=== PATIENT | female | born 1935 | race Caucasian/White ===

== ENCOUNTER → 2016-07-08 | Outpatient (CLI) | payer MEDICARE ==
--- NOTE | 2016-07-08 13:10 | US ---
EXAMINATION TYPE: US thyroid st tissue head/neck DATE OF EXAM: 07/08/2016 12:01 PM COMPARISON: NONE CLINICAL HISTORY: dysphagia, fatigue, hair loss GLAND SIZE: Right Lobe: 4.6 x 2.0 x 1.7 cm Overall Parenchyma: homogenous Left Lobe: 3.9 x 1.4 x 1.2 cm Overall Parenchyma: homogeneous Isthmus Thickness: 0.6 cm NODULES RIGHT: # of nodules measured on right: 1 1. 0.3 X 0.3 x 0.3 cm mixed nodule at the mid pole with well-defined margins; . This nodule is wid er than tall and shows no intranodular vascularity. Prior size: no prior LEFT: # of nodules measured on left: 0 ISTHMUS: # of nodules measured in the isthmus: 0 IMPRESSION: Small subcentimeter thyroid nodule right lobe of the gland
== END | disposition home or self-care (01) ==
LOC: RADUSWWP 11:30
PROVIDERS: ATTEND Family Medicine
DX: E04.1 Nontoxic single thyroid nodule (principal)
CPT/HCPCS: 76536

== ENCOUNTER → 2016-07-08 | Outpatient (CLI) | payer MEDICARE ==
[2016-07-08 11:51] LABS: Blood Urea Nitrogen 21 mg/dL (7-17); Non-African American GFR(MDRD) >60 (>60 ml/min/1.73 sqM)
--- NOTE | 2016-07-08 13:44 | CT ---
EXAMINATION TYPE: CT abdomen pelvis w con DATE OF EXAM: 07/08/2016 1:06 PM COMPARISON: NONE INDICATION: dysphagia, pain DLP: 565.8 mGycm, Automated exposure control for dose reduction was used. CONTRAST: 100 mL of Omnipaque 300. Study performed with Oral Contrast TECHNIQUE: Axial images were obtained from above the diaphragm to the pubic rami in the axial plane a t 5 mm thick sections. Reconstructed images are reviewed on the computer in the coronal plane. FINDINGS: Limited CT sections are obtained the lung bases. The lung bases are clear. Large hernia is present . 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 Coronary artery calcifications present. CT ABDOMEN: Liver: Normal Spleen: Normal Pancreas: Normal Adrenal glands: The adrenal glands are normal. Gallbladder: Surgically absent Kidneys: No masses are evident. No hydronephrosis is present. No cysts are present. Delayed images were obtained through the kidneys, which remain unremarkable. Aorta: Vascular calcification is within the aorta. Inferior vena cava: Normal. CT PELVIS: Loops of bowel within the abdomen and pelvis are normal. There are loops of bowel which are incom pletely distended or lack oral contrast limiting their evaluation. Appendix: Not identified Urinary bladder: Normal. Genitourinary structures: Uterus and ovaries are not identified. Osseous structures: No suspicious lytic or sclerotic lesions. IMPRESSIONS: 1. Herniation of stomach into the thorax. This large herniation may have the gastroesophageal juncti on near its normal location suggesting paraesophageal hernia within the differential.
== END | disposition home or self-care (01) ==
LOC: RADCTMAIN 10:58
PROVIDERS: ATTEND Surgery Plastic and Reconstructive Surgery
DX: K43.9 Ventral hernia without obstruction or gangrene (principal)
CPT/HCPCS: 82565; 84520; 74177; 36415; Q9967; 76536

== ENCOUNTER 2016-07-22 23:28 | Emergency (ER) | payer MEDICARE ==
[2016-07-23] MEDS ORDERED: SODIUM CHLORIDE 0.9% 1,000 ML IV STA (00:23)
[2016-07-23] MEDS ORDERED: hydrALAZINE HCL 20 MG/ML 1 ML VIAL IVP STA (00:24)
[2016-07-23] MEDS ORDERED: LORazepam 2 MG/ML SYRINGE IV STA (00:24)
--- NOTE | 2016-07-23 00:26 | ED ---
General Adult HPI - General Chief complaint: Recheck/Abnormal Lab/Rx Stated complaint: blood pressure Time Seen by Provider: 07/22/16 23:50 Source: patient, RN notes reviewed, old records reviewed Mode of arrival: wheelchair Limitations: no limitations - History of Present Illness Initial comments: This is a 80-year-old female here for evaluation. This patient comes in for evaluation of uncontrolled blood pressure. Patient denies any symptoms, does have history of heart disease with stent and history of high blood pressure, patient's been taking blood pressure medication as prescribed. Patient going to severe stress in her life right now, of her brother and her sons going to some heart issues himself. Patient denies chest pressure as of breath, no neck pain no headache no abdominal pain. She sutures blood pressure just running high at night when she checks it and continues to go up. Patient states her highest blood pressure today was systolic 220/120 diastolic. - Related Data Home Medications Medication Instructions Recorded Confirmed Aspirin EC [Ecotrin Low Dose] 81 mg PO DAILY 07/22/16 07/22/16 Atorvastatin [Lipitor] 20 mg PO SUMOWEFR 07/22/16 07/22/16 Cholecalciferol [Vitamin D3] 400 unit PO DAILY@1200 07/22/16 07/22/16 Clopidogrel [Plavix] 75 mg PO DAILY 07/22/16 07/22/16 Cyanocobalamin [Vitamin B-12] 500 mcg PO DAILY 07/22/16 07/22/16 Lisinopril [Zestril] 20 mg PO DAILY 07/22/16 07/22/16 Magnesium Gluconate [Magonate] 500 mg PO DAILY 07/22/16 07/22/16 Metoprolol Tartrate 25 mg PO BID 07/22/16 07/22/16 amLODIPine [Norvasc] 5 mg PO HS 07/22/16 07/22/16 Allergies Allergy/AdvReac Type Severity Reaction Status Date / Time hydromorphone [From Dilaudid] Allergy Altered Verified 07/22/16 23:44 Mental Status Penicillins Allergy Swelling Verified 07/22/16 23:44 acetaminophen [From [place]] AdvReac Nausea & Verified 07/22/16 23:44 Vomiting hydrocodone [From [place]] AdvReac Nausea & Verified 07/22/16 23:44 Vomiting Review of Systems ROS Statement: Those systems with pertinent positive or pertinent negative responses have been documented in the HPI. ROS Other: All systems not noted in ROS Statement are negative. Past Medical History Past Medical History: Coronary Artery Disease (CAD), Chest Pain / Angina, Hypertension, Myocardial Infarction ([place]) Additional Past Medical History / Comment(s): Bowel/bladder fistula; Bowel obstruction (due to adhesions); frequent urinary tract infection; Lichen sclerosis History of Any Multi-Drug Resistant Organisms: None Reported Past Surgical History: Bladder Surgery, Bowel Resection, Cholecystectomy, Heart Catheterization With Stent, Hernia Repair Additional Past Surgical History / Comment(s): Cataract surgery bilateral Past Psychological History: No Psychological Hx Reported Smoking Status: Never smoker Past Alcohol Use History: None Reported Past Drug Use History: None Reported General Exam Limitations: no limitations General appearance: anxious Head exam: Present: atraumatic, normocephalic, normal inspection Eye exam: Present: normal appearance, PERRL, EOMI. Absent: scleral icterus, conjunctival injection, periorbital swelling ENT exam: Present: normal exam, mucous membranes moist Neck exam: Present: normal inspection. Absent: tenderness, meningismus, lymphadenopathy Respiratory exam: Present: normal lung sounds bilaterally. Absent: respiratory distress, wheezes, rales, rhonchi, stridor Cardiovascular Exam: Present: regular rate, normal rhythm, normal heart sounds. Absent: systolic murmur, diastolic murmur, rubs, gallop, clicks GI/Abdominal exam: Present: soft, normal bowel sounds. Absent: distended, tenderness, guarding, rebound, rigid Extremities exam: Present: normal inspection, full ROM, normal capillary refill. Absent: tenderness, pedal edema, joint swelling, calf tenderness Back exam: Present: normal inspection Neurological exam: Present: alert, oriented X3, CN II-XII intact Psychiatric exam: Present: normal affect, normal mood Skin exam: Present: warm, dry, intact, normal color. Absent: rash Course Vital Signs 07/22/16 23:37 Temperature 98.3 F Pulse Rate 72 Respiratory 18 Rate Blood Pressure 179/88 O2 Sat by Pulse 98 Oximetry - Reevaluation(s) Reevaluation #1: 07/23/16 00:25 Blood pressure is improved with medication and anxiolysis EKG Findings - EKG Comments: EKG Findings:: EKG shows sinus rhythm rate of 65, pO2 10, QRS 78, QTC 457 Medical Decision Making - Medical Decision Making 80 female year with increased stress and grief reaction, increased blood pressure, patient will be given anxiolysis for home, to follow-up with Dr. Long for further evaluation of blood pressure Disposition Clinical Impression: Anxiety, Grief reaction, Hypertension, uncontrolled Disposition: HOME SELF-CARE Condition: Good Instructions: Hypertension (ED), Grief and Loss (ED) Referrals: Leonardo Rodrigez Jr, DO [Primary Care Provider] - 1-2 days
[2016-07-23 00:45] VITALS: RESP 16
[2016-07-23 00:54] LABS: Basophils # (A) 0.1 k/uL (0-0.2); Basophils % (A) 2 %; CH 31.2; CHCM 35.1; Eosinophils # (A) 0.2 k/uL (0-0.7); Eosinophils % (A) 2 %; HCT 43.9 % (34.0-46.0); HDW 2.98; HGB 14.8 gm/dL (11.4-16.0); Luc # (Auto) 0.11; Luc % (Auto) 1; Lymphocytes # (A) 1.6 k/uL (1.0-4.8); Lymphocytes % (A) 19 %; MCH 30.1 pg (25.0-35.0); MCHC 33.7 g/dL (31.0-37.0); MCV 89.2 fL (80.0-100.0); Mean Platelet Volume 7.6; Monocytes # (A) 0.6 k/uL (0-1.0); Monocytes % (A) 7 %; Neutrophils # (A) 5.5 k/uL (1.3-7.7); Neutrophils % (A) 68 %; RBC 4.92 m/uL (3.80-5.40); RDW 13.7 % (11.5-15.5); WBC (Perox) 8.02
[2016-07-23 01:04] LABS: ALT 31 U/L (9-52); AST 29 U/L (14-36); Alkaline Phosphatase 106 U/L (38-126); Anion Gap 14 mmol/L; Blood Urea Nitrogen 15 mg/dL (7-17); Calcium 9.8 mg/dL (8.4-10.2); Carbon Dioxide 24 mmol/L (22-30); Chloride 106 mmol/L (98-107); Glucose 118 mg/dL (74-99); Magnesium 1.7 mg/dL (1.6-2.3); Non-African American GFR(MDRD) >60 (>60 ml/min/1.73 sqM); Phosphorous 3.8 mg/dL (2.5-4.5); Potassium 4.1 mmol/L (3.5-5.1); Sodium 144 mmol/L (137-145); Total Protein 7.1 g/dL (6.3-8.2)
[2016-07-23 03:57] VITALS: BP 104/55; PULSE 66; TEMP 97.2
== END 2016-07-23 04:09 | disposition home or self-care (01) ==
LOC: EC 23:28
DX: F43.22 Adjustment disorder with anxiety (principal); I10 Essential (primary) hypertension; I25.10 Atherosclerotic heart disease of native coronary artery without angina pectoris; I25.2 Old myocardial infarction; Z79.82 Long term (current) use of aspirin; Z79.899 Other long term (current) drug therapy; Z79.02 Long term (current) use of antithrombotics/antiplatelets; Z88.0 Allergy status to penicillin; Z88.5 Allergy status to narcotic agent; Z88.6 Allergy status to analgesic agent; Z95.5 Presence of coronary angioplasty implant and graft
CPT/HCPCS: 36415; 93005; 80053; 83735; 84100; 84484; 85025; 99284; 96361 ×2; 96375; 96374; J2060; J0360

== ENCOUNTER 2019-06-13 22:26 | Observation (INO) | payer MEDICARE ==
[2019-06-13] MEDS ORDERED: LABETALOL 5 MG/ML VIAL MDV IVP STA (23:05)
[2019-06-13] MEDS ORDERED: SODIUM CHLORIDE 0.9% 1,000 ML IV STA (23:06)
[2019-06-13 23:26] LABS: Basophils # (A) 0.1 k/uL (0-0.2); Basophils % (A) 1 %; Eosinophils # (A) 0.2 k/uL (0-0.7); Eosinophils % (A) 3 %; HCT 43.1 % (34.0-46.0); HGB 14.2 gm/dL (11.4-16.0); Lymphocytes # (A) 1.4 k/uL (1.0-4.8); Lymphocytes % (A) 21 %; MCH 30.3 pg (25.0-35.0); MCHC 33.1 g/dL (31.0-37.0); MCV 91.6 fL (80.0-100.0); Mean Platelet Volume 7.9; Monocytes # (A) 0.4 k/uL (0-1.0); Monocytes % (A) 6 %; Neutrophils # (A) 4.6 k/uL (1.3-7.7); Neutrophils % (A) 68 %; Platelet Count 302 k/uL (150-450); RBC 4.71 m/uL (3.80-5.40); RDW 13.8 % (11.5-15.5); WBC 6.8 k/uL (3.8-10.6)
--- NOTE | 2019-06-13 23:27 | ED ---
General Adult HPI - General Chief complaint: Recheck/Abnormal Lab/Rx Stated complaint: High Blood Pressure Time Seen by Provider: 06/13/19 22:34 Source: patient, EMS Mode of arrival: EMS - History of Present Illness Initial comments: Dictation was produced using [employer] dictation software. please excuse any grammatical, word or spelling errors. Chief Complaint: 83-year-old female with past medical history of hypertension, coronary artery disease presents today with elevated blood pressure. History of Present Illness: 83-year-old female she states she's been having several days of elevated blood pressure. Patient continued to the emergency department because she does not know what else to do. She does have a history of hypertension. Patient is currently prescribed lisinopril and amlodipine. She states she does not have anyone in particular that spent managing her blood pressure. She tried calling optical manufacturing technician who instructed her to take a little extra of her blood pressure meds. She states that it helped temporarily however increased again. He does not have any follow-up appointments because she is not able to make these limits given transportation and financial issues. Patient denies any headache. Denies any strokelike symptoms. No chest pain or shortness of breath. The ROS documented in this emergency department record has been reviewed and confirmed by me. Those systems with pertinent positive or negative responses have been documented in the HPI. All other systems are other negative and/or noncontributory. PHYSICAL EXAM: General Impression: Alert and oriented x3, not in acute distress HEENT: Normocephalic atraumatic, extra-ocular movements intact, pupils equal and reactive to light bilaterally, mucous membranes moist. Cardiovascular: Heart regular rate and rhythm, S1&S2 audible, no murmurs, rubs or gallops Chest: Lungs clear to auscultation bilaterally, no rhonchi, no wheeze, no rales Abdomen: Bowel sounds present, abdomen soft, non-tender, non-distended, no organomegaly Musculoskeletal: Pulses present and equal in all extremities, no peripheral edema Motor: no focal deficits noted Neurological: CN II-XII grossly intact, no focal motor or sensory deficits noted Skin: Intact with no visualized rashes Psych: Normal affect and mood ED course: 83-year-old female presents chief complaint of hypertension. All signs upon arrival shows blood pressure 207/119. Patient does not know when she last had a normal blood pressure. Physical examination is benign. Laboratory evaluation obtained. CBC, coag panel, metabolic panel is unremarkable. Magnesium level hours 1.5. Patient given. Internal magnesium. Repeat blood pressures were obtained after labetalol and magnesium administration with improvement to 176/92. Given patient's poor social situation I believe she would benefit from observation admission for adjusting of blood pressure meds and outpatient plan. woolen mill utility worker also consulted. Discussed patient case with Dr. Pagan who is willing to accept patients care. EKG interpretation: Ventricular rate 76, sinus rhythm,. Interval to 24, Q 76, QTC 486. No CO prolongation, no QTC prolongation, no ST or T-wave changes noted. EKG compared to 07/22/2016 showing no changes. Overall, this EKG is unremarkable - Related Data Home Medications Medication Instructions Recorded Confirmed Aspirin EC [Ecotrin Low Dose] 81 mg PO DAILY 07/22/16 06/13/19 Lisinopril [Zestril] 20 mg PO DAILY 07/22/16 06/13/19 Cholecalciferol (Vitamin D3) 2,000 unit PO DAILY 06/13/19 06/13/19 [Vitamin D3] Cyanocobalamin (Vitamin B-12) 1,000 mcg PO DAILY 06/13/19 06/13/19 [Vitamin B-12] Ergocalciferol [Vitamin D2 50,000 unit PO TH 06/13/19 06/13/19 (DRISDOL)] Furosemide [Lasix] 40 mg PO DAILY PRN 06/13/19 06/13/19 Metoprolol Tartrate [Lopressor] 50 mg PO BID 06/13/19 06/13/19 Allergies Allergy/AdvReac Type Severity Reaction Status Date / Time Penicillins Allergy Swelling Verified 06/13/19 23:14 acetaminophen [From [place]] AdvReac Nausea & Verified 06/13/19 23:14 Vomiting hydrocodone [From [place]] AdvReac Nausea & Verified 06/13/19 23:14 Vomiting hydromorphone [From Dilaud[place]] AdvReac Altered Verified 06/13/19 23:14 Mental Status lorazepam [From [place]] AdvReac Confusion Verified 06/13/19 23:14 Review of Systems ROS Statement: Those systems with pertinent positive or pertinent negative responses have been documented in the HPI. ROS Other: All systems not noted in ROS Statement are negative. Past Medical History Past Medical History: Coronary Artery Disease (CAD), Chest Pain / Angina, Hypertension, Myocardial Infarction ([place]) Additional Past Medical History / Comment(s): Bowel/bladder fistula; Bowel obstruction (due to adhesions); frequent urinary tract infection; Lichen sclerosis History of Any Multi-Drug Resistant Organisms: None Reported Past Surgical History: Bladder Surgery, Bowel Resection, Cholecystectomy, Heart Catheterization With Stent, Hernia Repair Additional Past Surgical History / Comment(s): Cataract surgery bilateral Past Psychological History: No Psychological Hx Reported Smoking Status: Never smoker Past Alcohol Use History: None Reported Past Drug Use History: None Reported Course Vital Signs 06/13/19 06/13/19 06/13/19 22:29 23:30 23:50 Temperature 97.0 F L Pulse Rate 67 66 56 L Respiratory 18 19 18 Rate Blood Pressure 207/119 202/88 176/92 O2 Sat by Pulse 98 99 98 Oximetry Medical Decision Making - Lab Data Result diagrams: 06/13/19 23:15 06/13/19 23:15 Lab Results 06/13/19 06/13/19 06/13/19 Range/Units 23:15 23:15 23:15 WBC 6.8 (3.8-10.6) k/uL RBC 4.71 (3.80-5.40) m/uL Hgb 14.2 (11.4-16.0) gm/dL Hct 43.1 (34.0-46.0) % MCV 91.6 (80.0-100.0) fL MCH 30.3 (25.0-35.0) pg MCHC 33.1 (31.0-37.0) g/dL RDW 13.8 (11.5-15.5) % Plt Count 302 (150-450) k/uL Neutrophils % 68 % Lymphocytes % 21 % Monocytes % 6 % Eosinophils % 3 % Basophils % 1 % Neutrophils # 4.6 (1.3-7.7) k/uL Lymphocytes # 1.4 (1.0-4.8) k/uL Monocytes # 0.4 (0-1.0) k/uL Eosinophils # 0.2 (0-0.7) k/uL Basophils # 0.1 (0-0.2) k/uL PT 10.3 (9.0-12.0) sec INR 1.0 (<1.2) APTT 24.9 (22.0-30.0) sec Sodium 142 (137-145) mmol/L Potassium 4.0 (3.5-5.1) mmol/L Chloride 110 H (98-107) mmol/L Carbon Dioxide 24 (22-30) mmol/L Anion Gap 8 mmol/L BUN 13 (7-17) mg/dL Creatinine 0.70 (0.52-1.04) mg/dL Est GFR (CKD-EPI)AfAm >90 (>60 ml/min/1.73 sqM) Est GFR (CKD-EPI)NonAf 80 (>60 ml/min/1.73 sqM) Glucose 112 H (74-99) mg/dL Calcium 9.3 (8.4-10.2) mg/dL Magnesium 1.5 L (1.6-2.3) mg/dL Disposition Clinical Impression: Hypertension Disposition: ADMITTED IP TO THIS HOSP Condition: Fair Referrals: Leonardo Rodrigez Jr, [Primary Care Provider] - 1-2 days Decision Time: 00:04
[2019-06-13 23:34] LABS: Partial Thromboplastin Time 24.9 sec (22.0-30.0); Prothrombin Time 10.3 sec (9.0-12.0)
[2019-06-13 23:35] LABS: African American GFR (CKD) >90 (>60 ml/min/1.73 sqM); Anion Gap 8 mmol/L; Blood Urea Nitrogen 13 mg/dL (7-17); Calcium 9.3 mg/dL (8.4-10.2); Carbon Dioxide 24 mmol/L (22-30); Chloride 110 mmol/L (98-107); Glucose 112 mg/dL (74-99); Magnesium 1.5 mg/dL (1.6-2.3); Non-African American GFR(CKD) 80 (>60 ml/min/1.73 sqM); Sodium 142 mmol/L (137-145)
[2019-06-13] MEDS: MAGNESIUM SULFATE-D5W PMX 1 GM in DEXTROSE/WATER 1 100ML.BAG IVPB SCH (23:49)
[2019-06-14] MEDS ORDERED: NALOXONE 0.4 MG/ML 1 ML VIAL IV PRN
--- NOTE | 2019-06-14 00:08 | XR ---
EXAMINATION TYPE: XR chest 2V DATE OF EXAM: 06/13/2019 COMPARISON: NONE HISTORY: Hypertension TECHNIQUE: 2 views FINDINGS: There is no heart failure nor confluent pneumonic infiltrate. There is hiatal hernia. Heart size is normal. Costophrenic angles are clear. Thoracic aorta is atheromatous. IMPRESSION: No active cardiopulmonary disease. Hiatal hernia.
[2019-06-14] MEDS: SODIUM CHLORIDE 0.9% 1,000 ML IV SCH ×2 (01:01→23:25)
[2019-06-14] MEDS: MAGNESIUM SULFATE-D5W PMX 1 GM in DEXTROSE/WATER 1 100ML.BAG IVPB SCH (01:01)
[2019-06-14] MEDS ORDERED: hydrALAZINE HCL 25 MG TAB PO STA (05:46)
[2019-06-14] MEDS: ASPIRIN 81 MG PO SCH (07:56)
[2019-06-14] MEDS: METOPROLOL TARTRATE 50 MG TAB PO SCH ×3 (07:56→20:02)
[2019-06-14] MEDS: LISINOPRIL 10 MG TAB PO SCH (07:56)
--- NOTE | 2019-06-14 08:20 | P.CRDCN ---
History of Present Illness Consult date: 06/14/19 Chief complaint: Elevated blood pressure/dizziness History of present illness: This is a very pleasant 83-year-old female patient who sees Dr. De Santiago in the office on regular basis with a past medical history significant for coronary artery disease and multiple coronary stenting in the past, hypertension, dyslipidemia, and the placenta diagnosed as of GI bleeding, was brought to the hospital by her son because she has not been feeding well. For the last 2 weeks, she has noticed increasing in her blood pressure. [place] a [place] hospital [place] with elevated blood pressure and at that point her medications were adjusted and she was discharged from the ER same day. Her pressure came down only for one day then started increasing again. Currently she is on lisinopril 20 mg by mouth daily and also she is on metoprolol 50 mg by mouth twice a day. She states that she has been very compliant with her medications and take them every day regularly. In terms of diet consult, she stated that she was not very compliant. Lately she has been consuming came to [employer]. When the patient presented to the emergency room her systolic blood pressure was 180 mmHg. The blood pressure continues to be elevated throughout her hospital stay. Clinically she denies any symptoms of chest pain or chest discomfort but she has been noticing increasing in the dizziness and lightheadedness without any syncope. No shortness of breath. No feeling of heart racing or fluttering. The EKG showed sinus rhythm without any significant ST or T-wave abnormalities. The cardiac enzymes were checked and came in to be unremarkable. The chest x-ray did not show any acute abnormalities. Past Medical History Past Medical History: Coronary Artery Disease (CAD), Chest Pain / Angina, Hypertension, Myocardial Infarction ([place]) Additional Past Medical History / Comment(s): Bowel/bladder fistula; Bowel obstruction (due to adhesions); frequent urinary tract infection; Lichen sclerosis Last Myocardial Infarction Date:: 2011 History of Any Multi-Drug Resistant Organisms: None Reported Past Surgical History: Bladder Surgery, Bowel Resection, Cholecystectomy, Heart Catheterization With Stent, Hernia Repair Additional Past Surgical History / Comment(s): Cataract surgery bilateral Past Anesthesia/Blood Transfusion Reactions: No Reported Reaction Date of Last Stent Placement:: 2011 Past Psychological History: No Psychological Hx Reported Smoking Status: Never smoker Past Alcohol Use History: None Reported Past Drug Use History: None Reported - Past Family History Mother Family Medical History: CVA/TIA Father Family Medical History: Congestive Heart Failure (CHF) Medications and Allergies Home Medications Medication Instructions Recorded Confirmed Type Aspirin EC [Ecotrin Low Dose] 81 mg PO DAILY 07/22/16 06/13/19 History Lisinopril [Zestril] 20 mg PO DAILY 07/22/16 06/13/19 History Cholecalciferol (Vitamin D3) 2,000 unit PO DAILY 06/13/19 06/13/19 History [Vitamin D3] Cyanocobalamin (Vitamin B-12) 1,000 mcg PO DAILY 06/13/19 06/13/19 History [Vitamin B-12] Ergocalciferol [Vitamin D2 50,000 unit PO TH 06/13/19 06/13/19 History (DRISDOL)] Furosemide [Lasix] 40 mg PO DAILY PRN 06/13/19 06/13/19 History Metoprolol Tartrate [Lopressor] 50 mg PO BID 06/13/19 06/13/19 History Allergies Allergy/AdvReac Type Severity Reaction Status Date / Time Penicillins Allergy Swelling Verified 06/13/19 23:14 acetaminophen [From [place]] AdvReac Nausea & Verified 06/13/19 23:14 Vomiting hydrocodone [From [place]] AdvReac Nausea & Verified 06/13/19 23:14 Vomiting hydromorphone [From Dilaudid] AdvReac Altered Verified 06/13/19 23:14 Mental Status lorazepam [From At[place]] AdvReac Confusion Verified 06/13/19 23:14 Physical Exam Vitals: Vital Signs Temp Pulse Pulse Resp BP BP Pulse Ox 06/14/19 08:03 97.6 F 64 18 194/95 99 06/14/19 07:32 97.6 F 66 18 193/98 99 06/14/19 05:58 186/92 06/14/19 05:08 98.2 F 65 18 180/92 99 06/14/19 03:37 68 18 196/87 100 06/14/19 00:41 60 18 177/88 98 06/13/19 23:50 56 L 18 176/92 98 06/13/19 23:30 66 19 202/88 99 06/13/19 22:29 97.0 F L 67 18 207/119 98 Intake and Output 06/13/19 06/14/19 06/14/19 22:59 06:59 14:59 Other: Weight 61.689 kg 61.689 kg - Constitutional General appearance: no acute distress - Respiratory Respiratory: bilateral: CTA - Cardiovascular Rhythm: regular Heart sounds: normal: S1, S2 Abnormal Heart Sounds: systolic murmur Results 06/13/19 23:15 06/13/19 23:15 Coagulation 06/13/19 Range/Units 23:15 PT 10.3 (9.0-12.0) sec APTT 24.9 (22.0-30.0) sec CBC 06/13/19 Range/Units 23:15 WBC 6.8 (3.8-10.6) k/uL RBC 4.71 (3.80-5.40) m/uL Hgb 14.2 (11.4-16.0) gm/dL Hct 43.1 (34.0-46.0) % Plt Count 302 (150-450) k/uL Comprehensive Metabolic Panel 06/13/19 Range/Units 23:15 Sodium 142 (137-145) mmol/L Potassium 4.0 (3.5-5.1) mmol/L Chloride 110 H (98-107) mmol/L Carbon Dioxide 24 (22-30) mmol/L BUN 13 (7-17) mg/dL Creatinine 0.70 (0.52-1.04) mg/dL Glucose 112 H (74-99) mg/dL Calcium 9.3 (8.4-10.2) mg/dL Current Medications Generic Name Dose Route Start Last Admin Trade Name Freq PRN Reason Stop Dose Admin Aspirin 81 mg 06/14/19 09:00 06/14/19 07:56 Aspirin PO 81 mg DAILY JOSE ENRIQUE Administration Hydrochlorothiazide 25 mg 06/14/19 09:00 Hydrodiuril PO DAILY JOSE ENRIQUE Sodium Chloride 1,000 mls @ 20 mls/hr 06/14/19 00:00 06/14/19 01:01 Saline 0.9% IV 20 mls/hr .Q24H JOSE ENRIQUE Administration Lisinopril 30 mg 06/14/19 09:00 06/14/19 07:56 Zestril PO 30 mg DAILY JOSE ENRIQUE Administration Metoprolol Tartrate 50 mg 06/14/19 07:00 06/14/19 08:11 Lopressor PO Not Given BID JOSE ENRIQUE Naloxone HCl 0.2 mg 06/14/19 00:00 Narcan IV Q2M PRN Opioid Reversal Intake and Output 06/13/19 06/14/19 06/14/19 22:59 06:59 14:59 Other: Weight 61.689 kg 61.689 kg Patient Weight 06/15/19 06:59 Weight 61.689 kg 06/13/19 23:15 06/13/19 23:15 Assessment and Plan Assessment: Assessment #1 hypertension emergency #2 coronary artery disease seems to be stable #3 dyslipidemia #4 history of GI bleeding Plan #1 increase the dose of lisinopril to 30 mg by mouth daily #2 add hydrochlorothiazide to the current medical regimen #4 continue the current dose of metoprolol at 50 mg twice a day. We'll, increase the dose because she is bradycardic #5 obtain an echocardiogram was Doppler #6 monitor the patient for next 24 hours at the observational unit. Thank you for allowing us participate in her care
[2019-06-14] MEDS: HYDROCHLOROTHIAZIDE 25 MG TAB PO SCH (08:55)
[2019-06-14] MEDS ORDERED: LISINOPRIL 20 MG TAB PO SCH (09:00)
[2019-06-14] MEDS ORDERED: METOPROLOL TARTRATE 50 MG TAB PO SCH (09:00)
--- NOTE | 2019-06-14 12:00 | ECHOF ---
Referral Reason:HTN MEASUREMENTS -------- HEIGHT: 170.2 cm WEIGHT: 61.7 kg BP: 194/95 RVIDd: 2.9 cm (< 3.3) IVSd: 1.6 cm (0.6 - 1.1) LVIDd: 2.8 cm (3.9 - 5.3) LVPWd: 1.3 cm (0.6 - 1.1) IVSs: 2.1 cm LVIDs: 1.6 cm LVPWs: 1.9 cm LAESV Index (A-L): 34.46 ml/m Ao Diam: 3.1 cm (2.0 - 3.7) AV Cusp: 1.3 cm (1.5 - 2.6) MV E Joel: 0.64 m/s MV DecT: 363 ms MV A Joel: 0.72 m/s MV E/A Ratio: 0.89 AV maxP.01 mmHg AV meanP.65 mmHg RAP: 5.00 mmHg RVSP: 39.63 mmHg FINDINGS -------- Sinus rhythm. This was a technically adequate study. The left ventricular size is normal. There is moderate concentric left ventricular hypertrophy. O verall left ventricular systolic function is normal with, an EF between 60 - 65 %. Both the mean at rial pressure as well as the LV end diastolic pressure is elevated {E/E'}. The right ventricle is normal in size. LA is moderately dilated 34-39 ml/m2 The right atrial size is normal. Interatrial and interventricular septum intact. There is no evidence of aortic regurgitation. There is mild aortic stenosis present. Peak/mean gr adient across the Aortic Valve is 23.01mmHg / 11.65mmHg. Mild mitral annular calcification present. Moderate mitral regurgitation is present. [id number] tricuspid regurgitation present. There is mild pulmonary hypertension. The right ventricular systolic pressure, as measured by Doppler, is 39.63mmHg. There is no pulmonic regurgitation present. The aortic root size is normal. IVC Not well visulized. There is no pericardial effusion. CONCLUSIONS -------- 1. Sinus rhythm. 2. This was a technically adequate study. 3. The left ventricular size is normal. 4. There is moderate concentric left ventricular hypertrophy. 5. Overall left ventricular systolic function is normal with, an EF between 60 - 65 %. 6. Both the mean atrial pressure as well as the LV end diastolic pressure is elevated {E/E'}. 7. The right ventricle is normal in size. 8. LA is moderately dilated 34-39 ml/m2 9. The right atrial size is normal. 10. Interatrial and interventricular septum intact. 11. There is no evidence of aortic regurgitation. 12. There is mild aortic stenosis present. 13. Peak/mean gradient across the Aortic Valve is 23.01mmHg / 11.65mmHg. 14. Mild mitral annular calcification present. 15. Moderate mitral regurgitation is present. 16. [id number] tricuspid regurgitation present. 17. There is mild pulmonary hypertension. 18. The right ventricular systolic pressure, as measured by Doppler, is 39.63mmHg. 19. There is no pulmonic regurgitation present. 20. The aortic root size is normal. 21. IVC Not well visulized. 22. There is no pericardial effusion. RECOVERY OPERATOR: Alicia Peterson RDCS
[2019-06-14] MEDS: amLODIPine 5 MG TAB PO SCH (13:51)
[2019-06-14] MEDS ORDERED: Magnesium Replacement Protocol 1 EACH MISC MISCELLANE PRN (14:58)
--- NOTE | 2019-06-14 15:16 | P.HPIM ---
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 systolic blood pressure on admission 207/119, heart rate 67.. Afebrile. EKG reporting sinus rhythm with first-degree AV block with PACs. potassium 4, magnesium 1.5. troponins pending.Chest x-ray reported as nonacute,hiatal hernia, thoracic aorta atheromatous. Evaluated by cardiology with medications adjusted. Echo reporting normal LV function, EF 60-65%,moderately dilated LA, moderate mitral regurgitation, [id number] tricuspid regurgitation, pulmonary hypertension. Review of Systems ROS Statement: Those systems with pertinent positive or pertinent negative responses have been documented in the HPI. ROS Other: All systems not noted in ROS Statement are negative. Past Medical History Past Medical History: Coronary Artery Disease (CAD), Chest Pain / Angina, Hypertension, Myocardial Infarction (IA) Additional Past Medical History / Comment(s): Bowel/bladder fistula; Bowel obstruction (due to adhesions); frequent urinary tract infection; Lichen scl erosis Last Myocardial Infarction Date:: 2011 History of Any Multi-Drug Resistant Organisms: None Reported Past Surgical History: Bladder Surgery, Bowel Resection, Cholecystectomy, Heart Catheterization With Stent, Hernia Repair Additional Past Surgical History / Comment(s): Cataract surgery bilateral Past Anesthesia/Blood Transfusion Reactions: No Reported Reaction Date of Last Stent Placement:: 2011 Past Psychological History: No Psychological Hx Reported Smoking Status: Never smoker Past Alcohol Use History: None Reported Past Drug Use History: None Reported - Past Family History Mother Family Medical History: CVA/TIA Father Family Medical History: Congestive Heart Failure (CHF) Medications and Allergies Home Medications Medication Instructions Recorded Confirmed Type Aspirin EC [Ecotrin Low Dose] 81 mg PO DAILY 07/22/16 06/13/19 History Lisinopril [Zestril] 20 mg PO DAILY 07/22/16 06/13/19 History Cholecalciferol (Vitamin D3) 2,000 unit PO DAILY 06/13/19 06/13/19 History [Vitamin D3] Cyanocobalamin (Vitamin B-12) 1,000 mcg PO DAILY 06/13/19 06/13/19 History [Vitamin B-12] Ergocalciferol [Vitamin D2 50,000 unit PO TH 06/13/19 06/13/19 History (DRISDOL)] Furosemide [Lasix] 40 mg PO DAILY PRN 06/13/19 06/13/19 History Metoprolol Tartrate [Lopressor] 50 mg PO BID 06/13/19 06/13/19 History Allergies Allergy/AdvReac Type Severity Reaction Status Date / Time Penicillins Allergy Swelling Verified 06/13/19 23:14 acetaminophen [From [place]] AdvReac Nausea & Verified 06/13/19 23:14 Vomiting hydrocodone [From [place]] AdvReac Nausea & Verified 06/13/19 23:14 Vomiting hydromorphone [From Dilaudid] AdvReac Altered Verified 06/13/19 23:14 Mental Status lorazepam [From Ativan] AdvReac Confusion Verified 06/13/19 23:14 Physical Exam Vitals: Vital Signs Temp Pulse Pulse Resp BP BP BP 06/14/19 12:18 97.8 F 60 18 192/83 06/14/19 11:49 97.6 F 56 L 18 167/88 06/14/19 11:21 56 L 18 167/88 06/14/19 08:03 97.6 F 64 18 194/95 06/14/19 07:32 97.6 F 66 18 193/98 06/14/19 05:58 186/92 06/14/19 05:08 98.2 F 65 18 180/92 06/14/19 03:37 68 18 196/87 06/14/19 00:41 60 18 177/88 06/13/19 23:50 56 L 18 176/92 06/13/19 23:30 66 19 202/88 06/13/19 22:29 97.0 F L 67 18 207/119 Pulse Ox 06/14/19 12:18 99 06/14/19 11:49 98 06/14/19 11:21 98 06/14/19 08:03 99 06/14/19 07:32 99 06/14/19 05:58 06/14/19 05:08 99 06/14/19 03:37 100 06/14/19 00:41 98 06/13/19 23:50 98 06/13/19 23:30 99 06/13/19 22:29 98 Intake and Output 06/13/19 06/14/19 06/14/19 22:59 06:59 14:59 Other: Voiding Method Toilet Bedside Commode Weight 61.689 kg 61.689 kg PHYSICAL EXAM: VITAL SIGNS: [as above] GENERAL: sitting up in chair, in no acute distress, teary-eyed HEENT: Conjunctivae normal. eyes normal. NECK: No JVD. No thyroid enlargement. No LNs CARDIOVASCULAR: S1, S2 regular.systolic murmur RESPIRATION: Breath sounds diminished in the bases. No rhonchi or crackles. No bronchial breathing. ABDOMEN: Soft, nontender . No guarding. no masses palpable. No ascites, No hepatosplenomegaly.Bowel sounds heard. LEGS: No edema. no swelling PSYCHIATRY: Alert and oriented X3, mood and affect normal. NERVOUS SYSTEM: Cranial N 2-12 grossly normal. Moves all 4 limbs. Diffuse weakness No focal deficits. Strength and sensation grossly intact.. Skin: no rash Lymphatic system. No LN neck axilla. Results CBC & Chem 7: 06/13/19 23:15 06/13/19 23:15 Labs: Abnormal Lab Results - Last 24 Hours (Table) 06/13/19 Range/Units 23:15 Chloride 110 H (98-107) mmol/L Glucose 112 H (74-99) mg/dL Magnesium 1.5 L (1.6-2.3) mg/dL Thrombosis Risk Factor Assmnt - Choose All That Apply Each Risk Factor Represents 3 Points: Age 75 years or older Thrombosis Risk Factor Assessment Total Risk Factor Score: 3 Thrombosis Risk Factor Assessment Level: Moderate Risk Assessment and Plan Assessment: Hypertensive Urgency in a patient with history of hypertension. EF 60-65%, Moderately dilated LA Moderate mitral regurgitation Mild to moderate tricuspid regurgitation Mild pulmonary hypertension mild aortic stenosis plan: Continue on current medication regime ,monitoring and symptomatic treatment. Continue antihypertensives as adjusted per cardiology.close monitoring of electrolytes, renal function with repeat labs ordered for a.m.case management/social work consulted regarding social issues-patient reports difficulty with transportation as well as financial regarding physcian visits. The impression and plan of care has been dictated as directed. : I performed a history and examination of this patient, discussed the same with the dictator. I agree with the dictator's note ,documented as a scribe. Any additional findings or plans will be noted.
[2019-06-14] MEDS ORDERED: amLODIPine 5 MG TAB PO STA (19:05)
[2019-06-14] MEDS: cloNIDine HCL 0.2 MG TAB PO SCH ×2 (20:02→23:24)
--- NOTE | 2019-06-15 07:19 | P.PN ---
Subjective Progress Note Date: 06/15/19 Principal diagnosis: hypertension emergency this is a very pleasant 83-year-old female patient with coronary artery disease as well as hypertension and dyslipidemia who was admitted to the hospital yesterday with hypertension emergency. At that point we did increase the dose of lisinopril to 30 mg by mouth daily as well as we added hydrochlorothiazide to her medical regimen. An echocardiogram was performed and revealed normal LV function with mild aortic stenosis and qvpy-nm-hqenocyn mitral regurgitation. She was seen this morning. She is asymptomatic from a cardiovascular standpoint of view. Overall she's feeling better clinically and the dizziness which was associated with elevated blood pressure has resolved. The blood pressure is better controlled on the current medical regimen. I did advise the patient to be compliant with her medications as well as her diet and she is going to be discharged home later on today and follow-up with Dr. De Santiago in the office as an outpatient Objective - Vital Signs Vital signs: Vital Signs Temp 97.7 F 06/15/19 04:00 Pulse 54 L 06/15/19 04:00 Resp 18 06/15/19 04:00 BP 107/64 06/15/19 04:00 Pulse Ox 97 06/15/19 04:00 Intake & Output 06/14/19 06/15/19 06/15/19 18:59 06:59 18:59 Weight 61.689 kg Other: Voiding Method Toilet Toilet Bedside Commode Bedside Commode # Voids 2 1 - Constitutional General appearance: Present: no acute distress - Respiratory Respiratory: bilateral: CTA - Cardiovascular Rhythm: regular Heart sounds: normal: S1, S2 Abnormal Heart Sounds: Present: systolic murmur - Labs CBC & Chem 7: 06/13/19 23:15 06/13/19 23:15 Assessment and Plan Assessment: Assessment #1 hypertension emergency #2 coronary artery disease seems to be stable #3 dyslipidemia #4 history of GI bleeding Plan #1 continue the current medical regimen #2 the patient can be discharged home
[2019-06-15] MEDS: cloNIDine HCL 0.2 MG TAB PO SCH (08:05)
[2019-06-15] MEDS: LISINOPRIL 10 MG TAB PO SCH (08:05)
[2019-06-15] MEDS: HYDROCHLOROTHIAZIDE 25 MG TAB PO SCH (08:05)
[2019-06-15] MEDS: amLODIPine 5 MG TAB PO SCH (08:06)
[2019-06-15] MEDS: METOPROLOL TARTRATE 50 MG TAB PO SCH ×2 (08:06→20:05)
[2019-06-15] MEDS: ASPIRIN 81 MG PO SCH (08:06)
[2019-06-15] MEDS ORDERED: SODIUM CHLORIDE 0.9% 1,000 ML IV SCH (11:15)
[2019-06-15] MEDS ORDERED: IBUPROFEN 600 MG TAB PO PRN (13:09)
--- NOTE | 2019-06-15 17:23 | P.PN ---
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 systolic blood pressure on admission 207/119, heart rate 67.. Afebrile. EKG reporting sinus rhythm with first-degree AV block with PACs. potassium 4, magn esium 1.5. troponins pending.Chest x-ray reported as nonacute,hiatal hernia, thoracic aorta atheromatous. Evaluated by cardiology with medications adjusted. Echo reporting normal LV function, EF 60-65%,moderately dilated LA, moderate mitral regurgitation, [id number]-vk-[id number] tricuspid regurgitation, pulmonary hypertension. 06/15/2019 hypotensive this morning, antihypertensives adjusted. Objective - Vital Signs Vital signs: Vital Signs Temp 97.5 F L 06/15/19 15:42 Pulse 55 L 06/15/19 16:00 Resp 18 06/15/19 16:00 BP 97/62 06/15/19 15:42 Pulse Ox 100 06/15/19 15:42 Intake & Output 06/14/19 06/15/19 06/15/19 18:59 06:59 18:59 Intake Total 476 Balance 476 Weight 61.689 kg Intake: Oral 476 Other: Voiding Method Toilet Toilet Toilet Bedside Commode Bedside Commode Bedside Commode Diaper # Voids 2 1 2 # Bowel Movements 1 - Exam VITAL SIGNS: [as above] GENERAL: sitting up in chair, in no acute distress HEENT: Conjunctivae normal. eyes normal. NECK: No JVD. No thyroid enlargement. No LNs CARDIOVASCULAR: S1, S2 regular.systolic murmur RESPIRATION: Breath sounds diminished in the bases. No rhonchi or crackles. No bronchial breathing. ABDOMEN: Soft, nontender . No guarding. no masses palpable. No ascites, No hepatosplenomegaly.Bowel sounds heard. LEGS: No edema. no swelling PSYCHIATRY: Alert and oriented X3, mood and affect normal. NERVOUS SYSTEM: Cranial N 2-12 grossly normal. Moves all 4 limbs. Diffuse weakness No focal deficits. Strength and sensation grossly intact.. Skin: no rash - Labs CBC & Chem 7: 06/13/19 23:15 06/13/19 23:15 Assessment and Plan Assessment: Hypertensive Urgency in a patient with history of hypertension. EF 60-65%, Moderately dilated LA Moderate mitral regurgitation Mild to moderate tricuspid regurgitation Mild pulmonary hypertension mild aortic stenosis plan: Continue on current medication regime ,monitoring and symptomatic treatment. Antihypertensives adjusted per cardiology.close monitoring overnight. Discharge planning in progress for a.m. The impression and plan of care has been dictated as directed. : I performed a history and examination of this patient, discussed the same with the dictator. I agree with the dictator's note ,documented as a scribe. Any additional findings or plans will be noted.
[2019-06-15] MEDS: SODIUM CHLORIDE 0.9% 1,000 ML IV SCH (23:14)
--- NOTE | 2019-06-16 07:20 | P.PN ---
Subjective Progress Note Date: 06/16/19 Principal diagnosis: hypertension emergency this is a very pleasant 83-year-old female patient with coronary artery disease as well as hypertension and dyslipidemia who was admitted to the hospital yesterday with hypertension emergency. At that point we did increase the dose of lisinopril to 30 mg by mouth daily as well as we added hydrochlorothiazide to her medical regimen. An echocardiogram was performed and revealed normal LV function with mild aortic stenosis and jhgn-qk-vkovvoqq mitral regurgitation. She was seen this morning. she is feeling better from the cardiovascular standpoint overview. Yesterday the blood pressure was down and she was symptomatic and because of that we kept her one more day. Today her blood pressure is within normal limits. She denies any chest pain or chest discomfort, shortness of breath, or any more episodes of dizziness and lig htheadedness or headache. From the cardiovascular standpoint of view, the patient can be discharged home. Objective - Vital Signs Vital signs: Vital Signs Temp 97.9 F 06/16/19 04:07 Pulse 53 L 06/16/19 04:07 Resp 17 06/16/19 04:07 BP 141/66 06/16/19 04:07 Pulse Ox 95 06/16/19 04:07 Intake & Output 06/15/19 06/16/19 06/16/19 18:59 06:59 18:59 Intake Total 476 Balance 476 Intake: Oral 476 Other: Voiding Method Toilet Toilet Bedside Commode Bedside Commode Diaper Diaper # Voids 2 1 # Bowel Movements 1 - Constitutional General appearance: Present: no acute distress - Respiratory Respiratory: bilateral: CTA - Cardiovascular Rhythm: regular Heart sounds: normal: S1, S2 Abnormal Heart Sounds: Present: systolic murmur - Labs CBC & Chem 7: 06/13/19 23:15 06/13/19 23:15 Assessment and Plan Assessment: Assessment #1 hypertension emergency #2 coronary artery disease seems to be stable #3 dyslipidemia #4 history of GI bleeding Plan #1 continue the current medical regimen #2 the patient can be discharged home
[2019-06-16 07:37] VITALS: RESP 18
[2019-06-16] MEDS: METOPROLOL TARTRATE 50 MG TAB PO SCH (09:07)
[2019-06-16] MEDS: ASPIRIN 81 MG PO SCH (09:07)
[2019-06-16] MEDS: HYDROCHLOROTHIAZIDE 25 MG TAB PO SCH (09:07)
[2019-06-16] MEDS: amLODIPine 5 MG TAB PO SCH (09:07)
[2019-06-16] MEDS: LISINOPRIL 10 MG TAB PO SCH (09:07)
--- NOTE | 2019-06-16 10:38 | XR ---
EXAMINATION TYPE: XR shoulder complete RT DATE OF EXAM: 06/16/2019 COMPARISON: NONE HISTORY: Pain TECHNIQUE: Shoulder examined in 3 views FINDINGS: There may be some mild elevation of the humeral head in relation to the glenoid. Acromioclavicular ju nction is normal. No acute fractures or dislocations are evident. A follow up study can be performed 7-10 days from acute trauma for continued pain. IMPRESSION: 1. No acute osseous abnormality three-view right shoulder
[2019-06-16 11:58] VITALS: BP 152/84; PULSE 50; TEMP 97.7
--- NOTE | 2019-06-16 13:11 | P.DS ---
Providers Date of admission: 06/14/19 00:02 Expected date of discharge: 06/16/19 Attending physician: Serafin Pagan Consults: 06/14/19 00:01 Consult Physician Routine Consulting Provider: Joselyn De Santiago Consult Reason/Comments: hypertension management Do you want consulting provider notified?: Yes Primary care physician: Greenwood [facility] Hospital Course: final diagnoses: Hypertensive Urgency in a patient with history of hypertension EF 60-65%, Moderately dilated LA Moderate mitral regurgitation Mild to moderate tricuspid regurgitation Mild pulmonary hypertension mild aortic stenosis Hospital courseThis is an 83-year-old female with history of CAD, chest pain/angina, hypertension, [place], bowel/bladder fistula other medical issues presented to the ER with complaints of uncontrolled hypertension over the last couple of weeksaccompanied by lightheadedness without syncope.Reports she has been unable to make appointments with PCP/sleep medicine physician secondary to transportation and financial issues.denies any chest pain,palpitations or shortness of breath. systolic blood pressure on admission 207/119, heart rate 67.. Afebrile. EKG reporting sinus rhythm with first-degree AV block with PACs. potassium 4, magnesium 1.5. troponins pending.Chest x-ray reported as nonacute,hiatal hernia, thoracic aorta atheromatous. Evaluated by cardiology with medications adjusted. Echo reporting normal LV function, EF 60- 65%,moderately dilated LA, moderate mitral regurgitation, qplb-[id number] tricuspid regurgitation, pulmonary hypertension. 06/15/2019 hypotensive this morning, antihypertensives adjusted. Significant clinical improvement. Denies lightheadedness dizziness or focal deficits. Denies chest pain, palpitations or shortness of breath. Cleared by cardiology for discharge. Patient is being discharged home in a stable condition with guarded prognosis. - Exam GENERAL: Alert and oriented 3, no acute distress CARDIOVASCULAR: S1, S2 regular.systolic murmur RESPIRATION: Breath sounds diminished in the bases. No rhonchi crackles or wheezing. ABDOMEN: Soft, nontender . No guarding. no masses palpable. Bowel sounds heard. NERVOUS SYSTEM: No focal deficits. The impression and plan of care has been dictated as directed. : I performed a history and examination of this patient, discussed the same with the dictator. I agree with the dictator's note ,documented as a scribe. Any additional findings or plans will be noted. Patient Condition at Discharge: Stable Plan - Discharge Summary Discharge Rx Participant: No New Discharge Prescriptions: New Hydrochlorothiazide [Hydrodiuril] 25 mg PO DAILY #30 tab amLODIPine [Norvasc] 5 mg PO DAILY #30 tab Lisinopril [Zestril] 30 mg PO DAILY #90 tab Continue Aspirin EC [Ecotrin Low Dose] 81 mg PO DAILY Metoprolol Tartrate [Lopressor] 50 mg PO BID Cyanocobalamin (Vitamin B-12) [Vitamin B-12] 1,000 mcg PO DAILY Cholecalciferol (Vitamin D3) [Vitamin D3] 2,000 unit PO DAILY Ergocalciferol [Vitamin D2 (DRISDOL)] 50,000 unit PO TH Discontinued Lisinopril [Zestril] 20 mg PO DAILY Furosemide [Lasix] 40 mg PO DAILY PRN PRN Reason: Edema Discharge Medication List Aspirin EC [Ecotrin Low Dose] 81 mg PO DAILY 07/22/16 [History] Cholecalciferol (Vitamin D3) [Vitamin D3] 2,000 unit PO DAILY 06/13/19 [History] Cyanocobalamin (Vitamin B-12) [Vitamin B-12] 1,000 mcg PO DAILY 06/13/19 [History] Ergocalciferol [Vitamin D2 (DRISDOL)] 50,000 unit PO TH 06/13/19 [History] Metoprolol Tartrate [Lopressor] 50 mg PO BID 06/13/19 [History] Hydrochlorothiazide [Hydrodiuril] 25 mg PO DAILY #30 tab 06/16/19 [Rx] Lisinopril [Zestril] 30 mg PO DAILY #90 tab 06/16/19 [Rx] amLODIPine [Norvasc] 5 mg PO DAILY #30 tab 06/16/19 [Rx] Follow up Appointment(s)/Referral(s): Joselyn De Santiago MD [STAFF PHYSICIAN] - 2 Weeks (office will call patient at home with an appointment.) Leonardo Rodrigez Jr, DO [Primary Care Provider] - 3 Days Ambulatory/Diagnostic Orders: Complete Blood Count w/diff [LAB.AMB] Time Frame: 3 Days, Location: None Selected Patient Instructions/Handouts: Hypertensive Crisis (DC) Activity/Diet/Wound Care/Special Instructions: pending right shoulder x-ray.spreadout administration of antihypertensive;take Norvasc at noon.
== END 2019-06-16 13:40 | disposition home or self-care (01) ==
LOC: EC 22:26 → 1SOBS 06-14 00:02
PROVIDERS: ADMIT Family Medicine; ATTEND Family Medicine
DX: I16.0 Hypertensive urgency (principal); E78.5 Hyperlipidemia, unspecified; I25.10 Atherosclerotic heart disease of native coronary artery without angina pectoris; I27.20 Pulmonary hypertension, unspecified; I44.0 Atrioventricular block, first degree; I25.2 Old myocardial infarction; K44.9 Diaphragmatic hernia without obstruction or gangrene; Z59.9 Problem related to housing and economic circumstances, unspecified; Z79.82 Long term (current) use of aspirin; Z79.899 Other long term (current) drug therapy; Z82.49 Family history of ischemic heart disease and other diseases of the circulatory system; Z95.5 Presence of coronary angioplasty implant and graft; Z88.5 Allergy status to narcotic agent; Z88.0 Allergy status to penicillin; Z88.8 Allergy status to other drugs, medicaments and biological substances; Z90.49 Acquired absence of other specified parts of digestive tract; Z98.42 Cataract extraction status, left eye; Z98.41 Cataract extraction status, right eye; I95.9 Hypotension, unspecified; I08.3 Combined rheumatic disorders of mitral, aortic and tricuspid valves; Z91.11 Patient's noncompliance with dietary regimen
CPT/HCPCS: 96365; 96366; 96375; 99285; 36415; 93005; 93306; 80048; 83735 ×2; 84484; 85025; 85610; 85730; 73030; 71046; G0378 ×3; J3475 ×2

== ENCOUNTER 2021-08-24 07:52 | Emergency (ER) | payer MEDICARE ==
[2021-08-24] MEDS ORDERED: ONDANSETRON 4 MG/2 ML VIAL IVP STA (08:17)
[2021-08-24] MEDS ORDERED: MORPHINE SULFATE 2 MG/ML SYRINGE IVP STA (08:17)
--- NOTE | 2021-08-24 08:25 | ED ---
Female Urogenital HPI - General Chief complaint: Urogenital Stated complaint: UTI Time Seen by Provider: 08/24/21 08:05 Source: patient, RN notes reviewed Mode of arrival: ambulatory Limitations: no limitations - History of Present Illness Initial comments: This is a pleasant 85-year-old female who presents to emergency Department in acute distress. Patient has a history of coronary artery disease, hypertension, and previous myocardial infarction. Patient complaining of vaginal burning which she states has been present for some 30 years but is getting worse. Patient states that she has swelling and inflammation to the area. Patient s arun she saw a health and wellness coordinator in [facility] who told her it was "lichen sclerosus." Patient states that she has been treated for urinary tract infections several times starting last April. She states the burning and irritation to the vaginal area is now unbearable. Saw her primary care jacobo mendez and was given creams. However, she states that a pelvic examination was not done. Patient has a referral to a specialist in [place] coming up. No headache, no fever or chills, no changes in vision or hearing, no sore throat or difficulty with speech, no neck pain, no chest pain or shortness of breath, no abdominal pain, no nausea or vomiting, complains of burning urination, no change in bowel movements, no numbness or tingling, no extremity pain, no skin rashes or lesions. - Related Data Home Medications Medication Instructions Recorded Confirmed Aspirin EC [Ecotrin Low Dose] 81 mg PO DAILY 07/22/16 06/13/19 Cholecalciferol (Vitamin D3) 2,000 unit PO DAILY 06/13/19 06/13/19 [Vitamin D3] Cyanocobalamin (Vitamin B-12) 1,000 mcg PO DAILY 06/13/19 06/13/19 [Vitamin B-12] Ergocalciferol [Vitamin D2 50,000 unit PO TH 06/13/19 06/13/19 (DRISDOL)] Metoprolol Tartrate [Lopressor] 50 mg PO BID 06/13/19 06/13/19 Previous Rx's Medication Instructions Recorded amLODIPine [Norvasc] 5 mg PO DAILY #30 tab 06/16/19 hydroCHLOROthiazide [Hydrodiuril] 25 mg PO DAILY #30 tab 06/16/19 lisinopriL [Zestril] 30 mg PO DAILY #90 tab 06/16/19 Allergies Allergy/AdvReac Type Severity Reaction Status Date / Time levofloxacin [From Levaquin] Allergy Unknown Verified 08/24/21 08:02 Penicillins Allergy Swelling Verified 08/24/21 08:02 acetaminophen [From Preston] AdvReac Nausea & Verified 08/24/21 08:02 Vomiting hydrocodone [From [place]] AdvReac Nausea & Verified 08/24/21 08:02 Vomiting hydromorphone [From Dilaudid] AdvReac Altered Verified 08/24/21 08:02 Mental Status lorazepam [From Ativan] AdvReac Confusion Verified 08/24/21 08:02 Review of Systems ROS Statement: Those systems with pertinent positive or pertinent negative responses have been documented in the HPI. ROS Other: All systems not noted in ROS Statement are negative. Past Medical History Past Medical History: Coronary Artery Disease (CAD), Chest Pain / Angina, Hypertension, Myocardial Infarction ([place]) Additional Past Medical History / Comment(s): Bowel/bladder fistula; Bowel obstruction (due to adhesions); frequent urinary tract infection; Lichen sclerosis Last Myocardial Infarction Date:: 2011 History of Any Multi-Drug Resistant Organisms: None Reported Past Surgical History: Bladder Surgery, Bowel Resection, Cholecystectomy, Heart Catheterization With Stent, Hernia Repair Additional Past Surgical History / Comment(s): Cataract surgery bilateral Past Anesthesia/Blood Transfusion Reactions: No Reported Reaction Date of Last Stent Placement:: 2011 Past Psychological History: No Psychological Hx Reported Smoking Status: Never smoker Past Alcohol Use History: None Reported Past Drug Use History: None Reported - Past Family History Mother Family Medical History: CVA/TIA Father Family Medical History: Congestive Heart Failure (CHF) General Exam - General Exam Comments Initial Comments: Patient in distress secondary to vaginal discomfort Limitations: no limitations General appearance: alert, in distress Head exam: Present: atraumatic, normocephalic, normal inspection Eye exam: Present: normal appearance, PERRL, EOMI. Absent: scleral icterus, conjunctival injection, periorbital swelling ENT exam: Present: normal exam, mucous membranes moist Neck exam: Present: normal inspection. Absent: tenderness, meningismus, lymphadenopathy Respiratory exam: Present: normal lung sounds bilaterally. Absent: respiratory distress, wheezes, rales, rhonchi, stridor Cardiovascular Exam: Present: regular rate, normal rhythm, normal heart sounds. Absent: systolic murmur, diastolic murmur, rubs, gallop, clicks GI/Abdominal exam: Present: soft, normal bowel sounds. Absent: distended, tenderness, guarding, rebound, rigid External exam: Present: erythema, other (Chaperoned pelvic examination reveals erythematous irritation to the vaginal area extending down to the anus area. No evidence of cellulitis. No evidence of abscess.). Absent: lacerations, ecchymosis Speculum exam: Present: erythema. Absent: vaginal discharge By manual exam: Present: other (Patient has a large, 3.5 cm diameter by 4 cm diameter mass to the left labia involving the labia minora. Cauliflower type appearance. Tender.) Extremities exam: Present: normal inspection, full ROM, normal capillary refill. Absent: tenderness, pedal edema, joint swelling, calf tenderness Back exam: Present: normal inspection Neurological exam: Present: alert, oriented X3, CN II-XII intact Psychiatric exam: Present: normal affect, normal mood Skin exam: Present: warm, dry, intact, normal color. Absent: rash Course Vital Signs 08/24/21 07:59 Temperature 97.5 F L Pulse Rate 65 Respiratory 16 Rate Blood Pressure 118/84 O2 Sat by Pulse 96 Oximetry - Reevaluation(s) Reevaluation #1: 08/24/21 11:48 Medical record is reviewed Symptoms are improved here in the emergency department Patient is informed of results and questions answered Patient in no distress 08/24/21 11:48 Patient's workup appears essentially negative. Mild increased renal function tests. Discussed with the patient. Discussed the case with the patient's on- call primary physician. Medical Decision Making - Medical Decision Making Patient now adding that she was treated for urinary tract infection by primary care physician but the trimethoprim/sulfamethoxazole was stopped after 2 days when she was called by the physician's office. Urinalysis was not sent here. Unable to obtain the urine culture at this point. I did discuss the case with the patient's on-call primary care physician, Dr. Pagan who is on-call for Dr. Rodrigez. He suggested calamine/zinc topically and follow up with Dr. Rodrigez in the office tomorrow. Patient was very frustrated. Patient to follow-up with Dr. Rodrigez in the morning. Patient was told to return to the ER for any signs or symptoms worsen. Told to return immediately if any other problems arise. All questions answered. Treatment plan discussed. Patient in agreement Every effort has been made to ensure accuracy of this dictation. However, due to the limitations of electronic medical records and dictation devices, errors in charting still occur. - Lab Data Result diagrams: 08/24/21 08:33 08/24/21 09:35 Lab Results 08/24/21 08/24/21 08/24/21 Range/Units 08:33 09:35 09:45 WBC 7.3 (3.8-10.6) k/uL RBC 4.71 (3.80-5.40) m/uL Hgb 14.9 (11.4-16.0) gm/dL Hct 44.7 (34.0-46.0) % MCV 94.9 (80.0-100.0) fL MCH 31.5 (25.0-35.0) pg MCHC 33.2 (31.0-37.0) g/dL RDW 13.3 (11.5-15.5) % Plt Count 338 (150-450) k/uL MPV 8.2 Neutrophils % 67 % Lymphocytes % 23 % Monocytes % 6 % Eosinophils % 2 % Basophils % 1 % Neutrophils # 4.9 (1.3-7.7) k/uL Lymphocytes # 1.7 (1.0-4.8) k/uL Monocytes # 0.4 (0-1.0) k/uL Eosinophils # 0.1 (0-0.7) k/uL Basophils # 0.1 (0-0.2) k/uL Sodium 135 L (137-145) mmol/L Potassium 4.3 (3.5-5.1) mmol/L Chloride 105 (98-107) mmol/L Carbon Dioxide 26 (22-30) mmol/L Anion Gap 4 mmol/L BUN 25 H (7-17) mg/dL Creatinine 1.22 H (0.52-1.04) mg/dL Est GFR (CKD-EPI)AfAm 47 (>60 ml/min/1.73 sqM) Est GFR (CKD-EPI)NonAf 41 (>60 ml/min/1.73 sqM) Glucose 115 H (74-99) mg/dL Calcium 9.0 (8.4-10.2) mg/dL Total Bilirubin 1.0 (0.2-1.3) mg/dL AST 28 (14-36) U/L ALT 16 (4-34) U/L Alkaline Phosphatase 90 (38-126) U/L Total Protein 6.7 (6.3-8.2) g/dL Albumin 3.8 (3.5-5.0) g/dL Urine Color Light Yellow Urine Appearance Clear (Clear) Urine pH 6.5 (5.0-8.0) Ur Specific Campus 1.006 (1.001-1.035) Urine Protein Negative (Negative) Urine Glucose (UA) Negative (Negative) Urine Ketones Negative (Negative) Urine Blood Negative (Negative) Urine Nitrite Negative (Negative) Urine Bilirubin Negative (Negative) Urine Urobilinogen <2.0 (<2.0) mg/dL Ur Leukocyte Esterase Negative (Negative) Disposition Clinical Impression: Vaginal irritation, Vaginal mass Disposition: HOME SELF-CARE Condition: Stable Instructions (If sedation given, give patient instructions): Dermatitis (ED) Additional Instructions: Follow-up with your regular physician as directed. Return to the ER immediately if any symptoms worsen, new symptoms arise, or any other problems develop. Follow-up with Dr. Rodrigez in the morning without fail use the cream as directed every 6 hours. Is patient prescribed a controlled substance at d/c from ED?: No Referrals: Leonardo Rodrigez Jr, DO [Primary Care Provider] - 08/25/21 8:00 am Time of Disposition: 11:51
[2021-08-24 08:40] LABS: Basophils # (A) 0.1 k/uL (0-0.2); Basophils % (A) 1 %; Eosinophils # (A) 0.1 k/uL (0-0.7); Eosinophils % (A) 2 %; HCT 44.7 % (34.0-46.0); HGB 14.9 gm/dL (11.4-16.0); Lymphocytes # (A) 1.7 k/uL (1.0-4.8); Lymphocytes % (A) 23 %; MCH 31.5 pg (25.0-35.0); MCHC 33.2 g/dL (31.0-37.0); MCV 94.9 fL (80.0-100.0); Mean Platelet Volume 8.2; Monocytes # (A) 0.4 k/uL (0-1.0); Monocytes % (A) 6 %; Neutrophils # (A) 4.9 k/uL (1.3-7.7); Neutrophils % (A) 67 %; Platelet Count 338 k/uL (150-450); RBC 4.71 m/uL (3.80-5.40); RDW 13.3 % (11.5-15.5); WBC 7.3 k/uL (3.8-10.6)
[2021-08-24 09:55] LABS: Albumin 3.8 g/dL (3.5-5.0); Potassium 4.3 mmol/L (3.5-5.1); Total Protein 6.7 g/dL (6.3-8.2)
[2021-08-24 09:57] LABS: Appearance,Urine Clear (Clear); Bilirubin,Urine Negative (Negative); Blood,Urine Negative (Negative); Color,Urine Light Yellow; Glucose,Urine (UA) Negative (Negative); Ketones,Urine Negative (Negative); Leukocyte Esterase,Urine Negative (Negative); Nitrite,Urine Negative (Negative); PH, Urine 6.5 (5.0-8.0); Protein,Urine Negative (Negative); Specific Gravity,Urine 1.006 (1.001-1.035); Urobilinogen,Urine <2.0 mg/dL (<2.0)
[2021-08-24] MEDS ORDERED: MENTHOL-ZINC OXIDE OINT 113 GM TUBE TOPICAL STA (11:07)
[2021-08-24 12:38] VITALS: BP 120/82; PULSE 66; RESP 18; TEMP 98
== END 2021-08-24 12:26 | disposition home or self-care (01) ==
LOC: EC 07:52
DX: N89.8 Other specified noninflammatory disorders of vagina (principal); I10 Essential (primary) hypertension; I25.2 Old myocardial infarction; I25.10 Atherosclerotic heart disease of native coronary artery without angina pectoris; Z79.82 Long term (current) use of aspirin; Z79.899 Other long term (current) drug therapy
CPT/HCPCS: 36415; 80053; 85025; 81003; 96374; 96375; 99284; J2405; J2270

== ENCOUNTER → 2022-04-03 | Outpatient (CLI) | payer MEDICARE ==
[2022-04-03 22:42] LABS: HCT 41.4 % (37.2-46.3); HGB 14.1 g/dL (12.0-15.0); MCH 30.9 pg (27.0-32.0); MCHC 34.1 g/dL (32.0-37.0); MCV 90.6 fL (80.0-97.0); Mean Platelet Volume 10.6 fL (9.5-12.2); NRBC Per 100 WBC 0 /100 WBCS (0.0-0.0); Platelet Count 353 X 10*3/uL (140-440); RBC 4.57 X 10*6/uL (4.10-5.20); RDW 14.1 % (11.5-14.5); WBC 7.84 X 10*3/uL (4.50-10.00)
[2022-04-03 23:24] LABS: African American GFR (CKD) 59.1 (60.0-200.0); Anion Gap 13.2 mmol/L (10.00-18.00); BUN/Creat Ratio 19.1 Ratio (12.00-20.00); Blood Urea Nitrogen 19.1 mg/dL (9.0-27.0); Calcium 9.2 mg/dL (8.7-10.3); Carbon Dioxide 23.8 mmol/L (20.0-27.5); Potassium 4.4 mmol/L (3.5-5.5)
== END | disposition home or self-care (01) ==
LOC: LABWHC1 14:01
PROVIDERS: ATTEND Anesthesiology
DX: Z01.812 Encounter for preprocedural laboratory examination (principal)
CPT/HCPCS: 36415; 80048; 85027

== ENCOUNTER 2022-11-11 15:58 | Inpatient (IN) | payer MEDICARE ==
--- NOTE | 2022-11-11 16:50 | ED ---
General Adult HPI - General Source: patient Mode of arrival: wheelchair <Betty Meyer - Last Filed: 11/11/22 16:49> <Aaron Weinstein - Last Filed: 11/12/22 04:02> - General Stated complaint: High blood pressure Time Seen by Provider: 11/11/22 16:49 - History of Present Illness Initial comments: Patient is an 87-year-old female presenting with concerns for high blood pressure. Patient is also concerned that she may have a UTI. (Betty Meyer) This is an 87-year-old female with a past medical history including hypertension, congestive heart failure and previous history of "irregular heart rate" presents emergency department for elevated blood pressure and swelling in her lower extremities. The patient stated that the swelling in her lower extremities were worsened today and her blood pressure was elevated today so she came to the emergency department for evaluation. The patient attempted to see her animal shelter manager but he were to dizzy so she came to the emergency department for further evaluation. The patient denied any lightheadedness or dizziness and denied any acute chest pain. Resting in bed comfortably without any nausea, vomiting, fevers and chills. (Aaron Weinstein) - Related Data Home Medications Medication Instructions Recorded Confirmed Aspirin EC [Ecotrin Low Dose] 81 mg PO DAILY 07/22/16 11/11/22 Cyanocobalamin (Vitamin B-12) 1,000 mcg PO DAILY 06/13/19 11/11/22 [Vitamin B-12] Cholecalciferol [Vitamin D3 (25 25 mcg PO DAILY 11/11/22 11/11/22 Mcg = 1000 Iu)] HYDROcodone/APAP 5-325MG [Jachin 1 tab PO DAILY PRN 11/11/22 11/11/22 5-325] Isosorbide Mononitrate ER [Imdur] 60 mg PO DAILY 11/11/22 11/11/22 Metoprolol Tartrate [Lopressor] 12.5 mg PO DAILY 11/11/22 11/11/22 Multivit-Min/Iron/Folic/Lutein 1 tab PO DAILY 11/11/22 11/11/22 [Centrum Silver Women Tablet] Nitroglycerin Sl Tabs [Nitrostat] 0.4 mg SUBLINGUAL Q5M PRN 11/11/22 11/11/22 Pravastatin Sodium [Pravachol] 10 mg PO DAILY 11/11/22 11/11/22 lisinopriL [Zestril] 5 mg PO DAILY 11/11/22 11/11/22 lisinopriL [Zestril] 15 mg PO HS 11/11/22 11/11/22 Previous Rx's Medication Instructions Recorded hydroCHLOROthiazide [Hydrodiuril] 25 mg PO DAILY #30 tab 06/16/19 Allergies Allergy/AdvReac Type Severity Reaction Status Date / Time levofloxacin [From Levaquin] Allergy Unknown Verified 11/11/22 22:17 Penicillins Allergy Swelling Verified 11/11/22 22:17 of neck hydromorphone [From Dilaudid] AdvReac Altered Verified 11/11/22 22:17 Mental Status lorazepam [From Ativan] AdvReac Confusion Verified 11/11/22 22:17 Review of Systems ROS Other: All systems not noted in ROS Statement are negative. <Betty Meyer - Last Filed: 11/11/22 16:49> ROS Other: All systems not noted in ROS Statement are negative. <Aaron Weinstein - Last Filed: 11/12/22 04:02> ROS Statement: Those systems with pertinent positive or pertinent negative responses have been documented in the HPI. Past Medical History Past Medical History: Coronary Artery Disease (CAD), Chest Pain / Angina, Hypertension, Myocardial Infarction (DE) Additional Past Medical History / Comment(s): Bowel/bladder fistula; Bowel obstruction (due to adhesions); frequent urinary tract infection; Lichen sclerosis Last Myocardial Infarction Date:: 2011 History of Any Multi-Drug Resistant Organisms: None Reported Past Surgical History: Bladder Surgery, Bowel Resection, Cholecystectomy, Heart Catheterization With Stent, Hernia Repair Additional Past Surgical History / Comment(s): Cataract surgery bilateral Past Anesthesia/Blood Transfusion Reactions: No Reported Reaction Date of Last Stent Placement:: 2011 Past Psychological History: No Psychological Hx Reported Smoking Status: Never smoker Past Alcohol Use History: None Reported Past Drug Use History: None Reported - Past Family History Mother Family Medical History: CVA/TIA Father Family Medical History: Congestive Heart Failure (CHF) <Betty Meyer - Last Filed: 11/11/22 16:49> General Exam <Betty Meyer - Last Filed: 11/11/22 16:49> Limitations: no limitations General appearance: alert, in no apparent distress Head exam: Present: atraumatic, normocephalic, normal inspection Eye exam: Present: normal appearance, PERRL Pupils: Present: normal accommodation ENT exam: Present: normal exam, normal oropharynx, mucous membranes moist Neck exam: Present: normal inspection, full ROM Respiratory exam: Present: normal lung sounds bilaterally Cardiovascular Exam: Present: regular rate, normal rhythm, normal heart sounds GI/Abdominal exam: Present: soft, normal bowel sounds Extremities exam: Present: normal inspection, full ROM, pedal edema Back exam: Present: normal inspection, full ROM Neurological exam: Present: alert, oriented X3, CN II-XII intact Psychiatric exam: Present: normal affect, normal mood Skin exam: Present: warm, dry <Aaron Weinstein - Earl Filed: 11/12/22 04:02> - General Exam Comments Initial Comments: Visual Physical Exam Vital signs reviewed General: Well-appearing, nontoxic, no acute distress. Head: Normocephalic, atraumatic Eyes: PERRLA, EOMI ENT: Airway patent Chest: Nonlabored breathing Skin: No visual rash, normal skin tone Neuro: Alert and oriented 3 Musculoskeletal: No gross abnormalities (MeyerBetty) Course Vital Signs 11/11/22 11/11/22 11/11/22 19:04 22:46 23:00 Temperature 97.5 F L Pulse Rate 62 86 80 Respiratory 20 18 16 Rate Blood Pressure 207/114 221/131 O2 Sat by Pulse 99 97 97 Oximetry 11/12/22 11/12/22 00:33 02:00 Temperature Pulse Rate 74 135 H Respiratory 16 20 Rate Blood Pressure 205/120 118/101 O2 Sat by Pulse 96 96 Oximetry EKG Findings - EKG Comments: EKG Findings:: An EKG was initially obtained and was interpreted by myself show ing a rate of 75, QRS duration of 78, QTC of 421. This EKG showed an atrial fibrillation without any ST segment elevation or depression noted. There was no confirmed history of atrial fibrillation prior. After the patient had received a dose of hydralazine, the patient did go into a significant delay different rhythm. A second EKG was obtained and was interpreted by myself showing a rate of 167, QRS duration of 208 and QTC of 355. This EKG showed an atrial fibrillation with RVR. <Aaron Weinstein Filed: 11/12/22 04:02> Medical Decision Making - Lab Data Result diagrams: 11/11/22 19:14 11/11/22 19:14 <Aaron Weinstein - Last Filed: 11/12/22 04:02> - Medical Decision Making Was pt. sent in by a medical professional or institution (, SAMANTHA, REFINERY OPERATOR COKING, urgent care, hospital, or longterm...) When possible be specific @ -No Did you speak to anyone other than the patient for history (EMS, parent, family, police, friend...)? What history was obtained from this source @ -Yes, patient's son who was at the bedside and confirmed the patient having increasing swelling in the lower extremities as well as high blood pressure. Did you review nursing and triage notes (agree or disagree)? Why? @ -I reviewed and agree with nursing and triage notes Were old charts reviewed (outside hosp., previous admission, EMS record, old EKG, old radiological studies, urgent care reports/EKG's, longterm records)? Report findings @ -No old charts were reviewed Differential Diagnosis (chest pain, altered mental status, abdominal pain women, abdominal pain men, vaginal bleeding, weakness, fever, dyspnea, syncope, headache, dizziness, GI bleed, back pain, seizure, CVA, palpatations, mental health)? @ -Congestive heart failure exacerbation, hypertensive urgency, ACS EKG interpreted by me (3pts min.). @ -As above X-rays interpreted by me (1pt min.). @ -Chest x-ray was obtained and was interpreted by myself showing CT interpreted by me (1pt min.). @ -None done U/S interpreted by me (1pt. min.). @ -None done What testing was considered but not performed or refused? (CT, X-rays, U/S, labs)? Why? @ -None What meds were considered but not given or refused? Why? @ -None Did you discuss the management of the patient with other professionals (professionals i.e. , SAMANTHA, REFINERY OPERATOR COKING, lab, RT, psych nurse, hospice social worker, house admin, te acher, driver license reviewing officer, manager case)? Give summary @ -Yes, admitting physician was contacted regarding patient admission. Was smoking cessation discussed for >3mins.? @ -No Was critical care preformed (if so, how long)? @ -Yes, see above Were there social determinants of health that impacted care today? How? (Homelessness, low income, unemployed, alcoholism, drug addiction, transport ation, low edu. Level, literacy, decrease access to med. care, fdc, rehab)? @ -No Was there de-escalation of care discussed even if they declined (Discuss DNR or withdrawal of care, Hospice)? DNR status @ -No What co-morbidities impacted this encounter? (DM, HTN, Smoking, COPD, CAD, Cancer, CVA, ARF, Chemo, Hep., AIDS, mental health diagnosis, sleep apnea, morbid obesity)? @ -Hypertension, congestive heart failure Was patient admitted / discharged? Hospital course, mention meds given and route, prescriptions, significant lab abnormalities, going to OR and other pertinent info. @ -The patient was seen and evaluated emergency department. On physical exam, the patient was resting in bed without any acute distress. Vital signs admission were initially stable with elevated blood pressure. Laboratory workup was obtained and showed a slightly elevated proBNP consistent with a mild CHF exacerbation. Due to this in the setting of high blood pressure, the patient did receive Lasix as well as a singular dose of hydralazine as the patient's heart rate remained around 60 bpm. Approximately 10 minutes after hydralazine was given, the patient was noted to have a significantly elevated heart rate and repeat EKG showed an atrial fibrillation with RVR. The patient was initially given 10 mg of Cardizem after this rhythm was noted. The patient's heart rate did slowly decrease and her blood pressure also decreased. The patient did require IV heparin as she had a "irregular heartbeat" but has never been diagnosed and likely had paroxysmal atrial fibrill ation. The patient also was started on IV Cardizem to control her heart rate. The patient continued to remain stable. Due to the patient's atrial fibrillation with RVR on Cardizem and heparin, the patient will be admitted for further workup and evaluation. Both the patient and her son were agreeable to this and the patient was admitted in stable condition. Undiagnosed new problem with uncertain prognosis? @ -No Drug Therapy requiring intensive monitoring for toxicity (Heparin, Nitro, Insulin, Cardizem)? @ -Heparin, Cardizem Were any procedures done? @ -No Diagnosis/symptom? @ -Atrial fibrillation with RVR, congestive heart failure exacerbation Acute, or Chronic, or Acute on Chronic? @ -Acute on chronic Uncomplicated (without systemic symptoms) or Complicated (systemic symptoms)? @ -Complicated Side effects of treatment? @ -No Exacerbation, Progression, or Severe Exacerbation? @ -No Poses a threat to life or bodily function? How? (Chest pain, [place], [place], pneumonia, PE, COPD, DKA, ARF, appy, cholecystitis, CVA, Diverticulitis, Homicidal, Suicidal, threat to staff... and all critical care pts) @ -Yes, worsening arrhythmia can lead to permanent damage and possible . (Aaron Weinstein) - Lab Data Lab Results 11/11/22 11/11/22 11/11/22 Range/Units 18:16 18:16 18:16 WBC Not Reportable RBC REFIN[employer] OPERATOR [employer]KING Hgb REFINERY OPERATOR COKING Hct REFINERY OPERATOR COKING MCV REFINERY OPERATOR COKING MCH REFINERY OPERATOR COKING MCHC REFINERY OPERATOR COKING RDW REFINERY OPERATOR COKING Plt Count REFINERY OPERATOR COKING MPV REFINERY OPERATOR COKING Neutrophils % REFINERY OPERATOR COKING Lymphocytes % REFINERY OPERATOR COKING Monocytes % REFINERY OPERATOR COKING Eosinophils % REFINERY OPERATOR COKING Basophils % REFINERY OPERATOR COKING Neutrophils # REFINERY OPERATOR COKING Lymphocytes # REFINERY OPERATOR COKING Monocytes # REFINERY OPERATOR COKING Eosinophils # REFINERY OPERATOR COKING Basophils # REFINERY OPERATOR COKING Hypochromasia REFINERY OPERATOR COKING Macrocytosis REFINERY OPERATOR COKING PT REFINERY OPERATOR COKING INR REFINERY OPERATOR COKING APTT REFINERY OPERATOR COKING Sodium REFINERY OPERATOR COKING Potassium REFINERY OPERATOR COKING Chloride REFINERY OPERATOR COKING Carbon Dioxide REFINERY OPERATOR COKING Anion Gap REFINERY OPERATOR COKING BUN REFINERY OPERATOR COKING Creatinine REFINERY OPERATOR COKING Est GFR (CKD-EPI)AfAm REFINERY OPERATOR COKING Est GFR (CKD-EPI)NonAf REFINERY OPERATOR COKING Glucose REFINERY OPERATOR COKING Calcium REFINERY OPERATOR COKING Magnesium REFINERY OPERATOR COKING Total Bilirubin REFINERY OPERATOR COKING AST REFINERY OPERATOR COKING ALT REFINERY OPERATOR COKING Alkaline Phosphatase REFINERY OPERATOR COKING Troponin I NT-Pro-B Natriuret Pep pg/mL Total Protein REFINERY OPERATOR COKING Albumin REFINERY OPERATOR COKING Urine Color Urine Appearance (Clear) Urine pH (5.0-8.0) Ur Specific [place] (1.001-1.035) Urine Protein (Negative) Urine Glucose (UA) (Negative) Urine Ketones (Negative) Urine Blood (Negative) Urine Nitrite (Negative) Urine Bilirubin (Negative) Urine Urobilinogen (<2.0) mg/dL Ur Leukocyte Esterase (Negative) Urine RBC (0-5) /hpf Urine WBC (0-5) /hpf Ur Squamous Epith Cells (0-4) /hpf 11/11/22 11/11/22 11/11/22 Range/Units 18:16 19:14 19:14 WBC 6.6 RBC 4.80 Hgb 14.9 Hct 43.2 MCV 90.0 MCH 31.1 MCHC 34.5 RDW 13.7 Plt Count 296 MPV 8.3 Neutrophils % 64 Lymphocytes % 27 Monocytes % 5 Eosinophils % 2 Basophils % 0 Neutrophils # 4.2 Lymphocytes # 1.8 Monocytes # 0.4 Eosinophils # 0.1 Basophils # 0.0 Hypochromasia Macrocytosis PT 10.3 INR 1.0 APTT 25.1 Sodium Potassium Chloride Carbon Dioxide Anion Gap BUN Creatinine Est GFR (CKD-EPI)AfAm Est GFR (CKD-EPI)NonAf Glucose Calcium Magnesium Total Bilirubin AST ALT Alkaline Phosphatase Troponin I REFINERY OPERATOR COKING NT-Pro-B Natriuret Pep pg/mL Total Protein Albumin Urine Color Urine Appearance (Clear) Urine pH (5.0-8.0) Ur Specific [place] (1.001-1.035) Urine Protein (Negative) Urine Glucose (UA) (Negative) Urine Ketones (Negative) Urine Blood (Negative) Urine Nitrite (Negative) Urine Bilirubin (Negative) Urine Urobilinogen (<2.0) mg/dL Ur Leukocyte Esterase (Negative) Urine RBC (0-5) /hpf Urine WBC (0-5) /hpf Ur Squamous Epith Cells (0-4) /hpf 11/11/22 11/11/22 11/11/22 Range/Units 19:14 19:14 23:22 WBC RBC Hgb Hct MCV MCH MCHC RDW Plt Count MPV Neutrophils % Lymphocytes % Monocytes % Eosinophils % Basophils % Neutrophils # Lymphocytes # Monocytes # Eosinophils # Basophils # Hypochromasia Macrocytosis PT INR APTT Sodium 141 Potassium 4.7 Chloride 103 Carbon Dioxide 25 Anion Gap 13 BUN 17 Creatinine 0.88 Est GFR (CKD-EPI)AfAm 69 Est GFR (CKD-EPI)NonAf 60 Glucose 108 H Calcium 9.9 Magnesium 1.7 Total Bilirubin 0.8 AST 40 H ALT 23 Alkaline Phosphatase 152 H Troponin I <0.012 NT-Pro-B Natriuret Pep 1420 pg/mL Total Protein 8.1 Albumin 4.6 Urine Color Urine Appearance (Clear) Urine pH (5.0-8.0) Ur Specific [place] (1.001-1.035) Urine Protein (Negative) Urine Glucose (UA) (Negative) Urine Ketones (Negative) Urine Blood (Negative) Urine Nitrite (Negative) Urine Bilirubin (Negative) Urine Urobilinogen (<2.0) mg/dL Ur Leukocyte Esterase (Negative) Urine RBC (0-5) /hpf Urine WBC (0-5) /hpf Ur Squamous Epith Cells (0-4) /hpf 11/12/22 Range/Units 01:50 WBC RBC Hgb Hct MCV MCH MCHC RDW Plt Count MPV Neutrophils % Lymphocytes % Monocytes % Eosinophils % Basophils % Neutrophils # Lymphocytes # Monocytes # Eosinophils # Basophils # Hypochromasia Macrocytosis PT INR APTT Sodium Potassium Chloride Carbon Dioxide Anion Gap BUN Creatinine Est GFR (CKD-EPI)AfAm Est GFR (CKD-EPI)NonAf Glucose Calcium Magnesium Total Bilirubin AST ALT Alkaline Phosphatase Troponin I NT-Pro-B Natriuret Pep pg/mL Total Protein Albumin Urine Color Light Yellow Urine Appearance Clear (Clear) Urine pH 7.0 (5.0-8.0) Ur Specific [place] 1.007 (1.001-1.035) Urine Protein Negative (Negative) Urine Glucose (UA) Negative (Negative) Urine Ketones Negative (Negative) Urine Blood Negative (Negative) Urine Nitrite Positive H (Negative) Urine Bilirubin Negative (Negative) Urine Urobilinogen <2.0 (<2.0) mg/dL Ur Leukocyte Esterase Negative (Negative) Urine RBC <1 (0-5) /hpf Urine WBC <1 (0-5) /hpf Ur Squamous Epith Cells <1 (0-4) /hpf Critical Care Time Critical Care Time: Yes Total Critical Care Time: 42 <Aaron Weinstein - Last Filed: 11/12/22 04:02> Disposition <Betty Meyer - Last Filed: 11/11/22 16:49> Is patient prescribed a controlled substance at d/c from ED?: No Time of Disposition: 02:00 Decision to Admit Reason: Admit from EC Decision Date: 11/12/22 Decision Time: 02:00 <Aaron Weinstein - Last Filed: 11/12/22 04:02> Clinical Impression: Atrial fibrillation with RVR, CHF (congestive heart failure) Disposition: ADMITTED IP TO THIS [facility] Condition: Stable Referrals: Leonardo Rodrigez Jr, [Primary Care Provider] - 1-2 days
--- NOTE | 2022-11-11 19:05 | XR ---
EXAMINATION TYPE: XR chest 2V DATE OF EXAM: 11/11/2022 COMPARISON: Chest x-ray June 13, 2019 HISTORY: Shortness of breath TECHNIQUE: Frontal and lateral views of the chest are obtained. FINDINGS: There is chronic parenchymal change without suspicious focal air space opacity, pleural ef fusion, or pneumothorax seen. The cardiac silhouette size is stable and within normal limits with at herosclerotic thoracic aorta redemonstrated. Retrocardiac opacity consistent with large sized hiata l hernia The osseous structures are demineralized. IMPRESSION: Chronic changes without acute pulmonary process.
[2022-11-11 20:27] LABS: Albumin 4.6 g/dL (3.5-5.0); Calcium 9.9 mg/dL (8.4-10.2); Magnesium 1.7 mg/dL (1.6-2.3); Potassium 4.7 mmol/L (3.5-5.1); Total Bilirubin 0.8 mg/dL (0.2-1.3); Total Protein 8.1 g/dL (6.3-8.2)
[2022-11-11 21:08] LABS: Partial Thromboplastin Time 25.1 sec (22.0-30.0); Prothrombin Time 10.3 sec (9.0-12.0)
[2022-11-11 21:11] LABS: Basophils % (A) 0 %; Eosinophils # (A) 0.1 k/uL (0-0.7); Eosinophils % (A) 2 %; HCT 43.2 % (34.0-46.0); Lymphocytes # (A) 1.8 k/uL (1.0-4.8); Lymphocytes % (A) 27 %; MCH 31.1 pg (25.0-35.0); MCHC 34.5 g/dL (31.0-37.0); Mean Platelet Volume 8.3; Monocytes # (A) 0.4 k/uL (0-1.0); Monocytes % (A) 5 %; Neutrophils # (A) 4.2 k/uL (1.3-7.7); Neutrophils % (A) 64 %; Platelet Count 296 k/uL (150-450); RDW 13.7 % (11.5-15.5); WBC 6.6 k/uL (3.8-10.6)
[2022-11-11 21:13] LABS: HGB 14.9 gm/dL (11.4-16.0)
[2022-11-11] MEDS ORDERED: FUROSEMIDE 10 MG/ML 4 ML VIAL IV STA (23:13)
[2022-11-12] MEDS ORDERED: hydrALAZINE HCL 20 MG/ML 1 ML VIAL IVP STA (01:08)
[2022-11-12 02:02] LABS: Appearance,Urine Clear (Clear); Bilirubin,Urine Negative (Negative); Blood,Urine Negative (Negative); Color,Urine Light Yellow; Glucose,Urine (UA) Negative (Negative); Ketones,Urine Negative (Negative); Leukocyte Esterase,Urine Negative (Negative); Nitrite,Urine Positive (Negative); Protein,Urine Negative (Negative); RBC,Urine <1 /hpf (0-5); Specific Gravity,Urine 1.007 (1.001-1.035); Squamous Epithelial Cell,Urine <1 /hpf (0-4); Urobilinogen,Urine <2.0 mg/dL (<2.0); WBC,Urine <1 /hpf (0-5)
[2022-11-12] MEDS ORDERED: HEPARIN SODIUM 1,000 UN/ML (10ML VL) IV PRN (02:12)
[2022-11-12] MEDS ORDERED: HEPARIN SODIUM 1,000 UN/ML (10ML VL) IV ONE (02:12)
[2022-11-12] MEDS ORDERED: HEPARIN SOD,PORK IN 0.45% NACL 25,000 UNIT in 0.45% NACL 1 250ML.BAG IV SCH (02:15)
[2022-11-12] MEDS ORDERED: DILTIAZEM 125 MG in SODIUM CHLORIDE 0.9% 100 ML IV SCH (02:15)
[2022-11-12] MEDS ORDERED: KETOROLAC 15 MG/ML 1 ML VIAL IVP STA (02:54)
[2022-11-12 04:20] LABS: INR 1.1 (<1.2); Prothrombin Time 11.7 sec (9.0-12.0)
[2022-11-12 04:40] LABS: Partial Thromboplastin Time 165.2 sec (22.0-30.0)
[2022-11-12] MEDS ORDERED: ACETAMINOPHEN TAB 325 MG TAB PO STA (04:50)
[2022-11-12] MEDS ORDERED: NALOXONE 0.4 MG/ML 1 ML VIAL IV PRN (06:14)
[2022-11-12] MEDS: ISOSORBIDE MONONITRATE ER 60 MG TAB.ER.24H PO SCH (09:06)
[2022-11-12] MEDS: METOPROLOL TARTRATE 25 MG TAB PO SCH ×2 (09:06→22:18)
[2022-11-12] MEDS: AMIODARONE 200 MG TAB PO SCH ×2 (10:22→22:18)
[2022-11-12] MEDS: APIXABAN 2.5 MG TABLET PO SCH ×2 (13:21→22:18)
--- NOTE | 2022-11-12 14:14 | CONS ---
CONSULTATION CHIEF COMPLAINT: Atrial fibrillation with rapid ventricular rate. HISTORY OF PRESENT ILLNESS: Marsha is an 87-year-old lady with history of coronary artery disease status post angioplasty x2, hypertension, dyslipidemia, prior history of GI bleed, who presented to hospital primarily because her blood pressures were severely elevated at home. When she first arrived in the ER, her blood pressure was 205/120, but all the subsequent blood pressures have been normal. The EKG on her showed atrial fibrillation with rapid ventricular rate. On the initial EKG she was actually in sinus rhythm. At the time of my evaluation, she is in AFib with controlled ventricular rate. She denies any chest pain or difficulty in breathing. There is no history of leg edema, PND, or orthopnea. She had 1 set of troponin that is unremarkable. BNP is elevated at 1420 of unclear clinical significance. Potassium is 4.7, creatinine is 0.8, hemoglobin is 14.9, and platelet count is 296. The patient has new-onset atrial fibrillation, currently on IV heparin. I will switch her to Eliquis 2.5 b.i.d. if her insurance covers it. Resume the Lopressor that she was on and stop the Cardizem once the heart rate is well controlled. PAST MEDICAL HISTORY: Significant for coronary artery disease status post angioplasty, hypertension, dyslipidemia. MEDICATIONS AT HOME: 1. Lopressor 12.5 mg daily. 2. HydroDIURIL. 3. Zestril 5 mg daily. 4. [place]. 5. Pravastatin. 6. Lisinopril 15 mg daily. ALLERGIES: The patient is allergic to Levaquin, penicillin, Dilaudid, and Ativan. FAMILY HISTORY: Negative for premature coronary artery disease. SOCIAL HISTORY: Negative for smoking, EtOH abuse, or drug abuse. REVIEW OF SYSTEMS: HEENT: Unremarkable. CARDIAC: As described above. RESPIRATORY: As described above. GI: Negative. GENITOURINARY: Negative. ALLERGY/IMMUNOLOGY: Negative. SKIN: Negative. MUSCULOSKELETAL: Significant for arthritis. PSYCHOSOCIAL: Negative. DERM: Negative. CONSTITUTIONAL: Negative. ONCOLOGICAL: Negative. SHOPPER: Negative. Rest of the system review is not relevant. PHYSICAL EXAMINATION: GENERAL: Comfortable at rest. VITAL SIGNS: Stable. NECK: There is no jugular venous distention. Carotid upstroke is normal. There is no bruit. CHEST: Reveals good air entry bilaterally. HEART: Reveals first and second heart sounds. No gallop, no murmur, no rub. ABDOMEN: Soft, nontender. EXTREMITIES: Did not reveal any edema. Peripheral pulses are felt. LABORATORY DATA: Labs show the troponin is negative. Hemoglobin is normal. Renal functions are normal. ASSESSMENT: 1. Persistent atrial fibrillation with rapid ventricular rate, new onset. 2. Elevated BNP of unclear clinical significance, patient is not in heart failure. 3. History of CAD, status post prior angioplasty. 4. Elevated blood pressure, probably related to the atrial fibrillation with RVR. PLAN: I will taper and stop the Cardizem, treat her with Toprol, add amiodarone for rhythm suppression. Obtain a 2D echo. MMODL / IJN: [id number] /
--- NOTE | 2022-11-12 17:17 | P.HPIM ---
Review of Systems ROS Statement: Those systems with pertinent positive or pertinent negative responses have been documented in the HPI. ROS Other: All systems not noted in ROS Statement are negative. Past Medical History Past Medical History: Coronary Artery Disease (CAD), Chest Pain / Angina, Hypertension, Myocardial Infarction ([place]), Pneumonia Additional Past Medical History / Comment(s): Bowel/bladder fistula; Bowel obstruction (due to adhesions); frequent urinary tract infection; Lichen sclerosis Last Myocardial Infarction Date:: 2011 History of Any Multi-Drug Resistant Organisms: None Reported Past Surgical History: Bladder Surgery, Bowel Resection, Cholecystectomy, Heart Catheterization With Stent, Hernia Repair Additional Past Surgical History / Comment(s): Cataract surgery bilateral Past Anesthesia/Blood Transfusion Reactions: No Reported Reaction Date of Last Stent Placement:: 2011 Past Psychological History: No Psychological Hx Reported Smoking Status: Never smoker Past Alcohol Use History: None Reported Past Drug Use History: None Reported - Past Family History Mother Family Medical History: CVA/TIA Father Family Medical History: Congestive Heart Failure (CHF) Medications and Allergies Home Medications Medication Instructions Recorded Confirmed Type Aspirin EC [Ecotrin Low Dose] 81 mg PO DAILY 07/22/16 11/11/22 History Cyanocobalamin (Vitamin B-12) 1,000 mcg PO DAILY 06/13/19 11/11/22 History [Vitamin B-12] hydroCHLOROthiazide [Hydrodiuril] 25 mg PO DAILY #30 tab 06/16/19 11/11/22 Rx Cholecalciferol [Vitamin D3 (25 25 mcg PO DAILY 11/11/22 11/11/22 History Mcg = 1000 Iu)] HYDROcodone/APAP 5-325MG [[place] 1 tab PO DAILY PRN 11/11/22 11/11/22 History 5-325] Isosorbide Mononitrate ER [Imdur] 60 mg PO DAILY 11/11/22 11/11/22 History Metoprolol Tartrate [Lopressor] 12.5 mg PO DAILY 11/11/22 11/11/22 History Multivit-Min/Iron/Folic/Lutein 1 tab PO DAILY 11/11/22 11/11/22 History [Centrum Silver Women Tablet] Nitroglycerin Sl Tabs [Nitrostat] 0.4 mg SUBLINGUAL Q5M PRN 11/11/22 11/11/22 History Pravastatin Sodium [Pravachol] 10 mg PO DAILY 11/11/22 11/11/22 History lisinopriL [Zestril] 5 mg PO DAILY 11/11/22 11/11/22 History lisinopriL [Zestril] 15 mg PO HS 11/11/22 11/11/22 History Allergies Allergy/AdvReac Type Severity Reaction Status Date / Time levofloxacin [From Levaquin] Allergy Unknown Verified 11/11/22 22:17 Penicillins Allergy Swelling Verified 11/11/22 22:17 of neck hydromorphone [From Dilaudid] AdvReac Altered Verified 11/11/22 22:17 Mental Status lorazepam [From Ativan] AdvReac Confusion Verified 11/11/22 22:17 Physical Exam Vitals: Vital Signs Temp Pulse Resp BP Pulse Ox 11/12/22 14:34 98.1 F 67 16 117/74 98 11/12/22 09:56 97.9 F 93 18 110/74 96 11/12/22 06:00 97.7 F 93 14 106/89 95 11/12/22 05:00 92 16 115/76 95 11/12/22 03:00 93 14 131/83 96 11/12/22 02:00 135 H 20 118/101 96 11/12/22 00:33 74 16 205/120 96 11/11/22 23:00 80 16 221/131 97 11/11/22 22:46 86 18 97 11/11/22 19:04 97.5 F L 62 20 207/114 99 Intake and Output 11/12/22 11/12/22 11/12/22 06:59 14:59 22:59 Intake Total 3.583 50.5 Output Total 950 Balance 3.583 -899.5 Intake: Intake, IV Titration 3.583 50.5 Amount Diltiazem 125 mg In 3.583 50.5 Sodium Chloride 0.9% 100 ml @ 5 MG/HR 5 mls/hr IV .Q24H [facility] Rx#:[id number] Output: Urine 950 PHYSICAL EXAM: VITAL SIGNS: [As above] GENERAL: Sitting up in bed, no acute distress HEENT: Conjunctivae normal. eyes normal. NECK: Supple, No JVD. No thyroid enlargement. No LNs CARDIOVASCULAR: S1, S2 regular.. No murmur RESPIRATION: Breath sounds diminished in the bases. No rhonchi or crackles. No bronchial breathing. ABDOMEN: Soft, nontender . No guarding. no masses palpable. No ascites, No hepatosplenomegaly.Bowel sounds heard. LEGS: Pedal edema, no calf tenderness, positive DP pulses PSYCHIATRY: Alert and oriented X3, mood and affect normal. NERVOUS SYSTEM: Cranial N 2-12 grossly normal. No focal deficits. Strength and sensation grossly intact.. Skin: Warm and dry, no rash Results CBC & Chem 7: 11/11/22 19:14 11/11/22 19:14 Labs: Abnormal Lab Results - Last 24 Hours (Table) 11/11/22 11/12/22 11/12/22 Range/Units 19:14 01:50 03:31 APTT 165.2 H* (22.0-30.0) sec Glucose 108 H (74-99) mg/dL AST 40 H (14-36) U/L Alkaline Phosphatase 152 H (38-126) U/L Troponin I (0.000-0.034) ng/mL Urine Nitrite Positive H (Negative) 11/12/22 11/12/22 Range/Units 07:35 09:14 APTT 74.2 H (22.0-30.0) sec Glucose (74-99) mg/dL AST (14-36) U/L Alkaline Phosphatase (38-126) U/L Troponin I 0.819 H* (0.000-0.034) ng/mL Urine Nitrite (Negative) Assessment and Plan Assessment: Persistent atrial fibrillation with RVR, new onset Hypertension Elevated BNP CAD, history of prior angioplasty Plan: Continue on current medication regime ,monitoring and symptomatic treatment. Echo pending. Anticoagulated on heparin drip. Currently on Cardizem drip-antiarrhythmics as per cardiology. The impression and plan of care has been dictated as directed. Dr.: I performed a history and examination of this patient, discussed the same with the dictator. I agree with the dictator's note ,documented as a scribe. Any additional findings or plans will be noted.
[2022-11-12] MEDS: PANTOPRAZOLE 40 MG/10 ML VIAL IVP SCH (17:45)
--- NOTE | 2022-11-13 09:02 | CA ---
Transthoracic Echo Report Name: Marsha Tabares Age: 87 Gender: F : 1935 Exam Date: 11/12/2022 11:22 Exam Location: [place] [facility] Ht (in): 67 Wt (lb): 125 Ordering Physician: Jitendra Pérez MD ([id number]) Attending/Referring Phys: Elisa SAGE Bankman Alicia Peterson RDCS Procedure CPT: Indications: afib Cardiac Hx: Technical Quality: Fair Contrast 1: Total Dose (mL): Contrast 2: Total Dose (mL): MEASUREMENTS (Male / Female) Normal Values 2D ECHO LV Diastolic Diameter PLAX 2.9 cm 4.2 - 5.9 / 3.9 - 5.3 cm LV Systolic Diameter PLAX 2.0 cm IVS Diastolic Thickness 1.4 cm 0.6 - 1.0 / 0.6 - 0.9 cm LVPW Diastolic Thickness 1.1 cm 0.6 - 1.0 / 0.6 - 0.9 cm LV Relative Wall Thickness 0.9 RV Internal Dim ED PLAX 2.6 cm LA Volume 47.9 cm??? 18 - 58 / 22 - 52 cm??? M-MODE Aortic Root Diameter MM 2.7 cm LA Systolic Diameter MM 3.2 cm LA Ao Ratio MM 1.2 AV Cusp Separation MM 0.8 cm DOPPLER AV Peak Velocity 316.7 cm/s AV Peak Gradient 40.1 mmHg AV Mean Velocity 235.7 cm/s AV Mean Gradient 24.9 mmHg AV Velocity Time Integral 67.6 cm LVOT Peak Velocity 106.6 cm/s LVOT Peak Gradient 4.5 mmHg LVOT Velocity Time Integral 24.8 cm MV Area PHT 3.3 cm??? Mitral E Point Velocity 63.6 cm/s Mitral A Point Velocity 89.1 cm/s Mitral E to A Ratio 0.7 MV Deceleration Time 232.2 ms MV E' Velocity 3.6 cm/s Mitral E to MV E' Ratio 17.5 TR Peak Velocity 206.8 cm/s TR Peak Gradient 17.1 mmHg Right Ventricular Systolic Press 22.1 mmHg FINDINGS Left Ventricle Mildly increased left ventricular wall thickness. Left ventricular cavity size normal. Normal left ventricular systolic function with no obvious regional wall motion abnormalities. Left ventricular ejection fraction is estimated at 55-60 %. Right Ventricle Normal right ventricular size and function. Right ventricular systolic pressure within normal limits. Right Atrium Normal right atrial size. Left Atrium Normal left atrial size. Mitral Valve Structurally normal mitral valve. Mild mitral annular calcification. Mild-to- moderate mitral regurgitation. Aortic Valve Trileaflet aortic valve. Tvjg-[id number] aortic stenosis with a peak gradient of 40 mmHg and a mean gradient of 25 mmHg. No aortic regurgitation. Tricuspid Valve Structurally normal tricuspid valve. Mild tricuspid regurgitation. Pulmonic Valve Trace pulmonic regurgitation. Pericardium No pericardial effusion. Aorta Normal size aortic root and proximal ascending aorta. CONCLUSIONS LV size is normal with mild concentric LVH and normal ejection fraction. There is calcification of mitral annulus with mild to moderate mitral regurgitation. Aortic valve is calcified and restricted stenotic and stenosis is moderate with a mean gradient of 25 mmHg. No aortic regurgitation of significance. No pulmonary hypertension no pericardial effusion Previewed by: Dr. Ottoniel Rowe MD (Electronically Signed) Final Date: 13 Nov 2022 09:01
[2022-11-13] MEDS: APIXABAN 2.5 MG TABLET PO SCH ×2 (09:33→20:26)
[2022-11-13] MEDS: PANTOPRAZOLE 40 MG/10 ML VIAL IVP SCH (09:33)
[2022-11-13] MEDS: ISOSORBIDE MONONITRATE ER 60 MG TAB.ER.24H PO SCH (09:33)
[2022-11-13] MEDS: AMIODARONE 200 MG TAB PO SCH ×2 (09:33→20:26)
[2022-11-13] MEDS: METOPROLOL TARTRATE 25 MG TAB PO SCH ×2 (09:33→20:26)
[2022-11-13 11:49] LABS: Basophils % (A) 0 %; Eosinophils # (A) 0.1 k/uL (0-0.7); Eosinophils % (A) 2 %; HCT 43.4 % (34.0-46.0); HGB 14.8 gm/dL (11.4-16.0); Lymphocytes # (A) 1.8 k/uL (1.0-4.8); Lymphocytes % (A) 24 %; MCH 31.4 pg (25.0-35.0); MCHC 34.1 g/dL (31.0-37.0); Mean Platelet Volume 7.7; Monocytes # (A) 0.4 k/uL (0-1.0); Monocytes % (A) 5 %; Neutrophils % (A) 67 %; Platelet Count 331 k/uL (150-450); RBC 4.72 m/uL (3.80-5.40); RDW 13.5 % (11.5-15.5); WBC 7.5 k/uL (3.8-10.6)
[2022-11-13] MEDS ORDERED: ACETAMINOPHEN TAB 325 MG TAB PO PRN (12:02)
[2022-11-13 12:49] LABS: Partial Thromboplastin Time 26.7 sec (22.0-30.0); Prothrombin Time 10.8 sec (9.0-12.0)
--- NOTE | 2022-11-14 00:09 | PN ---
PROGRESS NOTE SUBJECTIVE: Marsha is an 87-year-old lady with history of CAD status post angioplasty, hypertension, dyslipidemia, prior history of GI bleed, who presented to hospital with atrial fibrillation with rapid ventricular rate currently, and she converted back to sinus rhythm. MEDICATIONS: She is currently on, 1. Amiodarone. 2. Eliquis. 3. Imdur. 4. Metoprolol. This morning she is free of any cardiac symptoms. OBJECTIVE: GENERAL: Comfortable at rest. VITAL SIGNS: Stable. CHEST: Reveals good air entry bilaterally. HEART: Reveals first and second heart sounds. No gallop. ABDOMEN: Soft. EXTREMITIES: Did not reveal any edema. Peripheral pulses are felt. IMAGING: The patient had an echo on this admission that revealed normal LV systolic function, zsnj-xk-[id number] mitral regurgitation and moderate aortic stenosis. ASSESSMENT: 1. Paroxysmal atrial fibrillation. 2. Moderate aortic stenosis. PLAN: The patient will continue current medications. There was mild elevation in troponin, probably secondary to supply demand mismatch related to atrial fibrillation with RVR. Increase her activity. Hopefully home tomorrow. MMODL / IJN: [id number] /
[2022-11-14] MEDS: METOPROLOL TARTRATE 25 MG TAB PO SCH (08:49)
[2022-11-14] MEDS: APIXABAN 2.5 MG TABLET PO SCH (08:49)
[2022-11-14] MEDS: ISOSORBIDE MONONITRATE ER 60 MG TAB.ER.24H PO SCH (08:49)
[2022-11-14] MEDS: PANTOPRAZOLE 40 MG/10 ML VIAL IVP SCH (08:49)
[2022-11-14] MEDS: AMIODARONE 200 MG TAB PO SCH (08:49)
[2022-11-14 09:37] VITALS: RESP 16
--- NOTE | 2022-11-14 12:01 | P.PN ---
Subjective Progress Note Date: 11/13/22 Principal diagnosis: New-onset atrial fibrillation Marsha was awake alert vital signs stable this pt is afebrile, heart rate was well-controlled patient on beta german for rate control, started on zaralto for anticoagulation, rate at the time of evaluation was 86 Objective - Vital Signs Vital signs: Vital Signs Temp 97.7 F 11/14/22 08:25 Pulse 68 11/14/22 08:25 Resp 16 11/14/22 08:25 BP 122/68 11/14/22 08:25 Pulse Ox 95 11/14/22 08:25 FiO2 21 11/13/22 08:31 Intake & Output 11/13/22 11/14/22 11/14/22 18:59 06:59 18:59 Intake Total 358 540 240 Output Total 150 Balance 208 540 240 Intake: Oral 358 540 240 Output: Urine 150 Other: Voiding Method External Catheter External Catheter External Catheter # Voids 1 2 # Bowel Movements 3 - Exam General: [Patient awake, alert and oriented times 3. Patient in no acute distress.] HEENT: [PERRL. EOMI. No pharyngeal erythema or exudate.] Neck: [No adenopathy.] Cardiac: [Heart regular in rate and rhythm. No S3. No S4. No clicks, rubs. No murmur.] Lungs: [Clear to auscultation bilaterally.] Abdomen: [No mass. No organomegaly. Bowel sounds presnt and normoactive in all 4 quadrants.] Extremes: [No edema no cyanosis no claudication normal pulses] : Normal female genitalia Musculoskeletal: [No joint erythema, edema or tenderness.] Skin: [No rash.] Neurologic: [No lateralizing deficits. CN II - XII grossly intact.] Lymphatic: [No adenopathy.] - Labs CBC & Chem 7: 11/13/22 11:32 11/11/22 19:14 Assessment and Plan Time with Patient: Greater than 30
[2022-11-14] MEDS ORDERED: NITROGLYCERIN SL TABS 0.4 MG TAB SUBLINGUAL PRN (12:11)
--- NOTE | 2022-11-14 12:22 | P.DS ---
Providers Date of admission: 11/12/22 06:14 Attending physician: Leonardo Rodrigez Consults: 11/12/22 06:14 Consult Physician Routine Consulting Provider: [facility] Consult Reason/Comments: A fib with RVR Do you want consulting provider notified?: Yes, Notify in am Primary care physician: [facility] Course: General: [Patient awake, alert and oriented times 3. Patient in no acute distress.] HEENT: [PERRL. EOMI. No pharyngeal erythema or exudate.] Neck: [No adenopathy.] Cardiac: [Heart regular in rate and rhythm. No S3. No S4. No clicks, rubs. No murmur.] Lungs: [Clear to auscultation bilaterally.] Abdomen: [No mass. No organomegaly. Bowel sounds presnt and normoactive in all 4 quadrants.] Extremes: [No edema no cyanosis no claudication normal pulses] : Normal female genitalia Musculoskeletal: [No joint erythema, edema or tenderness.] Skin: [No rash.] Neurologic: [No lateralizing deficits. CN II - XII grossly intact.] Lymphatic: [No adenopathy.] Rate is well-controlled around 80 beats a minute Patient is anticoagulated on Xaralto Patient Condition at Discharge: Stable Plan - Discharge Summary Discharge Rx Participant: No New Discharge Prescriptions: New Apixaban [Eliquis] 2.5 mg PO BID 30 Days #60 tab No Action Aspirin EC [Ecotrin Low Dose] 81 mg PO DAILY Cyanocobalamin (Vitamin B-12) [Vitamin B-12] 1,000 mcg PO DAILY hydroCHLOROthiazide [Hydrodiuril] 25 mg PO DAILY #30 tab Pravastatin Sodium [Pravachol] 10 mg PO DAILY Isosorbide Mononitrate ER [Imdur] 60 mg PO DAILY lisinopriL [Zestril] 5 mg PO DAILY lisinopriL [Zestril] 15 mg PO HS Metoprolol Tartrate [Lopressor] 12.5 mg PO DAILY HYDROcodone/APAP 5-325MG [[place] 5-325] 1 tab PO DAILY PRN PRN Reason: Pain Cholecalciferol [Vitamin D3 (25 Mcg = 1000 Iu)] 25 mcg PO DAILY Multivit-Min/Iron/Folic/Lutein [Centrum Silver Women Tablet] 1 tab PO DAILY Nitroglycerin Sl Tabs [Nitrostat] 0.4 mg SUBLINGUAL Q5M PRN PRN Reason: Chest Pain Discharge Medication List Aspirin EC [Ecotrin Low Dose] 81 mg PO DAILY 07/22/16 [History] Cyanocobalamin (Vitamin B-12) [Vitamin B-12] 1,000 mcg PO DAILY 06/13/19 [History] hydroCHLOROthiazide [Hydrodiuril] 25 mg PO DAILY #30 tab 06/16/19 [Rx] Cholecalciferol [Vitamin D3 (25 Mcg = 1000 Iu)] 25 mcg PO DAILY 11/11/22 [History] HYDROcodone/APAP 5-325MG [[place] 5-325] 1 tab PO DAILY PRN 11/11/22 [History] Isosorbide Mononitrate ER [Imdur] 60 mg PO DAILY 11/11/22 [History] Metoprolol Tartrate [Lopressor] 12.5 mg PO DAILY 11/11/22 [History] Multivit-Min/Iron/Folic/Lutein [Centrum Silver Women Tablet] 1 tab PO DAILY 11/11/22 [History] Nitroglycerin Sl Tabs [Nitrostat] 0.4 mg SUBLINGUAL Q5M PRN 11/11/22 [History] Pravastatin Sodium [Pravachol] 10 mg PO DAILY 11/11/22 [History] lisinopriL [Zestril] 5 mg PO DAILY 11/11/22 [History] lisinopriL [Zestril] 15 mg PO HS 11/11/22 [History] Apixaban [Eliquis] 2.5 mg PO BID 30 Days #60 tab 11/14/22 [Rx] Follow up Appointment(s)/Referral(s): Leonardo Rodrigez Jr, DO [Primary Care Provider] - 1-2 days
[2022-11-14 12:29] VITALS: BP 118/68; PULSE 54; TEMP 97.8
--- NOTE | 2022-11-14 14:08 | P.PN ---
Subjective Progress Note Date: 11/14/22 History of present illness: This is an 87-year-old female presented to the hospital with atrial fibrillation with RVR. She has since converted to sinus rhythm. She also has history of coronary artery disease status post angioplasty, hypertension, dyslipidemia, prior history of GI bleed. Patient has been maintained on amiodarone, eliquis and metoprolol. She remains in sinus rhythm this morning. Blood pressure 122/68 and heart rate is in the 60s. She does complain of feeling shaky. Lower extremity edema is improved. Physical examination: Gen: This is an 87-year-old female. She appears to be in no acute distress VS: reviewed HEENT: Head is atraumatic, normocephalic. Pupils equal, round. Sclerae is anicteric. LUNGS: Good air entry bilaterally. No intercostal retractions. HEART: Regular rate and rhythm. No murmur. ABDOMEN: Soft No tenderness. EXTREMITIES: No pedal edema. No calf tenderness. NEUROLOGICAL: Patient is awake, alert and oriented x3. Assessment: Paroxysmal atrial fibrillation Moderate aortic stenosis Plan: Continue patient's current cardiac medications. Patient is cleared for discharge and may follow-up in the office in one to 2 weeks. Nurse practitioner note has been reviewed, I agree with documented findings and plan of care. Patient was seen and examined. Objective - Vital Signs Vital signs: Vital Signs Temp 97.7 F 11/14/22 08:25 Pulse 68 11/14/22 08:25 Resp 16 11/14/22 08:25 BP 122/68 11/14/22 08:25 Pulse Ox 95 11/14/22 08:25 FiO2 21 11/13/22 08:31 Intake & Output 11/13/22 11/14/22 11/14/22 18:59 06:59 18:59 Intake Total 358 540 240 Output Total 150 Balance 208 540 240 Intake: Oral 358 540 240 Output: Urine 150 Other: Voiding Method External Catheter External Catheter External Catheter # Voids 1 2 # Bowel Movements 3 - Labs CBC & Chem 7: 11/13/22 11:32 11/11/22 19:14
[2022-11-14] MEDS ORDERED: lisinopriL 5 MG TAB PO SCH (21:00)
[2022-11-15] MEDS ORDERED: CYANOCOBALAMIN 500 MCG TAB PO SCH (09:00)
[2022-11-15] MEDS ORDERED: PRAVASTATIN SODIUM 20 MG TAB PO SCH (09:00)
[2022-11-15] MEDS ORDERED: ASPIRIN 81 MG PO SCH (09:00)
[2022-11-15] MEDS ORDERED: hydroCHLOROthiazide 25 MG TAB PO SCH (09:00)
[2022-11-15] MEDS ORDERED: CHOLECALCIFEROL 25 MCG (1000 IU) TABLET PO SCH (09:00)
[2022-11-15] MEDS ORDERED: lisinopriL 5 MG TAB PO SCH (09:00)
[2022-11-15] MEDS ORDERED: NON FORMULARY DRUG (Multivit-Min/Iron/Folic/Lutein [Centrum Silver Women Tablet] 1 EACH Ta PO SCH (09:00)
== END 2022-11-14 15:04 | disposition home or self-care (01) | DRG 309 ==
LOC: EC 15:58 → 3SCARD 11-12 06:14
PROVIDERS: ADMIT Family Medicine; ATTEND Family Medicine
DX: I48.19 Other persistent atrial fibrillation (principal); I24.8 Other forms of acute ischemic heart disease; I10 Essential (primary) hypertension; E78.5 Hyperlipidemia, unspecified; L90.0 Lichen sclerosus et atrophicus; I08.1 Rheumatic disorders of both mitral and tricuspid valves; I25.10 Atherosclerotic heart disease of native coronary artery without angina pectoris; I25.2 Old myocardial infarction; Z87.19 Personal history of other diseases of the digestive system; Z87.440 Personal history of urinary (tract) infections; Z88.0 Allergy status to penicillin; Z88.1 Allergy status to other antibiotic agents; Z88.5 Allergy status to narcotic agent; Z87.01 Personal history of pneumonia (recurrent); Z88.8 Allergy status to other drugs, medicaments and biological substances; Z79.82 Long term (current) use of aspirin; Z79.899 Other long term (current) drug therapy; Z98.61 Coronary angioplasty status; Z90.49 Acquired absence of other specified parts of digestive tract; Z98.42 Cataract extraction status, left eye; Z98.41 Cataract extraction status, right eye
CPT/HCPCS: 36415; 71046; 80053; 81001; 83735; 83880; 84484; 85025; 85610; 85730; 93005; 93306; 94760; 96365; 96366; 96368; 96375; 99291

== ENCOUNTER → 2022-12-25 | Outpatient (CLI) | payer MEDICARE ==
--- NOTE | 2022-12-25 16:33 | CT ---
EXAMINATION TYPE: CT chest wo con DATE OF EXAM: 12/25/2022 COMPARISON: None HISTORY: Hx of CA. Pt coughed up a clot of blood today. CT DLP: 313 mGycm, Automated exposure control for dose reduction was used. CONTRAST: None TECHNIQUE: Axial images were obtained at 5 mm thick sections. Reconstructed images are reviewed on [employer] computer in the coronal plane. FINDINGS: Portion of the thyroid visualized is normal. There are scattered punctate densities. Small granuloma may be present. There are couple areas of pne umonitis within the right lung. Tracheobronchial tree as visualized appears normal. There is a large hiatal hernia present with air-fluid levels. No enlarged mediastinal or hilar adenopathy is evident. The ascending aorta diameter at the level o f the main pulmonary artery is 3.5 cm. The main pulmonary artery diameter at the bifurcation is 2.3 cm. Moderate coronary artery calcification is present. Fusiform prominence of the abdominal aorta at the level of the superior mesenteric artery is present with an AP diameter of 3.[address] sections are obtained through the upper abdomen. Abdomen is essentially unremarkable. IMPRESSIONS: 1. Nonspecific punctate lung densities. 2. Large hiatal hernia. 3. Small area of pneumonitis right mid lung. Follow-up CT chest in 6 months is recommended.
== END | disposition home or self-care (01) ==
LOC: RADCTMAIN 15:40
PROVIDERS: ATTEND Family Medicine
DX: K92.0 Hematemesis (principal); J18.9 Pneumonia, unspecified organism; N90.89 Other specified noninflammatory disorders of vulva and perineum; Z85.40 Personal history of malignant neoplasm of unspecified female genital organ; K44.9 Diaphragmatic hernia without obstruction or gangrene
CPT/HCPCS: 71250

== ENCOUNTER 2023-03-07 14:15 | Observation (INO) | payer MEDICARE ==
[2023-03-07] MEDS ORDERED: ONDANSETRON 4 MG/2 ML VIAL IVP STA (14:39)
[2023-03-07] MEDS ORDERED: FAMOTIDINE 20 MG/2 ML VIAL IV STA (14:41)
--- NOTE | 2023-03-07 14:52 | ED ---
General Adult HPI - General Chief complaint: Abdominal Pain Stated complaint: Abdominal pain Time Seen by Provider: 03/07/23 14:18 Source: patient, RN notes reviewed Mode of arrival: ambulatory Limitations: no limitations - History of Present Illness Initial comments: Patient is a pleasant 87-year-old female presenting to the emergency department with complaints of abdominal pain. Patient was walking at the time and had significant abdominal pain. A calderon also had some mild chest discomfort. Patient felt sweaty. Patient states symptoms have resolved and she is near symptom-free at this time. Patient is unclear if she has a history of similar s ymptoms previously. - Related Data Home Medications Medication Instructions Recorded Confirmed Aspirin EC [Ecotrin Low Dose] 81 mg PO DAILY 07/22/16 11/11/22 Cyanocobalamin (Vitamin B-12) 1,000 mcg PO DAILY 06/13/19 11/11/22 [Vitamin B-12] Cholecalciferol [Vitamin D3 (25 25 mcg PO DAILY 11/11/22 11/11/22 Mcg = 1000 Iu)] HYDROcodone/APAP 5-325MG [[place] 1 tab PO DAILY PRN 11/11/22 11/11/22 5-325] Isosorbide Mononitrate ER [Imdur] 60 mg PO DAILY 11/11/22 11/11/22 Metoprolol Tartrate [Lopressor] 12.5 mg PO DAILY 11/11/22 11/11/22 Multivit-Min/Iron/Folic/Lutein 1 tab PO DAILY 11/11/22 11/11/22 [Centrum Silver Women Tablet] Nitroglycerin Sl Tabs [Nitrostat] 0.4 mg SUBLINGUAL Q5M PRN 11/11/22 11/11/22 Pravastatin Sodium [Pravachol] 10 mg PO DAILY 11/11/22 11/11/22 lisinopriL [Zestril] 5 mg PO DAILY 11/11/22 11/11/22 lisinopriL [Zestril] 15 mg PO HS 11/11/22 11/11/22 Previous Rx's Medication Instructions Recorded hydroCHLOROthiazide [Hydrodiuril] 25 mg PO DAILY #30 tab 06/16/19 Apixaban [Eliquis] 2.5 mg PO BID 30 Days #60 tab 11/14/22 Allergies Allergy/AdvReac Type Severity Reaction Status Date / Time levofloxacin [From Levaquin] Allergy Unknown Verified 03/07/23 14:28 Penicillins Allergy Swelling Verified 03/07/23 14:28 of neck hydromorphone [From Dilaudid] AdvReac Altered Verified 03/07/23 14:28 Mental Status lorazepam [From Ativan] AdvReac Confusion Verified 03/07/23 14:28 Review of Systems ROS Statement: Those systems with pertinent positive or pertinent negative responses have been documented in the HPI. ROS Other: All systems not noted in ROS Statement are negative. Constitutional: Denies: fever Eyes: Denies: eye pain Respiratory: Denies: cough Cardiovascular: Reports: chest pain Endocrine: Denies: fatigue Gastrointestinal: Reports: abdominal pain, nausea Genitourinary: Denies: dysuria Musculoskeletal: Denies: back pain Past Medical History Past Medical History: Coronary Artery Disease (CAD), Cancer, Chest Pain / Angina, GI Bleed, Hypertension, Myocardial Infarction ([place]), Pneumonia Additional Past Medical History / Comment(s): Bowel/bladder fistula; Bowel obs truction (due to adhesions); frequent urinary tract infection; Lichen sclerosis Last Myocardial Infarction Date:: 2011 History of Any Multi-Drug Resistant Organisms: None Reported Past Surgical History: Bladder Surgery, Bowel Resection, Cholecystectomy, Heart Catheterization With Stent, Hernia Repair Additional Past Surgical History / Comment(s): Cataract surgery bilateral Past Anesthesia/Blood Transfusion Reactions: No Reported Reaction Date of Last Stent Placement:: 2011 Past Psychological History: No Psychological Hx Reported Smoking Status: Never smoker Past Alcohol Use History: None Reported Past Drug Use History: None Reported - Past Family History Mother Family Medical History: CVA/TIA Father Family Medical History: Congestive Heart Failure (CHF) General Exam Limitations: no limitations General appearance: alert, in no apparent distress Head exam: Present: normocephalic Eye exam: Present: normal appearance ENT exam: Present: normal oropharynx Neck exam: Present: normal inspection Respiratory exam: Present: normal lung sounds bilaterally Cardiovascular Exam: Present: regular rate, normal rhythm Expanded Peripheral pulses: 2+: Radial (R), Radial (L), Dorsalis Pedis (R), Dorsalis Pedis (L) GI/Abdominal exam: Present: soft, tenderness (Mild upper abdominal tenderness). Absent: distended, guarding, rebound, rigid Extremities exam: Present: normal inspection. Absent: pedal edema, calf tenderness Neurological exam: Present: alert Psychiatric exam: Present: normal affect, normal mood Skin exam: Present: normal color Course Vital Signs 03/07/23 14:28 Temperature 97.7 F Pulse Rate 62 Respiratory 15 Rate Blood Pressure 149/83 O2 Sat by Pulse 98 Oximetry EKG Findings - EKG Results: EKG: interpreted by ERMD, sinus rhythm, normal axis, normal QRS, normal ST/T Medical Decision Making - Lab Data Result diagrams: 03/07/23 15:08 Lab Results 03/07/23 Range/Units 15:08 Sodium 137 (137-145) mmol/L Potassium 4.4 (3.5-5.1) mmol/L Chloride 105 (98-107) mmol/L Carbon Dioxide 20 L (22-30) mmol/L Anion Gap 12 mmol/L BUN 17 (7-17) mg/dL Creatinine 0.91 (0.52-1.04) mg/dL Est GFR (CKD-EPI)AfAm 66 (>60 ml/min/1.73 sqM) Est GFR (CKD-EPI)NonAf 57 (>60 ml/min/1.73 sqM) Glucose 106 H (74-99) mg/dL Calcium 9.0 (8.4-10.2) mg/dL Total Bilirubin 0.7 (0.2-1.3) mg/dL AST 43 H (14-36) U/L ALT 28 (4-34) U/L Alkaline Phosphatase 133 H (38-126) U/L Total Protein 6.9 (6.3-8.2) g/dL Albumin 3.8 (3.5-5.0) g/dL Amylase 54 (30-110) U/L Lipase 85 (23-300) U/L Disposition Referrals: Leonardo Rodrigez Jr, [Primary Care Provider] - 1-2 days
[2023-03-07 15:33] LABS: ALT 28 U/L (4-34); AST 43 U/L (14-36); African American GFR (CKD) 66 (>60 ml/min/1.73 sqM); Albumin 3.8 g/dL (3.5-5.0); Alkaline Phosphatase 133 U/L (38-126); Amylase 54 U/L (30-110); Anion Gap 12 mmol/L; Blood Urea Nitrogen 17 mg/dL (7-17); Carbon Dioxide 20 mmol/L (22-30); Chloride 105 mmol/L (98-107); Glucose 106 mg/dL (74-99); Lipase 85 U/L (23-300); Non-African American GFR(CKD) 57 (>60 ml/min/1.73 sqM); Potassium 4.4 mmol/L (3.5-5.1); Sodium 137 mmol/L (137-145); Total Bilirubin 0.7 mg/dL (0.2-1.3); Total Protein 6.9 g/dL (6.3-8.2)
[2023-03-07 15:40] LABS: Partial Thromboplastin Time 24.8 sec (22.0-30.0); Prothrombin Time 10.6 sec (9.0-12.0)
[2023-03-07 15:52] LABS: Basophils % (A) 0 %; Eosinophils # (A) 0.1 k/uL (0-0.7); Eosinophils % (A) 1 %; HCT 42.1 % (34.0-46.0); HGB 13.9 gm/dL (11.4-16.0); Lymphocytes # (A) 1.2 k/uL (1.0-4.8); Lymphocytes % (A) 14 %; MCH 30.8 pg (25.0-35.0); MCV 93.3 fL (80.0-100.0); Mean Platelet Volume 8.1; Monocytes # (A) 0.5 k/uL (0-1.0); Monocytes % (A) 5 %; Neutrophils % (A) 78 %; Platelet Count 262 k/uL (150-450); RBC 4.51 m/uL (3.80-5.40); RDW 13.5 % (11.5-15.5)
--- NOTE | 2023-03-07 16:43 | CT ---
EXAMINATION TYPE: CT angio chest DATE OF EXAM: 03/07/2023 4:22 PM COMPARISON: CT chest dated 12/15/2022 HISTORY: chest pain CT DLP: 1078.8 mGycm Automated exposure control for dose reduction was used. CONTRAST: CTA scan of the thorax is performed with IV Contrast, patient injected with 80 mL of Isovue 300, pulm onary embolism protocol. 3-D postprocessing was performed. FINDINGS: Small groundglass density in the right upper lobe laterally is slightly more prominent than the prior study. This is a nonspecific finding could represent an inflammatory or neoplastic process and dejon nued follow-up is recommended. The pulmonary arteries and branches are well opacified and there are no filling defects to suggest pu lmonary embolism. There is a large hiatal hernia with intrathoracic stomach. There is no pleural effusion or pneumothorax. There is no thoracic aortic aneurysm. The osseous structures are grossly intact. IMPRESSION: 1. No evidence of pulmonary embolism. 2. Small right upper lobe groundglass density and continued follow-up is recommended, see above. 3. Large hiatal hernia with intrathoracic stomach.
--- NOTE | 2023-03-07 16:50 | CT ---
EXAMINATION TYPE: CT abdomen pelvis w con DATE OF EXAM: 03/07/2023 COMPARISON: 07/08/2016 HISTORY: epigastric pain, urine incontinace CT DLP: 1078.8 mGycm Automated exposure control for dose reduction was used. TECHNIQUE: Helical acquisition of images was performed from the lung bases through the pelvis. CONTRAST: Performed without Oral Contrast and with IV Contrast, patient injected with 80 mL of Isovue 300. FINDINGS: There is a large hiatal hernia with intrathoracic stomach. There are surgical absence of gallbladder. There is no focal mass or organomegaly involving the liver, pancreas, spleen or adrenal glands. The p ancreas is markedly atrophic with calcification consistent with marked chronic pancreatitis. No adren al masses are seen. There are no solid renal masses or hydronephrosis. 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 There is diffuse air and fluid within the small bowel and moderate air and stool within the colon con sistent with the ileus but no definite chemical obstruction. There is no free intraperitoneal air or fluid. There is no pelvic mass, free fluid or adenopathy. There are surgical absence of uterus. The osseous structures are intact. There is been prior hernia repair with mesh. IMPRESSION: 1. Large hiatal hernia with intrathoracic stomach. 2. Mild small and large bowel ileus without mechanical obstruction. 3. 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 Cholecystectomy. 5. Marked chronic pancreatitis with marked pancreatic atrophy and calcification.
[2023-03-07] MEDS ORDERED: NALOXONE 0.4 MG/ML 1 ML VIAL IV PRN (19:34)
[2023-03-07 20:21] LABS: Amorphous Sediment,Urine Rare /hpf; Appearance,Urine Clear (Clear); Bacteria,Urine Few /hpf; Bilirubin,Urine Negative (Negative); Blood,Urine Negative (Negative); Color,Urine Light Yellow; Glucose,Urine (UA) Negative (Negative); Hyaline Casts,Urine 10 /lpf (0-2); Ketones,Urine Negative (Negative); Leukocyte Esterase,Urine Negative (Negative); Mucus,Urine Rare /hpf; Nitrite,Urine Positive (Negative); Protein,Urine Negative (Negative); RBC,Urine 1 /hpf (0-5); Specific Gravity,Urine 1.039 (1.001-1.035); Squamous Epithelial Cell,Urine 5 /hpf (0-4); WBC,Urine <1 /hpf (0-5)
[2023-03-08] MEDS: lisinopriL 10 MG TAB PO SCH ×3 (03:22→21:13)
[2023-03-08] MEDS: METOPROLOL TARTRATE 12.5 MG TAB PO SCH ×2 (03:22→09:51)
[2023-03-08] MEDS ORDERED: METOPROLOL TARTRATE 25 MG TAB PO SCH (09:00)
[2023-03-08] MEDS ORDERED: NITROGLYCERIN SL TABS 0.4 MG TAB SUBLINGUAL PRN (09:00)
[2023-03-08] MEDS ORDERED: HYDROcodone/APAP 5-325MG 1 EACH TAB PO PRN (09:00)
[2023-03-08] MEDS: hydroCHLOROthiazide 25 MG TAB PO SCH (09:52)
[2023-03-08] MEDS: ASPIRIN 81 MG PO SCH (09:52)
[2023-03-08] MEDS: APIXABAN 2.5 MG TABLET PO SCH ×3 (09:52→21:18)
[2023-03-08] MEDS: PRAVASTATIN SODIUM 20 MG TAB PO SCH (09:53)
--- NOTE | 2023-03-08 10:07 | P.CRDCN ---
History of Present Illness History of present illness: HISTORY OF PRESENT ILLNESS: This is a 87-year-old female with a past medical history significant for hypertension, hyperlipidemia, coronary artery disease with previous stenting, and bowel obstruction with previous bowel resection. Patient follows in the office with Dr. De Santiago. We have been asked to see the patient in consultation for chest pain. Patient examined at the bedside. Patient presented to the hospital with chief complaint of abdominal pain. Patient states the pain is in her upper abdomen. She states that she was sitting outside on her porch when she began to have this pain. She does report feeling short of breath at that time. She states that while she was sitting on her porch everything in her vision field became weight. She states that she has been having this abdominal pain a lot recently. She reports she has been nauseated as well. She denied any vomiting however. She denies any dizziness or lightheadedness. The patient also reports she had some pain in her neck at home and took nitro 3 days and a row with relief of the pain. She denies any chest pain or pressure at the time of examination. * EKG reveals sinus mechanism with no signs of acute ischemia * Chest CTA: Negative for PE. Small right upper lobe groundglass density. Large hiatal hernia with intrathoracic stomach. * Laboratory data: W BC 9.0. Hemoglobin 13.9. Platelet count 262. Sodium 137. Potassium 4.4. BUN 17. Creatinine 0.91. Troponin negative 2. * Current home cardiac medications include Eliquis 2.5mg BID, aspirin 81 mg daily, metoprolol tartrate 12.5 mg daily, pravastatin 10 mg daily, and hydrochlorothiazide 25 mg daily * Most recent echocardiogram obtained in January 2022 revealed normal EF, mild MR, mild TR * Patient underwent Lexiscan stress test in December 2021 which was negative for ischemia * Cardiac catheterization history: July 1996 with stenting of proximal circumflex REVIEW OF SYSTEMS: At the time of my exam: CONSTITUTIONAL: Denies fever or chills. HEENT: Denies blurred vision, vision changes, or eye pain. Denies hemoptysis CARDIOVASCULAR: Denies chest pain. Denies orthopnea. Denies PND. Denies palpitations RESPIRATORY: Denies shortness of breath. GASTROINTESTINAL: Denies abdominal pain. Denies nausea or vomiting. HEMATOLOGIC: Denies bleeding disorders. GENITOURINARY: Denies any blood in urine. SKIN: Denies pruitis. Denies rash. PHYSICAL EXAM: VITAL SIGNS: Reviewed. GENERAL: Well-developed in no acute distress. HEENT: Head is normocephalic. Pupils are equal, round. Sclerae anicteric. Mucous membranes of the mouth are moist. Neck supple. No JVD or thyromegaly LUNGS: Respirations even and unlabored. Lungs essentially clear to auscultation bilaterally. HEART: Regular rate and rhythm. S1 and S2 heard. Systolic murmur noted. ABDOMEN: Soft. Nondistended. Nontender. EXTREMITIES: Normal range of motion. No clubbing or cyanosis. Peripheral pulses intact. No lower extremity edema NEUROLOGIC: Awake and alert. Oriented x 3. ASSESSMENT: Abdominal pain Large hiatal hernia with intrathoracic stomach Chest pain, atypical, troponin negative 2 Coronary artery disease with previous stenting Hypertension Hyperlipidemia History of bowel obstruction with previous bowel resection PLAN: An acute coronary event has been ruled out Patient presented to the ER with abdominal pain rather than chest discomfort. She was found to have large hiatal hernia with intrathoracic stomach on computed tomography scan. Will defer further evaluation to primary medicine regarding this. We will obtain 2-D echo to assess cardiac structure and function Resume home cardiac medications Patient is currently stable from a cardiac perspective Further recommendations pending patient's course Nurse practitioner note has been reviewed by physician. Signing provider agrees with the documented findings, assessment, and plan of care. Past Medical History Past Medical History: Coronary Artery Disease (CAD), Cancer, Chest Pain / Angina, GI Bleed, Hypertension, Myocardial Infarction ([place]), Pneumonia Additional Past Medical History / Comment(s): Bowel/bladder fistula; Bowel obstruction (due to adhesions); frequent urinary tract infection; Lichen sclerosis Last Myocardial Infarction Date:: 2011 History of Any Multi-Drug Resistant Organisms: None Reported Past Surgical History: Bladder Surgery, Bowel Resection, Cholecystectomy, Heart Catheterization With Stent, Hernia Repair Additional Past Surgical History / Comment(s): Cataract surgery bilateral Past Anesthesia/Blood Transfusion Reactions: No Reported Reaction Date of Last Stent Placement:: 2011 Past Psychological History: No Psychological Hx Reported Smoking Status: Never smoker Past Alcohol Use History: None Reported Past Drug Use History: None Reported - Past Family History Mother Family Medical History: CVA/TIA Father Family Medical History: Congestive Heart Failure (CHF) Medications and Allergies Home Medications Medication Instructions Recorded Confirmed Type Aspirin EC [Ecotrin Low Dose] 81 mg PO DAILY 07/22/16 03/07/23 History hydroCHLOROthiazide [Hydrodiuril] 25 mg PO DAILY #30 tab 06/16/19 03/07/23 Rx HYDROcodone/APAP 5-325MG [[place] 1 tab PO DAILY PRN 11/11/22 03/07/23 History 5-325] Metoprolol Tartrate [Lopressor] 12.5 mg PO DAILY 11/11/22 03/07/23 History Nitroglycerin Sl Tabs [Nitrostat] 0.4 mg SL Q5M PRN 11/11/22 03/07/23 History Pravastatin Sodium [Pravachol] 10 mg PO DAILY 11/11/22 03/07/23 History Apixaban [Eliquis] 2.5 mg PO DIRECTED 03/07/23 03/07/23 History Allergies Allergy/AdvReac Type Severity Reaction Status Date / Time levofloxacin [From Levaquin] Allergy Unknown Verified 03/07/23 20:12 Penicillins Allergy Swelling Verified 03/07/23 20:12 of neck hydromorphone [From Dilaudid] AdvReac Altered Verified 03/07/23 20:12 Mental Status lorazepam [From Ativan] AdvReac Confusion Verified 03/07/23 20:12 Physical Exam Vitals: Vital Signs Temp Pulse Resp BP Pulse Ox 03/08/23 06:05 76 20 135/82 95 03/08/23 05:06 68 16 142/85 95 03/08/23 03:10 73 20 140/83 98 03/08/23 01:07 60 18 128/71 97 03/07/23 23:40 67 18 152/84 97 03/07/23 21:38 85 20 161/87 98 03/07/23 20:18 84 20 99 03/07/23 14:28 97.7 F 62 15 149/83 98 Results 03/07/23 15:08 03/07/23 15:08 Cardiac Enzymes 03/07/23 03/07/23 03/07/23 Range/Units 15:08 15:08 20:18 AST 43 H (14-36) U/L Troponin I <0.012 <0.012 (0.000-0.034) ng/mL Coagulation 03/07/23 Range/Units 15:08 PT 10.6 (9.0-12.0) sec APTT 24.8 (22.0-30.0) sec CBC 03/07/23 Range/Units 15:08 WBC 9.0 (3.8-10.6) k/uL RBC 4.51 (3.80-5.40) m/uL Hgb 13.9 (11.4-16.0) gm/dL Hct 42.1 (34.0-46.0) % Plt Count 262 (150-450) k/uL Comprehensive Metabolic Panel 03/07/23 Range/Units 15:08 Sodium 137 (137-145) mmol/L Potassium 4.4 (3.5-5.1) mmol/L Chloride 105 (98-107) mmol/L Carbon Dioxide 20 L (22-30) mmol/L BUN 17 (7-17) mg/dL Creatinine 0.91 (0.52-1.04) mg/dL Glucose 106 H (74-99) mg/dL Calcium 9.0 (8.4-10.2) mg/dL AST 43 H (14-36) U/L ALT 28 (4-34) U/L Alkaline Phosphatase 133 H (38-126) U/L Total Protein 6.9 (6.3-8.2) g/dL Albumin 3.8 (3.5-5.0) g/dL Current Medications Generic Name Dose Route Start Last Admin Trade Name Freq PRN Reason Stop Dose Admin Lisinopril 10 mg 03/08/23 00:15 03/08/23 03:22 Lisinopril 10 Mg Tab PO Not Given BID [facility] Metoprolol Tartrate 12.5 mg 03/08/23 00:16 03/08/23 03:22 Metoprolol Tartrate 12.5 Mg Tab PO Not Given DAILY JOSE ENRIQUE Naloxone HCl 0.2 mg 03/07/23 19:34 Naloxone 0.4 Mg/Ml 1 Ml Vial IV Q2M PRN Opioid Reversal 03/07/23 15:08 03/07/23 15:08
--- NOTE | 2023-03-08 16:23 | P.HPIM ---
History of Present Illness H&P Date: 03/08/23 Chief Complaint: chest pain history of A. fib controlled rate currently on apixaban, developed chest pain came to the emergency room troponins negative patient has a large hiatal hernia her advanced age and comorbidities make her very poor candidate for even a laparoscopic Kendall fundoplication. Cardiologic workup for this patient demonstrates noncardiac chest discomfort. Will start omeprazole 20 mg in the morning receiving the morning on an empty stomach 20 mg in the evening will reassess and consider discharging this patient home as chest discomfort is under control with meds Review of Systems Constitutional: Reports as per HPI Ears, nose, mouth and throat: Reports as per HPI Cardiovascular: Reports chest pain, Reports dyspnea on exertion, Reports shortness of breath Respiratory: Reports cough Gastrointestinal: Reports dyspepsia, Reports indigestion (known history of large hiatal hernia) Genitourinary: Reports as per HPI Menstruation: Reports as per HPI Musculoskeletal: Reports as per HPI Integumentary: Reports as per HPI Neurological: Reports as per HPI Psychiatric: Reports anhedonia, Reports anxiety, Reports anxiety attacks Past Medical History Past Medical History: Coronary Artery Disease (CAD), Cancer, Chest Pain / A ngina, GI Bleed, Hypertension, Myocardial Infarction ([place]), Pneumonia Additional Past Medical History / Comment(s): Bowel/bladder fistula; Bowel obstruction (due to adhesions); frequent urinary tract infection; Lichen sclerosis Last Myocardial Infarction Date:: 2011 History of Any Multi-Drug Resistant Organisms: None Reported Past Surgical History: Bladder Surgery, Bowel Resection, Cholecystectomy, Heart Catheterization With Stent, Hernia Repair Additional Past Surgical History / Comment(s): Cataract surgery bilateral Past Anesthesia/Blood Transfusion Reactions: No Reported Reaction Date of Last Stent Placement:: 2011 Past Psychological History: No Psychological Hx Reported Smoking Status: Never smoker Past Alcohol Use History: None Reported Past Drug Use History: None Reported - Past Family History Mother Family Medical History: CVA/TIA Father Family Medical History: Congestive Heart Failure (CHF) Medications and Allergies Home Medications Medication Instructions Recorded Confirmed Type Aspirin EC [Ecotrin Low Dose] 81 mg PO DAILY 07/22/16 03/07/23 History hydroCHLOROthiazide [Hydrodiuril] 25 mg PO DAILY #30 tab 06/16/19 03/07/23 Rx HYDROcodone/APAP 5-325MG [[place] 1 tab PO DAILY PRN 11/11/22 03/07/23 History 5-325] Metoprolol Tartrate [Lopressor] 12.5 mg PO DAILY 11/11/22 03/07/23 History Nitroglycerin Sl Tabs [Nitrostat] 0.4 mg SL Q5M PRN 11/11/22 03/07/23 History Pravastatin Sodium [Pravachol] 10 mg PO DAILY 11/11/22 03/07/23 History Apixaban [Eliquis] 2.5 mg PO DIRECTED 03/07/23 03/07/23 History Allergies Allergy/AdvReac Type Severity Reaction Status Date / Time levofloxacin [From Levaquin] Allergy Unknown Verified 03/07/23 20:12 Penicillins Allergy Swelling Verified 03/07/23 20:12 of neck hydromorphone [From Dilaudid] AdvReac Altered Verified 03/07/23 20:12 Mental Status lorazepam [From Ativan] AdvReac Confusion Verified 03/07/23 20:12 Physical Exam Osteopathic Statement: *. No significant issues noted on an osteopathic stru ctural exam other than those noted in the History and Physical/Consult. Vitals: Vital Signs Temp Pulse Pulse Resp BP BP Pulse Ox 03/08/23 07:41 97.9 F 68 16 146/76 99 03/08/23 06:05 76 20 135/82 95 03/08/23 05:06 68 16 142/85 95 03/08/23 03:10 73 20 140/83 98 03/08/23 01:07 60 18 128/71 97 03/07/23 23:40 67 18 152/84 97 03/07/23 21:38 85 20 161/87 98 03/07/23 20:18 84 20 99 Intake and Output 03/08/23 03/08/23 03/08/23 06:59 14:59 22:59 Other: Voiding Method External Catheter General: [Patient awake, alert and oriented times 3. Patient in no acute distress.] HEENT: [PERRL. EOMI. No pharyngeal erythema or exudate.] Neck: [No adenopathy.] Cardiac: [Heart regular in rate and rhythm. No S3. No S4. No clicks, rubs. No murmur.] Lungs: [Clear to auscultation bilaterally.] Abdomen: [No mass. No organomegaly. Bowel sounds presnt and normoactive in all 4 quadrants. reproducible epigastric tenderness with deep palpation to the epigastrium Extremes: [No edema no cyanosis no claudication normal pulses] : normal female genitalia Musculoskeletal: [No joint erythema, edema or tenderness.] Skin: [No rash.] Neurologic: [No lateralizing deficits. CN II - XII grossly intact.] Lymphatic: [No adenopathy.] Results CBC & Chem 7: 03/07/23 15:08 03/07/23 15:08 Labs: Abnormal Lab Results - Last 24 Hours (Table) 03/07/23 03/07/23 Range/Units 15:08 17:37 D-Dimer 1.39 H (<0.60) mg/L FEU Ur Specific [place] 1.039 H (1.001-1.035) Urine Nitrite Positive H (Negative) Ur Squamous Epith Cells 5 H (0-4) /hpf Amorphous Sediment Rare H (None) /hpf Urine Bacteria Few H (None) /hpf Hyaline Casts 10 H (0-2) /lpf Urine Mucus Rare H (None) /hpf Thrombosis Risk Factor Assmnt - DVT/VTE Prophylaxis DVT/VTE Prophylaxis: Pharmacologic Prophylaxis ordered (already anticoagulated currently taking apixaban) Assessment and Plan (1) Hiatal hernia with GERD Current Visit: Yes Status: Acute Code(s): K44.9 - DIAPHRAGMATIC HERNIA WITHOUT OBSTRUCTION OR GANGRENE; K21.9 - GASTRO-ESOPHAGEAL REFLUX DISEASE WITHOUT ESOPHAGITIS SNOMED Code(s): 148344256 (2) Chest pain Current Visit: Yes Status: Acute Code(s): R07.9 - CHEST PAIN, UNSPECIFIED SNOMED Code(s): 43626034 (3) Atrial fibrillation with RVR Current Visit: No Status: Acute Code(s): I48.91 - UNSPECIFIED ATRIAL FIBRILLATION SNOMED Code(s): 027972000191151 (4) CHF (congestive heart failure) Current Visit: No Status: Acute Code(s): I50.9 - HEART FAILURE, UNSPECIFIED SNOMED Code(s): 98374107 (5) Hypertension Current Visit: No Status: Acute Code(s): I10 - ESSENTIAL (PRIMARY) HYPERTENSION SNOMED Code(s): 86894750 Plan: cardiology evaluation includes troponin levels 3 unremarkable No acute changes on EKG Patient has long standing history of large hiatal hernia, this patient is a poor surgical candidate with comorbidity Will treat noncardiac chest pain with omeprazole 20 mg twice daily We'll reevaluate discomfort tomorrow and consider discharge Time with Patient: Greater than 30
[2023-03-08] MEDS: PANTOPRAZOLE 40 MG TABLET PO SCH (18:03)
[2023-03-09] MEDS: PANTOPRAZOLE 40 MG TABLET PO SCH (06:39)
[2023-03-09 08:26] VITALS: RESP 16
[2023-03-09] MEDS: APIXABAN 2.5 MG TABLET PO SCH (09:00)
[2023-03-09] MEDS: hydroCHLOROthiazide 25 MG TAB PO SCH (09:30)
[2023-03-09] MEDS: METOPROLOL TARTRATE 12.5 MG TAB PO SCH (09:30)
[2023-03-09] MEDS: ASPIRIN 81 MG PO SCH (09:30)
[2023-03-09] MEDS: lisinopriL 10 MG TAB PO SCH (09:30)
[2023-03-09] MEDS: PRAVASTATIN SODIUM 20 MG TAB PO SCH (09:31)
--- NOTE | 2023-03-09 12:09 | P.PN ---
Subjective HISTORY OF PRESENT ILLNESS: This is a 87-year-old female with a past medical history significant for hypertension, hyperlipidemia, coronary artery disease with previous stenting, and bowel obstruction with previous bowel resection. Patient follows in the office with Dr. De Santiago. We have been asked to see the patient in consultation for chest pain. Patient examined at the bedside. Patient presented to the hospital with chief complaint of abdominal pain. Patient states the pain is in her upper abdomen. She states that she was sitting outside on her porch when she began to have this pain. She does report feeling short of breath at that time. She states that while she was sitting on her porch everything in her visi on field became weight. She states that she has been having this abdominal pain a lot recently. She reports she has been nauseated as well. She denied any vomiting however. She denies any dizziness or lightheadedness. The patient also reports she had some pain in her neck at home and took nitro 3 days and a row with relief of the pain. She denies any chest pain or pressure at the time of examination. * EKG reveals sinus mechanism with no signs of acute ischemia * Chest CTA: Negative for PE. Small right upper lobe groundglass density. Large hiatal hernia with intrathoracic stomach. * Laboratory data: W BC 9.0. Hemoglobin 13.9. Platelet count 262. Sodium 137. Potassium 4.4. BUN 17. Creatinine 0.91. Troponin negative 2. * Current home cardiac medications include Eliquis 2.5mg BID, aspirin 81 mg daily, metoprolol tartrate 12.5 mg daily, pravastatin 10 mg daily, and hydrochlorothiazide 25 mg daily * Most recent echocardiogram obtained in January 2022 revealed normal EF, mild MR, mild TR * Patient underwent Lexiscan stress test in December 2021 which was negative for ischemia * Cardiac catheterization history: July 1996 with stenting of proximal circumflex 03/09/2023 Patient examined this morning at the bedside. Patient denies chest pain or pressure. She denies shortness of breath. She continues to report abdominal pain this morning. He also reports feeling constipated. Vital signs are stable. PHYSICAL EXAM: VITAL SIGNS: Reviewed. GENERAL: Well-developed in no acute distress. HEENT: Head is normocephalic. Pupils are equal, round. Sclerae anicteric. Mucous membranes of the mouth are moist. Neck supple. No JVD or thyromegaly LUNGS: Respirations even and unlabored. Lungs essentially clear to auscultation bilaterally. HEART: Regular rate and rhythm. S1 and S2 heard. Systolic murmur noted. ABDOMEN: Soft. Nondistended. Nontender. EXTREMITIES: Normal range of motion. No clubbing or cyanosis. Peripheral pulses intact. No lower extremity edema NEUROLOGIC: Awake and alert. Oriented x 3. ASSESSMENT: Abdominal pain Large hiatal hernia with intrathoracic stomach Chest pain, atypical, troponin negative 2 Coronary artery disease with previous stenting Hypertension Hyperlipidemia History of bowel obstruction with previous bowel resection PLAN: 2-D echo is currently pending Continue current cardiac medications No further inpatient recommendations from a cardiology perspective Patient may be discharged home this afternoon and follow up on an outpatient basis Nurse practitioner note has been reviewed by physician. Signing provider agrees with the documented findings, assessment, and plan of care. Objective - Vital Signs Vital signs: Vital Signs Temp 97.6 F 03/09/23 07:00 Pulse 65 03/09/23 07:00 Resp 16 03/09/23 09:30 BP 132/70 03/09/23 07:00 Pulse Ox 97 03/09/23 07:00 FiO2 Intake & Output 03/08/23 03/09/23 03/09/23 18:59 06:59 18:59 Output Total 200 750 Balance -200 -750 Weight 56.699 kg Output: Urine 200 750 Other: Voiding Method External Catheter External Catheter External Catheter # Voids 1 - Labs CBC & Chem 7: 03/07/23 15:08 03/07/23 15:08
--- NOTE | 2023-03-09 12:09 | CA ---
Transthoracic Echo Report Name: Marsha Ramirez Age: 87 Gender: F : 1935 Exam Date: 03/09/2023 07:49 Exam Location: [place] [facility] Ht (in): 67 Wt (lb): 125 Ordering Physician: Destiny Bullock Attending/Referring Phys: [id number], Kobe [employer] Artist Instructor Alicia Peterson RDCS Procedure CPT: Indications: LV function, CP Cardiac Hx: Technical Quality: Fair Contrast 1: Total Dose (mL): Contrast 2: Total Dose (mL): MEASUREMENTS (Male / Female) Normal Values 2D ECHO LV Diastolic Diameter PLAX 3.3 cm 4.2 - 5.9 / 3.9 - 5.3 cm LV Systolic Diameter PLAX 2.1 cm IVS Diastolic Thickness 1.0 cm 0.6 - 1.0 / 0.6 - 0.9 cm LVPW Diastolic Thickness 1.3 cm 0.6 - 1.0 / 0.6 - 0.9 cm LV Relative Wall Thickness 0.7 RV Internal Dim ED PLAX 3.2 cm LVOT Diameter 1.8 cm LA Volume 80.3 cm??? 18 - 58 / 22 - 52 cm??? M-MODE Aortic Root Diameter MM 2.5 cm LA Systolic Diameter MM 6.3 cm LA Ao Ratio MM 2.6 AV Cusp Separation MM 0.7 cm DOPPLER AV Peak Velocity 366.2 cm/s AV Peak Gradient 53.6 mmHg AV Mean Velocity 262.7 cm/s AV Mean Gradient 32.2 mmHg AV Velocity Time Integral 94.0 cm LVOT Peak Velocity 99.4 cm/s LVOT Peak Gradient 4.0 mmHg LVOT Velocity Time Integral 29.2 cm LVOT Stroke Volume 71.3 cm??? LVOT Stroke Volume Index 43.0 ml/m??? LVOT Cardiac Index 2665.4 cm???/min???m??? AV Area Cont Eq vti 0.8 cm??? AV Area Cont Eq pk 0.7 cm??? MV Area PHT 3.4 cm??? Mitral E Point Velocity 89.1 cm/s Mitral A Point Velocity 80.6 cm/s Mitral E to A Ratio 1.1 MV Deceleration Time 220.8 ms MV E' Velocity 5.1 cm/s Mitral E to MV E' Ratio 17.4 TR Peak Velocity 292.6 cm/s TR Peak Gradient 34.3 mmHg Right Ventricular Systolic Press 39.3 mmHg FINDINGS Left Ventricle Mildly increased left ventricular wall thickness. Left ventricular cavity size normal. Normal left ventricular systolic function with no obvious regional wall motion abnormalities. Left ventricular ejection fraction is estimated at 55- 60%. Right Ventricle Normal right ventricular size and function. Mild pulmonary hypertension. Right Atrium Normal right atrial size. Left Atrium Severely increased left atrial volume. Mildly increased left atrial area. Mitral Valve Structurally normal mitral valve. No mitral stenosis. Moderate mitral regurgitation. Mild mitral annular calcification. Aortic Valve Moderate aortic stenosis with a peak gradient of 54 mmHg and a mean gradient of 32 mmHg. No aortic regurgitation. Tricuspid Valve Structurally normal tricuspid valve. Moderate tricuspid regurgitation. Pulmonic Valve Structurally normal pulmonic valve. Pericardium No pericardial effusion. Aorta Normal size aortic root and proximal ascending aorta. CONCLUSIONS 1. Normal left ventricle size and systolic function 2. Moderate aortic stenosis with mean gradient of 32 mmHg 3. Moderate mitral and tricuspid regurgitation Previewed by: Dr. Joselyn De Santiago MD (Electronically Signed) Final Date: 09 March 2023 12:08
[2023-03-09 14:23] VITALS: BP 106/68; PULSE 63; TEMP 97.8
== END 2023-03-09 15:51 | disposition home or self-care (01) ==
LOC: EC 14:15 → 6NMEDSUR 19:35
PROVIDERS: ADMIT Family Medicine; ATTEND Family Medicine
DX: R10.9 Unspecified abdominal pain (principal); K21.9 Gastro-esophageal reflux disease without esophagitis; K44.9 Diaphragmatic hernia without obstruction or gangrene; R07.89 Other chest pain; I25.10 Atherosclerotic heart disease of native coronary artery without angina pectoris; E78.5 Hyperlipidemia, unspecified; I48.91 Unspecified atrial fibrillation; I11.0 Hypertensive heart disease with heart failure; I50.9 Heart failure, unspecified; I25.2 Old myocardial infarction; Z90.49 Acquired absence of other specified parts of digestive tract; Z95.5 Presence of coronary angioplasty implant and graft; Z79.82 Long term (current) use of aspirin; Z79.899 Other long term (current) drug therapy; Z79.01 Long term (current) use of anticoagulants; Z88.0 Allergy status to penicillin; Z88.1 Allergy status to other antibiotic agents; Z88.5 Allergy status to narcotic agent
CPT/HCPCS: 96374; 96375; 99285; 36415; 93306; 85379; 80053; 82150; 83690; 84484; 85025; 85610; 85730; 81001; 71275; 74177; G0378 ×4; J2405; J3490; Q9967

== ENCOUNTER 2023-03-18 02:21 | Emergency (ER) | payer MEDICARE ==
[2023-03-18] MEDS ORDERED: PANTOPRAZOLE 40 MG/10 ML VIAL IVP STA (03:19)
[2023-03-18] MEDS ORDERED: SODIUM CHLORIDE 0.9% 1,000 ML IV STA (03:19)
--- NOTE | 2023-03-18 03:44 | ED ---
General Adult HPI - General Chief complaint: Weakness Stated complaint: Hypertension, Headache, Possible reaction to meds Time Seen by Provider: 03/18/23 03:17 Source: patient, RN notes reviewed, old records reviewed Mode of arrival: wheelchair Limitations: no limitations - History of Present Illness Initial comments: Patient is an 87-year-old female presents emergency Department complaining of weakness and high blood pressure this evening. States she's been taking bowel prep for colonoscopy. States she has been having multiple episodes of diarrhea and has been taking her proper prep however she did not take her second bottle as she believes it may be causing her to feel weak. Patient is very anxious regarding her blood pressure as well. Apparently was over 200 systolic at home. Currently within acceptable limits. Denies any chest pain or shortness of breath. Endorses chronic abdominal pain that is actually improved from her typical pain. Denies any fevers or chills or cough. Has no urinary complaints other than chronic poorly controlled urination. Denies any constipation. This is nonbloody diarrhea. States stool is light brown. No new bleeding. Does have history of GI bleeds in the past. Has held her blood thinners recently. His no other acute complaints at this time. Presents for further evaluation at this time. Is due for colonoscopy later this morning. - Related Data Home Medications Medication Instructions Recorded Confirmed Aspirin EC [Ecotrin Low Dose] 81 mg PO DAILY 07/22/16 03/16/23 HYDROcodone/APAP 5-325MG [[place] 1 tab PO DAILY PRN 11/11/22 03/16/23 5-325] Metoprolol Tartrate [Lopressor] 12.5 mg PO BID 11/11/22 03/16/23 Nitroglycerin Sl Tabs [Nitrostat] 0.4 mg SL Q5M PRN 11/11/22 03/16/23 Pravastatin Sodium [Pravachol] 10 mg PO DAILY 11/11/22 03/16/23 Apixaban [Eliquis] 2.5 mg PO DIRECTED 03/07/23 03/16/23 Omeprazole 1 capsule PO BID 03/09/23 03/16/23 Previous Rx's Medication Instructions Recorded hydroCHLOROthiazide [Hydrodiuril] 25 mg PO DAILY #30 tab 06/16/19 Allergies Allergy/AdvReac Type Severity Reaction Status Date / Time levofloxacin [From Levaquin] Allergy Unknown Verified 03/18/23 02:43 Penicillins Allergy Swelling Verified 03/18/23 02:43 of neck hydromorphone [From Dilaudid] AdvReac Altered Verified 03/18/23 02:43 Mental Status lorazepam [From Ativan] AdvReac Confusion Verified 03/18/23 02:43 Review of Systems ROS Statement: Those systems with pertinent positive or pertinent negative responses have been documented in the HPI. Review of Systems: CONST: Denies fever EYES: Denies blurry vision ENT: Denies nasal congestion C/V: Denies Chest pain RESP: Denies shortness of breath GI: Denies abdominal pain : Denies dysuria SKIN: Denies rash. MSK: Denies joint pain. NEURO: Endorses weakness ROS Other: All systems not noted in ROS Statement are negative. Past Medical History Past Medical History: Coronary Artery Disease (CAD), Chest Pain / Angina, Hypertension, Myocardial Infarction ([place]), Pneumonia Additional Past Medical History / Comment(s): Bowel/bladder fistula; Bowel obstruction (due to adhesions); frequent urinary tract infection; Lichen sclerosis Last Myocardial Infarction Date:: 2011 History of Any Multi-Drug Resistant Organisms: None Reported Past Surgical History: Bladder Surgery, Bowel Resection, Cholecystectomy, Heart Catheterization With Stent, Hernia Repair Additional Past Surgical History / Comment(s): Cataract surgery bilateral Past Anesthesia/Blood Transfusion Reactions: No Reported Reaction Date of Last Stent Placement:: 2011 Past Psychological History: No Psychological Hx Reported Smoking Status: Never smoker Past Alcohol Use History: None Reported Past Drug Use History: None Reported - Past Family History Mother Family Medical History: CVA/TIA Father Family Medical History: Congestive Heart Failure (CHF) General Exam - General Exam Comments Initial Comments: General: Appears anxious. HEAD: Normal with no signs of head trauma. EYES: PERRLA, EOMI, conjunctiva normal, no discharge. ENT: Hearing grossly intact, normal oropharynx. RESPIRATORY: Clear breath sounds bilaterally. No wheezes, rales, or rhonchi. C/V: Regular rate and rhythm. S1 and S2 auscultated, no edema, peripheral pulses 2+ and intact throughout ABD: Abd is soft, nontender, nondistended EXT: Normal range of motion, no obvious deformity SKIN: No rashes or lesions observed on exposed skin. NEURO: Alert and oriented x 4. Cranial nerves II-XII intact. No focal sensory or strength deficits. Subjective weakness stated. Limitations: no limitations Course Vital Signs 03/18/23 03/18/23 02:44 05:39 Temperature 98.2 F 97.9 F Pulse Rate 84 71 Respiratory 18 19 Rate Blood Pressure 140/83 139/90 O2 Sat by Pulse 98 94 L Oximetry Medical Decision Making - Medical Decision Making Was pt. sent in by a medical professional or institution (, SAMANTHA, TECHNICAL CABLE JOINTER, urgent care, hospital, or fpc...) When possible be specific @ -No Did you speak to anyone other than the patient for history (EMS, parent, family, police, friend...)? What history was obtained from this source @ -No Did you review nursing and triage notes (agree or disagree)? Why? @ -I reviewed and agree with nursing and triage notes Were old charts reviewed (outside hosp., previous admission, EMS record, old EKG, old radiological studies, urgent care reports/EKG's, fpc records)? Report findings @ -Old charts were reviewed Differential Diagnosis (chest pain, altered mental status, abdominal pain women, abdominal pain men, vaginal bleeding, weakness, fever, dyspnea, syncope, headache, dizziness, GI bleed, back pain, seizure, CVA, palpatations, mental health, musculoskeletal)? @ -Dehydration, electrolyte abnormalities, hypertension, UTI. This list is not all inclusive. EKG interpreted by me (3pts min.). @ -As above X-rays interpreted by me (1pt min.). @ -None done CT interpreted by me (1pt min.). @ -None done U/S interpreted by me (1pt. min.). @ -None done What testing was considered but not performed or refused? (CT, X-rays, U/S, labs)? Why? @ -None What meds were considered but not given or refused? Why? @ -None Did you discuss the management of the patient with other professionals (professionals i.e. SAMANTHA Guzmán, TECHNICAL CABLE JOINTER, lab, RT, psych nurse, social sciences lecturer, traveling clerk, teacher, chief safety officer, case management coordinator)? Give summary @ -No Was smoking cessation discussed for >3mins.? @ -No Was critical care preformed (if so, how long)? @ -No Were there social determinants of health that impacted care today? How? (Homelessness, low income, unemployed, alcoholism, drug addiction, transportation, low edu. Level, literacy, decrease access to med. care, usp, re hab)? @ -No Was there de-escalation of care discussed even if they declined (Discuss DNR or withdrawal of care, Hospice)? DNR status @ -No What co-morbidities impacted this encounter? (DM, HTN, Smoking, COPD, CAD, Cancer, CVA, ARF, Chemo, Hep., AIDS, mental health diagnosis, sleep apnea, morbid obesity)? @ -None Was patient admitted / discharged? Hospital course, mention meds given and route, prescriptions, significant lab abnormalities, going to OR and other pertinent info. @ -Based on the patient's presentation and physical exam, I'm concerned for possible dehydration to the patient concerning her generalized weakness. Cannot definitively rule out UTI. We will obtain screening labs as well as urinalysis. She'll be given a 1 L fluid bolus as well as Protonix. Patient does appear anxious as well. Vital signs are within acceptable limits at this time and we will monitor her blood pressure. She was in agreement with this plan. EKG showed no evidence of acute ischemia.Patient's labs returned positive for mild hypomagnesemia for which she was given a magnesium pills. Urine is still pending. EKG unremarkable. I discussed results with the patient. She is extremely anxious and tearful as she is concerned that because she did not finish her GI prep, she cannot give a colonoscopy and she feels she needs a colonoscopy. She is experiencing extreme anxiety regarding this. I did offer anxiety medications which she declines. After a long discussion of 10-15 minutes, patient is calm down and is feeling improved. We both came up with the plan for the patient be discharged home and she will contact her surgeon's office this morning to see if she can still do the colonoscopy. Patient's blood pressure is improved without any intervention. She expressed understanding and was in agreement this plan. She doesn't etiology likely has anxiety and stress regarding this. I instructed the patient to follow up with their PCP in the next 1-3 days. I explained that the patient should return to the emergency department if they experience any worsening symptoms. Strict return precautions were discussed with the patient. The patient expressed understanding of these instructions. I answered all questions that the patient had. The patient was discharged home in good condition with their prescriptions and follow up information. Undiagnosed new problem with uncertain prognosis? @ -No Drug Therapy requiring intensive monitoring for toxicity (Heparin, Nitro, In sulin, Cardizem)? @ -No Were any procedures done? @ -No Diagnosis/symptom? @ -Anxiety, stress, hypomagnesemia Acute, or Chronic, or Acute on Chronic? @ -Acute Uncomplicated (without systemic symptoms) or Complicated (systemic symptoms)? @ -Complicated Side effects of treatment? @ -none Exacerbation, Progression, or Severe Exacerbation] @ -no Poses a threat to life or bodily function? @ -no - Lab Data Result diagrams: 03/18/23 03:26 03/18/23 03:26 Lab Results 03/18/23 03/18/23 03/18/23 Range/Units 03:26 03: 03:26 WBC 6.9 (3.8-10.6) k/uL RBC 4.79 (3.80-5.40) m/uL Hgb 15.0 (11.4-16.0) gm/dL Hct 44.1 (34.0-46.0) % MCV 91.9 (80.0-100.0) fL MCH 31.3 (25.0-35.0) pg MCHC 34.0 (31.0-37.0) g/dL RDW 13.3 (11.5-15.5) % Plt Count 335 (150-450) k/uL MPV 7.8 Neutrophils % 69 % Lymphocytes % 20 % Monocytes % 7 % Eosinophils % 2 % Basophils % 1 % Neutrophils # 4.7 (1.3-7.7) k/uL Lymphocytes # 1.4 (1.0-4.8) k/uL Monocytes # 0.5 (0-1.0) k/uL Eosinophils # 0.1 (0-0.7) k/uL Basophils # 0.0 (0-0.2) k/uL PT 10.7 (9.0-12.0) sec INR 1.0 (<1.2) APTT 25.7 (22.0-30.0) sec Sodium 132 L (137-145) mmol/L Potassium 4.4 (3.5-5.1) mmol/L Chloride 99 (98-107) mmol/L Carbon Dioxide 22 (22-30) mmol/L Anion Gap 11 mmol/L BUN 20 H (7-17) mg/dL Creatinine 0.88 (0.52-1.04) mg/dL Est GFR (CKD-EPI)AfAm 69 (>60 ml/min/1.73 sqM) Est GFR (CKD-EPI)NonAf 60 (>60 ml/min/1.73 sqM) Glucose 108 H (74-99) mg/dL Calcium 9.5 (8.4-10.2) mg/dL Magnesium 1.5 L (1.6-2.3) mg/dL Total Bilirubin 0.9 (0.2-1.3) mg/dL AST 35 (14-36) U/L ALT 22 (4-34) U/L Alkaline Phosphatase 106 (38-126) U/L Total Protein 6.8 (6.3-8.2) g/dL Albumin 4.0 (3.5-5.0) g/dL - EKG Data -: EKG Interpreted by Me EKG Comments: 12-lead Electrocardiogram Interpretation Note EKG was reviewed and interpreted by myself. 12-lead ECG performed at 0301 is interpreted by me as revealing atrial fibrillation rate controlled at a rate of 83 beats per minute. [place] is normal. QRS duration is 82 ms, QTc is 416 ms.. There were no ST or T wave abnormalities to suggest myocardial ischemia or injury. R wave progression across the precordium was satisfactory. By my interpretation this EKG is non-diagnostic for acute ischemia. Disposition Clinical Impression: Anxiety, Hypomagnesemia, Chronic abdominal pain Disposition: HOME SELF-CARE Condition: Good Instructions (If sedation given, give patient instructions): Abdominal Pain (ED), Anxiety (ED) Is patient prescribed a controlled substance at d/c from ED?: No Referrals: Leonardo Rodrigez Jr, [Primary Care Provider] - 1-2 days Time of Disposition: 04:52
[2023-03-18 03:49] LABS: Basophils % (A) 1 %; Eosinophils # (A) 0.1 k/uL (0-0.7); Eosinophils % (A) 2 %; HCT 44.1 % (34.0-46.0); Lymphocytes # (A) 1.4 k/uL (1.0-4.8); Lymphocytes % (A) 20 %; MCH 31.3 pg (25.0-35.0); MCV 91.9 fL (80.0-100.0); Mean Platelet Volume 7.8; Monocytes # (A) 0.5 k/uL (0-1.0); Monocytes % (A) 7 %; Neutrophils # (A) 4.7 k/uL (1.3-7.7); Neutrophils % (A) 69 %; Platelet Count 335 k/uL (150-450); RBC 4.79 m/uL (3.80-5.40); RDW 13.3 % (11.5-15.5); WBC 6.9 k/uL (3.8-10.6)
[2023-03-18 04:01] LABS: Partial Thromboplastin Time 25.7 sec (22.0-30.0); Prothrombin Time 10.7 sec (9.0-12.0)
[2023-03-18 04:23] LABS: ALT 22 U/L (4-34); AST 35 U/L (14-36); African American GFR (CKD) 69 (>60 ml/min/1.73 sqM); Alkaline Phosphatase 106 U/L (38-126); Anion Gap 11 mmol/L; Blood Urea Nitrogen 20 mg/dL (7-17); Calcium 9.5 mg/dL (8.4-10.2); Carbon Dioxide 22 mmol/L (22-30); Chloride 99 mmol/L (98-107); Glucose 108 mg/dL (74-99); Magnesium 1.5 mg/dL (1.6-2.3); Non-African American GFR(CKD) 60 (>60 ml/min/1.73 sqM); Potassium 4.4 mmol/L (3.5-5.1); Sodium 132 mmol/L (137-145); Total Bilirubin 0.9 mg/dL (0.2-1.3); Total Protein 6.8 g/dL (6.3-8.2)
[2023-03-18] MEDS ORDERED: MAGNESIUM OXIDE 400 MG TAB PO STA (04:27)
[2023-03-18 05:43] VITALS: BP 139/90; PULSE 71; RESP 19; TEMP 97.9
== END 2023-03-18 05:45 | disposition home or self-care (01) ==
LOC: EC 02:21
DX: F41.9 Anxiety disorder, unspecified (principal); E83.42 Hypomagnesemia; G89.29 Other chronic pain; R10.9 Unspecified abdominal pain; I25.10 Atherosclerotic heart disease of native coronary artery without angina pectoris; I25.2 Old myocardial infarction; I10 Essential (primary) hypertension; Z79.82 Long term (current) use of aspirin; Z79.899 Other long term (current) drug therapy; Z79.01 Long term (current) use of anticoagulants; Z88.0 Allergy status to penicillin; Z88.1 Allergy status to other antibiotic agents; Z88.5 Allergy status to narcotic agent; Z88.8 Allergy status to other drugs, medicaments and biological substances
CPT/HCPCS: 36415; 93005; 80053; 83735; 85025; 85610; 85730; 99285; 96374; C9113

== ENCOUNTER → 2023-03-31 | Outpatient (CLI) | payer MEDICARE ==
[2023-03-31 16:27] LABS: Basophils # (A) 0.04 X 10*3/uL (0.00-0.10); Basophils % (A) 0.5 %; Eosinophils # (A) 0.09 X 10*3/uL (0.04-0.35); Eosinophils % (A) 1.2 %; HCT 41.5 % (37.2-46.3); HGB 13.7 d/dL (12.0-15.0); Lymphocytes # (A) 1.79 X 10*3/uL (0.90-5.00); MCH 30.4 pg (27.0-32.0); MCV 92.2 FL (80.0-97.0); Mean Platelet Volume 10.7 FL (9.5-12.2); Monocytes # (A) 0.59 X 10*3/uL (0.20-1.00); Monocytes % (A) 7.6 %; NRBC Per 100 WBC 0 X 10*3/uL (0.00-0.01); Neutrophils # (A) 5.26 X 10*3/uL (1.80-7.70); Neutrophils % (A) 67.4 %; Platelet Count 348 X 10*3/uL (140-440); RDW 13.9 % (11.5-14.5); WBC 7.79 X 10*3/uL (4.50-10.00)
== END | disposition home or self-care (01) ==
LOC: LABWHC1 12:44
PROVIDERS: ATTEND Family Medicine
DX: B82.0 Intestinal helminthiasis, unspecified (principal)
CPT/HCPCS: 36415; 85025

== ENCOUNTER 2023-04-27 23:13 | Inpatient (IN) | payer MEDICARE ==
[2023-04-27 23:49] LABS: Basophils % (A) 0 %; Eosinophils # (A) 0.2 k/uL (0-0.7); Eosinophils % (A) 2 %; HCT 41.1 % (34.0-46.0); HGB 14.2 gm/dL (11.4-16.0); Lymphocytes # (A) 1.9 k/uL (1.0-4.8); Lymphocytes % (A) 18 %; MCH 31.6 pg (25.0-35.0); MCHC 34.5 g/dL (31.0-37.0); MCV 91.7 fL (80.0-100.0); Monocytes # (A) 0.6 k/uL (0-1.0); Monocytes % (A) 6 %; Neutrophils # (A) 7.9 k/uL (1.3-7.7); Neutrophils % (A) 74 %; Platelet Count 309 k/uL (150-450); RBC 4.48 m/uL (3.80-5.40); RDW 13.6 % (11.5-15.5); WBC 10.7 k/uL (3.8-10.6)
[2023-04-27 23:59] LABS: ALT 25 U/L (4-34); AST 38 U/L (14-36); African American GFR (CKD) 66 (>60 ml/min/1.73 sqM); Albumin 4.1 g/dL (3.5-5.0); Alkaline Phosphatase 130 U/L (38-126); Anion Gap 13 mmol/L; Blood Urea Nitrogen 28 mg/dL (7-17); Calcium 9.6 mg/dL (8.4-10.2); Carbon Dioxide 21 mmol/L (22-30); Chloride 102 mmol/L (98-107); Glucose 115 mg/dL (74-99); Magnesium 1.5 mg/dL (1.6-2.3); Non-African American GFR(CKD) 57 (>60 ml/min/1.73 sqM); Potassium 4.3 mmol/L (3.5-5.1); Sodium 136 mmol/L (137-145); Total Bilirubin 0.7 mg/dL (0.2-1.3); Total Protein 7.1 g/dL (6.3-8.2)
[2023-04-28 00:18] LABS: Partial Thromboplastin Time 24.3 sec (22.0-30.0); Prothrombin Time 10.7 sec (10.0-12.5)
--- NOTE | 2023-04-28 00:30 | XR ---
EXAM: XR Chest, 2 Views CLINICAL HISTORY: ITS.REASON XR Reason: Chest Pain TECHNIQUE: Frontal and lateral views of the chest. COMPARISON: No relevant prior studies available. FINDINGS: Lungs: Unremarkable. No consolidation. Pleural space: Unremarkable. No pneumothorax. Heart: Unremarkable. No cardiomegaly. Mediastinum: Large hiatal hernia. Bones/joints: Unremarkable. Vasculature: Calcified aorta. IMPRESSION: Large hiatal hernia.
[2023-04-28] MEDS ORDERED: ASPIRIN 325 MG TAB PO STA (02:17)
[2023-04-28] MEDS ORDERED: KETOROLAC 15 MG/ML 1 ML VIAL IVP STA (02:38)
--- NOTE | 2023-04-28 02:41 | ED ---
General Adult HPI - General Source: patient Mode of arrival: wheelchair Limitations: no limitations <Anuradha Mulligan - Last Filed: 04/28/23 04:37> <Javier Lucia - Last Filed: 04/28/23 06:07> - General Chief complaint: Chest Pain Stated complaint: Chest Pains SOB Time Seen by Provider: 04/28/23 02:11 - History of Present Illness Initial comments: Patient is an 87-year-old female who presents to the emergency department for chest pain. Patient has a medical history significant for coronary artery disease with previous stenting, hyperlipidemia, hypertension, atrial fibrillation on eliquis, large hiatal hernia. Patient was at home this evening around 8 PM when she started to experience chest pain. Patient has difficulty describing the chest pain but states she was holding her chest. Pain radiates to her back. She denies any ripping or tearing nature. Patient felt short of breath. She took 2 nitro with some relief. No exacerbating or other modifying factors. No dizziness or lightheadedness. No nausea or vomiting. During evaluation patient continues to have chest pain. States she is no longer short of breath. She denies leg pain and swelling. Denies history of DVT and PE. Patient does take Eliquis but has not taken it for 6 days due to schedule colonoscopy with Dr. Brunson for blood in stool. Patient reports mucous filled stool today with reddish brown streaks. She denies abdominal pain, fever. She does have history of GI bleed in 2019. (Anuradha Mulligan) - Related Data Home Medications Medication Instructions Recorded Confirmed Aspirin EC [Ecotrin Low Dose] 81 mg PO DAILY 07/22/16 03/16/23 HYDROcodone/APAP 5-325MG [[place] 1 tab PO DAILY PRN 11/11/22 03/16/23 5-325] Metoprolol Tartrate [Lopressor] 12.5 mg PO BID 11/11/22 03/16/23 Nitroglycerin Sl Tabs [Nitrostat] 0.4 mg SL Q5M PRN 11/11/22 03/16/23 Pravastatin Sodium [Pravachol] 10 mg PO DAILY 11/11/22 03/16/23 Apixaban [Eliquis] 2.5 mg PO DIRECTED 03/07/23 03/16/23 Omeprazole 1 capsule PO BID 03/09/23 03/16/23 Previous Rx's Medication Instructions Recorded hydroCHLOROthiazide [Hydrodiuril] 25 mg PO DAILY #30 tab 06/16/19 Allergies Allergy/AdvReac Type Severity Reaction Status Date / Time levofloxacin [From Levaquin] Allergy Unknown Verified 03/18/23 02:43 Penicillins Allergy Swelling Verified 03/18/23 02:43 of neck hydromorphone [From Dilaudid] AdvReac Altered Verified 03/18/23 02:43 Mental Status lorazepam [From Ativan] AdvReac Confusion Verified 03/18/23 02:43 Review of Systems ROS Other: All systems not noted in ROS Statement are negative. <Anuradha Mulligan - Last Filed: 04/28/23 04:37> ROS Other: All systems not noted in ROS Statement are negative. <Javier Lucia - Last Filed: 04/28/23 06:07> ROS Statement: Those systems with pertinent positive or pertinent negative responses have been documented in the HPI. Past Medical History Past Medical History: Coronary Artery Disease (CAD), Chest Pain / Angina, Hypertension, Myocardial Infarction (NM), Pneumonia Additional Past Medical History / Comment(s): Bowel/bladder fistula; Bowel obstruction (due to adhesions); frequent urinary tract infection; Lichen sclerosis Last Myocardial Infarction Date:: 2011 History of Any Multi-Drug Resistant Organisms: None Reported Past Surgical History: Bladder Surgery, Bowel Resection, Cholecystectomy, Heart Catheterization With Stent, Hernia Repair Additional Past Surgical History / Comment(s): Cataract surgery bilateral Past Anesthesia/Blood Transfusion Reactions: No Reported Reaction Date of Last Stent Placement:: 2011 Past Psychological History: No Psychological Hx Reported Smoking Status: Never smoker Past Alcohol Use History: None Reported Past Drug Use History: None Reported - Past Family History Mother Family Medical History: CVA/TIA Father Family Medical History: Congestive Heart Failure (CHF) <Anuradha Mulligan - Last Filed: 04/28/23 04:37> General Exam Limitations: no limitations General appearance: alert Head exam: Present: atraumatic, normocephalic, normal inspection Eye exam: Present: normal appearance, PERRL, EOMI. Absent: scleral icterus, conjunctival injection, periorbital swelling Respiratory exam: Present: normal lung sounds bilaterally. Absent: respiratory distress, wheezes, rales, rhonchi, stridor Cardiovascular Exam: Present: regular rate, normal rhythm, normal heart sounds. Absent: systolic murmur, diastolic murmur, rubs, gallop, clicks GI/Abdominal exam: Present: soft, normal bowel sounds. Absent: distended, tenderness, guarding, rebound, rigid Extremities exam: Present: normal inspection, full ROM, normal capillary refill Neurological exam: Present: alert Psychiatric exam: Present: anxious Skin exam: Present: warm, dry, intact, normal color. Absent: rash <Anuradha Mulligan - Last Filed: 04/28/23 04:37> Course <Javier Lucia - Last Filed: 04/28/23 06:07> Vital Signs 04/27/23 04/28/23 04/28/23 23:15 03:07 03:40 Temperature 98.2 F Pulse Rate 70 82 61 Respiratory 16 16 16 Rate Blood Pressure 207/85 116/78 165/84 O2 Sat by Pulse 96 94 L 98 Oximetry - Reevaluation(s) Reevaluation #1: 04/28/23 06:[address] report, discussed case with surgery and there treatment recommendations are incorporated. (Javier Lucia) Medical Decision Making - Lab Data Result diagrams: 04/27/23 23:35 04/27/23 23:35 <Anuradha Mulligan - Last Filed: 04/28/23 04:37> - Lab Data Result diagrams: 04/27/23 23:35 04/27/23 23:35 <Javier Lucia - Last Filed: 04/28/23 06:07> - Medical Decision Making EKG taken at 23:35, to rule out myself Sinus rhythm with first-degree AV block Ventricular rate 65, NM interval 239, QRS duration 88, QTc 412 Was pt. sent in by a medical professional or institution (, PA, INTERNATIONAL TAX MANAGER, urgent care, hospital, or longterm...) When possible be specific @ -No Did you speak to anyone other than the patient for history (EMS, parent, family, police, friend...)? What history was obtained from this source @ -No Did you review nursing and triage notes (agree or disagree)? Why? @ -I reviewed and agree with nursing and triage notes Were old charts reviewed (outside hosp., previous admission, EMS record, old EKG, old radiological studies, urgent care reports/EKG's, longterm records)? Report findings @Reviewed echocardiogram in February and cardiology note Differential Diagnosis (chest pain, altered mental status, abdominal pain women, abdominal pain men, vaginal bleeding, weakness, fever, dyspnea, syncope, headache, dizziness, GI bleed, back pain, seizure, CVA, palpatations, mental health)? @ -[Differential Chest Pain: Stable Angina, Unstable Angina, STEMI, NSTEMI Aortic Dissection, Pneumothorax, Musculoskeletal, Esophageal Spasm GERD, Cholecystitis, Pancreatitis, Zoster, this is not meant to be an all-inclusive list. EKG interpreted by me (3pts min.). @ -As above X-rays interpreted by me (1pt min.). @ -No acute cardiopulmonary process CT interpreted by me (1pt min.). @ -None done U/S interpreted by me (1pt. min.). @ -None done What testing was considered but not performed or refused? (CT, X-rays, U/S, labs)? Why? @ -None What meds were considered but not given or refused? Why? @ -None Did you discuss the management of the patient with other professionals (professionals i.e. , PA, INTERNATIONAL TAX MANAGER, lab, RT, psych nurse, social work coordinator, light coil winder, teacher, security officer, supervisor case loading)? Give summary @ -No Was smoking cessation discussed for >3mins.? @ -No Was critical care preformed (if so, how long)? @ -No Were there social determinants of health that impacted care today? How? (Homelessness, low income, unemployed, alcoholism, drug addiction, transportation, low edu. Level, literacy, decrease access to med. care, nursing home, rehab)? @ -No Was there de-escalation of care discussed even if they declined (Discuss DNR or withdrawal of care, Hospice)? DNR status @ -No What co-morbidities impacted this encounter? (DM, HTN, Smoking, COPD, CAD, Cancer, CVA, ARF, Chemo, Hep., AIDS, mental health diagnosis, sleep apnea, morbid obesity)? @ -[Coronary artery disease, hypertension, hyperlipidemia, AF Was patient admitted / discharged? Hospital course, mention meds given and route, prescriptions, significant lab abnormalities, going to OR and other pertinent info. @ -87-year-old presenting for chest pain. EKG sinus rhythm with first-degree AV block no ST segment elevation. Troponin bumped to 0.018. Patient refused aspirin due to upcoming colonoscopy. Patient is admitted for cardiac rule out Dr. Pagan accepts cardiology and GI consulted Patient has elevated d-dimer at 1.64 CTA obtained patient care given to Dr. Lucia at 4:15 Undiagnosed new problem with uncertain prognosis? @ -No] Drug Therapy requiring intensive monitoring for toxicity (Heparin, Nitro, Insulin, Cardizem)? @ -[No] Were any procedures done? @ -[No] Diagnosis/symptom? @ -chest pain Acute, or Chronic, or Acute on Chronic? @ -acute Uncomplicated (without systemic symptoms) or Complicated (systemic symptoms)? @ -uncomplicated Side effects of treatment? @ -[No] Exacerbation, Progression, or Severe Exacerbation? @ -No Poses a threat to life or bodily function? How? (Chest pain, [place], NM, pneumonia, PE, COPD, DKA, ARF, appy, cholecystitis, CVA, Diverticulitis, Homicidal, Suicidal, threat to staff... and all critical care pts) @ -Yes Dr. Lucia is my attending (Anuradha Mulligan) - Lab Data Lab Results 04/27/23 04/27/23 04/27/23 Range/Units 23:35 23:35 23:35 WBC 10.7 H (3.8-10.6) k/uL RBC 4.48 (3.80-5.40) m/uL Hgb 14.2 (11.4-16.0) gm/dL Hct 41.1 (34.0-46.0) % MCV 91.7 (80.0-100.0) fL MCH 31.6 (25.0-35.0) pg MCHC 34.5 (31.0-37.0) g/dL RDW 13.6 (11.5-15.5) % Plt Count 309 (150-450) k/uL MPV 8.0 Neutrophils % 74 % Lymphocytes % 18 % Monocytes % 6 % Eosinophils % 2 % Basophils % 0 % Neutrophils # 7.9 H (1.3-7.7) k/uL Lymphocytes # 1.9 (1.0-4.8) k/uL Monocytes # 0.6 (0-1.0) k/uL Eosinophils # 0.2 (0-0.7) k/uL Basophils # 0.0 (0-0.2) k/uL PT 10.7 (10.0-12.5) sec INR 1.0 (<1.2) APTT 24.3 (22.0-30.0) sec Sodium 136 L (137-145) mmol/L Potassium 4.3 (3.5-5.1) mmol/L Chloride 102 (98-107) mmol/L Carbon Dioxide 21 L (22-30) mmol/L Anion Gap 13 mmol/L BUN 28 H (7-17) mg/dL Creatinine 0.91 (0.52-1.04) mg/dL Est GFR (CKD-EPI)AfAm 66 (>60 ml/min/1.73 sqM) Est GFR (CKD-EPI)NonAf 57 (>60 ml/min/1.73 sqM) Glucose 115 H (74-99) mg/dL Calcium 9.6 (8.4-10.2) mg/dL Magnesium 1.5 L (1.6-2.3) mg/dL Total Bilirubin 0.7 (0.2-1.3) mg/dL AST 38 H (14-36) U/L ALT 25 (4-34) U/L Alkaline Phosphatase 130 H (38-126) U/L Troponin I (0.000-0.034) ng/mL Total Protein 7.1 (6.3-8.2) g/dL Albumin 4.1 (3.5-5.0) g/dL 04/27/23 Range/Units 23:35 WBC (3.8-10.6) k/uL RBC (3.80-5.40) m/uL Hgb (11.4-16.0) gm/dL Hct (34.0-46.0) % MCV (80.0-100.0) fL MCH (25.0-35.0) pg MCHC (31.0-37.0) g/dL RDW (11.5-15.5) % Plt Count (150-450) k/uL MPV Neutrophils % % Lymphocytes % % Monocytes % % Eosinophils % % Basophils % % Neutrophils # (1.3-7.7) k/uL Lymphocytes # (1.0-4.8) k/uL Monocytes # (0-1.0) k/uL Eosinophils # (0-0.7) k/uL Basophils # (0-0.2) k/uL PT (10.0-12.5) sec INR (<1.2) APTT (22.0-30.0) sec Sodium (137-145) mmol/L Potassium (3.5-5.1) mmol/L Chloride (98-107) mmol/L Carbon Dioxide (22-30) mmol/L Anion Gap mmol/L BUN (7-17) mg/dL Creatinine (0.52-1.04) mg/dL Est GFR (CKD-EPI)AfAm (>60 ml/min/1.73 sqM) Est GFR (CKD-EPI)NonAf (>60 ml/min/1.73 sqM) Glucose (74-99) mg/dL Calcium (8.4-10.2) mg/dL Magnesium (1.6-2.3) mg/dL Total Bilirubin (0.2-1.3) mg/dL AST (14-36) U/L ALT (4-34) U/L Alkaline Phosphatase (38-126) U/L Troponin I 0.018 (0.000-0.034) ng/mL Total Protein (6.3-8.2) g/dL Albumin (3.5-5.0) g/dL Disposition <Anuradha Mulligan - Last Filed: 04/28/23 04:37> <Javier Lucia - Last Filed: 04/28/23 06:07> Clinical Impression: Chest pain Disposition: ADMITTED IP TO THIS [facility] Condition: Fair
[2023-04-28] MEDS ORDERED: NALOXONE 0.4 MG/ML 1 ML VIAL IV PRN (02:56)
[2023-04-28] MEDS ORDERED: SODIUM CHLORIDE 0.9% 500 ML 500 ML IV STA (03:28)
--- NOTE | 2023-04-28 05:42 | CT ---
EXAM: CT Angiography Chest With Intravenous Contrast CLINICAL HISTORY: ITS.REASON CT Reason: SOB elevated dimer TECHNIQUE: Axial computed tomographic angiography images of the chest with intravenous contrast. CTDI is 12.4 mGy and DLP is 296.1 mGy-cm. This CT exam was performed using one or more of the following dose reduction techniques: automated exposure control, adjustment of the mA and/or kV according to patient size, and/or use of iterative reconstruction technique. MIP reconstructed images were created and reviewed. COMPARISON: No relevant prior studies available. FINDINGS: Pulmonary arteries: No filling defects. Aorta: No thoracic aortic aneurysm. Lungs: No mass. No consolidation. Mild pulmonary edema. Small groundglass opacity in the right upper lobe, likely infectious/inflammatory process. Pleural space: No pneumothorax. No effusion. Heart: No cardiomegaly. No pericardial effusion. Bones/joints: No acute fracture or dislocation. Soft tissues: Large lateral hernia. Multiple foci of free air in the upper abdomen Lymph nodes: No enlarged lymph nodes. IMPRESSION: 1. Multiple foci of free air in the upper abdomen. If there is no history of recent surgery recommend CT abdomen and pelvis. 2. No PE. 3. Mild pulmonary edema. 4. Small groundglass opacity in the right upper lobe, likely infectious/inflammatory process. 5. Large hiatal hernia. <MYCVCSECTION> Communications: 04/28/23 05:50 Verify Receipt with Nurse Verified receipt with nurse Dixon on 04/28 05:50 (-04:00)
[2023-04-28] MEDS ORDERED: CEFEPIME 2 GM in SODIUM CHLORIDE 0.9% 100 ML IVPB STA (06:06)
[2023-04-28] MEDS ORDERED: IOPAMIDOL CONTRAST (ORAL USE) VIAL PO PRN (06:06)
[2023-04-28] MEDS ORDERED: SODIUM CHLORIDE 0.9% 1,000 ML IV ONE (06:08)
[2023-04-28] MEDS ORDERED: LORazepam 2 MG/ML INJ IV STA (07:35)
--- NOTE | 2023-04-28 08:33 | CT ---
EXAMINATION TYPE: CT abdomen pelvis wo con CT DLP: 467.8 mGycm, Automated exposure control for dose reduction was used. DATE OF EXAM: 04/28/2023 8:18 AM COMPARISON: CT abdomen pelvis most recent from 03/07/2023 CLINICAL INDICATION:Female, 87 years old with history of evaluate free air; TECHNIQUE: Axial CT of the ;CT abdomen pelvis wo con;Sagittal and coronal reformats were created on a separate workstation. Contrast used: mL of , (none if empty) Oral contrast used: without Oral Contrast (none if empty) FINDINGS: LOWER CHEST: Suture coronary artery atherosclerosis. Mild cardiomegaly. ABDOMEN LIVER: Unremarkable GALLBLADDER AND BILE DUCTS: The gallbladder appears surgically absent. PANCREAS: Unremarkable. SPLEEN: Unremarkable. ADRENAL GLANDS: Unremarkable. KIDNEYS AND URETERS: No evidence of hydronephrosis or renal calculus. The ureters are unremarkable. Excreted IV contrast within the renal collecting system. PELVIS BLADDER: Unremarkable REPRODUCTIVE: Unremarkable. ABDOMEN & PELVIS STOMACH AND BOWEL: There is a large hiatal hernia containing loop of transverse colon. Free air is se en within the hiatal hernia. No evidence of bowel obstruction. Scattered colonic diverticula. Postsur gical changes to the sigmoid colon. PERITONEUM/RETROPERITONEUM: Scattered pneumoperitoneum and upper abdomen. VASCULATURE: Suprarenal abdominal aorta aneurysm measuring similarly at 3.4 x 3.2 cm. MUSCULOSKELETAL: No acute osseous abnormalities LYMPH NODES: No gross evidence for lymphadenopathy. SOFT TISSUE/ABDOMINAL WALL: Indirect right inguinal hernia containing fat. Post surgical changes ante rior abdominal wall IMPRESSION: 1. Scattered pneumoperitoneum in the upper abdomen and within the large hiatal hernia in the thorax. Findings concerning for hollow organ viscus perforation in the absence of recent surgery/interventio n/procedure. Surgical consultation recommended. 2. Large hiatal hernia containing loop of colon in the stomach. 3. 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 Findings communicated to Dr. Serafin Pagan MD on 04/28/2023 8:[address] Brian Baeza.
[2023-04-28 09:17] LABS: Basophils % (A) 0 %; Eosinophils # (A) 0.2 k/uL (0-0.7); Eosinophils % (A) 3 %; HCT 38.1 % (34.0-46.0); HGB 12.6 gm/dL (11.4-16.0); Lymphocytes # (A) 1.7 k/uL (1.0-4.8); Lymphocytes % (A) 22 %; MCH 30.5 pg (25.0-35.0); MCV 92.3 fL (80.0-100.0); Mean Platelet Volume 8.5; Monocytes # (A) 0.5 k/uL (0-1.0); Monocytes % (A) 6 %; Neutrophils # (A) 5.1 k/uL (1.3-7.7); Neutrophils % (A) 67 %; Platelet Count 257 k/uL (150-450); RBC 4.13 m/uL (3.80-5.40); RDW 13.9 % (11.5-15.5); WBC 7.7 k/uL (3.8-10.6)
[2023-04-28] MEDS: NITROGLYCERIN OINT 1 INCH/GM PACKET TOPICAL SCH ×3 (10:11→23:28)
[2023-04-28] MEDS: lisinopriL 10 MG TAB PO SCH ×2 (10:23→20:20)
[2023-04-28] MEDS: hydroCHLOROthiazide 25 MG TAB PO SCH (10:23)
[2023-04-28] MEDS: METOPROLOL TARTRATE 12.5 MG TAB PO SCH ×2 (10:23→20:20)
--- NOTE | 2023-04-28 10:50 | P.HPIM ---
History of Present Illness H&P Date: 04/28/23 Chief Complaint: Midepigastric, chest pain This is a pleasant 87-year-old female with past medical history significant for CAD, prior stenting, paroximal atrial fibrillation, valvular heart disease, hypertension, GI bleed ,large hiatal hernia, prior bowel obstruction and bowel resection and multiple medical issues, presented to the ER with complaints of midsternal chest pain radiating to left chest and into the front of her neck accompanied by shortness of breath, blood in stool. Relief with 3 sublingual nitroglycerin taken at home. Currently complaining of mid epigastric pain. Reports she was initially scheduled for endoscopy studies with Dr. Brunson tomorrow. Afebrile, WBC 10.7 now within normal limits. Hemoglobin 14.2, 12.6, platelets 309, 257, INR 1. D-dimer 1.64. Chest CTA reported multi foci of free air in the upper abdomen, no PE, mild pulmonary edema, small groundglass opacity in the right upper lobe, large hiatal hernia. Chest x-ray reporting large hiatal hernia. Abdomen/pelvis CT reported scattered pneumoperitoneum in the upper abdomen for within the large hiatal hernia in the thorax, concerning for hollow organ viscus perforation. Large hiatal hernia containing a loop of colon in the stomach, suprarenal abdominal aortic aneurysm measuring up to 3.4 cm. EKG reporting sinus with first-degree AV block, troponins 0.018, 0.038, 0.021. Echo of February 2023 reporting normal LV function, EF 55-60%, moderate aortic stenosis, mitral and tricuspid regurgitation, mild pulmonary hypertension Stool for occult blood positive. Sodium 136, potassium 4.3, bicarb 21, BUN 28, creatinine 0.91. Glucose 1:15. Magnesium 1.5, recheck ordered. T bili 0.7, AST 38, ALT 25, alk phos 1:30. ProBNP 1340. Albumin 4.1. Review of Systems ROS Statement: Those systems with pertinent positive or pertinent negative responses have been documented in the HPI. ROS Other: All systems not noted in ROS Statement are negative. Past Medical History Past Medical History: Atrial Fibrillation, Coronary Artery Disease (CAD), Chest Pain / Angina, Hypertension, Myocardial Infarction ([place]), Pneumonia Additional Past Medical History / Comment(s): Bowel/bladder fistula; Bowel obstruction (due to adhesions); frequent urinary tract infection; Lichen sclerosis Last Myocardial Infarction Date:: 2011 History of Any Multi-Drug Resistant Organisms: None Reported Past Surgical History: Bladder Surgery, Bowel Resection, Cholecystectomy, Heart Catheterization With Stent, Hernia Repair Additional Past Surgical History / Comment(s): Cataract surgery bilateral Past Anesthesia/Blood Transfusion Reactions: No Reported Reaction Date of Last Stent Placement:: 2011 Past Psychological History: No Psychological Hx Reported Smoking Status: Never smoker Past Alcohol Use History: None Reported Past Drug Use History: None Reported - Past Family History Mother Family Medical History: CVA/TIA Father Family Medical History: Congestive Heart Failure (CHF) Medications and Allergies Home Medications Medication Instructions Recorded Confirmed Type hydroCHLOROthiazide [Hydrodiuril] 25 mg PO DAILY #30 tab 06/16/19 04/28/23 Rx Metoprolol Tartrate [Lopressor] 12.5 mg PO BID 11/11/22 04/28/23 History Nitroglycerin Sl Tabs [Nitrostat] 0.4 mg SL Q5M PRN 11/11/22 04/28/23 History Pravastatin Sodium [Pravachol] 10 mg PO DAILY 11/11/22 04/28/23 History Apixaban [Eliquis] 2.5 mg PO DIRECTED 03/07/23 04/28/23 History Omeprazole 20 mg PO AC-BRKFST 03/09/23 04/28/23 History lisinopriL [Zestril] 10 mg PO BID 04/28/23 04/28/23 History Allergies Allergy/AdvReac Type Severity Reaction Status Date / Time levofloxacin [From Levaquin] Allergy Unknown Verified 04/28/23 06:30 Penicillins Allergy Swelling Verified 04/28/23 06:30 of neck hydromorphone [From Dilaudid] AdvReac Altered Verified 04/28/23 06:30 Mental Status lorazepam [From Ativan] AdvReac Confusion Verified 04/28/23 06:30 Physical Exam Vitals: Vital Signs Temp Pulse Pulse Resp BP BP Pulse Ox 04/28/23 08:25 16 04/28/23 08:22 96.8 F L 68 18 155/96 97 04/28/23 06:07 79 16 172/108 95 04/28/23 03:40 61 16 165/84 98 04/28/23 03:07 82 16 116/78 94 L 04/27/23 23:15 98.2 F 70 16 207/85 96 Intake and Output 04/27/23 04/28/23 04/28/23 22:59 06:59 14:59 Intake Total 0 Balance 0 Intake: Oral 0 Other: Weight 56.699 kg 56.699 kg PHYSICAL EXAM: VITAL SIGNS: [As above] GENERAL: Alert and oriented 3, elderly female ,sitting up on stretcher, NAD, teary-eyed HEENT: Normocephalic, Conjunctivae normal. eyes normal. Currently not wearing her dentures. No pharyngeal arrhythmia or exudate . NECK: Supple, No JVD. No adenopathy CARDIOVASCULAR: S1, S2 regular. Systolic murmur RESPIRATION: Breath sounds diminished in the bases. No rhonchi or crackles. No bronchial breathing. ABDOMEN: Soft, midepigastric tenderness, No guarding. no masses palpable. +BS LEGS: no edema, no calf tenderness, positive DP pulses NERVOUS SYSTEM: Cranial N 2-12 grossly normal. No focal deficits. Strength and sensation grossly intact. Skin: Warm and dry, no rash Results CBC & Chem 7: 04/28/23 08:34 04/27/23 23:35 Labs: Abnormal Lab Results - Last 24 Hours (Table) 04/27/23 04/27/23 04/28/23 Range/Units 23:35 23:35 03:17 WBC 10.7 H (3.8-10.6) k/uL Neutrophils # 7.9 H (1.3-7.7) k/uL D-Dimer (<0.60) mg/L FEU Sodium 136 L (137-145) mmol/L Carbon Dioxide 21 L (22-30) mmol/L BUN 28 H (7-17) mg/dL Glucose 115 H (74-99) mg/dL Magnesium 1.5 L (1.6-2.3) mg/dL AST 38 H (14-36) U/L Alkaline Phosphatase 130 H (38-126) U/L Troponin I 0.038 H* (0.000-0.034) ng/mL Stool Occult Blood (Negative) 04/28/23 04/28/23 Range/Units 03:17 03:17 WBC (3.8-10.6) k/uL Neutrophils # (1.3-7.7) k/uL D-Dimer 1.64 H (<0.60) mg/L FEU Sodium (137-145) mmol/L Carbon Dioxide (22-30) mmol/L BUN (7-17) mg/dL Glucose (74-99) mg/dL Magnesium (1.6-2.3) mg/dL AST (14-36) U/L Alkaline Phosphatase (38-126) U/L Troponin I (0.000-0.034) ng/mL Stool Occult Blood Positive H (Negative) Thrombosis Risk Factor Assmnt - Choose All That Apply Any of the Below Risk Factors Present?: Yes Each Risk Factor Represents 3 Points: Age 75 years or older Other congenital or acquired thrombophilia - If yes, enter type in comment: No Thrombosis Risk Factor Assessment Total Risk Factor Score: 3 Thrombosis Risk Factor Assessment Level: Moderate Risk Assessment and Plan Assessment: Chest pain, mid epigastric pain and rectal bleeding. Scattered pneumoperitoneum in the upper abdomen for within the large hiatal hernia in the thorax, concerning for hollow organ viscus perforation. Large hiatal hernia containing a loop of colon in the stomach, reported per CT, in a patient with history of bowel obstruction, bowel resection and large hiatal zuly ia. Suprarenal abdominal aortic aneurysm measuring up to 3.[address] Paroxysmal atrial fibrillation Moderate aortic stenosis Mild pulmonary hypertension Hypertension Hyperlipidemia CAD, angioplasty History of GI bleed Plan: Continue on current medication regime ,monitoring and symptomatic treatment.NPO. Hold Eliquis. Magnesium level pending .Cardiology consult in place. Echo pending .General surgery consulted. Prognosis guarded given multiple complex medical issues. The impression and plan of care has been dictated as directed. : I performed a history and examination of this patient, discussed the same with the dictator. I agree with the dictator's note ,documented as a scribe. Any additional findings or plans will be noted.
--- NOTE | 2023-04-28 11:33 | P.CRDCN ---
History of Present Illness History of present illness: HISTORY OF PRESENT ILLNESS: This is a 87-year-old female with a past medical history significant for coronary artery disease with previous stenting, valvular heart disease, hypertension, hyperlipidemia, and peripheral vascular disease. Patient follows in the office with Dr. De Santiago. We have been asked to see the patient in consultation for chest pain. Patient examined at the bedside. Patient presented to the hospital for chief complaint of chest pain. Patient states the pain was in the middle of her chest. She denied any radiation of the pain. She states that she took 3 nitro at home with relief of her chest pain. She also states that she was scheduled for outpatient endoscopy tomorrow with Dr. Brunson * EKG reveals sinus mechanism with no signs of acute ischemia. First-degree AV block. * Chest xray large hiatal hernia * Chest CTA: Negative for pulmonary embolus. Mild pulmonary edema. Large hiatal hernia. Multiple foci of free air in the upper abdomen. * CT abdomen and pelvis: Scattered pneumoperitoneum in the upper abdomen within the large hiatal hernia with thorax. Findings concerning for hollow organ viscus perforation * Laboratory data: * Current home cardiac medications include Eliquis 2.5 mg twice a day, pravastatin 10 mg daily, lisinopril 10 mg twice a day, metoprolol tartrate 12.5 mg twice a day, hydrochlorothiazide 25 mg daily * Most recent echocardiogram obtained in February 2023 revealed ejection fraction 55-60%, mild pulmonary hypertension, moderate aortic stenosis, moderate mitral regurgitation, moderate tricuspid regurgitation * Cardiac catheterization history: 2008 with stenting of the ostial RCA REVIEW OF SYSTEMS: At the time of my exam: CONSTITUTIONAL: Denies fever or chills. HEENT: Denies blurred vision, vision changes, or eye pain. Denies hemoptysis CARDIOVASCULAR: Denies chest pain. Denies orthopnea. Denies PND. Denies palpitations RESPIRATORY: Denies shortness of breath. GASTROINTESTINAL: Denies abdominal pain. Denies nausea or vomiting. HEMATOLOGIC: Denies bleeding disorders. GENITOURINARY: Denies any blood in urine. SKIN: Denies pruitis. Denies rash. PHYSICAL EXAM: VITAL SIGNS: Reviewed. GENERAL: Well-developed in no acute distress. HEENT: Head is normocephalic. Pupils are equal, round. Sclerae anicteric. Mucous membranes of the mouth are moist. Neck supple. No JVD or thyromegaly LUNGS: Respirations even and unlabored. Lungs essentially clear to auscultation bilaterally. HEART: Regular rate and rhythm. S1 and S2 heard. 2/6 ejection systolic murmur at the base and 2/6 pansystolic murmur at the apex ABDOMEN: Soft. Nondistended. Nontender. EXTREMITIES: Normal range of motion. No clubbing or cyanosis. Peripheral pulses intact. No lower extremity edema NEUROLOGIC: Awake and alert. Oriented x 3. ASSESSMENT: Chest pain/unstable angina Scattered pneumoperitoneum Large hiatal hernia Coronary artery disease with previous stenting Paroxysmal atrial fibrillation, currently maintaining sinus mechanism Valvular heart disease including moderate aortic stenosis, moderate mitral regurgitation, moderate tricuspid regurgitation Hypertension Hyperlipidemia Peripheral vascular disease History of bowel obstruction with previous bowel resection PLAN: Obtain 2D echo to assess cardiac structure and function Resume home cardiac medications Add nitro paste Trend troponins Hold Eliquis Await general surgery evaluation Further recommendations pending patient course Nurse practitioner note has been reviewed by physician. Signing provider agrees with the documented findings, assessment, and plan of care. Past Medical History Past Medical History: Atrial Fibrillation, Coronary Artery Disease (CAD), Chest Pain / Angina, Hypertension, Myocardial Infarction ([place]), Pneumonia Additional Past Medical History / Comment(s): Bowel/bladder fistula; Bowel obstruction (due to adhesions); frequent urinary tract infection; Lichen sclerosis Last Myocardial Infarction Date:: 2011 History of Any Multi-Drug Resistant Organisms: None Reported Past Surgical History: Bladder Surgery, Bowel Resection, Cholecystectomy, Heart Catheterization With Stent, Hernia Repair Additional Past Surgical History / Comment(s): Cataract surgery bilateral Past Anesthesia/Blood Transfusion Reactions: No Reported Reaction Date of Last Stent Placement:: 2011 Past Psychological History: No Psychological Hx Reported Smoking Status: Never smoker Past Alcohol Use History: None Reported Past Drug Use History: None Reported - Past Family History Mother Family Medical History: CVA/TIA Father Family Medical History: Congestive Heart Failure (CHF) Medications and Allergies Home Medications Medication Instructions Recorded Confirmed Type hydroCHLOROthiazide [Hydrodiuril] 25 mg PO DAILY #30 tab 06/16/19 04/28/23 Rx Metoprolol Tartrate [Lopressor] 12.5 mg PO BID 11/11/22 04/28/23 History Nitroglycerin Sl Tabs [Nitrostat] 0.4 mg SL Q5M PRN 11/11/22 04/28/23 History Pravastatin Sodium [Pravachol] 10 mg PO DAILY 11/11/22 04/28/23 History Apixaban [Eliquis] 2.5 mg PO DIRECTED 03/07/23 04/28/23 History Omeprazole 20 mg PO AC-BRKFST 03/09/23 04/28/23 History lisinopriL [Zestril] 10 mg PO BID 04/28/23 04/28/23 History Allergies Allergy/AdvReac Type Severity Reaction Status Date / Time levofloxacin [From Levaquin] Allergy Unknown Verified 04/28/23 06:30 Penicillins Allergy Swelling Verified 04/28/23 06:30 of neck hydromorphone [From Dilaudid] AdvReac Altered Verified 04/28/23 06:30 Mental Status lorazepam [From Ativan] AdvReac Confusion Verified 04/28/23 06:30 Physical Exam Vitals: Vital Signs Temp Pulse Pulse Resp BP BP Pulse Ox 04/28/23 08:25 16 04/28/23 08:22 96.8 F L 68 18 155/96 97 04/28/23 06:07 79 16 172/108 95 04/28/23 03:40 61 16 165/84 98 04/28/23 03:07 82 16 116/78 94 L 04/27/23 23:15 98.2 F 70 16 207/85 96 Intake and Output 04/27/23 04/28/23 04/28/23 22:59 06:59 14:59 Intake Total 0 Balance 0 Intake: Oral 0 Other: Weight 56.699 kg 56.699 kg Results 04/28/23 08:34 04/27/23 23:35 Cardiac Enzymes 04/27/23 04/27/23 04/28/23 Range/Units 23:35 23:35 03:17 AST 38 H (14-36) U/L Troponin I 0.018 0.038 H* (0.000-0.034) ng/mL 04/28/23 Range/Units 08:34 AST (14-36) U/L Troponin I 0.021 (0.000-0.034) ng/mL Coagulation 04/27/23 Range/Units 23:35 PT 10.7 (10.0-12.5) sec APTT 24.3 (22.0-30.0) sec CBC 10/31/23 11/01/23 Range/Units 23:35 08:34 WBC 10.7 H 7.7 (3.8-10.6) k/uL RBC 4.48 4.13 (3.80-5.40) m/uL Hgb 14.2 12.6 (11.4-16.0) gm/dL Hct 41.1 38.1 (34.0-46.0) % Plt Count 309 257 (150-450) k/uL Comprehensive Metabolic Panel 04/27/23 Range/Units 23:35 Sodium 136 L (137-145) mmol/L Potassium 4.3 (3.5-5.1) mmol/L Chloride 102 (98-107) mmol/L Carbon Dioxide 21 L (22-30) mmol/L BUN 28 H (7-17) mg/dL Creatinine 0.91 (0.52-1.04) mg/dL Glucose 115 H (74-99) mg/dL Calcium 9.6 (8.4-10.2) mg/dL AST 38 H (14-36) U/L ALT 25 (4-34) U/L Alkaline Phosphatase 130 H (38-126) U/L Total Protein 7.1 (6.3-8.2) g/dL Albumin 4.1 (3.5-5.0) g/dL Current Medications Generic Name Dose Route Start Last Admin Trade Name Freq PRN Reason Stop Dose Admin Acetaminophen 650 mg 04/28/23 03:00 Acetaminophen Tab 325 Mg Tab PO Q4H PRN Pain Hydrochlorothiazide 25 mg 04/28/23 09:00 04/28/23 10:23 Hydrochlorothiazide 25 Mg Tab PO Not Given DAILY [facility] Cefepime HCl 2 gm/ Sodium 100 mls @ 25 mls/hr 04/28/23 18:00 Chloride IVPB Q12H [facility] Protocol Iopamidol 30 ml 04/28/23 06:06 Iopamidol Contrast (Oral Use) Vial PO 04/29/23 06:[address] Scan Lisinopril 10 mg 04/28/23 09:00 04/28/23 10:23 Lisinopril 10 Mg Tab PO Not Given BID [facility] Metoprolol Tartrate 12.5 mg 04/28/23 09:00 04/28/23 10:23 Metoprolol Tartrate 12.5 Mg Tab PO Not Given BID JOSE ENRIQUE Naloxone HCl 0.2 mg 04/28/23 02:56 Naloxone 0.4 Mg/Ml 1 Ml Vial IV Q2M PRN Opioid Reversal Nitroglycerin 0.5 inch 04/28/23 08:30 04/28/23 10:11 Nitroglycerin Oint 1 Inch/Gm Packet TOPICAL 0.5 inch Q8HR JOSE ENRIQUE Administration Pantoprazole Sodium 40 mg 04/28/23 11:00 Pantoprazole 40 Mg/10 Ml Vial IVP DAILY JOSE ENRIQUE Intake and Output 04/27/23 04/28/23 04/28/23 22:59 06:59 14:59 Intake Total 0 Balance 0 Intake: Oral 0 Other: Weight 56.699 kg 56.699 kg Patient Weight 04/29/23 06:59 Weight 56.699 kg 04/28/23 08:34 04/27/23 23:35
[2023-04-28] MEDS: MAGNESIUM SULFATE-D5W PMX 1 GM in DEXTROSE/WATER 1 100ML.BAG IVPB SCH ×2 (12:16→14:58)
[2023-04-28] MEDS: PANTOPRAZOLE 40 MG/10 ML VIAL IVP SCH (12:16)
--- NOTE | 2023-04-28 13:34 | P.GSCN ---
History of Present Illness Consult date: 04/28/23 History of present illness: CHIEF COMPLAINT: Epigastric and chest pain HISTORY OF PRESENT ILLNESS: This is a 87-year-old female who presented with chest pain and epigastric pain that started yesterday. Patient is short of breath. She did have some relief with nitro. Patient did have a CTA of the chest which did rule out PE but did have multiple foci of free air in the abdomen. And then a computed tomography scan of the chest abdomen and pelvis was ordered that reported scattered pneumoperitoneum in the upper abdomen and within the large hiatal hernia in the thorax. Findings concerning for a hollow organ viscus perforation in the absence of recent surgery. Surgical service consulted for pneumoperitoneum. Patient seen in the ER. She reports that her pain is controlled. She denies any nausea or vomiting. She has been having bloody mucousy stools over the last 2 days. And she was initially scheduled for colonoscopy tomorrow outpatient with Dr. tejada. Patient does take Eliquis at home for AFib. But this has been on hold over the last 6 days due to preparation for colonoscopy. Patient does have a known history of coronary disease with cardiac stents as well as a large hiatal hernia. Patient denies any nausea vomiting. Past surgical history does include bowel resection, hernia repair with mesh and cholecystectomy. Patient seen and examined by Dr. Tejada PAST MEDICAL HISTORY: Coronary Artery Disease (CAD), Chest Pain / Angina, Hypertension, Myocardial Infarction (OR), Pneumonia, bowel/bladder fistula, bowel obstruction due to adhesions, moderate aortic stenosis, moderate mitral regurgitation, moderate tricuspid regurgitation, peripheral vascular disease PAST SURGICAL HISTORY: Bladder Surgery, Bowel Resection, Cholecystectomy, Heart Catheterization With Stent, Hernia Repair MEDICATIONS: See below ALLERGIES: See below SOCIAL HISTORY: No illicit drug use. REVIEW OF SYSTEMS: CONSTITUTIONAL: Denies fever or chills. HEENT: Denies blurred vision, vision changes, or eye pain. Denies hemoptysis CARDIOVASCULAR: Denies chest pain or pressure. RESPIRATORY: No shortness of breath. GASTROINTESTINAL: See HPI for pertinent findings HEMATOLOGIC: Denies bleeding disorders. GENITOURINARY: Denies any blood in urine or increased urinary frequency. SKIN: Denies pruitis. Denies rash. PHYSICAL EXAM: VITAL SIGNS: Reviewed GENERAL: Well-developed in no acute distress. ABDOMEN: Soft. Nondistended. Mild discomfort with palpation epigastric area NEUROLOGIC: Alert and oriented. Cranial nerves II through XII grossly intact. LABORATORY DATA: WBC 10.7 down to 7.7 hgb 12.6 platelets 257 D-dimer 1.64 Sodium 126 this is 4.3 creatinine 0.91 Magnesium 1.4 troponin 0.018, 0.038, 0.021 [id number] Stool for occult blood positive IMAGING: Computed tomography scan chest abdomen and pelvis reported scattered pneumoperit oneum in the upper abdomen and with a large hiatal hernia in the thorax. Findings concerning for hollow organ viscus perforation in the absence of recent surgery. Large hiatal hernia containing a loop of colon in the stomach. 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 Scattered colonic diverticula Chest CTA reports multiple foci of free air in the abdomen. No PE. Mild pulmonary edema. Large hiatal hernia. Small groundglass opacity in the right upper lobe ASSESSMENT: 1. Pneumoperitoneum possibly secondary to perforated diverticula 2. Large hiatal hernia 3. Chest pain evaluated by cardiology 4. History of coronary arteries previous stenting 5. History of atrial fibrillation 6. Mucousy bloody bowel movements. Was scheduled for colonoscopy outpatient tomorrow. This is now on hold. 7. Hypomagnesemia PLAN: -Continue to observe -Patient may require surgery -Keep patient nothing by mouth -Continue to hold Eliquis -Magnesium being Replaced -Continue antibiotics -Continue IV fluids Physician Database Administration Associate note has been reviewed by physician. Signing provider agrees with the documented findings, assessment, and plan of care. Past Medical History Past Medical History: Atrial Fibrillation, Coronary Artery Disease (CAD), Chest Pain / Angina, Hypertension, Myocardial Infarction (OR), Pneumonia Additional Past Medical History / Comment(s): Bowel/bladder fistula; Bowel obstruction (due to adhesions); frequent urinary tract infection; Lichen sclerosis Last Myocardial Infarction Date:: 2011 History of Any Multi-Drug Resistant Organisms: None Reported Past Surgical History: Bladder Surgery, Bowel Resection, Cholecystectomy, Heart Catheterization With Stent, Hernia Repair Additional Past Surgical History / Comment(s): Cataract surgery bilateral Past Anesthesia/Blood Transfusion Reactions: No Reported Reaction Date of Last Stent Placement:: 2011 Past Psychological History: No Psychological Hx Reported Smoking Status: Never smoker Past Alcohol Use History: None Reported Past Drug Use History: None Reported - Past Family History Mother Family Medical History: CVA/TIA Father Family Medical History: Congestive Heart Failure (CHF) Medications and Allergies Home Medications Medication Instructions Recorded Confirmed Type hydroCHLOROthiazide [Hydrodiuril] 25 mg PO DAILY #30 tab 06/16/19 04/28/23 Rx Metoprolol Tartrate [Lopressor] 12.5 mg PO BID 11/11/22 04/28/23 History Nitroglycerin Sl Tabs [Nitrostat] 0.4 mg SL Q5M PRN 11/11/22 04/28/23 History Pravastatin Sodium [Pravachol] 10 mg PO DAILY 11/11/22 04/28/23 History Apixaban [Eliquis] 2.5 mg PO DIRECTED 03/07/23 04/28/23 History Omeprazole 20 mg PO AC-BRKFST 03/09/23 04/28/23 History lisinopriL [Zestril] 10 mg PO BID 04/28/23 04/28/23 History Allergies Allergy/AdvReac Type Severity Reaction Status Date / Time levofloxacin [From Levaquin] Allergy Unknown Verified 04/28/23 06:30 Penicillins Allergy Swelling Verified 04/28/23 06:30 of neck hydromorphone [From Dilaudid] AdvReac Altered Verified 04/28/23 06:30 Mental Status lorazepam [From Ativan] AdvReac Confusion Verified 04/28/23 06:30 Surgical - Exam Vital Signs Temp Pulse Resp BP Pulse Ox 98.2 F 70 16 207/85 96 04/27/23 23:15 04/27/23 23:15 04/27/23 23:15 04/27/23 23:15 04/27/23 23:15 Results - Labs 04/28/23 08:34 04/27/23 23:35 Abnormal Lab Results - Last 24 Hours (Table) 04/27/23 04/27/23 04/28/23 Range/Units 23:35 23:35 03:17 WBC 10.7 H (3.8-10.6) k/uL Neutrophils # 7.9 H (1.3-7.7) k/uL D-Dimer (<0.60) mg/L FEU Sodium 136 L (137-145) mmol/L Carbon Dioxide 21 L (22-30) mmol/L BUN 28 H (7-17) mg/dL Glucose 115 H (74-99) mg/dL Magnesium 1.5 L (1.6-2.3) mg/dL AST 38 H (14-36) U/L Alkaline Phosphatase 130 H (38-126) U/L Troponin I 0.038 H* (0.000-0.034) ng/mL Stool Occult Blood (Negative) 04/28/23 04/28/23 Range/Units 03:17 03:17 WBC (3.8-10.6) k/uL Neutrophils # (1.3-7.7) k/uL D-Dimer 1.64 H (<0.60) mg/L FEU Sodium (137-145) mmol/L Carbon Dioxide (22-30) mmol/L BUN (7-17) mg/dL Glucose (74-99) mg/dL Magnesium (1.6-2.3) mg/dL AST (14-36) U/L Alkaline Phosphatase (38-126) U/L Troponin I (0.000-0.034) ng/mL Stool Occult Blood Positive H (Negative) Diabetes panel 04/27/23 Range/Units 23:35 Sodium 136 L (137-145) mmol/L Potassium 4.3 (3.5-5.1) mmol/L Chloride 102 (98-107) mmol/L Carbon Dioxide 21 L (22-30) mmol/L BUN 28 H (7-17) mg/dL Creatinine 0.91 (0.52-1.04) mg/dL Glucose 115 H (74-99) mg/dL Calcium 9.6 (8.4-10.2) mg/dL AST 38 H (14-36) U/L ALT 25 (4-34) U/L Alkaline Phosphatase 130 H (38-126) U/L Total Protein 7.1 (6.3-8.2) g/dL Albumin 4.1 (3.5-5.0) g/dL Calcium panel 04/27/23 Range/Units 23:35 Calcium 9.6 (8.4-10.2) mg/dL Albumin 4.1 (3.5-5.0) g/dL Pituitary panel 04/27/23 Range/Units 23:35 Sodium 136 L (137-145) mmol/L Potassium 4.3 (3.5-5.1) mmol/L Chloride 102 (98-107) mmol/L Carbon Dioxide 21 L (22-30) mmol/L BUN 28 H (7-17) mg/dL Creatinine 0.91 (0.52-1.04) mg/dL Glucose 115 H (74-99) mg/dL Calcium 9.6 (8.4-10.2) mg/dL Adrenal panel 04/27/23 Range/Units 23:35 Sodium 136 L (137-145) mmol/L Potassium 4.3 (3.5-5.1) mmol/L Chloride 102 (98-107) mmol/L Carbon Dioxide 21 L (22-30) mmol/L BUN 28 H (7-17) mg/dL Creatinine 0.91 (0.52-1.04) mg/dL Glucose 115 H (74-99) mg/dL Calcium 9.6 (8.4-10.2) mg/dL Total Bilirubin 0.7 (0.2-1.3) mg/dL AST 38 H (14-36) U/L ALT 25 (4-34) U/L Alkaline Phosphatase 130 H (38-126) U/L Total Protein 7.1 (6.3-8.2) g/dL Albumin 4.1 (3.5-5.0) g/dL
[2023-04-28] MEDS ORDERED: CEFEPIME 2 GM in SODIUM CHLORIDE 0.9% 100 ML IVPB SCH (15:00)
[2023-04-28] MEDS: CEFEPIME 2 GM in SODIUM CHLORIDE 0.9% 100 ML IVPB SCH (17:18)
[2023-04-28] MEDS: SODIUM CHLORIDE 0.9% 1,000 ML IV SCH (17:19)
[2023-04-29] MEDS: NITROGLYCERIN OINT 1 INCH/GM PACKET TOPICAL SCH ×3 (05:40→23:21)
[2023-04-29] MEDS: CEFEPIME 2 GM in SODIUM CHLORIDE 0.9% 100 ML IVPB SCH ×2 (05:40→17:20)
[2023-04-29] MEDS: SODIUM CHLORIDE 0.9% 1,000 ML IV SCH ×2 (05:41→19:30)
--- NOTE | 2023-04-29 06:54 | CA ---
Transthoracic Echo Report Name: Marsha Ramirez Age: 87 Gender: F : 1935 Exam Date: 04/28/2023 11:29 Exam Location: [place] [facility] Ht (in): 67 Wt (lb): 125 Ordering Physician: Destiny Bullock Attending/Referring Phys: [id number], Kobe Ripening Room Attendant Marcella Latif RDCS Procedure CPT: Indications: LV function, abnormal troponin Cardiac Hx: Technical Quality: Fair Contrast 1: Total Dose (mL): Contrast 2: Total Dose (mL): MEASUREMENTS (Male / Female) Normal Values 2D ECHO LV Diastolic Diameter PLAX 4.8 cm 4.2 - 5.9 / 3.9 - 5.3 cm LV Systolic Diameter PLAX 3.2 cm IVS Diastolic Thickness 1.1 cm 0.6 - 1.0 / 0.6 - 0.9 cm LVPW Diastolic Thickness 1.3 cm 0.6 - 1.0 / 0.6 - 0.9 cm LV Relative Wall Thickness 0.5 RV Internal Dim ED PLAX 3.0 cm LVOT Diameter 2.1 cm LA Systolic Diameter LX 3.9 cm 3.0 - 4.0 / 2.7 - 3.8 cm LA Volume 64.1 cm??? 18 - 58 / 22 - 52 cm??? LA Volume Index 39.3 cm???/m??? 16 - 28 cm???/m??? M-MODE Aortic Root Diameter MM 3.0 cm MV E Point Septal Separation 0.6 cm AV Cusp Separation MM 1.3 cm DOPPLER AV Peak Velocity 367.6 cm/s AV Peak Gradient 54.0 mmHg AV Mean Velocity 261.4 cm/s AV Mean Gradient 30.9 mmHg AV Velocity Time Integral 87.7 cm LVOT Peak Velocity 112.0 cm/s LVOT Peak Gradient 5.0 mmHg AV Area Cont Eq pk 1.0 cm??? MV Area PHT 2.8 cm??? Mitral E Point Velocity 71.8 cm/s Mitral A Point Velocity 83.6 cm/s Mitral E to A Ratio 0.9 MV Deceleration Time 273.6 ms MV E' Velocity 4.4 cm/s Mitral E to MV E' Ratio 16.3 TR Peak Velocity 236.9 cm/s TR Peak Gradient 22.4 mmHg Right Ventricular Systolic Press 27.1 mmHg FINDINGS Left Ventricle Left ventricular ejection fraction is estimated at 55-60 %. Left ventricular cavity size normal. Normal left ventricular wall motion. Mildly increased left ventricular wall thickness. Right Ventricle Normal right ventricular size. Right ventricular systolic pressure within normal limits. Right Atrium Normal right atrial size. Left Atrium Mildly increased left atrial diameter. Moderately increased left atrial volume. Mildly increased left atrial area. Mitral Valve Structurally normal mitral valve. Mild to moderate mitral regurgitation.mitral annular calcification. Aortic Valve Moderate Aortic valve sclerosis. Moderate aortic stenosis with a peak gradient of 54 mmHg and a mean gradient of 31 mmHg. Tricuspid Valve Structurally normal tricuspid valve. Mild to moderate tricuspid regurgitation. Pulmonic Valve Pulmonic valve not well visualized. Pericardium No pericardial effusion. Aorta Normal size aortic root and proximal ascending aorta. CONCLUSIONS 1. Normal left ventricle size and systolic function 2. Mild to moderate mitral and tricuspid regurgitation with no evidence of pulmonary hypertension 3. Moderate aortic stenosis with mean gradient of 31 mmHg Previewed by: Dr. Joselyn De Santiago MD (Electronically Signed) Final Date: 29 April 2023 06:53
[2023-04-29 08:37] LABS: Basophils % (A) 0 %; Eosinophils # (A) 0.2 k/uL (0-0.7); Eosinophils % (A) 4 %; HCT 37.6 % (34.0-46.0); HGB 12.6 gm/dL (11.4-16.0); Lymphocytes # (A) 1.2 k/uL (1.0-4.8); Lymphocytes % (A) 21 %; MCH 31.2 pg (25.0-35.0); MCHC 33.6 g/dL (31.0-37.0); Mean Platelet Volume 7.8; Monocytes # (A) 0.4 k/uL (0-1.0); Monocytes % (A) 7 %; Neutrophils # (A) 3.6 k/uL (1.3-7.7); Neutrophils % (A) 66 %; Platelet Count 253 k/uL (150-450); RBC 4.05 m/uL (3.80-5.40); RDW 13.5 % (11.5-15.5); WBC 5.5 k/uL (3.8-10.6)
[2023-04-29] MEDS: lisinopriL 10 MG TAB PO SCH ×2 (09:00→20:08)
[2023-04-29] MEDS: hydroCHLOROthiazide 25 MG TAB PO SCH (09:00)
[2023-04-29] MEDS: METOPROLOL TARTRATE 12.5 MG TAB PO SCH ×2 (09:00→20:08)
[2023-04-29 09:01] LABS: African American GFR (CKD) 72 (>60 ml/min/1.73 sqM); Anion Gap 9 mmol/L; Blood Urea Nitrogen 17 mg/dL (7-17); Calcium 8.9 mg/dL (8.4-10.2); Carbon Dioxide 22 mmol/L (22-30); Chloride 107 mmol/L (98-107); Glucose 87 mg/dL (74-99); Magnesium 1.8 mg/dL (1.6-2.3); Non-African American GFR(CKD) 63 (>60 ml/min/1.73 sqM); Potassium 4.3 mmol/L (3.5-5.1); Sodium 138 mmol/L (137-145)
[2023-04-29] MEDS: PANTOPRAZOLE 40 MG/10 ML VIAL IVP SCH (09:02)
--- NOTE | 2023-04-29 11:04 | P.PN ---
Subjective HISTORY OF PRESENT ILLNESS: This is a 87-year-old female with a past medical history significant for coronary artery disease with previous stenting, valvular heart disease, hypertension, hyperlipidemia, and peripheral vascular disease. Patient follows in the office with Dr. De Santiago. We have been asked to see the patient in consultation for chest pain. Patient examined at the bedside. Patient presented to the hospital for chief complaint of chest pain. Patient states the pain was in the middle of her chest. She denied any radiation of the pain. She states that she took 3 nitro at home with relief of her chest pain. She also states that she was scheduled for outpatient endoscopy tomorrow with Dr. Brunson * EKG reveals sinus mechanism with no signs of acute ischemia. First-degree AV block. * Chest xray large hiatal hernia * Chest CTA: Negative for pulmonary embolus. Mild pulmonary edema. Large hiatal hernia. Multiple foci of free air in the upper abdomen. * CT abdomen and pelvis: Scattered pneumoperitoneum in the upper abdomen within the large hiatal hernia with thorax. Findings concerning for hollow organ viscus perforation * Laboratory data: * Current home cardiac medications include Eliquis 2.5 mg twice a day, pravastatin 10 mg daily, lisinopril 10 mg twice a day, metoprolol tartrate 12.5 mg twice a day, hydrochlorothiazide 25 mg daily * Most recent echocardiogram obtained in February 2023 revealed ejection fraction 55-60%, mild pulmonary hypertension, moderate aortic stenosis, moderate mitral regurgitation, moderate tricuspid regurgitation * Cardiac catheterization history: 2008 with stenting of the ostial RCA 04/29/2023 Patient examined this morning at the bedside. Patient denies chest pain or pressure. She denies shortness of breath. She remains NPO per general surgery. Her intake regulation remains on hold. Echocardiogram completed revealing ejection fraction 55-60%, mild to moderate regurgitation, mild to moderate tricuspid regurgitation, and moderate aortic stenosis. PHYSICAL EXAM: VITAL SIGNS: Reviewed. GENERAL: Well-developed in no acute distress. HEENT: Head is normocephalic. Pupils are equal, round. Sclerae anicteric. Mucous membranes of the mouth are moist. Neck supple. No JVD or thyromegaly LUNGS: Respirations even and unlabored. Lungs essentially clear to auscultation bilaterally. HEART: Regular rate and rhythm. S1 and S2 heard. 2/6 ejection systolic murmur at the base and 2/6 pansystolic murmur at the apex ABDOMEN: Soft. Nondistended. Nontender. EXTREMITIES: Normal range of motion. No clubbing or cyanosis. Peripheral pulses intact. No lower extremity edema NEUROLOGIC: Awake and alert. Oriented x 3. ASSESSMENT: Chest pain/unstable angina Scattered pneumoperitoneum Large hiatal hernia Coronary artery disease with previous stenting Paroxysmal atrial fibrillation, currently maintaining sinus mechanism Valvular heart disease including moderate aortic stenosis, moderate mitral re gurgitation, moderate tricuspid regurgitation Hypertension Hyperlipidemia Peripheral vascular disease History of bowel obstruction with previous bowel resection PLAN: Patient is currently NPO including meds per general surgery Add IVP Hydralazine PRN (as patient can not take home BP meds) Anticoagulation remains on hold per general surgery. Resume when cleared from their standpoint No further inpatient recommendations from a cardiac standpoint. We'll sign off. Please reconsult if needed Nurse practitioner note has been reviewed by physician. Signing provider agrees with the documented findings, assessment, and plan of care. Objective - Vital Signs Vital signs: Vital Signs Temp 97.6 F 04/29/23 08:00 Pulse 66 04/29/23 09:10 Resp 18 04/29/23 09:10 BP 159/76 04/29/23 08:00 Pulse Ox 98 04/29/23 08:00 FiO2 Intake & Output 04/28/23 04/29/23 04/29/23 18:59 06:59 18:59 Intake Total 0 Output Total 450 Balance 0 -450 Weight 56.699 kg Intake: Oral 0 Output: Urine 450 Other: Voiding Method Diaper Diaper External Catheter External Catheter # Voids 1 1 # Bowel Movements 1 - Labs CBC & Chem 7: 04/29/23 08:11 04/29/23 08:11 Labs: Abnormal Lab Results - Last 24 Hours (Table) 04/28/23 Range/Units 08:34 Magnesium 1.4 L (1.6-2.3) mg/dL
[2023-04-29] MEDS: hydrALAZINE HCL 20 MG/ML 1 ML VIAL IVP PRN (13:20)
--- NOTE | 2023-04-29 13:32 | P.PN ---
Subjective Progress Note Date: 04/29/23 CHIEF COMPLAINT: Pneumoperitoneum HISTORY OF PRESENT ILLNESS: Patient lying in bed comfortably. Her pain has improved. She reports minimal discomfort in the abdomen. She did have a small bowel movement yesterday and has been having flatus. Denies any nausea or vomiting. Afebrile. WBC is 5.5 Hgb 12.6 platelets 253. Magnesium up to 1.8. Patient evaluated by cardiology and they have signed off. PHYSICAL EXAM: VITAL SIGNS: Reviewed. GENERAL: Well-developed in no acute distress. ABDOMEN: Soft. Nondistended. Minimal discomfort with palpation in the epigastric area NEUROLOGIC: Alert and oriented. Cranial nerves II through XII grossly intact. ASSESSMENT: 1. 1. Pneumoperitoneum possibly secondary to perforated diverticula 2. Large hiatal hernia 3. Chest pain evaluated by cardiology 4. History of coronary arteries previous stenting 5. History of atrial fibrillation 6. Mucousy bloody bowel movements. Was scheduled for colonoscopy outpatient tomorrow. This is now on hold. 7. Hypomagnesemia PLAN: -Continue to observe -Keep patient nothing by mouth today -Advance diet to clear liquids tomorrow morning -Continue to hold Eliquis -Continue antibiotics -Continue IV fluids Physician Chief Of Surgery note has been reviewed by physician. Signing provider agrees with the documented findings, assessment, and plan of care. Objective - Vital Signs Vital signs: Vital Signs Temp 97.6 F 04/29/23 08:00 Pulse 66 04/29/23 09:10 Resp 18 04/29/23 09:10 BP 159/76 04/29/23 08:00 Pulse Ox 98 04/29/23 08:00 FiO2 Intake & Output 04/28/23 04/29/23 04/29/23 18:59 06:59 18:59 Intake Total 0 Output Total 450 Balance 0 -450 Weight 56.699 kg Intake: Oral 0 Output: Urine 450 Other: Voiding Method Diaper Diaper External Catheter External Catheter # Voids 1 1 # Bowel Movements 1 - Labs CBC & Chem 7: 04/29/23 08:11 04/29/23 08:11 Labs: Abnormal Lab Results - Last 24 Hours (Table) 04/28/23 Range/Units 08:34 Magnesium 1.4 L (1.6-2.3) mg/dL
[2023-04-29] MEDS ORDERED: NITROGLYCERIN SL TABS 0.4 MG TAB SUBLINGUAL ONE (13:38)
[2023-04-29] MEDS ORDERED: METOPROLOL TARTRATE 5 MG/5 ML VIAL IVP PRN ×2 (14:03→17:21)
[2023-04-29] MEDS: METOPROLOL TARTRATE 5 MG/5 ML VIAL IVP SCH ×2 (14:08→17:22)
--- NOTE | 2023-04-29 16:13 | P.PN ---
Subjective Progress Note Date: 04/29/23 H&P Date: 04/28/23 Chief Complaint: Midepigastric, chest pain This is a pleasant 87-year-old female with past medical history significant for CAD, prior stenting, paroximal atrial fibrillation, valvular heart disease, hypertension, GI bleed ,large hiatal hernia, prior bowel obstruction and bowel resection and multiple medical issues, presented to the ER with complaints of midsternal chest pain radiating to left chest and into the front of her neck accompanied by shortness of breath, blood in stool. Relief with 3 sublingual nitroglycerin taken at home. Currently complaining of mid epigastric pain. Reports she was initially scheduled for endoscopy studies with Dr. Brunson tomorrow. Afebrile, WBC 10.7 now within normal limits. Hemoglobin 14.2, 12.6, platelets 309, 257, INR 1. D-dimer 1.64. Chest CTA reported multi foci of free air in the upper abdomen, no PE, mild pulmonary edema, small groundglass opacity in the right upper lobe, large hiatal hernia. Chest x-ray reporting large hiatal hernia. Abdomen/pelvis CT reported scattered pneumoperitoneum in the upper abdomen for within the large hiatal hernia in the thorax, concerning for hollow organ viscus perforation. Large hiatal hernia containing a loop of colon in the stomach, suprarenal abdominal aortic aneurysm measuring up to 3.4 cm. EKG reporting sinus with first-degree AV block, troponins 0.018, 0.038, 0.021. Echo of February 2023 reporting normal LV function, EF 55-60%, moderate aortic stenosis, mitral and tricuspid regurgitation, mild pulmonary hypertension Stool for occult blood positive. Sodium 136, potassium 4.3, bicarb 21, BUN 28, creatinine 0.91. Glucose 1:15. Magnesium 1.5, recheck ordered. T bili 0.7, AST 38, ALT 25, alk phos 1:30. ProBNP 1340. Albumin 4.1. 04/29/2023 remains nothing by mouth, continues on antibiotics and IV fluid hydration. Denies nausea, vomiting. Reports decreasing abdominal pain. Small bowel movement yesterday. Afebrile, normal WBC. Hemoglobin 12.6, platelets 253. Magnesium 1.8, post-supplementation. Objective - Vital Signs Vital signs: Vital Signs Temp 97.6 F 04/29/23 08:00 Pulse 66 04/29/23 09:10 Resp 18 04/29/23 09:10 BP 159/76 04/29/23 08:00 Pulse Ox 98 04/29/23 08:00 FiO2 Intake & Output 04/28/23 04/29/23 04/29/23 18:59 06:59 18:59 Intake Total 0 Output Total 450 Balance 0 -450 Weight 56.699 kg Intake: Oral 0 Output: Urine 450 Other: Voiding Method Diaper Diaper External Catheter External Catheter # Voids 1 1 # Bowel Movements 1 - Exam PHYSICAL EXAM: VITAL SIGNS: [As above] GENERAL: Alert and oriented 3, sitting up in bed, no acute distress HEENT: Normocephalic, Conjunctivae normal. eyes normal. NECK: Supple, No JVD. CARDIOVASCULAR: S1, S2 regular. Systolic murmur RESPIRATION: Unlabored Breath sounds diminished in the bases. ABDOMEN: Soft, decreasing midepigastric tenderness radiating to left upper quadrant No guarding. +BS LEGS: no edema, no calf tenderness, positive DP pulses NERVOUS SYSTEM: Cranial N 2-12 grossly normal. No focal deficits. Strength and sensation grossly intact. Skin: Warm and dry, no rash - Labs CBC & Chem 7: 04/29/23 08:11 04/29/23 08:11 Assessment and Plan Assessment: Chest pain, mid epigastric pain and rectal bleeding. Scattered pneumoperitoneum in the upper abdomen for within the large hiatal hernia in the thorax, concerning for hollow organ viscus perforation. Large hiatal hernia containing a loop of colon in the stomach, reported per CT, in a patient with history of bowel obstruction, bowel resection and large hiatal hernia. Suprarenal abdominal aortic aneurysm measuring up to 3.[address] Paroxysmal atrial fibrillation Moderate aortic stenosis Mild pulmonary hypertension Hypertension Hyperlipidemia CAD, angioplasty History of GI bleed Plan: Continue on current medication regime ,monitoring and symptomatic treatment. Maintain IV fluid hydration and antibiotics .Eliquis remains on hold. Surgery continues to observe;diet advancement and pain management as per surgery. Heparin subcu for DVT prophylaxis. PPI for GI prophylaxis. Cardiology has signed off .Prognosis guarded given multiple complex medical issues. The impression and plan of care has been dictated as directed. : I performed a history and examination of this patient, discussed the same with the dictator. I agree with the dictator's note ,documented as a scribe. Any additional findings or plans will be noted.
[2023-04-29] MEDS ORDERED: HEPARIN SODIUM,PORCINE 5,000 UNIT/ML 1 ML VIAL SQ SCH (21:00)
[2023-04-30] MEDS: CEFEPIME 2 GM in SODIUM CHLORIDE 0.9% 100 ML IVPB SCH ×2 (04:49→17:25)
[2023-04-30] MEDS: NITROGLYCERIN OINT 1 INCH/GM PACKET TOPICAL SCH (06:30)
[2023-04-30 06:56] LABS: Basophils % (A) 0 %; Eosinophils # (A) 0.1 k/uL (0-0.7); Eosinophils % (A) 2 %; HCT 42.9 % (34.0-46.0); HGB 14.1 gm/dL (11.4-16.0); Lymphocytes # (A) 1.8 k/uL (1.0-4.8); Lymphocytes % (A) 25 %; MCH 30.6 pg (25.0-35.0); MCHC 32.9 g/dL (31.0-37.0); MCV 92.9 fL (80.0-100.0); Mean Platelet Volume 7.9; Monocytes # (A) 0.5 k/uL (0-1.0); Monocytes % (A) 7 %; Neutrophils # (A) 4.6 k/uL (1.3-7.7); Neutrophils % (A) 63 %; Platelet Count 308 k/uL (150-450); RBC 4.62 m/uL (3.80-5.40); RDW 13.5 % (11.5-15.5); WBC 7.3 k/uL (3.8-10.6)
[2023-04-30 07:09] LABS: ALT 28 U/L (4-34); AST 120 U/L (14-36); African American GFR (CKD) 65 (>60 ml/min/1.73 sqM); Albumin 3.6 g/dL (3.5-5.0); Alkaline Phosphatase 105 U/L (38-126); Anion Gap 17 mmol/L; Blood Urea Nitrogen 19 mg/dL (7-17); Calcium 9.4 mg/dL (8.4-10.2); Carbon Dioxide 14 mmol/L (22-30); Chloride 108 mmol/L (98-107); Glucose 68 mg/dL (74-99); Magnesium 1.8 mg/dL (1.6-2.3); Non-African American GFR(CKD) 56 (>60 ml/min/1.73 sqM); Potassium 4.1 mmol/L (3.5-5.1); Sodium 139 mmol/L (137-145); Total Bilirubin 1.2 mg/dL (0.2-1.3); Total Protein 6.5 g/dL (6.3-8.2)
[2023-04-30 07:14] LABS: Glucose,Whole Blood 68 mg/dL (70-110)
[2023-04-30] MEDS ORDERED: DEXTROSE 50% SYRINGE 50 ML IVP ONE (07:20)
[2023-04-30] MEDS: NITROGLYCERIN-D5W PMX 50 MG in DEXTROSE/WATER 1 250ML.BAG IV SCH (07:25)
[2023-04-30 07:41] LABS: Glucose,Whole Blood 129 mg/dL (70-110)
[2023-04-30] MEDS: HEPARIN SOD,PORK IN 0.45% NACL 25,000 UNIT in 0.45% NACL 1 250ML.BAG IV SCH (07:56)
[2023-04-30] MEDS: hydroCHLOROthiazide 25 MG TAB PO SCH (09:03)
[2023-04-30] MEDS: lisinopriL 10 MG TAB PO SCH ×2 (09:03→20:06)
[2023-04-30] MEDS: SODIUM CHLORIDE 0.9% 1,000 ML IV SCH ×2 (09:43→21:00)
[2023-04-30] MEDS: PANTOPRAZOLE 40 MG/10 ML VIAL IVP SCH (09:43)
--- NOTE | 2023-04-30 09:56 | PN ---
PROGRESS NOTE SUBJECTIVE: This is an 87-year-old lady admitted to the hospital with abdominal discomfort and also had chest discomfort. Initial troponins were not significant for [place] and she was in sinus rhythm. She is known to have paroxysmal atrial fibrillation and has been on Eliquis, lisinopril, metoprolol, and pravastatin. However, she had pneumoperitoneum type picture and there was concern that there was a perforated diverticulum, was placed on complete bedrest and n.p.o. Yesterday, her blood pressure was elevated. We gave her IV hydralazine and nitro paste. She did not have any chest pain, yesterday had some abdominal discomfort, but during the afternoon and night she developed chest pain, had a significant ST depression on EKG and troponin has gone up to 10.8, suggestive of [id number]-liaswgtrj [place]. Her other comorbid conditions include CAD with a previous PCI of right coronary artery that was performed by Dr. De Santiago whom she sees on a regular basis. She also has moderate aortic stenosis in addition to hypertension and paroxysmal atrial fibrillation. The stenting of ostial RCA was performed in 2008. She had more chest discomfort, was transferred to the ICU. At the time of my evaluation, she does not have much chest discomfort. Pain has improved over the last couple of hours. She is on a nitroglycerin drip at 5, heart rate is about 120 irregular in atrial fibrillation. She also is hemodynamically stable. PHYSICAL EXAMINATION: VITAL SIGNS: Revealed blood pressure of 140/80, pulse rate of about 120, irregular. NECK: JVD 1 cm, ejection systolic murmur at the base. LUNGS: Revealed decent air entry. ABDOMEN: Soft. There is some tenderness. EXTREMITIES: Lower extremities reveal diminished pulses. NEUROLOGIC: Central nervous system is normal. After clearance from the surgeon, the patient has been initiated on a heparin drip. IMPRESSION: 1. Acute nrk-NT-wtjnrrjgw [place] in the setting of a bowel perforation and pneumoperitoneum. 2. Moderate aortic stenosis. 3. Known CAD with previous stenting of RCA. 4. Paroxysmal atrial fib, was in sinus yesterday, in atrial fibrillation today with moderate rate. 5. History of bowel perforation, probably a diverticular perforation. RECOMMENDATIONS: I discussed with the patient and her daughter and I also spoke to Dr. De Santiago. We will first pursue medical therapy to optimize her condition because intravenous heparin and dual-antiplatelet therapy may be more harmful at this time because of her bowel perforation. We will therefore use intravenous Lopressor, nitroglycerin drip at 10 mcg and hydralazine to control blood pressure and see how she does. This is agreeable to the patient and her daughter and we will continue to observe her. Prognosis remains guarded. MMODL / IJN: [id number] /
--- NOTE | 2023-04-30 10:29 | P.PN ---
Subjective Progress Note Date: 04/30/23 CHIEF COMPLAINT: Pneumoperitoneum HISTORY OF PRESENT ILLNESS: Patient required transfer to the ICU because of chest pain. She had elevated troponin and ST depression EKG. Evaluated by cardiology currently on IV heparin and nitro drip. Patient also evidence of A. fib with RVR. Patient is currently lying in bed comfortably. She did have abdominal pain. Her pain is currently controlled. Denies any nausea or vomiting. She complains of back pain. She is currently lying in bed comfortably. Afebrile. WBC remains normal at 7.3 hgb 14.1 Patient seen and examined with Dr. tejada PHYSICAL EXAM: VITAL SIGNS: Reviewed. GENERAL: Well-developed in no acute distress. ABDOMEN: Soft. Nondistended. tenderness with palpation to the epigastric area NEUROLOGIC: Alert and oriented. Cranial nerves II through XII grossly intact. ASSESSMENT: 1. Pneumoperitoneum possibly secondary to perforated diverticula 2. Large hiatal hernia 3. Chest pain with non-ST elevated [place] 4. History of coronary arteries previous stenting 5. History of atrial fibrillation 6. Mucousy bloody bowel movements. Was scheduled for colonoscopy outpatient tomorrow. This is now on hold. 7. Hypomagnesemia PLAN: -Continue to observe -Patient may require surgery -Patient can advance diet to clear liquids if okay with cardiology service -Continue antibiotics -Continue IV fluids -Continue cardiac management of non-ST elevated [place] and A. fib Physician Paper Mill Superintendent note has been reviewed by physician. Signing provider agrees with the documented findings, assessment, and plan of care. Objective - Vital Signs Vital signs: Vital Signs Temp 97.5 F L 04/30/23 04:00 Pulse 92 04/30/23 06:41 Resp 18 04/30/23 06:41 BP 110/70 04/30/23 06:41 Pulse Ox 96 04/30/23 06:41 FiO2 Intake & Output 04/29/23 04/30/23 04/30/23 18:59 06:59 18:59 Intake Total 1.25 Output Total 800 Balance -800 1.25 Weight 57 kg Intake: Intake, IV Titration 1.25 Amount Nitroglycerin-D5w Pmx 50 1.25 mg In Dextrose/Water 1 250ml.bag @ 5 MCG/MIN 1.5 mls/hr IV .Q24H [facility] Rx#: [id number] Output: Urine 800 Other: Voiding Method Diaper Diaper External Catheter External Catheter - Labs CBC & Chem 7: 04/30/23 06:37 04/30/23 06:37 Labs: Abnormal Lab Results - Last 24 Hours (Table) 04/30/23 04/30/23 04/30/23 Range/Units 06:37 06:37 07:13 Chloride 108 H (98-107) mmol/L Carbon Dioxide 14 L (22-30) mmol/L BUN 19 H (7-17) mg/dL Glucose 68 L (74-99) mg/dL POC Glucose (mg/dL) 68 L (70-110) mg/dL AST 120 H (14-36) U/L Troponin I 10.700 H* (0.000-0.034) ng/mL 04/30/23 Range/Units 07:40 Chloride (98-107) mmol/L Carbon Dioxide (22-30) mmol/L BUN (7-17) mg/dL Glucose (74-99) mg/dL POC Glucose (mg/dL) 129 H (70-110) mg/dL AST (14-36) U/L Troponin I (0.000-0.034) ng/mL Microbiology - Last 24 Hours (Table) 04/28/23 06:00 Blood Culture - Preliminary Blood 04/28/23 06:15 Blood Culture - Preliminary Blood
--- NOTE | 2023-04-30 11:23 | P.CNPUL ---
History of Present Illness Consult date: 04/30/23 Requesting physician: Serafin Pagan Reason for consult: other (ICU management) Chief complaint: Chest pain and abdominal pain History of present illness: This is an 87-year-old female, known history of coronary artery disease, hypertension, previous HI, history of colovesicular fistula, bowel obstruction secondary to adhesions, moderate aortic stenosis and moderate mitral regurgitation, peripheral vessel occlusive disease, previous stent placement, patient presented to the ER on 04/28/2023, complaining of midsternal chest pain radiating to the left chest, and into the front of her back. Associated with some shortness of breath. Patient did have relief after taking 3 sublingual nitroglycerin at home. Upon arrival to the ER patient was also complaining of epigastric pain, hence abdominal/pelvic CT showed pneumoperitoneum in the upper abdomen and a large hiatal hernia. Patient was seen by cardiology on consultation abnormal EKG, looking at the notes from cardiology yesterday appa sterling signed off, and patient was being followed by surgery for potential exploratory laparotomy. However the patient developed some EKG changes last night and more chest pain, cardiology was notified, and the recommended transferring the patient to the ICU. Patient was seen by surgery again this morning, and the plan is to continue antibiotics, and no plans for intervention regarding her pneumoperitoneum at this point yet. In the meantime the patient is receiving antibiotics for her presumptive perforated viscus most likely perforated diverticula. Surgery at this point prefers to observe and treat medically. And continue antibiotics Review of Systems CONSTITUTIONAL: No fever no chills no weight loss HEENT: Negative CARDIOVASCULAR: As noted in HPI chest pain and abdominal pain RESPIRATORY: No shortness of breath at present no cough no wheezing GASTROINTESTINAL: Abdominal pain as noted in HPI HEMATOLOGIC: Negative GENITOURINARY: Negative SKIN: Negative Neurologic: Negative Psychiatric: Negative. Past Medical History Past Medical History: Atrial Fibrillation, Coronary Artery Disease (CAD), Chest Pain / Angina, Hypertension, Myocardial Infarction (HI), Pneumonia Additional Past Medical History / Comment(s): Bowel/bladder fistula; Bowel obstruction (due to adhesions); frequent urinary tract infection; Lichen sclerosis Last Myocardial Infarction Date:: 2011 History of Any Multi-Drug Resistant Organisms: None Reported Past Surgical History: Bladder Surgery, Bowel Resection, Cholecystectomy, Heart Catheterization With Stent, Hernia Repair Additional Past Surgical History / Comment(s): Cataract surgery bilateral Past Anesthesia/Blood Transfusion Reactions: No Reported Reaction Date of Last Stent Placement:: 2011 Past Psychological History: No Psychological Hx Reported Smoking Status: Never smoker Past Alcohol Use History: None Reported Past Drug Use History: None Reported - Past Family History Mother Family Medical History: CVA/TIA Father Family Medical History: Congestive Heart Failure (CHF) Medications and Allergies Home Medications Medication Instructions Recorded Confirmed Type hydroCHLOROthiazide [Hydrodiuril] 25 mg PO DAILY #30 tab 06/16/19 04/28/23 Rx Metoprolol Tartrate [Lopressor] 12.5 mg PO BID 11/11/22 04/28/23 History Nitroglycerin Sl Tabs [Nitrostat] 0.4 mg SL Q5M PRN 11/11/22 04/28/23 History Pravastatin Sodium [Pravachol] 10 mg PO DAILY 11/11/22 04/28/23 History Apixaban [Eliquis] 2.5 mg PO DIRECTED 03/07/23 04/28/23 History Omeprazole 20 mg PO AC-BRKFST 03/09/23 04/28/23 History lisinopriL [Zestril] 10 mg PO BID 04/28/23 04/28/23 History Allergies Allergy/AdvReac Type Severity Reaction Status Date / Time levofloxacin [From Levaquin] Allergy Unknown Verified 04/28/23 06:30 Penicillins Allergy Swelling Verified 04/28/23 06:30 of neck hydromorphone [From Dilaudid] AdvReac Altered Verified 04/28/23 06:30 Mental Status lorazepam [From Ativan] AdvReac Confusion Verified 04/28/23 06:30 Physical Exam Vitals: Vital Signs Temp Pulse Pulse Resp BP BP Pulse Ox 04/30/23 10:45 94 20 156/99 96 04/30/23 10:30 87 16 135/83 97 04/30/23 10:15 92 18 122/76 97 04/30/23 10:00 106 H 18 134/94 96 04/30/23 09:45 79 16 125/77 97 04/30/23 09:30 92 17 129/73 97 04/30/23 09:15 81 16 134/111 97 04/30/23 09:00 94 15 128/92 97 04/30/23 08:45 99 21 132/83 97 04/30/23 08:30 98 20 141/99 98 04/30/23 08:15 125 H 24 120/72 97 04/30/23 08:00 122 H 18 133/103 98 04/30/23 07:45 113 H 18 131/91 97 04/30/23 07:30 110 H 20 126/80 95 04/30/23 07:15 97.8 F 160 H 16 112/91 96 04/30/23 06:41 92 18 110/70 96 04/30/23 06:15 112 H 16 118/78 98 04/30/23 04:00 97.5 F L 68 16 129/76 97 04/30/23 02:00 106 H 16 04/29/23 23:20 97.5 F L 106 H 16 134/74 97 04/29/23 20:00 98.2 F 99 18 144/68 98 04/29/23 16:00 97.9 F 119 H 20 121/80 98 04/29/23 14:17 110 H 99/65 04/29/23 14:12 101 H 95/57 04/29/23 14:00 72 18 04/29/23 13:56 143 H 117/72 04/29/23 13:46 147 H 99/60 04/29/23 13:36 135 H 152/108 04/29/23 13:26 72 18 185/104 98 Intake and Output 04/29/23 04/30/23 04/30/23 22:59 06:59 14:59 Intake Total 251.25 Output Total 800 0 Balance -800 251.25 Intake: Intake, IV Titration 251.25 Amount Cefepime 2 gm In Sodium 100 Chloride 0.9% 100 ml @ 25 mls/hr IVPB Q12H [facility] Rx# :[id number] Nitroglycerin-D5w Pmx 50 1.25 mg In Dextrose/Water 1 250ml.bag @ 5 MCG/MIN 1.5 mls/hr IV .Q24H [facility] Rx#: [id number] Sodium Chloride 0.9% 1, 150 000 ml @ 75 mls/hr IV . [id number] [facility] Rx#:[id number] Output: Urine 800 0 Other: Voiding Method Diaper Diaper External Catheter External Catheter Weight 57 kg Physical Exam: Revealed an 87-year-old female in no distress Head: Atraumatic, normocephalic. Irregular irregular rhythm HEENT:[Neck is supple.] [No neck masses.] [No thyromegaly.] [No JVD.] Chest: [Clear throughout, no crackles, no rhonchi, no wheezes.] Cardiac Exam: [Normal S1 and S2, no S3 gallop, 2/6 systolic murmur thought the precordium Abdomen: [Soft, minimal tenderness, no rebound no guarding, no megaly, positive bowel sounds. Extremities: [No clubbing, no edema, no cyanosis.] Neurological Exam: [No focal neurologic deficit.]. Alert and oriented 3 Psychiatric: Normal mood affect and normal mental status examination. Skin: No rashes. Results - Laboratory Findings CBC and BMP: 04/30/23 06:37 04/30/23 06:37 PT/INR, D-dimer PT 10.7 sec (10.0-12.5) 04/27/23 23:35 INR 1.0 (<1.2) 04/27/23 23:35 D-Dimer 1.64 mg/L FEU (<0.60) H 04/28/23 03:17 Abnormal lab findings: Abnormal Labs 04/27/23 04/27/23 04/28/23 23:35 23:35 03:17 WBC 10.7 H Neutrophils # 7.9 H D-Dimer Sodium 136 L Chloride Carbon Dioxide 21 L BUN 28 H Glucose 115 H POC Glucose (mg/dL) Magnesium 1.5 L AST 38 H Alkaline Phosphatase 130 H Troponin I 0.038 H* Stool Occult Blood 04/28/23 04/28/23 04/28/23 03:17 03:17 08:34 WBC Neutrophils # D-Dimer 1.64 H Sodium Chloride Carbon Dioxide BUN Glucose POC Glucose (mg/dL) Magnesium 1.4 L AST Alkaline Phosphatase Troponin I Stool Occult Blood Positive H 04/30/23 04/30/23 04/30/23 06:37 06:37 07:13 WBC Neutrophils # D-Dimer Sodium Chloride 108 H Carbon Dioxide 14 L BUN 19 H Glucose 68 L POC Glucose (mg/dL) 68 L Magnesium AST 120 H Alkaline Phosphatase Troponin I 10.700 H* Stool Occult Blood 04/30/23 07:40 WBC Neutrophils # D-Dimer Sodium Chloride Carbon Dioxide BUN Glucose POC Glucose (mg/dL) 129 H Magnesium AST Alkaline Phosphatase Troponin I Stool Occult Blood - Diagnostic Findings CT scan - chest: image reviewed (No evidence of pulmonary embolism, small g roundglass opacity in the right upper lobe, most likely postinflammatory, and the patient has a large hiatal hernia) Assessment and Plan Assessment: Impression Acute non-ST elevation myocardial infarction Acute bowel perforation and no peritoneum Moderate aortic stenosis Coronary arteriosclerosis and previous stenting of RCA Paroxysmal atrial fibrillation Valvular heart disease History of diverticular disease, possible perforation/diverticular perforation. Recommendation: Continue to monitor the patient in the ICU Cardiology is addressing her cardiac issues and possible non-ST elevation myocardial infarction Surgery is recommending continue medical therapy for now and no plans for immediate surgery We'll continue antibiotics including cefepime and Flagyl Continue and resume her cardiac medications Prognosis is guarded GI and DVT prophylaxis We will continue to follow Time with Patient: Greater than 30
[2023-04-30 12:02] LABS: Glucose,Whole Blood 75 mg/dL (70-110)
[2023-04-30 12:31] LABS: Appearance,Urine Clear (Clear); Bilirubin,Urine Negative (Negative); Blood,Urine Negative (Negative); Color,Urine Light Yellow; Glucose,Urine (UA) Negative (Negative); Ketones,Urine 2+ (Negative); Leukocyte Esterase,Urine Negative (Negative); Nitrite,Urine Negative (Negative); PH, Urine 5.5 (5.0-8.0); Protein,Urine Negative (Negative); Specific Gravity,Urine 1.019 (1.001-1.035); Urobilinogen,Urine <2.0 mg/dL (<2.0)
[2023-04-30] MEDS: hydrALAZINE HCL 20 MG/ML 1 ML VIAL IVP PRN (12:38)
[2023-04-30] MEDS: metroNIDAZOLE-NS PMX 500 MG in SALINE 1 100ML.BAG IVPB SCH ×2 (12:38→17:25)
[2023-04-30] MEDS: HEPARIN SODIUM 1,000 UN/ML (10ML VL) IV PRN (15:20)
[2023-04-30] MEDS: METOPROLOL TARTRATE 5 MG/5 ML VIAL IVP PRN ×2 (16:06→21:12)
--- NOTE | 2023-04-30 21:04 | P.PN ---
Subjective Progress Note Date: 04/30/23 H&P Date: 04/28/23 Chief Complaint: Midepigastric, chest pain This is a pleasant 87-year-old female with past medical history significant for CAD, prior stenting, paroximal atrial fibrillation, valvular heart disease, hypertension, GI bleed ,large hiatal hernia, prior bowel obstruction and bowel resection and multiple medical issues, presented to the ER with complaints of midsternal chest pain radiating to left chest and into the front of her neck accompanied by shortness of breath, blood in stool. Relief with 3 sublingual nitroglycerin taken at home. Currently complaining of mid epigastric pain. Reports she was initially scheduled for endoscopy studies with Dr. Brunson tomorrow. Afebrile, WBC 10.7 now within normal limits. Hemoglobin 14.2, 12.6, platelets 309, 257, INR 1. D-dimer 1.64. Chest CTA reported multi foci of free air in the upper abdomen, no PE, mild pulmonary edema, small groundglass opacity in the right upper lobe, large hiatal hernia. Chest x-ray reporting large hiatal hernia. Abdomen/pelvis CT reported scattered pneumoperitoneum in the upper abdomen for within the large hiatal hernia in the thorax, concerning for hollow organ viscus perforation. Large hiatal hernia containing a loop of colon in the stomach, suprarenal abdominal aortic aneurysm measuring up to 3.4 cm. EKG reporting sinus with first-degree AV block, troponins 0.018, 0.038, 0.021. Echo of February 2023 reporting normal LV function, EF 55-60%, moderate aortic stenosis, mitral and tricuspid regurgitation, mild pulmonary hypertension Stool for occult blood positive. Sodium 136, potassium 4.3, bicarb 21, BUN 28, creatinine 0.91. Glucose 1:15. Magnesium 1.5, recheck ordered. T bili 0.7, AST 38, ALT 25, alk phos 1:30. ProBNP 1340. Albumin 4.1. 04/29/2023 remains nothing by mouth, continues on antibiotics and IV fluid hydration. Denies nausea, vomiting. Reports decreasing abdominal pain. Small bowel movement yesterday. Afebrile, normal WBC. Hemoglobin 12.6, platelets 253. Magnesium 1.8, post-supplementation. 04/30/2023 developed chest pain, EKG changes last night, Troponin increased to 10.7. ,cardiology reconsulted and patient was transferred to ICU. Heparin and nitro drip initiated as per cardiology. Maintained on IV antibiotics with no surgical intervention at this time as per general surgery. Afebrile, normal W BC. BUN 19, creatinine 0.9 to. Objective - Vital Signs Vital signs: Vital Signs Temp 97.8 F 04/30/23 07:15 Pulse 94 04/30/23 10:45 Resp 20 04/30/23 10:45 BP 156/99 04/30/23 10:45 Pulse Ox 96 04/30/23 10:45 FiO2 Intake & Output 04/29/23 04/30/23 04/30/23 18:59 06:59 18:59 Intake Total 326.25 Output Total 800 0 Balance -800 326.25 Weight 57 kg Intake: Intake, IV Titration 326.25 Amount Cefepime 2 gm In Sodium 100 Chloride 0.9% 100 ml @ 25 mls/hr IVPB Q12H [facility] Rx# :[id number] Nitroglycerin-D5w Pmx 50 1.25 mg In Dextrose/Water 1 250ml.bag @ 5 MCG/MIN 1.5 mls/hr IV .Q24H [facility] Rx#: [id number] Sodium Chloride 0.9% 1, 225 000 ml @ 75 mls/hr IV . [id number] [facility] Rx#:[id number] Output: Urine 800 0 Other: Voiding Method Diaper Diaper Diaper External Catheter External Catheter External Catheter - Exam PHYSICAL EXAM: VITAL SIGNS: [As above] GENERAL: Alert and oriented 3, sitting up in bed, no acute distress HEENT: Normocephalic, Conjunctivae normal. eyes normal. NECK: Supple, No JVD. CARDIOVASCULAR: S1, S2 regular. Systolic murmur RESPIRATION: Unlabored Breath sounds diminished in the bases. ABDOMEN: Soft, diffuse tenderness ,No guarding. +BS LEGS: no edema, no calf tenderness, positive DP pulses NERVOUS SYSTEM: Cranial N 2-12 grossly normal. No focal deficits. Strength and sensation grossly intact. Skin: Warm and dry, no rash - Labs CBC & Chem 7: 04/30/23 06:37 04/30/23 06:37 Labs: Abnormal Lab Results - Last 24 Hours (Table) 04/30/23 04/30/23 04/30/23 Range/Units 06:37 06:37 07:13 Chloride 108 H (98-107) mmol/L Carbon Dioxide 14 L (22-30) mmol/L BUN 19 H (7-17) mg/dL Glucose 68 L (74-99) mg/dL POC Glucose (mg/dL) 68 L (70-110) mg/dL AST 120 H (14-36) U/L Troponin I 10.700 H* (0.000-0.034) ng/mL 04/30/23 Range/Units 07:40 Chloride (98-107) mmol/L Carbon Dioxide (22-30) mmol/L BUN (7-17) mg/dL Glucose (74-99) mg/dL POC Glucose (mg/dL) 129 H (70-110) mg/dL AST (14-36) U/L Troponin I (0.000-0.034) ng/mL Microbiology - Last 24 Hours (Table) 04/28/23 06:00 Blood Culture - Preliminary Blood 04/28/23 06:15 Blood Culture - Preliminary Blood Assessment and Plan Assessment: Acute non-STEMI Acute bowel perforation with pneumoperitoneum. Scattered pneumoperitoneum in the upper abdomen for within the large hiatal hernia in the thorax, concerning for hollow organ viscus perforation. Large hiatal hernia containing a loop of colon in the stomach, reported per CT, in a patient with history of bowel obstruction, bowel resection and large hiatal hernia. Suprarenal abdominal aortic aneurysm measuring up to 3.[address] Paroxysmal atrial fibrillation Moderate aortic stenosis Mild pulmonary hypertension Hypertension Hyperlipidemia CAD, angioplasty History of GI bleed Plan: Continue on current medication regime ,monitoring and symptomatic treatment. ICU management as per textile clothing and footwear mechanic. Follow closely with cardiology and general surgery.Maintain IV fluid hydration and IV antibiotics .heparin and nitroglycerin drips as per cardiology. No surgical intervention at this time as per general surgery. Prognosis guarded given multiple complex medical issues. The impression and plan of care has been dictated as directed. : I performed a history and examination of this patient, discussed the same with the dictator. I agree with the dictator's note ,documented as a scribe. Any additional findings or plans will be noted.
[2023-05-01] MEDS: hydrALAZINE HCL 20 MG/ML 1 ML VIAL IVP PRN (00:13)
[2023-05-01] MEDS: metroNIDAZOLE-NS PMX 500 MG in SALINE 1 100ML.BAG IVPB SCH ×4 (00:14→17:29)
[2023-05-01] MEDS: METOPROLOL TARTRATE 5 MG/5 ML VIAL IVP PRN (01:13)
[2023-05-01] MEDS: NITROGLYCERIN-D5W PMX 50 MG in DEXTROSE/WATER 1 250ML.BAG IV SCH (05:56)
[2023-05-01] MEDS: HEPARIN SOD,PORK IN 0.45% NACL 25,000 UNIT in 0.45% NACL 1 250ML.BAG IV SCH (05:58)
[2023-05-01 06:30] LABS: HCT 34.7 % (34.0-46.0); HGB 11.6 gm/dL (11.4-16.0); MCH 30.9 pg (25.0-35.0); MCHC 33.5 g/dL (31.0-37.0); MCV 92.2 fL (80.0-100.0); Mean Platelet Volume 8.2; Platelet Count 285 k/uL (150-450); RBC 3.76 m/uL (3.80-5.40); RDW 14.2 % (11.5-15.5); WBC 7.8 k/uL (3.8-10.6)
[2023-05-01] MEDS ORDERED: SODIUM CHLORIDE 0.9% 500 ML 250 ML IV ONE (06:51)
[2023-05-01] MEDS: HEPARIN SODIUM 1,000 UN/ML (10ML VL) IV PRN (07:09)
[2023-05-01] MEDS: CEFEPIME 2 GM in SODIUM CHLORIDE 0.9% 100 ML IVPB SCH ×2 (07:14→17:30)
[2023-05-01 07:16] LABS: African American GFR (CKD) 69 (>60 ml/min/1.73 sqM); Anion Gap 15 mmol/L; Blood Urea Nitrogen 20 mg/dL (7-17); Calcium 8.8 mg/dL (8.4-10.2); Carbon Dioxide 13 mmol/L (22-30); Chloride 111 mmol/L (98-107); Glucose 109 mg/dL (74-99); Non-African American GFR(CKD) 60 (>60 ml/min/1.73 sqM); Potassium 3.8 mmol/L (3.5-5.1); Sodium 139 mmol/L (137-145)
[2023-05-01] MEDS ORDERED: Potassium Replacement Protocol 1 EACH MISC MISCELLANE PRN (07:31)
[2023-05-01] MEDS: lisinopriL 10 MG TAB PO SCH (08:56)
[2023-05-01] MEDS: PANTOPRAZOLE 40 MG/10 ML VIAL IVP SCH (08:57)
[2023-05-01] MEDS: POTASSIUM CHLORIDE 10 MEQ in WATER FOR INJECTION 1 100ML.BAG IVPB SCH ×2 (09:07→10:08)
[2023-05-01] MEDS: ACETAMINOPHEN TAB 325 MG TAB PO PRN (09:09)
[2023-05-01] MEDS: hydroCHLOROthiazide 25 MG TAB PO SCH (09:12)
--- NOTE | 2023-05-01 09:55 | P.PN ---
Subjective Progress Note Date: 05/01/23 PROGRESS NOTE The patient is an 87-year-old female with a known history of coronary disease who presented with abdominal discomfort and was found to have probable microperforation. She subsequently had an episode of chest discomfort, EKG changes and evidence of non-STEMI with atrial fibrillation. She is feeling better overall. Her abdominal pain is better. She has no further chest discomfort and her rate is under better control. She denies any dizziness, palpitations or syncope. She denies any nausea or vomiting. I had a long discussion with her yesterday regarding further approach and she is in favor of conservative treatment and avoiding aggressive interventions. Medications: Lisinopril 10 mg twice a day, IV heparin, IV beta german, IV nitroglycerin PHYSICAL EXAMINATION: Blood pressure 128/70 heart rate 90 LUNGS: Clear to auscultation HEART: Irregular rate and rhythm, S1, S2. No S3 systolic ejection murmur 2/6 with holosystolic murmur at the apex ABDOMEN: Soft, nontender,, improved compared to yesterday, no organomegaly EXTREMETIES: No edema LAB: BUN 20, creatinine 0.88, hemoglobin 11.6 IMPRESSION: 1. Non-STEMI in a patient with known history of multivessel disease 2. Abdominal discomfort with probable microperforation 3. Atrial fibrillation 4. Aortic valve disease 5. History of hiatal hernia 6. History of hypertension PLAN: 1. Continue IV heparin for 24 hours then change to oral 2. Changed to oral nitrate and beta german 3. Add statin 4. Follow renal functions 5. Depending on her progress further recommendations will be made, the prognosis is guarded. Objective - Vital Signs Vital signs: Vital Signs Temp 97.9 F 05/01/23 08:00 Pulse 100 05/01/23 09:30 Resp 14 05/01/23 09:30 BP 128/76 05/01/23 09:30 Pulse Ox 98 05/01/23 09:30 FiO2 Intake & Output 04/30/23 05/01/23 05/01/23 18:59 06:59 18:59 Intake Total 8349.312 0411.553 84.709 Output Total 570 250 20 Balance 780.384 933.553 64.709 Weight 61.3 kg Intake: Intake, IV Titration 9485.685 0295.553 84.709 Amount Cefepime 2 gm In Sodium 200 Chloride 0.9% 100 ml @ 25 mls/hr IVPB Q12H [facility] Rx# :[id number] Heparin Sod,Pork in 0.45% 49.134 118.503 9.709 NaCl 25,000 unit In 0.45 % NaCl 1 250ml.bag @ 12 UNITS/KG/HR 6.84 mls/hr IV .Q24H [facility] Rx#: [id number] Nitroglycerin-D5w Pmx 50 1.25 65.05 mg In Dextrose/Water 1 250ml.bag @ 5 MCG/MIN 1.5 mls/hr IV .Q24H [facility] Rx#: [id number] Sodium Chloride 0.9% 1, 900 900 75 000 ml @ 75 mls/hr IV . [id number] [facility] Rx#:[id number] metroNIDAZOLE-NS PMX 500 200 100 mg In Saline 1 100ml.bag @ 100 mls/hr IVPB Q6HR [facility] Rx#:[id number] Output: Urine 570 250 20 Other: Voiding Method Indwelling Catheter Indwelling Catheter - Labs CBC & Chem 7: 05/01/23 06:01 05/01/23 06:01 Labs: Abnormal Lab Results - Last 24 Hours (Table) 04/30/23 04/30/23 04/30/23 Range/Units 12:01 14:14 22:19 RBC (3.80-5.40) m/uL APTT 39.6 H 65.0 H (22.0-30.0) sec Chloride (98-107) mmol/L Carbon Dioxide (22-30) mmol/L BUN (7-17) mg/dL Glucose (74-99) mg/dL Urine Ketones 2+ H (Negative) 05/01/23 05/01/23 05/01/23 Range/Units 06:01 06:01 06:01 RBC 3.76 L (3.80-5.40) m/uL APTT 35.2 H (22.0-30.0) sec Chloride 111 H (98-107) mmol/L Carbon Dioxide 13 L (22-30) mmol/L BUN 20 H (7-17) mg/dL Glucose 109 H (74-99) mg/dL Urine Ketones (Negative) Microbiology - Last 24 Hours (Table) 04/28/23 06:00 Blood Culture - Preliminary Blood 04/28/23 06:15 Blood Culture - Preliminary Blood
--- NOTE | 2023-05-01 09:57 | P.PN ---
Subjective Progress Note Date: 05/01/23 (Surgery) [facility] COMPLAINT: Pneumoperitoneum HISTORY OF PRESENT ILLNESS: Patient required transfer to the ICU because of chest pain. She had elevated troponin and ST depression EKG. Evaluated by cardiology currently on IV heparin and nitro drip. Patient also evidence of A. fib with RVR. Patient is currently lying in bed comfortably. She did have abdominal pain. Her pain is currently controlled. Denies any nausea or vomiting. She complains of back pain. She is currently lying in bed comfortably. Afebrile. WBC remains normal at 7.3 hgb 14.1 Patient seen and examined with Dr. tejada PHYSICAL EXAM: VITAL SIGNS: Reviewed. GENERAL: Well-developed in no acute distress. ABDOMEN: Soft. Nondistended. tenderness with palpation to the epigastric area NEUROLOGIC: Alert and oriented. Cranial nerves II through XII grossly intact. ASSESSMENT: 1. Pneumoperitoneum possibly secondary to perforated diverticula 2. Large hiatal hernia 3. Chest pain with non-ST elevated AZ 4. History of coronary arteries previous stenting 5. History of atrial fibrillation 6. Mucousy bloody bowel movements. Was scheduled for colonoscopy outpatient tomorrow. This is now on hold. PLAN: -Continue to observe -Patient may require surgery. Abdominal exam has improved at this tome. -Patient can advance diet to clear liquids if okay with cardiology service -Continue antibiotics -Continue IV fluids -Continue cardiac management of non-ST elevated AZ and A. fib Objective - Vital Signs Vital signs: Vital Signs Temp 97.9 F 05/01/23 08:00 Pulse 100 05/01/23 09:30 Resp 14 05/01/23 09:30 BP 128/76 05/01/23 09:30 Pulse Ox 98 05/01/23 09:30 FiO2 Intake & Output 04/30/23 05/01/23 05/01/23 18:59 06:59 18:59 Intake Total 7579.832 4337.553 84.709 Output Total 570 250 20 Balance 780.384 933.553 64.709 Weight 61.3 kg Intake: Intake, IV Titration 8658.287 4373.553 84.709 Amount Cefepime 2 gm In Sodium 200 Chloride 0.9% 100 ml @ 25 mls/hr IVPB Q12H [facility] Rx# :[id number] Heparin Sod,Pork in 0.45% 49.134 118.503 9.709 NaCl 25,000 unit In 0.45 % NaCl 1 250ml.bag @ 12 UNITS/KG/HR 6.84 mls/hr IV .Q24H [facility] Rx#: [id number] Nitroglycerin-D5w Pmx 50 1.25 65.05 mg In Dextrose/Water 1 250ml.bag @ 5 MCG/MIN 1.5 mls/hr IV .Q24H [facility] Rx#: [id number] Sodium Chloride 0.9% 1, 900 900 75 000 ml @ 75 mls/hr IV . [id number] [facility] Rx#:[id number] metroNIDAZOLE-NS PMX 500 200 100 mg In Saline 1 100ml.bag @ 100 mls/hr IVPB Q6HR [facility] Rx#:[id number] Output: Urine 570 250 20 Other: Voiding Method Indwelling Catheter Indwelling Catheter - Labs CBC & Chem 7: 05/01/23 06:01 05/01/23 06:01 Labs: Abnormal Lab Results - Last 24 Hours (Table) 04/30/23 04/30/23 04/30/23 Range/Units 12:01 14:14 22:19 RBC (3.80-5.40) m/uL APTT 39.6 H 65.0 H (22.0-30.0) sec Chloride (98-107) mmol/L Carbon Dioxide (22-30) mmol/L BUN (7-17) mg/dL Glucose (74-99) mg/dL Urine Ketones 2+ H (Negative) 05/01/23 05/01/23 05/01/23 Range/Units 06:01 06:01 06:01 RBC 3.76 L (3.80-5.40) m/uL APTT 35.2 H (22.0-30.0) sec Chloride 111 H (98-107) mmol/L Carbon Dioxide 13 L (22-30) mmol/L BUN 20 H (7-17) mg/dL Glucose 109 H (74-99) mg/dL Urine Ketones (Negative) Microbiology - Last 24 Hours (Table) 04/28/23 06:00 Blood Culture - Preliminary Blood 04/28/23 06:15 Blood Culture - Preliminary Blood
[2023-05-01] MEDS: METOPROLOL TARTRATE 25 MG TAB PO SCH ×2 (10:41→20:29)
[2023-05-01] MEDS: ASPIRIN 81 MG PO SCH (10:41)
[2023-05-01] MEDS: NITROGLYCERIN OINT 1 INCH/GM PACKET TOPICAL SCH ×2 (10:42→15:41)
[2023-05-01] MEDS: SODIUM CHLORIDE 0.9% 1,000 ML IV SCH (11:00)
[2023-05-01] MEDS ORDERED: POTASSIUM CHLORIDE ER 20 MEQ TAB.ER PO SCH (11:00)
--- NOTE | 2023-05-01 11:25 | P.PN ---
Subjective Progress Note Date: 05/01/23 Principal diagnosis: Acute bowel perforation and pneumoperitoneum, with acute non-ST elevation myocardial infarction This is an 87-year-old female, known history of coronary artery disease, hypertension, previous MS, history of colovesicular fistula, bowel obstruction secondary to adhesions, moderate aortic stenosis and moderate mitral regurgitation, peripheral vessel occlusive disease, previous stent placement, patient presented to the ER on 04/28/2023, complaining of midsternal chest pain radiating to the left chest, and into the front of her back. Associated with some shortness of breath. Patient did have relief after taking 3 sublingual nitroglycerin at home. Upon arrival to the ER patient was also complaining of epigastric pain, hence abdominal/pelvic CT showed pneumoperitoneum in the upper abdomen and a large hiatal hernia. Patient was seen by cardiology on consultation abnormal EKG, looking at the notes from cardiology yesterday apparently signed off, and patient was being followed by surgery for potential exploratory laparotomy. However the patient developed some EKG changes last night and more chest pain, cardiology was notified, and the recommended transferring the patient to the ICU. Patient was seen by surgery again this morning, and the plan is to continue antibiotics, and no plans for intervention regarding her pneumoperitoneum at this point yet. In the meantime the patient is receiving antibiotics for her presumptive perforated viscus most likely perforated diverticula. Surgery at this point prefers to observe and treat medically. And continue antibiotics Patient was reevaluated today on 05/01/2023, patient remains in the ICU, relatively asymptomatic, she remains on cefepime and Flagyl, cardiology saw the patient and recommended nitroglycerin 10 mcg/m, she is on 0.9 normal saline at 75 mL per hour patient is hemodynamically stable, not in any distress, and general surgery is still recommending medical treatment and observation for now. Patient was also placed on heparin by cardiology for her acute non-ST elevation myocardial infarction as well as atrial fibrillation. W cigars 7.8 hemoglobin 11.6 PTT is 35 basic metabolic profile is normal renal profile is normal Objective - Vital Signs Vital signs: Vital Signs Temp 97.9 F 05/01/23 08:00 Pulse 88 05/01/23 10:00 Resp 11 L 05/01/23 10:00 BP 90/61 05/01/23 10:00 Pulse Ox 98 05/01/23 10:00 FiO2 Intake & Output 04/30/23 05/01/23 05/01/23 18:59 06:59 18:59 Intake Total 1879.029 6078.553 324.159 Output Total 570 250 130 Balance 780.384 933.553 194.159 Weight 61.3 kg Intake: IV 225 Sodium Chloride 0.9% 225 Intake, IV Titration 8997.577 6725.553 99.159 Amount Cefepime 2 gm In Sodium 200 Chloride 0.9% 100 ml @ 25 mls/hr IVPB Q12H [facility] Rx# :[id number] Heparin Sod,Pork in 0.45% 49.134 118.503 9.709 NaCl 25,000 unit In 0.45 % NaCl 1 250ml.bag @ 12 UNITS/KG/HR 6.84 mls/hr IV .Q24H [facility] Rx#: [id number] Nitroglycerin-D5w Pmx 50 1.25 65.05 14.45 mg In Dextrose/Water 1 250ml.bag @ 5 MCG/MIN 1.5 mls/hr IV .Q24H [facility] Rx#: [id number] Sodium Chloride 0.9% 1, 900 900 75 000 ml @ 75 mls/hr IV . [id number] [facility] Rx#:[id number] metroNIDAZOLE-NS PMX 500 200 100 mg In Saline 1 100ml.bag @ 100 mls/hr IVPB Q6HR [facility] Rx#:[id number] Output: Urine 570 250 130 Other: Voiding Method Indwelling Catheter Indwelling Catheter Indwelling Catheter - Exam Physical Exam: Revealed an 87-year-old female in no distress, on 2 L nasal cannula Head: Atraumatic, normocephalic. Irregular irregular rhythm HEENT:[Neck is supple.] [No neck masses.] [No thyromegaly.] [No JVD.] Chest: [Clear throughout, no crackles, no rhonchi, no wheezes.] Cardiac Exam: [Normal S1 and S2, no S3 gallop, 2/6 systolic murmur thought the precordium Abdomen: [Soft, minimal tenderness, no rebound no guarding, no megaly, positive bowel sounds. Extremities: [No clubbing, no edema, no cyanosis.] Neurological Exam: [No focal neurologic deficit.]. Alert and oriented 3 Psychiatric: Normal mood affect and normal mental status examination. Skin: No rashes. - Labs CBC & Chem 7: 05/01/23 06:01 05/01/23 06:01 Labs: Abnormal Lab Results - Last 24 Hours (Table) 04/30/23 04/30/23 04/30/23 Range/Units 12:01 14:14 22:19 RBC (3.80-5.40) m/uL APTT 39.6 H 65.0 H (22.0-30.0) sec Chloride (98-107) mmol/L Carbon Dioxide (22-30) mmol/L BUN (7-17) mg/dL Glucose (74-99) mg/dL Urine Ketones 2+ H (Negative) 05/01/23 05/01/23 05/01/23 Range/Units 06:01 06:01 06:01 RBC 3.76 L (3.80-5.40) m/uL APTT 35.2 H (22.0-30.0) sec Chloride 111 H (98-107) mmol/L Carbon Dioxide 13 L (22-30) mmol/L BUN 20 H (7-17) mg/dL Glucose 109 H (74-99) mg/dL Urine Ketones (Negative) Microbiology - Last 24 Hours (Table) 04/28/23 06:00 Blood Culture - Preliminary Blood 04/28/23 06:15 Blood Culture - Preliminary Blood Assessment and Plan Assessment: Impression Acute non-ST elevation myocardial infarction Acute bowel perforation and pneumoperitoneum Moderate aortic stenosis Coronary arteriosclerosis and previous stenting of RCA Paroxysmal atrial fibrillation Valvular heart disease History of diverticular disease, possible perforation/diverticular perforation. Recommendation: Continue to monitor the patient in the ICU Continue heparin and nitroglycerin as per cardiology Continue antibiotics including cefepime and Flagyl for now Continue conservative measures as recommended by general surgery Continue and resume her cardiac medications Prognosis is guarded GI and DVT prophylaxis We will continue to follow Time with Patient: Less than 30
[2023-05-01 11:54] LABS: Glucose,Whole Blood 75 mg/dL (70-110)
[2023-05-01] MEDS ORDERED: SODIUM CHLORIDE 0.9% 1,000 ML IV ONE (12:27)
[2023-05-01] MEDS: DEXTROSE 5% IN WATER 1,000 ML with SODIUM BICARB (1 MEQ/ML) 150 ML IV SCH (13:32)
--- NOTE | 2023-05-01 13:50 | US ---
EXAMINATION TYPE: US renals and bladder DATE OF EXAM: 05/01/2023 COMPARISON: NONE CLINICAL INDICATION: Female, 87 years old with history of Oliguria; LOW URINE OUTPUT TODAY EXAM MEASUREMENTS: Right Kidney: 9.6x3.2x4.3 cm Left Kidney: 9.5x4.5x3.8 cm Right Kidney: wnl Left Kidney: wnl Bladder: not visualized, patient has catheter in Bilateral Jets seen: No exam limited by bowel, rib shadowing, and patient difficulty changing positioning. There is no evidence for hydronephrosis at this point in time. No nephrolithiasis is seen. No jeannette s are identified. Increased echotexture to liver. IMPRESSION: 1. No evidence for obstructive uropathy. Cortical medullary differentiation maintained. 2. Lew catheter in place. 3. Hepatic steatosis.
--- NOTE | 2023-05-01 14:17 | P.PN ---
Subjective Progress Note Date: 05/01/23 This is a pleasant 87-year-old female with past medical history significant for CAD, prior stenting, paroximal atrial fibrillation, valvular heart disease, hypertension, GI bleed ,large hiatal hernia, prior bowel obstruction and bowel resection and multiple medical issues, presented to the ER with complaints of midsternal chest pain radiating to left chest and into the front of her neck accompanied by shortness of breath, blood in stool. Relief with 3 sublingual nitroglycerin taken at home. Currently complaining of mid epigastric pain. Reports she was initially scheduled for endoscopy studies with Dr. Brunson tomorrow. Afebrile, WBC 10.7 now within normal limits. Hemoglobin 14.2, 12.6, platelets 309, 257, INR 1. D-dimer 1.64. Chest CTA reported multi foci of free air in the upper abdomen, no PE, mild pulmonary edema, small groundglass opacity in the right upper lobe, large hiatal hernia. Chest x-ray reporting large hiatal hernia. Abdomen/pelvis CT reported scattered pneumoperitoneum in the upper abdomen for within the large hiatal hernia in the thorax, concerning for hollow organ viscus perforation. Large hiatal hernia containing a loop of colon in the stomach, suprarenal abdominal aortic aneurysm measuring up to 3.4 cm. EKG reporting sinus with first-degree AV block, troponins 0.018, 0.038, 0.021. Echo of February 2023 reporting normal LV function, EF 55-60%, moderate aortic stenosis, mitral and tricuspid regurgitation, mild pulmonary hypertension Stool for occult blood positive. Sodium 136, potassium 4.3, bicarb 21, BUN 28, creatinine 0.91. Glucose 1:15. Magnesium 1.5, recheck ordered. T bili 0.7, AST 38, ALT 25, alk phos 1:30. ProBNP 1340. Albumin 4.1. 04/29/2023 remains nothing by mouth, continues on antibiotics and IV fluid hydration. Denies nausea, vomiting. Reports decreasing abdominal pain. Small bowel movement yesterday. Afebrile, normal WBC. Hemoglobin 12.6, platelets 253. Magnesium 1.8, post-supplementation. 04/30/2023 developed chest pain, EKG changes last night, Troponin increased to 10.7. ,cardiology reconsulted and patient was transferred to ICU. Heparin and nitro drip initiated as per cardiology. Maintained on IV antibiotics with no surgical intervention at this time as per general surgery. Afebrile, normal WBC. BUN 19, creatinine 0.9 to. 05/01/2023: Patient remains in intensive care unit. She's had some low urine output. She is undergoing a ultrasound the kidneys currently. She had a small bolus at 250 mL normal saline which did help her. She recently had a myocardial infarction and has a pneumoperitoneum from most likely perforated diverticulum. She has ongoing atrial fibrillation. Her pain is controlled at this time. Heart rate is stable blood pressure stable she's 95% on 2 L O2 this time. Labs 40 show a normal hemoglobin. GFR is 60. Blood cultures are negative 2. Critical care, cardiology, and general surgery following. Range on a heparin drip and nitro drip. She continues on cefepime and Flagyl for about a coverage. Surgery is planning on advance her diet today. Objective - Vital Signs Vital signs: Vital Signs Temp 97.8 F 05/01/23 12:00 Pulse 104 H 05/01/23 13:00 Resp 15 05/01/23 13:00 BP 99/59 05/01/23 13:00 Pulse Ox 98 05/01/23 13:00 FiO2 Intake & Output 04/30/23 05/01/23 05/01/23 18:59 06:59 18:59 Intake Total 6680.700 7953.553 1529.639 Output Total 570 250 160 Balance 780.384 224.102 6287.639 Weight 61.3 kg Intake: IV 1375 Sodium Chloride 0.9% 1375 Intake, IV Titration 9625.834 1179.553 154.639 Amount Cefepime 2 gm In Sodium 200 Chloride 0.9% 100 ml @ 25 mls/hr IVPB Q12H [facility] Rx# :[id number] Heparin Sod,Pork in 0.45% 49.134 118.503 65.189 NaCl 25,000 unit In 0.45 % NaCl 1 250ml.bag @ 12 UNITS/KG/HR 6.84 mls/hr IV .Q24H [facility] Rx#: [id number] Nitroglycerin-D5w Pmx 50 1.25 65.05 14.45 mg In Dextrose/Water 1 250ml.bag @ 5 MCG/MIN 1.5 mls/hr IV .Q24H [facility] Rx#: [id number] Sodium Chloride 0.9% 1, 900 900 75 000 ml @ 75 mls/hr IV . [id number] [facility] Rx#:[id number] metroNIDAZOLE-NS PMX 500 200 100 mg In Saline 1 100ml.bag @ 100 mls/hr IVPB Q6HR [facility] Rx#:[id number] Output: Urine 570 250 160 Other: Voiding Method Indwelling Catheter Indwelling Catheter Indwelling Catheter - Exam GENERAL: Alert and oriented 3, lying in bed undergoing an ultrasound at this time. no acute distress HEENT: Normocephalic, Conjunctivae normal. eyes normal. NECK: Supple, No JVD. CARDIOVASCULAR: S1, S2 regular. Systolic murmur RESPIRATION: Unlabored Breath sounds diminished in the bases. ABDOMEN: Soft, diffuse tenderness ,No guarding. +BS LEGS: no edema, no calf tenderness, positive DP pulses NERVOUS SYSTEM: Cranial N 2-12 grossly normal. No focal deficits. Strength and sensation grossly intact. Skin: Warm and dry, no rash - Labs CBC & Chem 7: 05/01/23 06:01 05/01/23 06:01 Labs: Abnormal Lab Results - Last 24 Hours (Table) 04/30/23 04/30/23 05/01/23 Range/Units 14:14 22:19 06:01 RBC (3.80-5.40) m/uL APTT 39.6 H 65.0 H 35.2 H (22.0-30.0) sec Chloride (98-107) mmol/L Carbon Dioxide (22-30) mmol/L BUN (7-17) mg/dL Glucose (74-99) mg/dL 05/01/23 05/01/23 05/01/23 Range/Units 06:01 06:01 11:51 RBC 3.76 L (3.80-5.40) m/uL APTT 113.3 H* (22.0-30.0) sec Chloride 111 H (98-107) mmol/L Carbon Dioxide 13 L (22-30) mmol/L BUN 20 H (7-17) mg/dL Glucose 109 H (74-99) mg/dL Microbiology - Last 24 Hours (Table) 04/28/23 06:00 Blood Culture - Preliminary Blood 04/28/23 06:15 Blood Culture - Preliminary Blood Assessment and Plan (1) Perforated diverticulum Current Visit: Yes Status: Acute Code(s): K57.80 - DVTRCLI OF INTEST, PART UNSP, W PERF AND ABSCESS W/O BLEED SNOMED Code(s): 24724182 (2) NSTEMI (non-ST elevated myocardial infarction) Current Visit: Yes Status: Acute Code(s): I21.4 - NON-ST ELEVATION (NSTEMI) MYOCARDIAL INFARCTION SNOMED Code(s): 39350630 (3) Essential (primary) hypertension Current Visit: Yes Status: Acute Code(s): I10 - ESSENTIAL (PRIMARY) HYPERTENSION SNOMED Code(s): 07354158 (4) Mixed hyperlipidemia Current Visit: Yes Status: Acute Code(s): E78.2 - MIXED HYPERLIPIDEMIA SNOMED Code(s): 347421738 (5) Aortic stenosis Current Visit: Yes Status: Acute Code(s): I35.0 - NONRHEUMATIC AORTIC (VALVE) STENOSIS SNOMED Code(s): 46949580 (6) Atrial fibrillation with RVR Current Visit: No Status: Acute Code(s): I48.91 - UNSPECIFIED ATRIAL FIBRILLATION SNOMED Code(s): 339884356872320 (7) CHF (congestive heart failure) Current Visit: No Status: Acute Code(s): I50.9 - HEART FAILURE, UNSPECIFIED SNOMED Code(s): 64943568 (8) Hypertension Current Visit: No Status: Acute Code(s): I10 - ESSENTIAL (PRIMARY) HY PERTENSION SNOMED Code(s): 71495518 (9) Pneumoperitoneum Current Visit: Yes Status: Acute Code(s): K66.8 - OTHER SPECIFIED DISORDERS OF PERITONEUM SNOMED Code(s): 95388105 Plan: Following a further increase his critical care, cardiology, general surgery. They're going to advance her diet today. Cardiology is going to stop the nitroglycerin and switch her on heparin soon. We will reevaluate her in 24 hours
[2023-05-01 18:06] LABS: Glucose,Whole Blood 99 mg/dL (70-110)
[2023-05-01] MEDS ORDERED: ALPRAZolam 0.25 MG TAB PO STA (20:42)
[2023-05-02] MEDS: metroNIDAZOLE-NS PMX 500 MG in SALINE 1 100ML.BAG IVPB SCH ×4 (00:04→17:18)
[2023-05-02] MEDS: DEXTROSE 5% IN WATER 1,000 ML with SODIUM BICARB (1 MEQ/ML) 150 ML IV SCH (00:05)
[2023-05-02] MEDS: NITROGLYCERIN OINT 1 INCH/GM PACKET TOPICAL SCH ×2 (00:05→09:00)
[2023-05-02 05:30] LABS: African American GFR (CKD) 79 (>60 ml/min/1.73 sqM); Anion Gap 6 mmol/L; Blood Urea Nitrogen 18 mg/dL (7-17); Calcium 8.5 mg/dL (8.4-10.2); Carbon Dioxide 24 mmol/L (22-30); Chloride 105 mmol/L (98-107); Glucose 103 mg/dL (74-99); Non-African American GFR(CKD) 68 (>60 ml/min/1.73 sqM); Potassium 3.2 mmol/L (3.5-5.1); Sodium 135 mmol/L (137-145)
[2023-05-02] MEDS: HEPARIN SOD,PORK IN 0.45% NACL 25,000 UNIT in 0.45% NACL 1 250ML.BAG IV SCH (06:03)
[2023-05-02] MEDS: POTASSIUM CHLORIDE ER 20 MEQ TAB.ER PO SCH ×2 (06:06→06:53)
[2023-05-02] MEDS: CEFEPIME 2 GM in SODIUM CHLORIDE 0.9% 100 ML IVPB SCH ×2 (06:11→17:18)
[2023-05-02] MEDS: PANTOPRAZOLE 40 MG/10 ML VIAL IVP SCH (09:00)
[2023-05-02] MEDS: ATORVASTATIN 40 MG TAB PO SCH (09:00)
[2023-05-02] MEDS: METOPROLOL TARTRATE 25 MG TAB PO SCH ×2 (09:00→20:23)
[2023-05-02] MEDS: ASPIRIN 81 MG PO SCH (09:00)
--- NOTE | 2023-05-02 09:04 | P.PN ---
Subjective Progress Note Date: 05/02/23 PROGRESS NOTE The patient is an 87-year-old female with a known history of coronary disease who presented with abdominal discomfort and was found to have probable microperforation. She subsequently had an episode of chest discomfort, EKG changes and evidence of non-STEMI with atrial fibrillation. She is feeling better overall. Her abdominal pain is better. She has no further chest discomfort and her rate is under better control. She denies any dizziness, palpitations or syncope. She denies any nausea or vomiting. I had a long discussion with her yesterday regarding further approach and she is in favor of conservative treatment and avoiding aggressive interventions. May 02: The patient feels better today, she denies any chest discomfort, dizziness or palpitations. Her abdominal discomfort is better. She denies any nausea or vomiting. She is back in sinus mechanism. She is tolerating oral medication. She has no evidence of ventricle arrhythmia. She continues to be on IV heparin. Her urine output was low yesterday and received IV fluid bolus Medications: Lipitor 40 mg daily, IV heparin, Lopressor 25 mg twice a day, Nitropaste 1 inch every 8 hours PHYSICAL EXAMINATION: Blood pressure 133/93 heart rate 72 LUNGS: Clear to auscultation HEART: Regular rate and rhythm, S1, S2. No S3 systolic ejection murmur 2/6 with holosystolic murmur at the apex ABDOMEN: Soft, nontender, positive bowel sounds, no organomegaly EXTREMETIES: No edema LAB: BUN 18, creatinine 0.79, potassium 3.2 IMPRESSION: 1. Non-STEMI in a patient with known history of multivessel disease 2. Abdominal discomfort with probable microperforation 3. Atrial fibrillation, paroxysmal, back in sinus mechanism 4. Aortic valve disease 5. History of hiatal hernia 6. History of hypertension PLAN: 1. Start oral anticoagulation 2. Increase activity 3. If renal function stable start JORDAN inhibitor 4. Change to oral nitrate 5. If stable transfer to telemetry Objective - Vital Signs Vital signs: Vital Signs Temp 97.4 F L 05/02/23 08:00 Pulse 72 05/02/23 08:00 Resp 25 H 05/02/23 08:00 BP 133/93 05/02/23 08:00 Pulse Ox 91 L 05/02/23 08:00 FiO2 Intake & Output 05/01/23 05/02/23 05/02/23 19:59 06:59 18:59 Intake Total 100 Output Total 50 Balance 50 Weight Intake: IV 100 Dextrose 5% in Water 1, 100 000 ml @ 100 mls/hr IV . [id number] [facility] with Sodium Bicarb (1 Meq/ml) 150 ml Rx#:[id number] Sodium Chloride 0.9% metroNIDAZOLE-NS PMX 500 mg In Saline 1 100ml.bag @ 100 mls/hr IVPB Q6HR [facility] Rx#:[id number] Intake, IV Titration Amount Heparin Sod,Pork in 0.45% NaCl 25,000 unit In 0.45 % NaCl 1 250ml.bag @ 12 UNITS/KG/HR 6.84 mls/hr IV .Q24H [facility] Rx#: [id number] Nitroglycerin-D5w Pmx 50 mg In Dextrose/Water 1 250ml.bag @ 5 MCG/MIN 1.5 mls/hr IV .Q24H [facility] Rx#: [id number] Output: Urine 50 Other: Voiding Method Indwelling Catheter - Labs CBC & Chem 7: 05/01/23 06:01 05/02/23 05:09 Labs: Abnormal Lab Results - Last 24 Hours (Table) 05/01/23 05/01/23 05/02/23 Range/Units 11:51 20:05 05:09 APTT 113.3 H* 57.9 H (22.0-30.0) sec Sodium 135 L (137-145) mmol/L Potassium 3.2 L (3.5-5.1) mmol/L BUN 18 H (7-17) mg/dL Glucose 103 H (74-99) mg/dL 05/02/23 Range/Units 05:09 APTT 63.9 H (22.0-30.0) sec Sodium (137-145) mmol/L Potassium (3.5-5.1) mmol/L BUN (7-17) mg/dL Glucose (74-99) mg/dL Microbiology - Last 24 Hours (Table) 04/28/23 06:00 Blood Culture - Preliminary Blood 04/28/23 06:15 Blood Culture - Preliminary Blood
[2023-05-02] MEDS: SODIUM CHLORIDE 0.9% 1,000 ML IV SCH (09:30)
[2023-05-02] MEDS: ISOSORBIDE MONONITRATE ER 30 MG TAB.ER.24H PO SCH (09:33)
--- NOTE | 2023-05-02 10:32 | P.NPCON ---
History of Present Illness - Reason for Consult acute renal failure - History of Present Illness Reason for consultation: Acute kidney injury History of present illness: Patient is a 87-year-old female seen in renal consultation for acute kidney injury. Patient's creatinine has been stable in the range of 0.8-0.9 however patient's urine output was low yesterday and nephrology was consulted. Patient did receive fluid boluses with improvement in urine output. She was started on bicarb drip yesterday due to acidosis which is improved today. Urine output is 30-50 mL an hour. She underwent CTA on 04/28/2023 which showed multiple foci of free air in the upper abdomen. No PE was noted. She was subsequently diagnosed with pneumoperitoneum possibly from perforated diverticular is being followed by surgery. No surgical intervention is planned at this time she is being treated conservatively. Patient has history of coronary artery disease with prior stenting. Hemodynamically stable. She does have history of diabetes. No hydronephrosis noted on kidney ultrasound. She was on JORDAN inhibitor as well as thiazide diuretic both of which are currently held. Patient does have moderate aortic stenosis as well as mild to moderate mitral and tricuspid regurgitation. Vital signs are stable. General: No acute distress. HEENT: Head exam is unremarkable. LUNGS: No audible rhonchi or wheezes. HEART: Rate and Rhythm are regular. ABDOMEN: Mild generalized tenderness to touch. EXTREMITITES: No edema. Past Medical History Past Medical History: Atrial Fibrillation, Coronary Artery Disease (CAD), Chest Pain / Angina, Hypertension, Myocardial Infarction ([place]), Pneumonia Additional Past Medical History / Comment(s): Bowel/bladder fistula; Bowel obstruction (due to adhesions); frequent urinary tract infection; Lichen sclerosis Last Myocardial Infarction Date:: 2011 History of Any Multi-Drug Resistant Organisms: None Reported Past Surgical History: Bladder Surgery, Bowel Resection, Cholecystectomy, Heart Catheterization With Stent, Hernia Repair Additional Past Surgical History / Comment(s): Cataract surgery bilateral Past Anesthesia/Blood Transfusion Reactions: No Reported Reaction Date of Last Stent Placement:: 2011 Past Psychological History: No Psychological Hx Reported Smoking Status: Never smoker Past Alcohol Use History: None Reported Past Drug Use History: None Reported - Past Family History Mother Family Medical History: CVA/TIA Father Family Medical History: Congestive Heart Failure (CHF) Medications and Allergies Home Medications Medication Instructions Recorded Confirmed Type hydroCHLOROthiazide [Hydrodiuril] 25 mg PO DAILY #30 tab 06/16/19 04/28/23 Rx Metoprolol Tartrate [Lopressor] 12.5 mg PO BID 11/11/22 04/28/23 History Nitroglycerin Sl Tabs [Nitrostat] 0.4 mg SL Q5M PRN 11/11/22 04/28/23 History Pravastatin Sodium [Pravachol] 10 mg PO DAILY 11/11/22 04/28/23 History Apixaban [Eliquis] 2.5 mg PO DIRECTED 03/07/23 04/28/23 History Omeprazole 20 mg PO AC-BRKFST 03/09/23 04/28/23 History lisinopriL [Zestril] 10 mg PO BID 04/28/23 04/28/23 History Allergies Allergy/AdvReac Type Severity Reaction Status Date / Time levofloxacin [From Levaquin] Allergy Unknown Verified 04/28/23 06:30 Penicillins Allergy Swelling Verified 04/28/23 06:30 of neck hydromorphone [From Dilaudid] AdvReac Altered Verified 04/28/23 06:30 Mental Status lorazepam [From Ativan] AdvReac Confusion Verified 04/28/23 06:30 Physical Exam Vitals: Vital Signs Temp Pulse Resp BP Pulse Ox 05/02/23 09:00 60 24 154/104 94 L 05/02/23 08:00 97.4 F L 72 25 H 133/93 91 L 05/02/23 07:00 72 27 H 138/101 95 05/02/23 06:00 86 23 123/72 95 05/02/23 05:00 80 11 L 129/81 95 05/02/23 04:00 97.9 F 56 L 18 124/77 95 05/02/23 03:00 64 12 98/56 97 05/02/23 02:00 57 L 20 99/54 96 05/02/23 01:17 EDT 52 L 13 99/66 97 05/02/23 00:00 97.7 F 55 L 24 122/74 98 05/01/23 23:00 90 22 76/50 94 L 05/01/23 22:00 92 22 112/68 97 05/01/23 21:00 104 H 30 H 125/98 94 L 05/01/23 20:00 97.7 F 64 16 110/75 96 05/01/23 19:00 71 26 H 97/73 99 05/01/23 18:30 67 22 91/79 98 05/01/23 18:00 83 15 91/65 97 05/01/23 17:30 76 17 112/83 98 05/01/23 17:00 86 9 L 113/77 98 05/01/23 16:30 64 15 105/62 98 05/01/23 16:00 97.9 F 61 16 100/88 97 05/01/23 15:30 78 22 92/68 96 05/01/23 15:00 63 15 105/80 95 05/01/23 14:30 69 20 99/60 96 05/01/23 14:00 65 15 104/67 95 05/01/23 13:30 60 18 102/73 98 05/01/23 13:00 104 H 15 99/59 98 05/01/23 12:30 51 L 16 76/58 96 05/01/23 12:00 97.8 F 56 L 5 L 98/61 97 05/01/23 11:30 49 L 13 83/68 97 Intake and Output 05/01/23 05/02/23 05/02/23 23:59 06:59 14:59 Intake Total 200 Output Total 80 Balance 120 Intake: IV 200 Dextrose 5% in Water 1, 200 000 ml @ 100 mls/hr IV . [id number] [facility] with Sodium Bicarb (1 Meq/ml) 150 ml Rx#:[id number] metroNIDAZOLE-NS PMX 500 mg In Saline 1 100ml.bag @ 100 mls/hr IVPB Q6HR [facility] Rx#:[id number] Intake, IV Titration Amount Heparin Sod,Pork in 0.45% NaCl 25,000 unit In 0.45 % NaCl 1 250ml.bag @ 12 UNITS/KG/HR 6.84 mls/hr IV .Q24H [facility] Rx#: [id number] Output: Urine 80 Other: Voiding Method Indwelling Catheter Weight Results - Lab Results Most recent lab results Calcium 8.5 mg/dL (8.4-10.2) 05/02/23 05:09 Magnesium 1.8 mg/dL (1.6-2.3) 04/30/23 06:37 05/01/23 06:05/02/23 05:09 Assessment and Plan Plan: Assessment: 1. Acute kidney injury secondary to vasomotor nephropathy from poor intake, JORDAN inhibitor use. Improved. GFR at baseline. Nonoliguric. No hydronephrosis noted. UA benign. 2. Pneumoperitoneum from possibly perforated diverticula being followed by surgery. 3. Metabolic acidosis secondary to IV fluids and GI losses. Improved with bicarb drip. 4. Benign hypertension. 5. NSTEMI being followed by cardiology. 6. Hypokalemia from intracellular shifting from IV bicarb. Replaced. Plan: Change IV fluids to normal saline at 50 mL an hour. Potassium replaced. Add amlodipine 5 mg once daily. Hold for systolic blood pressure less than 120. Avoid nephrotoxins. Continue to monitor renal function and urine output. Thank you for the consultation. I will continue to follow this patient with you during her hospital stay.
[2023-05-02 11:18] LABS: HCT 34.1 % (34.0-46.0); HGB 11.7 gm/dL (11.4-16.0); MCHC 34.3 g/dL (31.0-37.0); MCV 93.2 fL (80.0-100.0); Mean Platelet Volume 7.9; Platelet Count 275 k/uL (150-450); RBC 3.66 m/uL (3.80-5.40); RDW 13.7 % (11.5-15.5); WBC 5.9 k/uL (3.8-10.6)
--- NOTE | 2023-05-02 11:32 | P.PN ---
Subjective Progress Note Date: 05/02/23 Principal diagnosis: Hiatal hernia Patient remains in the ICU. Doing fairly well. Minimal abdominal discomfort. No nausea. Patient is hungry. White blood cell count normal. Complaining of some leg pain bilaterally. Objective - Vital Signs Vital signs: Vital Signs Temp 97.4 F L 05/02/23 08:00 Pulse 60 05/02/23 09:00 Resp 24 05/02/23 09:00 BP 154/104 05/02/23 09:00 Pulse Ox 94 L 05/02/23 09:00 FiO2 Intake & Output 05/01/23 05/02/23 05/02/23 19:59 06:59 18:59 Intake Total 200 Output Total 80 Balance 120 Weight Intake: IV 200 Dextrose 5% in Water 1, 200 000 ml @ 100 mls/hr IV . [id number] [facility] with Sodium Bicarb (1 Meq/ml) 150 ml Rx#:[id number] Sodium Chloride 0.9% metroNIDAZOLE-NS PMX 500 mg In Saline 1 100ml.bag @ 100 mls/hr IVPB Q6HR [facility] Rx#:[id number] Intake, IV Titration Amount Heparin Sod,Pork in 0.45% NaCl 25,000 unit In 0.45 % NaCl 1 250ml.bag @ 12 UNITS/KG/HR 6.84 mls/hr IV .Q24H [facility] Rx#: [id number] Nitroglycerin-D5w Pmx 50 mg In Dextrose/Water 1 250ml.bag @ 5 MCG/MIN 1.5 mls/hr IV .Q24H [facility] Rx#: [id number] Output: Urine 80 Other: Voiding Method Indwelling Catheter - Exam Abdomen: Soft, nontender, nondistended Bilateral lower extremities without edema or ischemic changes - Labs CBC & Chem 7: 05/02/23 10:46 05/02/23 05:09 Labs: Abnormal Lab Results - Last 24 Hours (Table) 05/01/23 05/01/23 05/02/23 Range/Units 11:51 20:05 05:09 RBC (3.80-5.40) m/uL APTT 113.3 H* 57.9 H (22.0-30.0) sec Sodium 135 L (137-145) mmol/L Potassium 3.2 L (3.5-5.1) mmol/L BUN 18 H (7-17) mg/dL Glucose 103 H (74-99) mg/dL 05/02/23 05/02/23 Range/Units 05:09 10:46 RBC 3.66 L (3.80-5.40) m/uL APTT 63.9 H (22.0-30.0) sec Sodium (137-145) mmol/L Potassium (3.5-5.1) mmol/L BUN (7-17) mg/dL Glucose (74-99) mg/dL Microbiology - Last 24 Hours (Table) 04/28/23 06:00 Blood Culture - Preliminary Blood 04/28/23 06:15 Blood Culture - Preliminary Blood Assessment and Plan (1) Abdominal pain Narrative/Plan: 87-year-old female with hiatal hernia containing a loop of colon associated diverticulitis small microperforation suspected. Patient doing better. Continue conservative management. Continue antibiotics. May begin clear liquids. Current Visit: No Status: Acute Code(s): R10.9 - UNSPECIFIED ABDOMINAL PAIN SNOMED Code(s): 11587356
[2023-05-02] MEDS: amLODIPine 5 MG TAB PO SCH (11:44)
[2023-05-02 11:50] LABS: Glucose,Whole Blood 102 mg/dL (70-110)
--- NOTE | 2023-05-02 12:19 | P.PN ---
Subjective Progress Note Date: 05/02/23 Principal diagnosis: Acute bowel perforation and pneumoperitoneum, with acute non-ST elevation myocardial infarction This is an 87-year-old female, known history of coronary artery disease, hypertension, previous OH, history of colovesicular fistula, bowel obstruction secondary to adhesions, moderate aortic stenosis and moderate mitral regurgitation, peripheral vessel occlusive disease, previous stent placement, patient presented to the ER on 04/28/2023, complaining of midsternal chest pain radiating to the left chest, and into the front of her back. Associated with some shortness of breath. Patient did have relief after taking 3 sublingual nitroglycerin at home. Upon arrival to the ER patient was also complaining of epigastric pain, hence abdominal/pelvic CT showed pneumoperitoneum in the upper abdomen and a large hiatal hernia. Patient was seen by cardiology on consultation abnormal EKG, looking at the notes from cardiology yesterday apparently signed off, and patient was being followed by surgery for potential exploratory laparotomy. However the patient developed some EKG changes last night and more chest pain, cardiology was notified, and the recommended transferring the patient to the ICU. Patient was seen by surgery again this morning, and the plan is to continue antibiotics, and no plans for intervention regarding her pneumoperitoneum at this point yet. In the meantime the patient is receiving antibiotics for her presumptive perforated viscus most likely perforated diverticula. Surgery at this point prefers to observe and treat medically. And continue antibiotics Patient was reevaluated today on 05/01/2023, patient remains in the ICU, relatively asymptomatic, she remains on cefepime and Flagyl, cardiology saw the patient and recommended nitroglycerin 10 mcg/m, she is on 0.9 normal saline at 75 mL per hour patient is hemodynamically stable, not in any distress, and general surgery is still recommending medical treatment and observation for now. Patient was also placed on heparin by cardiology for her acute non-ST elevation myocardial infarction as well as atrial fibrillation. W cigars 7.8 hemoglobin 11.6 PTT is 35 basic metabolic profile is normal renal profile is normal Patient was on 05/02/2023, remains in the ICU, denies any chest pain, she has minimal abdominal discomfort, is not in any distress, patient had low urine output yesterday, and I recommended ultrasound of her kidneys which came back unremarkable. She received a fluid bolus, and that improved her urine output. Patient was seen by nephrology and she is now on bicarb drip. Patient is also on heparin drip, surgery is still planning conservative measures, and no plans for surgery anytime soon. WBC count is 5.9 hemoglobin 11.7 basic metabolic profile is normal and renal profile is normal. PTT is 63.9. Today is up to 24. Objective - Vital Signs Vital signs: Vital Signs Temp 97.4 F L 05/02/23 08:00 Pulse 67 05/02/23 12:00 Resp 13 05/02/23 12:00 BP 132/71 05/02/23 12:00 Pulse Ox 93 L 05/02/23 12:00 FiO2 Intake & Output 05/01/23 05/02/23 05/02/23 19:59 06:59 18:59 Intake Total 200 Output Total 80 Balance 120 Weight Intake: IV 200 Dextrose 5% in Water 1, 200 000 ml @ 100 mls/hr IV . [id number] [facility] with Sodium Bicarb (1 Meq/ml) 150 ml Rx#:[id number] Sodium Chloride 0.9% metroNIDAZOLE-NS PMX 500 mg In Saline 1 100ml.bag @ 100 mls/hr IVPB Q6HR [facility] Rx#:[id number] Intake, IV Titration Amount Heparin Sod,Pork in 0.45% NaCl 25,000 unit In 0.45 % NaCl 1 250ml.bag @ 12 UNITS/KG/HR 6.84 mls/hr IV .Q24H [facility] Rx#: [id number] Nitroglycerin-D5w Pmx 50 mg In Dextrose/Water 1 250ml.bag @ 5 MCG/MIN 1.5 mls/hr IV .Q24H [facility] Rx#: [id number] Output: Urine 80 Other: Voiding Method Indwelling Catheter - Exam Physical Exam: Revealed an 87-year-old female in no distress, on room air Head: Atraumatic, normocephalic. Irregular irregular rhythm HEENT:[Neck is supple.] [No neck masses.] [No thyromegaly.] [No JVD.] Chest: [Clear throughout, no crackles, no rhonchi, no wheezes.] Cardiac Exam: [Normal S1 and S2, no S3 gallop, 2/6 systolic murmur thought the precordium Abdomen: [Soft, minimal tenderness, no rebound no guarding, no megaly, positive bowel sounds. Extremities: [No clubbing, no edema, no cyanosis.] Neurological Exam: [No focal neurologic deficit.]. Alert and oriented 3 Psychiatric: Normal mood affect and normal mental status examination. Skin: No rashes. - Labs CBC & Chem 7: 05/02/23 10:46 05/02/23 05:09 Labs: Abnormal Lab Results - Last 24 Hours (Table) 05/01/23 05/02/23 05/02/23 Range/Units 20:05 05:09 05:09 RBC (3.80-5.40) m/uL APTT 57.9 H 63.9 H (22.0-30.0) sec Sodium 135 L (137-145) mmol/L Potassium 3.2 L (3.5-5.1) mmol/L BUN 18 H (7-17) mg/dL Glucose 103 H (74-99) mg/dL 05/02/23 Range/Units 10:46 RBC 3.66 L (3.80-5.40) m/uL APTT (22.0-30.0) sec Sodium (137-145) mmol/L Potassium (3.5-5.1) mmol/L BUN (7-17) mg/dL Glucose (74-99) mg/dL Microbiology - Last 24 Hours (Table) 04/28/23 06:00 Blood Culture - Preliminary Blood 04/28/23 06:15 Blood Culture - Preliminary Blood Assessment and Plan Assessment: Impression Acute non-ST elevation myocardial infarction Acute bowel perforation and pneumoperitoneum Moderate aortic stenosis Coronary arteriosclerosis and previous stenting of RCA Paroxysmal atrial fibrillation Valvular heart disease History of diverticular disease, possible perforation/diverticular perforation. Recommendation: Continue IV fluid at 50 mL per hour This continue sodium bicarb after reviewing her labs today Continue potassium replacement as needed and as per protocol Continue amlodipine for elevated blood pressure Continue to avoid nephrotoxins Continue to monitor the patient in the ICU Continue heparin and nitroglycerin as per cardiology Continue antibiotics including cefepime and Flagyl for now Continue conservative measures as recommended by general surgery Prognosis is guarded GI and DVT prophylaxis We will continue to follow Time with Patient: Less than 30
--- NOTE | 2023-05-02 12:39 | P.PN ---
Subjective This is a pleasant 87-year-old female with past medical history significant for CAD, prior stenting, paroximal atrial fibrillation, valvular heart disease, hypertension, GI bleed ,large hiatal hernia, prior bowel obstruction and bowel resection and multiple medical issues, presented to the ER with complaints of midsternal chest pain radiating to left chest and into the front of her neck accompanied by shortness of breath, blood in stool. Relief with 3 sublingual nitroglycerin taken at home. Currently complaining of mid epigastric pain. Reports she was initially scheduled for endoscopy studies with Dr. Brunson tomorrow. Afebrile, WBC 10.7 now within normal limits. Hemoglobin 14.2, 12.6, platelets 309, 257, INR 1. D-dimer 1.64. Chest CTA reported multi foci of free air in the upper abdomen, no PE, mild pulmonary edema, small groundglass opacity in the right upper lobe, large hiatal hernia. Chest x-ray reporting large hiatal hernia. Abdomen/pelvis CT reported scattered pneumoperitoneum in the upper abdomen for within the large hiatal hernia in the thorax, concerning for hollow organ viscus perforation. Large hiatal hernia containing a loop of colon in the stomach, suprarenal abdominal aortic aneurysm measuring up to 3.4 cm. EKG reporting sinus with first-degree AV block, troponins 0.018, 0.038, 0.021. Echo of February 2023 reporting normal LV function, EF 55-60%, moderate aortic stenosis, mitral and tricuspid regurgitation, mild pulmonary hypertension Stool for occult blood positive. Sodium 136, potassium 4.3, bicarb 21, BUN 28, creatinine 0.91. Glucose 1:15. Magnesium 1.5, recheck ordered. T bili 0.7, AST 38, ALT 25, alk phos 1:30. ProBNP 1340. Albumin 4.1. 04/29/2023 remains nothing by mouth, continues on antibiotics and IV fluid hydration. Denies nausea, vomiting. Reports decreasing abdominal pain. Small bowel movement yesterday. Afebrile, normal WBC. Hemoglobin 12.6, platelets 253. Magnesium 1.8, post-supplementation. 04/30/2023 developed chest pain, EKG changes last night, Troponin increased to 10.7. ,cardiology reconsulted and patient was transferred to ICU. Heparin and nitro drip initiated as per cardiology. Maintained on IV antibiotics with no surgical intervention at this time as per general surgery. Afebrile, normal WBC. BUN 19, creatinine 0.9 to. 05/01/2023: Patient remains in intensive care unit. She's had some low urine output. She is undergoing a ultrasound the kidneys currently. She had a small bolus at 250 mL normal saline which did help her. She recently had a myocardial infarction and has a pneumoperitoneum from most likely perforated diverticulum. She has ongoing atrial fibrillation. Her pain is controlled at this time. Heart rate is stable blood pressure stable she's 95% on 2 L O2 this time. Labs 40 show a normal hemoglobin. GFR is 60. Blood cultures are negative 2. Critical care, cardiology, and general surgery following. Range on a heparin drip and nitro drip. She continues on cefepime and Flagyl for about a coverage. Surgery is planning on advance her diet today. 05/02/2023: The patient is resting comfortably peritoneum and perforated diverticulum suspect. She also has ongoing atrial fibrillation, recent nSTEMI and now some acute renal failure. Cardiology has cleared indicates she is doing better. Surgery start regular liquid diets and is advancing. She remains on antibiotics of cefepime and metronidazole. Remains on Crixivan for anticoagulation for atrial fibrillation. Nephrology adjust her medications due to the low urinary output. Patient relates afebrile. Heart rates controlled. She is 93% on room air. Objective - Vital Signs Vital signs: Vital Signs Temp 97.4 F L 05/02/23 08:00 Pulse 67 05/02/23 12:00 Resp 13 05/02/23 12:00 BP 132/71 05/02/23 12:00 Pulse Ox 93 L 05/02/23 12:00 FiO2 Intake & Output 05/01/23 05/02/23 05/02/23 19:59 06:59 18:59 Intake Total 200 Output Total 80 Balance 120 Weight Intake: IV 200 Dextrose 5% in Water 1, 200 000 ml @ 100 mls/hr IV . [id number] [facility] with Sodium Bicarb (1 Meq/ml) 150 ml Rx#:[id number] Sodium Chloride 0.9% metroNIDAZOLE-NS PMX 500 mg In Saline 1 100ml.bag @ 100 mls/hr IVPB Q6HR [facility] Rx#:[id number] Intake, IV Titration Amount Heparin Sod,Pork in 0.45% NaCl 25,000 unit In 0.45 % NaCl 1 250ml.bag @ 12 UNITS/KG/HR 6.84 mls/hr IV .Q24H [facility] Rx#: [id number] Nitroglycerin-D5w Pmx 50 mg In Dextrose/Water 1 250ml.bag @ 5 MCG/MIN 1.5 mls/hr IV .Q24H [facility] Rx#: [id number] Output: Urine 80 Other: Voiding Method Indwelling Catheter - Exam GENERAL: Alert and oriented 3, lying in bed tolerating a clear liquid diet.. no acute distress HEENT: Normocephalic, Conjunctivae normal. eyes normal. NECK: Supple, No JVD. CARDIOVASCULAR: S1, S2 regular. Systolic murmur RESPIRATION: Unlabored Breath sounds diminished in the bases. ABDOMEN: Soft, diffuse tenderness ,No guarding. +BS LEGS: no edema, no calf tenderness, positive DP pulses NERVOUS SYSTEM: Cranial N 2-12 grossly normal. No focal deficits. Strength and sensation grossly intact. Skin: Warm and dry, no rash - Labs CBC & Chem 7: 05/02/23 10:46 05/02/23 05:09 Labs: Abnormal Lab Results - Last 24 Hours (Table) 05/01/23 05/02/23 05/02/23 Range/Units 20:05 05:09 05:09 RBC (3.80-5.40) m/uL APTT 57.9 H 63.9 H (22.0-30.0) sec Sodium 135 L (137-145) mmol/L Potassium 3.2 L (3.5-5.1) mmol/L BUN 18 H (7-17) mg/dL Glucose 103 H (74-99) mg/dL 05/02/23 Range/Units 10:46 RBC 3.66 L (3.80-5.40) m/uL APTT (22.0-30.0) sec Sodium (137-145) mmol/L Potassium (3.5-5.1) mmol/L BUN (7-17) mg/dL Glucose (74-99) mg/dL Microbiology - Last 24 Hours (Table) 04/28/23 06:00 Blood Culture - Preliminary Blood 04/28/23 06:15 Blood Culture - Preliminary Blood Assessment and Plan (1) Perforated diverticulum Current Visit: Yes Status: Acute Code(s): K57.80 - DVTRCLI OF INTEST, PART UNSP, W PERF AND ABSCESS W/O BLEED SNOMED Code(s): 00129681 (2) NSTEMI (non-ST elevated myocardial infarction) Current Visit: Yes Status: Acute Code(s): I21.4 - NON-ST ELEVATION (NSTEMI) MYOCARDIAL INFARCTION SNOMED Code(s): 99538864 (3) Essential (primary) hypertension Current Visit: Yes Status: Acute Code(s): I10 - ESSENTIAL (PRIMARY) HYPERTENSION SNOMED Code(s): 86468802 (4) Mixed hyperlipidemia Current Visit: Yes Status: Acute Code(s): E78.2 - MIXED HYPERLIPIDEMIA SNOMED Code(s): 896866993 (5) Aortic stenosis Current Visit: Yes Status: Acute Code(s): I35.0 - NONRHEUMATIC AORTIC (VALVE) STENOSIS SNOMED Code(s): 25917321 (6) Atrial fibrillation with RVR Current Visit: No Status: Acute Code(s): I48.91 - UNSPECIFIED ATRIAL FIB RILLATION SNOMED Code(s): 140812125904964 (7) CHF (congestive heart failure) Current Visit: No Status: Acute Code(s): I50.9 - HEART FAILURE, UNSPECIFIED SNOMED Code(s): 64687582 (8) Hypertension Current Visit: No Status: Acute Code(s): I10 - ESSENTIAL (PRIMARY) HYPERTENSION SNOMED Code(s): 43431632 (9) Pneumoperitoneum Current Visit: Yes Status: Acute Code(s): K66.8 - OTHER SPECIFIED DISORDERS OF PERITONEUM SNOMED Code(s): 17148219 Plan: Cardiology and critical care cleared her for a telemetry bed at this time. She is improved. We'll repeat labs in a.m. She'll be ruled out next 24 hours. I discussed with nursing her CODE STATUS. I'll mention this to her when her family is with her. She'll be reevaluated in the next 24 hours
[2023-05-02 16:30] LABS: Glucose,Whole Blood 124 mg/dL (70-110)
[2023-05-02] MEDS: ACETAMINOPHEN TAB 325 MG TAB PO PRN (18:14)
[2023-05-02] MEDS: APIXABAN 2.5 MG TABLET PO SCH (20:23)
[2023-05-02] MEDS ORDERED: ALPRAZolam 0.25 MG TAB PO PRN (21:13)
[2023-05-03] MEDS: metroNIDAZOLE-NS PMX 500 MG in SALINE 1 100ML.BAG IVPB SCH ×5 (00:34→23:42)
[2023-05-03] MEDS: CEFEPIME 2 GM in SODIUM CHLORIDE 0.9% 100 ML IVPB SCH ×2 (06:25→17:12)
[2023-05-03] MEDS: SODIUM CHLORIDE 0.9% 1,000 ML IV SCH (06:26)
[2023-05-03 06:40] LABS: Glucose,Whole Blood 112 mg/dL (70-110)
[2023-05-03 06:50] LABS: HCT 36.7 % (34.0-46.0); HGB 12.5 gm/dL (11.4-16.0); MCH 31.1 pg (25.0-35.0); MCHC 34.1 g/dL (31.0-37.0); MCV 91.4 fL (80.0-100.0); Platelet Count 282 k/uL (150-450); RBC 4.01 m/uL (3.80-5.40); RDW 13.8 % (11.5-15.5); WBC 4.7 k/uL (3.8-10.6)
[2023-05-03 06:59] LABS: African American GFR (CKD) 89 (>60 ml/min/1.73 sqM); Anion Gap 9 mmol/L; Blood Urea Nitrogen 11 mg/dL (7-17); Calcium 8.7 mg/dL (8.4-10.2); Carbon Dioxide 23 mmol/L (22-30); Chloride 104 mmol/L (98-107); Glucose 108 mg/dL (74-99); Non-African American GFR(CKD) 77 (>60 ml/min/1.73 sqM); Potassium 3.8 mmol/L (3.5-5.1); Sodium 136 mmol/L (137-145)
[2023-05-03] MEDS: ISOSORBIDE MONONITRATE ER 30 MG TAB.ER.24H PO SCH (08:15)
[2023-05-03] MEDS: APIXABAN 2.5 MG TABLET PO SCH ×2 (08:15→20:33)
[2023-05-03] MEDS: ATORVASTATIN 40 MG TAB PO SCH (08:15)
[2023-05-03] MEDS: METOPROLOL TARTRATE 25 MG TAB PO SCH ×2 (08:16→20:33)
[2023-05-03] MEDS: amLODIPine 5 MG TAB PO SCH (08:16)
[2023-05-03] MEDS: PANTOPRAZOLE 40 MG/10 ML VIAL IVP SCH (08:16)
[2023-05-03] MEDS: ASPIRIN 81 MG PO SCH (08:16)
[2023-05-03] MEDS: LOSARTAN 25 MG TAB PO SCH (11:42)
--- NOTE | 2023-05-03 12:00 | P.PN ---
Subjective Progress Note Date: 05/03/23 Principal diagnosis: Chest pain. This is an 87-year-old female, known history of coronary artery disease, hypertension, previous [place], history of colovesicular fistula, bowel obstruction secondary to adhesions, moderate aortic stenosis and moderate mitral regurgitation, peripheral vessel occlusive disease, previous stent placement, patient presented to the ER on 04/28/2023, complaining of midsternal chest pain radiating to the left chest, and into the front of her back. Associated with some shortness of breath. Patient did have relief after taking 3 sublingual nitroglycerin at home. Upon arrival to the ER patient was also complaining of epigastric pain, hence abdominal/pelvic CT showed pneumoperitoneum in the upper abdomen and a large hiatal hernia. Patient was seen by cardiology on consultation abnormal EKG, looking at the notes from cardiology yesterday apparently signed off, and patient was being followed by surgery for potential exploratory laparotomy. However the patient developed some EKG changes last night and more chest pain, cardiology was notified, and the recommended transferring the patient to the ICU. Patient was seen by surgery again this morning, and the plan is to continue antibiotics, and no plans for intervention regarding her pneumoperitoneum at this point yet. In the meantime the patient is receiving antibiotics for her presumptive perforated viscus most likely perforated diverticula. Surgery at this point prefers to observe and treat medically. And continue antibiotics Patient was reevaluated today on 05/01/2023, patient remains in the ICU, relatively asymptomatic, she remains on cefepime and Flagyl, cardiology saw the patient and recommended nitroglycerin 10 mcg/m, she is on 0.9 normal saline at 75 mL per hour patient is hemodynamically stable, not in any distress, and general surgery is still recommending medical treatment and observation for now. Patient was also placed on heparin by cardiology for her acute non-ST elevation myocardial infarction as well as atrial fibrillation. W cigars 7.8 hemoglobin 11.6 PTT is 35 basic metabolic profile is normal renal profile is normal Patient was on 05/02/2023, remains in the ICU, denies any chest pain, she has minimal abdominal discomfort, is not in any distress, patient had low urine output yesterday, and I recommended ultrasound of her kidneys which came back unremarkable. She received a fluid bolus, and that improved her urine output. Patient was seen by nephrology and she is now on bicarb drip. Patient is also on heparin drip, surgery is still planning conservative measures, and no plans for surgery anytime soon. WBC count is 5.9 hemoglobin 11.7 basic metabolic profile is normal and renal profile is normal. PTT is 63.9. Today is up to 24. Progress note dated 05/03/2023. 87-year-old female seen today in room 351. The patient's currently on room air. She's receiving saline at 50 mL an hour. She denies any shortness of breath, chest pain or chest discomfort. She states that she is feeling much better. Current laboratory data includes a white count 4.7, hemoglobin 12.5, hematocrit 36.7, and a platelet count of 282,000. Sodium 136, potassium 3.8, chlorides 104, CO2 23, BUN 11, creatinine 0.71. Glucose is 108. Calcium is 8.7. Blood cultures are negative. Objective - Vital Signs Vital signs: Vital Signs Temp 97.7 F 05/03/23 08:12 Pulse 83 05/03/23 08:12 Resp 16 05/03/23 08:12 BP 147/96 05/03/23 08:12 Pulse Ox 93 L 05/03/23 08:12 FiO2 Intake & Output 05/02/23 05/03/23 05/03/23 18:59 06:59 18:59 Intake Total 700 120 Output Total 330 Balance 370 120 Intake: IV 450 Dextrose 5% in Water 1, 200 000 ml @ 100 mls/hr IV . [id number] JOSE ENRIQUE with Sodium Bicarb (1 Meq/ml) 150 ml Rx#:[id number] Sodium Chloride 0.9% 1, 250 000 ml @ 50 mls/hr IV . Q20H JOSE ENRIQUE Rx#:[id number] Oral 250 120 Output: Urine 330 Other: Voiding Method Indwelling Catheter Indwelling Catheter Indwelling Catheter # Voids 0 - Exam No acute distress, oriented 3. Currently on room air. Saturations are between 93 and 95%. HEENT examination is grossly unremarkable. Mucous membranes are moist. No oral lesions. Neck supple. Full range of motion. No adenopathy thyromegaly or neck vein distention. Cardiovascular examination reveals regular rhythm rate. S1-S2 normal. No S3 or S4. Soft systolic murmur. Heart sounds are distant. Heart rate 83 bpm. Lungs reveal clear breath sounds. Breath sounds are equal bilaterally. No adventitious lung sounds including wheezes rhonchi or crackles. Abdomen mildly tender. Bowel sounds are noted. Extremities are intact. No cyanosis clubbing or edema. Skin is without rash or lesion. Neurologic examination is brief but nonfocal. - Labs CBC & Chem 7: 05/03/23 06:23 05/03/23 06:23 Labs: Abnormal Lab Results - Last 24 Hours (Table) 05/02/23 05/03/23 05/03/23 Range/Units 16:28 06:23 06:39 Sodium 136 L (137-145) mmol/L Glucose 108 H (74-99) mg/dL POC Glucose (mg/dL) 124 H 112 H (70-110) mg/dL Assessment and Plan Assessment: Acute non-ST segment elevation myocardial infarction. Acute bowel perforation and pneumoperitoneum. Moderate aortic stenosis. Coronary artery disease and previous stenting of the right coronary artery. Paroxysmal atrial fibrillation. Valvular heart disease. History of diverticular disease. Plan: Plan dated 05/03/2023. The patient's labs, x-rays, medications are reviewed. She continues on GI and DVT prophylaxis. The patient was treated conservatively. Clinically, she feels much better. She does have some mild abdominal tenderness. Blood cultures are currently negative. She continues on cefepime and Flagyl. Additional recommendations and suggestions are forthcoming. Prognosis is guarded. Time with Patient: Less than 30
--- NOTE | 2023-05-03 12:08 | P.PN ---
Subjective Progress Note Date: 05/03/23 CHIEF COMPLAINT: Pneumoperitoneum HISTORY OF PRESENT ILLNESS: Patient is currently on the cardiac floor. Transferred out of the ICU the weekend. She is lying in bed comfortably. She reports minimal epigastric abdominal pain. Denies any chest pain. She reports having bowel movements. Denies any nausea or vomiting. Currently on a clear liquid diet. Afebrile. WBC 4.7 hgb 12.5 blood cultures negative. Cardiology started Eliquis. PHYSICAL EXAM: VITAL SIGNS: Reviewed. GENERAL: Well-developed in no acute distress. ABDOMEN: Soft. Nondistended. tenderness with palpation to the epigastric area NEUROLOGIC: Awake and alert. Confused. ASSESSMENT: 1. Pneumoperitoneum possibly secondary to perforated diverticula 2. Large hiatal hernia 3. Chest pain with non-ST elevated AR. Followed by cardiology 4. History of coronary arteries previous stenting 5. History of atrial fibrillation 6. Bloody bowel movements outpatient. Was scheduled for colonoscopy outpatient tomorrow. This is now on hold. PLAN: -Continue conservative management -Advance diet to full liquids and then as tolerated -Continue antibiotics Physician Lute Packer Or Applier note has been reviewed by physician. Signing provider agrees with the documented findings, assessment, and plan of care. Objective - Vital Signs Vital signs: Vital Signs Temp 97.7 F 05/03/23 08:12 Pulse 83 05/03/23 08:12 Resp 16 05/03/23 08:12 BP 147/96 05/03/23 08:12 Pulse Ox 93 L 05/03/23 08:12 FiO2 Intake & Output 05/02/23 05/03/23 05/03/23 18:59 06:59 18:59 Intake Total 700 120 Output Total 330 Balance 370 120 Intake: IV 450 Dextrose 5% in Water 1, 200 000 ml @ 100 mls/hr IV . [id number] JOSE ENRIQUE with Sodium Bicarb (1 Meq/ml) 150 ml Rx#:[id number] Sodium Chloride 0.9% 1, 250 000 ml @ 50 mls/hr IV . Q20H JOSE ENRIQUE Rx#:[id number] Oral 250 120 Output: Urine 330 Other: Voiding Method Indwelling Catheter Indwelling Catheter Indwelling Catheter # Voids 0 - Labs CBC & Chem 7: 05/03/23 06:23 05/03/23 06:23 Labs: Abnormal Lab Results - Last 24 Hours (Table) 05/02/23 05/02/23 05/03/23 Range/Units 10:46 16:28 06:23 RBC 3.66 L (3.80-5.40) m/uL Sodium 136 L (137-145) mmol/L Glucose 108 H (74-99) mg/dL POC Glucose (mg/dL) 124 H (70-110) mg/dL 05/03/23 Range/Units 06:39 RBC (3.80-5.40) m/uL Sodium (137-145) mmol/L Glucose (74-99) mg/dL POC Glucose (mg/dL) 112 H (70-110) mg/dL
[2023-05-03 12:10] LABS: Glucose,Whole Blood 142 mg/dL (70-110)
--- NOTE | 2023-05-03 12:15 | P.PN ---
Subjective Patient is seen for follow-up for acute kidney injury. She was noted to have low urine output which has now improved. Maintained on gentle IV hydration. Cozaar started today. Serum creatinine has been at 0.7-0.8 mg/dL. No significant complaints today. Objective - Vital Signs Vital signs: Vital Signs Temp 97.7 F 05/03/23 08:12 Pulse 83 05/03/23 08:12 Resp 16 05/03/23 08:12 BP 147/96 05/03/23 08:12 Pulse Ox 93 L 05/03/23 08:12 FiO2 Intake & Output 05/02/23 05/03/23 05/03/23 18:59 06:59 18:59 Intake Total 700 120 Output Total 330 Balance 370 120 Intake: IV 450 Dextrose 5% in Water 1, 200 000 ml @ 100 mls/hr IV . [id number] JOSE ENRIQUE with Sodium Bicarb (1 Meq/ml) 150 ml Rx#:[id number] Sodium Chloride 0.9% 1, 250 000 ml @ 50 mls/hr IV . Q20H JOSE ENRIQUE Rx#:[id number] Oral 250 120 Output: Urine 330 Other: Voiding Method Indwelling Catheter Indwelling Catheter Indwelling Catheter # Voids 0 - Exam Patient is awake, comfortable, no acute distress Examination of the heart S1 and S2 Examination of the lungs bilateral breath sounds are heard Abdomen is soft nontender Examination lower extremity shows no significant edema TELEVISION SPECIALIST exam grossly intact - Labs CBC & Chem 7: 05/03/23 06:23 05/03/23 06:23 Labs: Abnormal Lab Results - Last 24 Hours (Table) 05/02/23 05/03/23 05/03/23 Range/Units 16:28 06:23 06:39 Sodium 136 L (137-145) mmol/L Glucose 108 H (74-99) mg/dL POC Glucose (mg/dL) 124 H 112 H (70-110) mg/dL 05/03/23 Range/Units 11:53 Sodium (137-145) mmol/L Glucose (74-99) mg/dL POC Glucose (mg/dL) 142 H (70-110) mg/dL Assessment and Plan Assessment: 1. Acute kidney injury secondary to vasomotor nephropathy from poor intake, JORDAN inhibitor use. Improved. GFR at baseline. Nonoliguric. No hydronephrosis noted. UA benign. 2. Pneumoperitoneum from possibly perforated diverticula being followed by surgery. 3. Metabolic acidosis secondary to IV fluids and GI losses. Improved with bicarb drip. 4. Benign hypertension. 5. NSTEMI being followed by cardiology. 6. Hypokalemia from intracellular shifting from IV bicarb. Replaced. Plan: Monitor renal function and urine output closely as Cozaar has been restarted. Most of the blood pressure readings have been within range and towards the lower side except for one reading early this morning. We'll continue to monitor closely.
--- NOTE | 2023-05-03 12:16 | P.PN ---
Subjective Progress Note Date: 05/03/23 PROGRESS NOTE The patient is an 87-year-old female with a known history of coronary disease who presented with abdominal discomfort and was found to have probable microperforation. She subsequently had an episode of chest discomfort, EKG changes and evidence of non-STEMI with atrial fibrillation. She is feeling better overall. Her abdominal pain is better. She has no further chest discomfort and her rate is under better control. She denies any dizziness, palpitations or syncope. She denies any nausea or vomiting. I had a long discussion with her yesterday regarding further approach and she is in favor of conservative treatment and avoiding aggressive interventions. May 02: The patient feels better today, she denies any chest discomfort, dizziness or palpitations. Her abdominal discomfort is better. She denies any nausea or vomiting. She is back in sinus mechanism. She is tolerating oral medication. She has no evidence of ventricle arrhythmia. She continues to be on IV heparin. Her urine output was low yesterday and received IV fluid bolus 05/03 Patient is seen today in follow-up. She remains in atrial fibrillation with a controlled rate. Patient has been maintained on eliquis, Lopressor 25 mg twice daily. Blood pressure 147/42917/78, heart rate in the 60s to 80s. PHYSICAL EXAMINATION: LUNGS: Clear to auscultation HEART: Regular rate and rhythm, S1, S2. No S3 systolic ejection murmur 08/03 with holosystolic murmur at the apex ABDOMEN: Soft, nontender, positive bowel sounds, no organomegaly EXTREMETIES: No edema IMPRESSION: 1. Non-STEMI in a patient with known history of multivessel disease 2. Abdominal discomfort with probable microperforation 3. Atrial fibrillation, paroxysmal, back in sinus mechanism 4. Aortic valve disease 5. History of hiatal hernia 6. History of hypertension PLAN: 1. Continue eliquis 2. Increase activity 3. Start patient on losartan 25 mg daily 4. Continue Imdur Nurse practitioner note has been reviewed, I agree with the documented findings and plan of care. Patient was seen and examined. Objective - Vital Signs Vital signs: Vital Signs Temp 97.7 F 05/03/23 08:12 Pulse 83 05/03/23 08:12 Resp 16 05/03/23 08:12 BP 147/96 05/03/23 08:12 Pulse Ox 93 L 05/03/23 08:12 FiO2 Intake & Output 05/02/23 05/03/23 05/03/23 18:59 06:59 18:59 Intake Total 700 120 Output Total 330 Balance 370 120 Intake: IV 450 Dextrose 5% in Water 1, 200 000 ml @ 100 mls/hr IV . [id number] JOSE ENRIQUE with Sodium Bicarb (1 Meq/ml) 150 ml Rx#:[id number] Sodium Chloride 0.9% 1, 250 000 ml @ 50 mls/hr IV . Q20H JOSE ENRIQUE Rx#:[id number] Oral 250 120 Output: Urine 330 Other: Voiding Method Indwelling Catheter Indwelling Catheter Indwelling Catheter # Voids 0 - Labs CBC & Chem 7: 05/03/23 06:23 05/03/23 06:23 Labs: Abnormal Lab Results - Last 24 Hours (Table) 05/02/23 05/02/23 05/03/23 Range/Units 10:46 16:28 06:23 RBC 3.66 L (3.80-5.40) m/uL Sodium 136 L (137-145) mmol/L Glucose 108 H (74-99) mg/dL POC Glucose (mg/dL) 124 H (70-110) mg/dL 05/03/23 Range/Units 06:39 RBC (3.80-5.40) m/uL Sodium (137-145) mmol/L Glucose (74-99) mg/dL POC Glucose (mg/dL) 112 H (70-110) mg/dL
[2023-05-03 16:47] LABS: Glucose,Whole Blood 116 mg/dL (70-110)
--- NOTE | 2023-05-03 16:53 | P.PN ---
Subjective Progress Note Date: 05/03/23 H&P Date: 04/28/23 Chief Complaint: Midepigastric, chest pain This is a pleasant 87-year-old female with past medical history significant for CAD, prior stenting, paroximal atrial fibrillation, valvular heart disease, hypertension, GI bleed ,large hiatal hernia, prior bowel obstruction and bowel resection and multiple medical issues, presented to the ER with complaints of midsternal chest pain radiating to left chest and into the front of her neck accompanied by shortness of breath, blood in stool. Relief with 3 sublingual nitroglycerin taken at home. Currently complaining of mid epigastric pain. Reports she was initially scheduled for endoscopy studies with Dr. Brunson tomorrow. Afebrile, WBC 10.7 now within normal limits. Hemoglobin 14.2, 12.6, platelets 309, 257, INR 1. D-dimer 1.64. Chest CTA reported multi foci of free air in the upper abdomen, no PE, mild pulmonary edema, small groundglass opacity in the right upper lobe, large hiatal hernia. Chest x-ray reporting large hiatal hernia. Abdomen/pelvis CT reported scattered pneumoperitoneum in the upper abdomen for within the large hiatal hernia in the thorax, concerning for hollow organ viscus perforation. Large hiatal hernia containing a loop of colon in the stomach, suprarenal abdominal aortic aneurysm measuring up to 3.4 cm. EKG reporting sinus with first-degree AV block, troponins 0.018, 0.038, 0.021. Echo of February 2023 reporting normal LV function, EF 55-60%, moderate aortic stenosis, mitral and tricuspid regurgitation, mild pulmonary hypertension Stool for occult blood positive. Sodium 136, potassium 4.3, bicarb 21, BUN 28, creatinine 0.91. Glucose 1:15. Magnesium 1.5, recheck ordered. T bili 0.7, AST 38, ALT 25, alk phos 1:30. ProBNP 1340. Albumin 4.1. 04/29/2023 remains nothing by mouth, continues on antibiotics and IV fluid hydration. Denies nausea, vomiting. Reports decreasing abdominal pain. Small bowel movement yesterday. Afebrile, normal WBC. Hemoglobin 12.6, platelets 253. Magnesium 1.8, post-supplementation. 04/30/2023 developed chest pain, EKG changes last night, Troponin increased to 10.7. ,cardiology reconsulted and patient was transferred to ICU. Heparin and nitro drip initiated as per cardiology. Maintained on IV antibiotics with no surgical intervention at this time as per general surgery. Afebrile, normal W . BUN 19, creatinine 0.9 to. 05/03/2023 05/01/2023: Patient remains in intensive care unit. She's had some low urine output. She is undergoing a ultrasound the kidneys currently. She had a small bolus at 250 mL normal saline which did help her. She recently had a myocardial infarction and has a pneumoperitoneum from most likely perforated diverticulum. She has ongoing atrial fibrillation. Her pain is controlled at this time. Heart rate is stable blood pressure stable she's 95% on 2 L O2 this time. Labs 40 show a normal hemoglobin. GFR is 60. Blood cultures are negative 2. Critical care, cardiology, and general surgery following. Range on a heparin drip and nitro drip. She continues on cefepime and Flagyl for about a coverage. Surgery is planning on advance her diet today. 05/02/2023: The patient is resting comfortably peritoneum and perforated diverticulum suspect. She also has ongoing atrial fibrillation, recent nSTEMI and now some acute renal failure. Cardiology has cleared indicates she is doing better. Surgery start regular liquid diets and is advancing. She remains on antibiotics of cefepime and metronidazole. Remains on Crixivan for anticoagulation for atrial fibrillation. Nephrology adjust her medications due to the low urinary output. Patient relates afebrile. Heart rates controlled. She is 93% on room air. 05/03/2023 transferred to ICU last night, sitting up in chair, feels better. Continues on beta german ,telemetry reporting controlled atrial fibrillation. Anticoagulated on eliquis. Maintained on cefepime and Flagyl .Afebrile, normal WBC. Reports moderate diarrhea since yesterday,X2. Tolerating clear liquid diet with no nausea, vomiting. Blood sugars controlled Objective - Vital Signs Vital signs: Vital Signs Temp 97.5 F L 05/03/23 11:35 Pulse 64 05/03/23 14:08 Resp 16 05/03/23 11:35 BP 120/78 05/03/23 11:35 Pulse Ox 96 05/03/23 11:35 FiO2 Intake & Output 05/02/23 05/03/23 05/03/23 18:59 06:59 18:59 Intake Total 700 420 Output Total 330 Balance 370 420 Intake: IV 450 Dextrose 5% in Water 1, 200 000 ml @ 100 mls/hr IV . [id number] JOSE ENRIQEU with Sodium Bicarb (1 Meq/ml) 150 ml Rx#:[id number] Sodium Chloride 0.9% 1, 250 000 ml @ 50 mls/hr IV . Q20H JOSE ENRIQUE Rx#:[id number] Oral 250 420 Output: Urine 330 Other: Voiding Method Indwelling Catheter Indwelling Catheter Indwelling Catheter # Voids 0 # Bowel Movements 1 - Exam PHYSICAL EXAM: VITAL SIGNS: [As above] GENERAL: Alert and oriented 3, sitting up in chair, no acute distress HEENT: Normocephalic, Conjunctivae normal. eyes normal. NECK: Supple, No JVD. CARDIOVASCULAR: S1, S2 regular. Systolic murmur RESPIRATION: Unlabored Breath sounds diminished in the bases. ABDOMEN: Soft, diffuse tenderness ,No guarding. +BS LEGS: no edema, no calf tenderness, positive DP pulses NERVOUS SYSTEM: Cranial N 2-12 grossly normal. No focal deficits. Strength and sensation grossly intact. Skin: Warm and dry, no rash - Labs CBC & Chem 7: 05/03/23 06:23 05/03/23 06:23 Labs: Abnormal Lab Results - Last 24 Hours (Table) 05/03/23 05/03/23 05/03/23 Range/Units :23 06:39 11:53 Sodium 136 L (137-145) mmol/L Glucose 108 H (74-99) mg/dL POC Glucose (mg/dL) 112 H 142 H (70-110) mg/dL Microbiology - Last 24 Hours (Table) 04/28/23 06:00 Blood Culture - Final Blood 04/28/23 06:15 Blood Culture - Final Blood Assessment and Plan Assessment: Acute non-STEMI Acute bowel perforation with pneumoperitoneum. Scattered pneumoperitoneum in the upper abdomen for within the large hiatal hernia in the thorax, concerning for hollow organ viscus perforation. Large hiatal hernia containing a loop of colon in the stomach, reported per CT, in a patient with history of bowel obstruction, bowel resection and large hiatal hernia. Suprarenal abdominal aortic aneurysm measuring up to 3.[address] Paroxysmal atrial fibrillation Moderate aortic stenosis Mild pulmonary hypertension Hypertension Hyperlipidemia CAD, angioplasty History of GI bleed Plan: Continue on current medication regime ,monitoring and symptomatic treatment. Diet advancement as per surgery .Continues on IV antibiotics. No surgical intervention at this time as per general surgery. PT/OT .Prognosis guarded given multiple complex medical issues. The impression and plan of care has been dictated as directed. : I performed a history and examination of this patient, discussed the same with the dictator. I agree with the dictator's note ,documented as a scribe. Any additional findings or plans will be noted.
[2023-05-03] MEDS: CHOLESTYRAMINE (WITH SUGAR) 4 GM PACKET PO SCH (17:12)
[2023-05-03] MEDS: MELATONIN 3 MG TABLET PO SCH (20:33)
[2023-05-04] MEDS: ACETAMINOPHEN TAB 325 MG TAB PO PRN ×2 (01:50→15:34)
[2023-05-04] MEDS: SODIUM CHLORIDE 0.9% 1,000 ML IV SCH ×2 (04:59→23:00)
[2023-05-04] MEDS: CEFEPIME 2 GM in SODIUM CHLORIDE 0.9% 100 ML IVPB SCH ×2 (06:16→17:58)
[2023-05-04] MEDS: metroNIDAZOLE-NS PMX 500 MG in SALINE 1 100ML.BAG IVPB SCH ×4 (06:16→23:12)
[2023-05-04] MEDS: APIXABAN 2.5 MG TABLET PO SCH ×2 (08:55→19:40)
[2023-05-04] MEDS: ASPIRIN 81 MG PO SCH (08:55)
[2023-05-04] MEDS: ISOSORBIDE MONONITRATE ER 30 MG TAB.ER.24H PO SCH (08:56)
[2023-05-04] MEDS: METOPROLOL TARTRATE 25 MG TAB PO SCH ×2 (08:56→19:40)
[2023-05-04] MEDS: amLODIPine 5 MG TAB PO SCH (08:56)
[2023-05-04] MEDS: ATORVASTATIN 40 MG TAB PO SCH (08:56)
[2023-05-04] MEDS: LOSARTAN 25 MG TAB PO SCH (08:57)
[2023-05-04] MEDS: PANTOPRAZOLE 40 MG/10 ML VIAL IVP SCH (08:57)
[2023-05-04] MEDS: CHOLESTYRAMINE (WITH SUGAR) 4 GM PACKET PO SCH ×3 (08:57→17:59)
--- NOTE | 2023-05-04 10:30 | P.PN ---
Subjective Progress Note Date: 05/04/23 CHIEF COMPLAINT: Pneumoperitoneum HISTORY OF PRESENT ILLNESS: Patient sitting on edge of bed eating breakfast. She denies any abdominal pain. Denies any nausea or vomiting. She was having diarrhea yesterday. Currently on a full liquid diet. Afebrile. C. diff negative. Blood cultures negative. WBC 4.7 PHYSICAL EXAM: VITAL SIGNS: Reviewed. GENERAL: Well-developed in no acute distress. ABDOMEN: Soft. Nondistended. Tenderness with palpation right upper quadrant NEUROLOGIC: Awake and alert. Confused. ASSESSMENT: 1. Pneumoperitoneum possibly secondary to perforated diverticula 2. Large hiatal hernia 3. Chest pain with non-ST elevated PR. Followed by cardiology 4. History of coronary arteries previous stenting 5. History of atrial fibrillation 6. Bloody bowel movements outpatient. Was scheduled for colonoscopy outpatient tomorrow. This is now on hold. PLAN: -Patient can be discharged from surgical standpoint when medically stable -Would recommend Levaquin and Flagyl for 10 more days at discharge -Advance diet to regular -Encourage patient to ambulate and work with physical therapy Physician Specialty Development Consultant note has been reviewed by physician. Signing provider agrees with the documented findings, assessment, and plan of care. Objective - Vital Signs Vital signs: Vital Signs Temp 98.0 F 05/04/23 08:50 Pulse 71 05/04/23 08:50 Resp 17 05/04/23 08:50 BP 145/78 05/04/23 08:50 Pulse Ox 94 L 05/04/23 08:50 FiO2 Intake & Output 05/03/23 05/04/23 05/04/23 18:59 06:59 18:59 Intake Total 600 180 Output Total 900 650 Balance -300 -650 180 Intake: Oral 600 180 Output: Urine 900 650 Other: Voiding Method Indwelling Catheter Indwelling Catheter Indwelling Catheter # Voids 0 # Bowel Movements 2 - Labs CBC & Chem 7: 05/03/23 06:23 05/04/23 11:12 Labs: Abnormal Lab Results - Last 24 Hours (Table) 05/03/23 05/03/23 Range/Units 11:53 16:44 POC Glucose (mg/dL) 142 H 116 H (70-110) mg/dL Microbiology - Last 24 Hours (Table) 04/28/23 06:00 Blood Culture - Final Blood 04/28/23 06:15 Blood Culture - Final Blood
[2023-05-04] MEDS: METOPROLOL TARTRATE 5 MG/5 ML VIAL IVP SCH ×7 (10:37→10:43)
--- NOTE | 2023-05-04 11:25 | P.PN ---
Subjective Progress Note Date: 05/04/23 Principal diagnosis: Chest pain. This is an 87-year-old female, known history of coronary artery disease, hypertension, previous PA, history of colovesicular fistula, bowel obstruction secondary to adhesions, moderate aortic stenosis and moderate mitral regurgitation, peripheral vessel occlusive disease, previous stent placement, patient presented to the ER on 04/28/2023, complaining of midsternal chest pain radiating to the left chest, and into the front of her back. Associated with some shortness of breath. Patient did have relief after taking 3 sublingual nitroglycerin at home. Upon arrival to the ER patient was also complaining of epigastric pain, hence abdominal/pelvic CT showed pneumoperitoneum in the upper abdomen and a large hiatal hernia. Patient was seen by cardiology on consultation abnormal EKG, looking at the notes from cardiology yesterday apparently signed off, and patient was being followed by surgery for potential exploratory laparotomy. However the patient developed some EKG changes last night and more chest pain, cardiology was notified, and the recommended transferring the patient to the ICU. Patient was seen by surgery again this morning, and the plan is to continue antibiotics, and no plans for intervention regarding her pneumoperitoneum at this point yet. In the meantime the patient is receiving antibiotics for her presumptive perforated viscus most likely perforated diverticula. Surgery at this point prefers to observe and treat medically. And continue antibiotics Patient was reevaluated today on 05/01/2023, patient remains in the ICU, relatively asymptomatic, she remains on cefepime and Flagyl, cardiology saw the patient and recommended nitroglycerin 10 mcg/m, she is on 0.9 normal saline at 75 mL per hour patient is hemodynamically stable, not in any distress, and general surgery is still recommending medical treatment and observation for now. Patient was also placed on heparin by cardiology for her acute non-ST elevation myocardial infarction as well as atrial fibrillation. W cigars 7.8 hemoglobin 11.6 PTT is 35 basic metabolic profile is normal renal profile is normal Patient was on 05/02/2023, remains in the ICU, denies any chest pain, she has minimal abdominal discomfort, is not in any distress, patient had low urine output yesterday, and I recommended ultrasound of her kidneys which came back unremarkable. She received a fluid bolus, and that improved her urine output. Patient was seen by nephrology and she is now on bicarb drip. Patient is also on heparin drip, surgery is still planning conservative measures, and no plans for surgery anytime soon. WBC count is 5.9 hemoglobin 11.7 basic metabolic profile is normal and renal profile is normal. PTT is 63.9. Today is up to 24. Progress note dated 05/03/2023. 87-year-old female seen today in room 351. The patient's currently on room air. She's receiving saline at 50 mL an hour. She denies any shortness of breath, chest pain or chest discomfort. She states that she is feeling much better. Current laboratory data includes a white count 4.7, hemoglobin 12.5, hematocrit 36.7, and a platelet count of 282,000. Sodium 136, potassium 3.8, chlorides 104, CO2 23, BUN 11, creatinine 0.71. Glucose is 108. Calcium is 8.7. Blood cultures are negative. Progress note dated 05/04/2023. 87-year-old female seen today in room 351. The patient's currently on room air. She is receiving saline at 50 mL an hour. Clinically, she's progressing nicely. She is hoping to be able to be discharged home soon. She denies any shortness of breath, chest pain, chest discomfort, or any abdominal discomfort as well. No new laboratory data today. Labs from May 03 are reviewed. The most recent glucose is 116. C. difficile studies were negative. Blood cultures are negative. The patient continues on cefepime and Flagyl. Objective - Vital Signs Vital signs: Vital Signs Temp 98.0 F 05/04/23 08:50 Pulse 71 05/04/23 08:50 Resp 17 05/04/23 08:50 BP 145/78 05/04/23 08:50 Pulse Ox 94 L 05/04/23 08:50 FiO2 Intake & Output 05/03/23 05/04/23 05/04/23 18:59 06:59 18:59 Intake Total 600 180 Output Total 900 650 Balance -300 -650 180 Intake: Oral 600 180 Output: Urine 900 650 Other: Voiding Method Indwelling Catheter Indwelling Catheter Indwelling Catheter # Voids 0 # Bowel Movements 2 - Exam No acute distress, oriented 3. Currently on room air. Saturations 94% on room air. HEENT examination is grossly unremarkable. Mucous membranes are moist. No oral lesions. Neck supple. Full range of motion. No adenopathy thyromegaly or neck vein distention. Cardiovascular examination reveals regular rhythm rate. S1-S2 normal. No S3 or S4. Soft systolic murmur. Heart sounds are distant. Heart rate 71 bpm. Lungs reveal clear breath sounds. Breath sounds are equal bilaterally. No adventitious lung sounds including wheezes rhonchi or crackles. Abdomen mildly tender. Bowel sounds are noted. Extremities are intact. No cyanosis clubbing or edema. Skin is without rash or lesion. Neurologic examination is brief but nonfocal. - Labs CBC & Chem 7: 05/03/23 06:23 05/03/23 06:23 Labs: Abnormal Lab Results - Last 24 Hours (Table) 05/03/23 05/03/23 Range/Units 11:53 16:44 POC Glucose (mg/dL) 142 H 116 H (70-110) mg/dL Microbiology - Last 24 Hours (Table) 04/28/23 06:00 Blood Culture - Final Blood 04/28/23 06:15 Blood Culture - Final Blood Assessment and Plan Assessment: Acute non-ST segment elevation myocardial infarction. Acute bowel perforation and pneumoperitoneum. Moderate aortic stenosis. Coronary artery disease and previous stenting of the right coronary artery. Paroxysmal atrial fibrillation. Valvular heart disease. History of diverticular disease. Plan: Plan dated 05/03/2023. The patient's labs, x-rays, medications are reviewed. She continues on GI and DVT prophylaxis. The patient was treated conservatively. Clinically, she feels much better. She does have some mild abdominal tenderness. Blood cultures are currently negative. She continues on cefepime and Flagyl. Additional recommendations and suggestions are forthcoming. Prognosis is guarded. Plan dated 05/04/2023. The patient appears to be doing better. She does have some very mild abdominal discomfort. This only is on palpation. Labs, x-rays, medications are reviewed. The patient continues on antibiotics, which can be D escalated or discontinued altogether. The patient's on room air. She's receiving saline at 50 mL an hour. Labs, x-rays, and medications are reviewed. We will continue to follow the patient make recommendations along the way. Discharge planning underway. Prognosis is certainly guarded, given her age. Time with Patient: Less than 30
[2023-05-04 12:14] LABS: African American GFR (CKD) >90 (>60 ml/min/1.73 sqM); Anion Gap 13 mmol/L; Calcium 8.7 mg/dL (8.4-10.2); Carbon Dioxide 17 mmol/L (22-30); Chloride 108 mmol/L (98-107); Glucose 165 mg/dL (74-99); Non-African American GFR(CKD) 79 (>60 ml/min/1.73 sqM); Potassium 3.9 mmol/L (3.5-5.1); Sodium 138 mmol/L (137-145)
[2023-05-04 12:36] LABS: Blood Urea Nitrogen 8 mg/dL (7-17)
--- NOTE | 2023-05-04 13:35 | P.PN ---
Subjective Progress Note Date: 05/04/23 PROGRESS NOTE The patient is an 87-year-old female with a known history of coronary disease who presented with abdominal discomfort and was found to have probable microperforation. She subsequently had an episode of chest discomfort, EKG changes and evidence of non-STEMI with atrial fibrillation. She is feeling better overall. Her abdominal pain is better. She has no further chest discomfort and her rate is under better control. She denies any dizziness, palpitations or syncope. She denies any nausea or vomiting. I had a long discussion with her yesterday regarding further approach and she is in favor of conservative treatment and avoiding aggressive interventions. May 02: The patient feels better today, she denies any chest discomfort, dizziness or palpitations. Her abdominal discomfort is better. She denies any nausea or vomiting. She is back in sinus mechanism. She is tolerating oral medication. She has no evidence of ventricle arrhythmia. She continues to be on IV heparin. Her urine output was low yesterday and received IV fluid bolus 05/03 Patient is seen today in follow-up. She remains in atrial fibrillation with a controlled rate. Patient has been maintained on eliquis, Lopressor 25 mg twice daily. Blood pressure 147/60897/78, heart rate in the 60s to 80s. 05/04 Patient remains in atrial fibrillation with controlled rate. Heart rate running between 61 and 95, blood pressure 145/78, pulse ox 94% on room air. Yesterday patient was started on losartan with overall improvement of her blood pressure readings. PHYSICAL EXAMINATION: LUNGS: Clear to auscultation HEART: Regular rate and rhythm, S1, S2. No S3 systolic ejection murmur / with holosystolic murmur at the apex ABDOMEN: Soft, nontender, positive bowel sounds, no organomegaly EXTREMETIES: No edema IMPRESSION: 1. Non-STEMI in a patient with known history of multivessel disease 2. Abdominal discomfort with probable microperforation 3. Atrial fibrillation, paroxysmal, back in sinus mechanism 4. Aortic valve disease 5. History of hiatal hernia 6. History of hypertension PLAN: 1. Continue eliquis and Toprol-XL 2. Increase activity 3. Continue patient on losartan 25 mg daily 4. Continue Imdur Nurse practitioner note has been reviewed, I agree with the documented findings and plan of care. Patient was seen and examined. Objective - Vital Signs Vital signs: Vital Signs Temp 98.0 F 05/04/23 08:50 Pulse 71 05/04/23 08:50 Resp 17 05/04/23 08:50 BP 145/78 05/04/23 08:50 Pulse Ox 94 L 05/04/23 08:50 FiO2 Intake & Output 05/03/23 05/04/23 05/04/23 18:59 06:59 18:59 Intake Total 600 180 Output Total 900 650 Balance -300 -650 180 Intake: Oral 600 180 Output: Urine 900 650 Other: Voiding Method Indwelling Catheter Indwelling Catheter Indwelling Catheter # Voids 0 # Bowel Movements 2 - Labs CBC & Chem 7: 05/03/23 06:23 05/04/23 11:12 Labs: Abnormal Lab Results - Last 24 Hours (Table) 05/03/23 05/03/23 Range/Units 11:53 16:44 POC Glucose (mg/dL) 142 H 116 H (70-110) mg/dL Microbiology - Last 24 Hours (Table) 04/28/23 06:00 Blood Culture - Final Blood 04/28/23 06:15 Blood Culture - Final Blood
--- NOTE | 2023-05-04 13:39 | P.DS ---
Providers Date of admission: 04/28/23 02:58 Expected date of discharge: 05/04/23 Attending physician: Serafin Pagan Consults: 04/28/23 07:36 Consult Physician Urgent Consulting Provider: Ho Brunson Consult Reason/Comments: possible pneumoperitoneum Do you want consulting provider notified?: Already Contacted 04/30/23 06:26 Consult Physician Urgent Consulting Provider: Nilo Reveles Consult Reason/Comments: chest pain, ekg changes Do you want consulting provider notified?: Yes 04/30/23 06:58 Consult Physician Urgent Consulting Provider: Rodger Bonilla Consult Reason/Comments: icu transfer Do you want consulting provider notified?: Yes 05/01/23 12:27 Consult Physician Routine Consulting Provider: Kem Hendricks Consult Reason/Comments: Oliguria Do you want consulting provider notified?: Yes Primary care physician: [facility] Course: Final Diagnoses: Acute non-STEMI Acute bowel perforation with pneumoperitoneum. Scattered pneumoperitoneum in the upper abdomen for within the large hiatal hernia in the thorax, concerning for hollow organ viscus perforation. Large hiatal hernia containing a loop of colon in the stomach, reported per CT, in a patient with history of bowel obstruction, bowel resection and large hiatal hernia. Suspected secondary to perforated diverticula as per general surgery. Suprarenal abdominal aortic aneurysm measuring up to 3.[address] Paroxysmal atrial fibrillation Moderate aortic stenosis Mild pulmonary hypertension Hypertension Hyperlipidemia CAD, angioplasty History of GI bleed Hospital course:This is a pleasant 87-year-old female with past medical history significant for CAD, prior stenting, paroximal atrial fibrillation, valvular heart disease, hypertension, GI bleed ,large hiatal hernia, prior bowel obstruction and bowel resection and multiple medical issues, presented to the ER with complaints of midsternal chest pain radiating to left chest and into the front of her neck accompanied by shortness of breath, blood in stool. Relief with 3 sublingual nitroglycerin taken at home. Currently complaining of mid epigastric pain. Reports she was initially scheduled for endoscopy studies with Dr. Brunson tomorrow. Afebrile, WBC 10.7 now within normal limits. Hemoglobin 14.2, 12.6, platelets 309, 257, INR 1. D-dimer 1.64. Chest CTA reported multi foci of free air in the upper abdomen, no PE, mild pulmonary edema, small groundglass opacity in the right upper lobe, large hiatal hernia. Chest x-ray reporting large hiatal hernia. Abdomen/pelvis CT reported scattered p neumoperitoneum in the upper abdomen for within the large hiatal hernia in the thorax, concerning for hollow organ viscus perforation. Large hiatal hernia containing a loop of colon in the stomach, suprarenal abdominal aortic aneurysm measuring up to 3.4 cm. EKG reporting sinus with first-degree AV block, troponins 0.018, 0.038, 0.021. Echo of February 2023 reporting normal LV function, EF 55-60%, moderate aortic stenosis, mitral and tricuspid regurgitation, mild pulmonary hypertension Stool for occult blood positive. Sodium 136, potassium 4.3, bicarb 21, BUN 28, creatinine 0.91. Glucose 1:15. Magnesium 1.5, recheck ordered. T bili 0.7, AST 38, ALT 25, alk phos 1:30. ProBNP 1340. Albumin 4.1. 04/29/2023 remains nothing by mouth, continues on antibiotics and IV fluid hydration. Denies nausea, vomiting. Reports decreasing abdominal pain. Small bowel movement yesterday. Afebrile, normal WBC. Hemoglobin 12.6, platelets 253. Magnesium 1.8, post-supplementation. 04/30/2023 developed chest pain, EKG changes last night, Troponin increased to 10.7. ,cardiology reconsulted and patient was transferred to ICU. Heparin and nitro drip initiated as per cardiology. Maintained on IV antibiotics with no surgical intervention at this time as per general surgery. Afebrile, normal WBC. BUN 19, creatinine 0.9 to. 05/03/2023 05/01/2023: Patient remains in intensive care unit. She's had some low urine output. She is undergoing a ultrasound the kidneys currently. She had a small bolus at 250 mL normal saline which did help her. She recently had a myocardial infarction and has a pneumoperitoneum from most likely perforated diverticulum. She has ongoing atrial fibrillation. Her pain is controlled at this time. Heart rate is stable blood pressure stable she's 95% on 2 L O2 this time. Labs 40 show a normal hemoglobin. GFR is 60. Blood cultures are negative 2. Critical care, cardiology, and general surgery following. Range on a heparin drip and nitro drip. She continues on cefepime and Flagyl for about a coverage. Surgery is planning on advance her diet today. 05/02/2023: The patient is resting comfortably peritoneum and perforated diverticulum suspect. She also has ongoing atrial fibrillation, recent nSTEMI and now some acute renal failure. Cardiology has cleared indicates she is doing better. Surgery start regular liquid diets and is advancing. She remains on antibiotics of cefepime and metronidazole. Remains on Crixivan for anticoagulation for atrial fibrillation. Nephrology adjust her medications due to the low urinary output. Patient relates afebrile. Heart rates controlled. She is 93% on room air. 05/03/2023 transferred to ICU last night, sitting up in chair, feels better. Continues on beta german ,telemetry reporting controlled atrial fibrillation. Anticoagulated on eliquis. Maintained on cefepime and Flagyl .Afebrile, normal WBC. Reports moderate diarrhea since yesterday,X2. Tolerating clear liquid diet with no nausea, vomiting. Blood sugars controlled Significant clinical improvement. Continues on cefepime and Flagyl. Afebrile. Maintaining O2 sats in the high 90s on room air. Loose stools improved with addition of Questran. Sleeping better on melatonin. Tolerating diet advancement-advanced to regular. Denies nausea, vomiting. Minimal diffuse abdominal pain. Evaluated by physical therapy, recommending subacute rehab. Discharge planning discussed in room with patient and son and daughter, requesting [facility] subacute rehab. Denies chest pain, palpitations or shortness of breath. Denies lightheadedness dizziness or focal deficits. Patient has been cleared by consults for discharge. Patient will be discharged to [facility] subacute rehab today in a stable condition with guarded prognosis, continuing on Ceftin and Flagyl for additional 10 days. The impression and plan of care has been dictated as directed. : I performed a history and examination of this patient, discussed the same with the dictator. I agree with the dictator's note ,documented as a scribe. Any additional findings or plans will be noted. Patient Condition at Discharge: Stable Plan - Discharge Summary Discharge Rx Participant: No New Discharge Prescriptions: New metroNIDAZOLE [Flagyl] 500 mg PO TID 10 Days #30 tab Aspirin 81 mg PO DAILY tab Losartan [Cozaar] 25 mg PO DAILY tab Atorvastatin [Lipitor] 40 mg PO DAILY tab Metoprolol Tartrate [Lopressor] 25 mg PO BID tab Melatonin 3 mg PO HS tab Acetaminophen Tab [Tylenol] 650 mg PO Q4H PRN tab PRN Reason: Pain cefUROXime axetiL [Ceftin] 500 mg PO BID 10 Days #20 tab Isosorbide Mononitrate ER [Imdur] 30 mg PO DAILY tab amLODIPine [Norvasc] 5 mg PO DAILY tab Cholestyramine (with Sugar) [Questran Packet] 4 gm PO TID BETWEEN MEALS packet Continue Nitroglycerin Sl Tabs [Nitrostat] 0.4 mg SL Q5M PRN PRN Reason: Chest Pain Apixaban [Eliquis] 2.5 mg PO DIRECTED Omeprazole 20 mg PO AC-BRKFST Discontinued hydroCHLOROthiazide [Hydrodiuril] 25 mg PO DAILY #30 tab Pravastatin Sodium [Pravachol] 10 mg PO DAILY Metoprolol Tartrate [Lopressor] 12.5 mg PO BID lisinopriL [Zestril] 10 mg PO BID Discharge Medication List Nitroglycerin Sl Tabs [Nitrostat] 0.4 mg SL Q5M PRN 11/11/22 [History] Apixaban [Eliquis] 2.5 mg PO DIRECTED 03/07/23 [History] Omeprazole 20 mg PO AC-BRKFST 03/09/23 [History] Acetaminophen Tab [Tylenol] 650 mg PO Q4H PRN tab 05/04/23 [Rx] Aspirin 81 mg PO DAILY tab 05/04/23 [Rx] Atorvastatin [Lipitor] 40 mg PO DAILY tab 05/04/23 [Rx] Cholestyramine (with Sugar) [Questran Packet] 4 gm PO TID BETWEEN MEALS packet 05/04/23 [Rx] Isosorbide Mononitrate ER [Imdur] 30 mg PO DAILY tab 05/04/23 [Rx] Losartan [Cozaar] 25 mg PO DAILY tab 05/04/23 [Rx] Melatonin 3 mg PO HS tab 05/04/23 [Rx] Metoprolol Tartrate [Lopressor] 25 mg PO BID tab 05/04/23 [Rx] amLODIPine [Norvasc] 5 mg PO DAILY tab 05/04/23 [Rx] cefUROXime axetiL [Ceftin] 500 mg PO BID 10 Days #20 tab 05/04/23 [Rx] metroNIDAZOLE [Flagyl] 500 mg PO TID 10 Days #30 tab 05/04/23 [Rx] Follow up Appointment(s)/Referral(s): Leonardo Rodrigez Jr, DO [Primary Care Provider] - 3 Days Activity/Diet/Wound Care/Special Instructions: [facility] CBC, BMP in 3 days Discharge Disposition: TRANSFER TO SNF/ECF
[2023-05-04] MEDS: MELATONIN 3 MG TABLET PO SCH (19:40)
[2023-05-05] MEDS: hydrALAZINE HCL 20 MG/ML 1 ML VIAL IVP PRN (04:22)
[2023-05-05] MEDS ORDERED: DILTIAZEM 125 MG in SODIUM CHLORIDE 0.9% 100 ML IV SCH (05:00)
[2023-05-05] MEDS: metroNIDAZOLE-NS PMX 500 MG in SALINE 1 100ML.BAG IVPB SCH ×3 (05:51→17:00)
[2023-05-05] MEDS: CEFEPIME 2 GM in SODIUM CHLORIDE 0.9% 100 ML IVPB SCH ×2 (05:51→17:00)
[2023-05-05] MEDS: PANTOPRAZOLE 40 MG/10 ML VIAL IVP SCH (08:22)
[2023-05-05] MEDS: ATORVASTATIN 40 MG TAB PO SCH (08:22)
[2023-05-05] MEDS: APIXABAN 2.5 MG TABLET PO SCH ×2 (08:22→20:04)
[2023-05-05] MEDS: ASPIRIN 81 MG PO SCH (08:22)
[2023-05-05] MEDS: METOPROLOL TARTRATE 50 MG TAB PO SCH ×2 (08:23→20:04)
[2023-05-05] MEDS: CHOLESTYRAMINE (WITH SUGAR) 4 GM PACKET PO SCH ×3 (08:23→17:01)
[2023-05-05 08:48] LABS: Basophils % (A) 0 %; Eosinophils % (A) 0 %; HCT 41.1 % (34.0-46.0); HGB 13.7 gm/dL (11.4-16.0); Lymphocytes # (A) 0.9 k/uL (1.0-4.8); Lymphocytes % (A) 10 %; MCH 30.9 pg (25.0-35.0); MCHC 33.3 g/dL (31.0-37.0); MCV 92.9 fL (80.0-100.0); Mean Platelet Volume 8.1; Monocytes # (A) 0.5 k/uL (0-1.0); Monocytes % (A) 5 %; Neutrophils # (A) 7.7 k/uL (1.3-7.7); Neutrophils % (A) 83 %; Platelet Count 346 k/uL (150-450); RBC 4.43 m/uL (3.80-5.40); RDW 13.9 % (11.5-15.5); WBC 9.3 k/uL (3.8-10.6)
--- NOTE | 2023-05-05 11:19 | P.PN ---
Subjective Progress Note Date: 05/05/23 Principal diagnosis: Chest pain. This is an 87-year-old female, known history of coronary artery disease, hypertension, previous TX, history of colovesicular fistula, bowel obstruction secondary to adhesions, moderate aortic stenosis and moderate mitral regurgitation, peripheral vessel occlusive disease, previous stent placement, patient presented to the ER on 04/28/2023, complaining of midsternal chest pain radiating to the left chest, and into the front of her back. Associated with some shortness of breath. Patient did have relief after taking 3 sublingual nitroglycerin at home. Upon arrival to the ER patient was also complaining of epigastric pain, hence abdominal/pelvic CT showed pneumoperitoneum in the upper abdomen and a large hiatal hernia. Patient was seen by cardiology on consultation abnormal EKG, looking at the notes from cardiology yesterday apparently signed off, and patient was being followed by surgery for potential exploratory laparotomy. However the patient developed some EKG changes last night and more chest pain, cardiology was notified, and the recommended transferring the patient to the ICU. Patient was seen by surgery again this morning, and the plan is to continue antibiotics, and no plans for intervention regarding her pneumoperitoneum at this point yet. In the meantime the patient is receiving antibiotics for her presumptive perforated viscus most likely perforated diverticula. Surgery at this point prefers to observe and treat medically. And continue antibiotics Patient was reevaluated today on 05/01/2023, patient remains in the ICU, relatively asymptomatic, she remains on cefepime and Flagyl, cardiology saw the patient and recommended nitroglycerin 10 mcg/m, she is on 0.9 normal saline at 75 mL per hour patient is hemodynamically stable, not in any distress, and general surgery is still recommending medical treatment and observation for now. Patient was also placed on heparin by cardiology for her acute non-ST elevation myocardial infarction as well as atrial fibrillation. W cigars 7.8 hemoglobin 11.6 PTT is 35 basic metabolic profile is normal renal profile is normal Patient was on 05/02/2023, remains in the ICU, denies any chest pain, she has minimal abdominal discomfort, is not in any distress, patient had low urine output yesterday, and I recommended ultrasound of her kidneys which came back unremarkable. She received a fluid bolus, and that improved her urine output. Patient was seen by nephrology and she is now on bicarb drip. Patient is also on heparin drip, surgery is still planning conservative measures, and no plans for surgery anytime soon. WBC count is 5.9 hemoglobin 11.7 basic metabolic profile is normal and renal profile is normal. PTT is 63.9. Today is up to 24. Progress note dated 05/03/2023. 87-year-old female seen today in room 351. The patient's currently on room air. She's receiving saline at 50 mL an hour. She denies any shortness of breath, chest pain or chest discomfort. She states that she is feeling much better. Current laboratory data includes a white count 4.7, hemoglobin 12.5, hematocrit 36.7, and a platelet count of 282,000. Sodium 136, potassium 3.8, chlorides 104, CO2 23, BUN 11, creatinine 0.71. Glucose is 108. Calcium is 8.7. Blood cultures are negative. Progress note dated 05/04/2023. 87-year-old female seen today in room 351. The patient's currently on room air. She is receiving saline at 50 mL an hour. Clinically, she's progressing nicely. She is hoping to be able to be discharged home soon. She denies any shortness of breath, chest pain, chest discomfort, or any abdominal discomfort as well. No new laboratory data today. Labs from May 03 are reviewed. The most recent glucose is 116. C. difficile studies were negative. Blood cultures are negative. The patient continues on cefepime and Flagyl. Progress note dated 05/05/2023. 87-year-old female seen in room 351. Currently, the patient is on room air. The patient's getting saline at 50 mL an hour. Unfortunately, the patient developed atrial fibrillation with rapid ventricular response, is currently on a Cardizem drip at 10 mg an hour. The patient is also receiving saline at 50 mL an hour. White count is 9.3, hemoglobin 13.7, hematocrit 41.1, and platelet count is normal. Clinically, the patient appears stable. She's not having any chest pain or chest discomfort. She is not complaining of shortness of breath, or any difficulty in her breathing. Objective - Vital Signs Vital signs: Vital Signs Temp 97.6 F 05/05/23 07:31 Pulse 113 H 05/05/23 07:31 Resp 19 11/08/23 07:31 BP 135/81 05/05/23 07:31 Pulse Ox 94 L 05/05/23 07:31 FiO2 Intake & Output 05/04/23 05/05/23 05/05/23 18:59 06:59 18:59 Intake Total 540 Output Total 1300 875 Balance -760 -875 Intake: Oral 540 Output: Urine 1300 875 Other: Voiding Method Indwelling Catheter Indwelling Catheter Indwelling Catheter - Exam No acute distress, oriented 3. Currently on room air. Saturations 94% on room air. HEENT examination is grossly unremarkable. Mucous membranes are moist. No oral lesions. Neck supple. Full range of motion. No adenopathy thyromegaly or neck vein dist ention. Cardiovascular examination reveals an irregular rhythm and rate. S1-S2 normal. No S3 or S4. Soft systolic murmur. Heart sounds are distant. Heart rate 95 bpm. Lungs reveal clear breath sounds. Breath sounds are equal bilaterally. No adventitious lung sounds including wheezes rhonchi or crackles. Abdomen mildly tender. Bowel sounds are noted. Extremities are intact. No cyanosis clubbing or edema. Skin is without rash or lesion. Neurologic examination is brief but nonfocal. - Labs CBC & Chem 7: 05/05/23 07:53 05/04/23 11:12 Labs: Abnormal Lab Results - Last 24 Hours (Table) 05/04/23 05/05/23 Range/Units 11:12 07:53 Lymphocytes # 0.9 L (1.0-4.8) k/uL Chloride 108 H (98-107) mmol/L Carbon Dioxide 17 L (22-30) mmol/L Glucose 165 H (74-99) mg/dL Assessment and Plan Assessment: Acute non-ST segment elevation myocardial infarction. Acute bowel perforation and pneumoperitoneum. Moderate aortic stenosis. Coronary artery disease and previous stenting of the right coronary artery. Paroxysmal atrial fibrillation, currently active, with RVR. Valvular heart disease. History of diverticular disease. Plan: Plan dated 05/03/2023. The patient's labs, x-rays, medications are reviewed. She continues on GI and DVT prophylaxis. The patient was treated conservatively. Clinically, she feels much better. She does have some mild abdominal tenderness. Blood cultures are currently negative. She continues on cefepime and Flagyl. Additional recommendations and suggestions are forthcoming. Prognosis is guarded. Plan dated 05/04/2023. The patient appears to be doing better. She does have some very mild abdominal discomfort. This only is on palpation. Labs, x-rays, medications are reviewed. The patient continues on antibiotics, which can be D escalated or discontinued altogether. The patient's on room air. She's receiving saline at 50 mL an hour. Labs, x-rays, and medications are reviewed. We will continue to follow the patient make recommendations along the way. Discharge planning underway. Prognosis is certainly guarded, given her age. Plan dated 05/05/2023. The patient is seen today in room 351. The patient developed atrial fibrillation with RVR, and is currently on a Cardizem drip at 10 mg an hour. The patient is receiving saline at 50 mL an hour. The patient's currently on room air. Labs, x-rays, and medications are reviewed. The patient's overall prognosis remains guarded. The patient was set to be discharged, before the episode of atrial fibrillation. We will continue to follow and make recommendations along the way. Time with Patient: Less than 30
--- NOTE | 2023-05-05 11:32 | P.PN ---
Subjective Patient is seen for follow-up for acute kidney injury. She was noted to have low urine output which has now improved. Maintained on gentle IV hydration. Serum creatinine has been at 0.7-0.8 mg/dL. Started on Cardizem drip for A. fib with RVR. Objective - Vital Signs Vital signs: Vital Signs Temp 97.6 F 05/05/23 07:31 Pulse 113 H 05/05/23 07:31 Resp 19 05/05/23 07:31 BP 135/81 05/05/23 07:31 Pulse Ox 94 L 05/05/23 07:31 FiO2 Intake & Output 05/04/23 05/05/23 05/05/23 18:59 06:59 18:59 Intake Total 540 Output Total 1300 875 Balance -760 -875 Intake: Oral 540 Output: Urine 1300 875 Other: Voiding Method Indwelling Catheter Indwelling Catheter Indwelling Catheter - Exam Patient is awake, comfortable, no acute distress Examination of the heart S1 and S2 Examination of the lungs bilateral breath sounds are heard Abdomen is soft nontender Examination lower extremity shows no significant edema [employer] exam grossly intact - Labs CBC & Chem 7: 05/05/23 07:53 05/04/23 11:12 Labs: Abnormal Lab Results - Last 24 Hours (Table) 05/04/23 05/05/23 Range/Units 11:12 07:53 Lymphocytes # 0.9 L (1.0-4.8) k/uL Chloride 108 H (98-107) mmol/L Carbon Dioxide 17 L (22-30) mmol/L Glucose 165 H (74-99) mg/dL Assessment and Plan Assessment: 1. Acute kidney injury secondary to vasomotor nephropathy from poor intake, JORDAN inhibitor use. Improved. GFR at baseline. Nonoliguric. No hydronephrosis noted. UA benign. 2. Pneumoperitoneum from possibly perforated diverticula being followed by surgery. 3. Metabolic acidosis secondary to IV fluids and GI losses. Improved with bicarb drip. 4. Benign hypertension. 5. NSTEMI being followed by cardiology. 6. Hypokalemia from intracellular shifting from IV bicarb. Replaced. 7. A. fib with RVR maintained on Cardizem drip Plan: DC IV fluids Add oral sodium bicarb for 4 doses Monitor renal function closely and monitor for hypotension.
[2023-05-05] MEDS: ACETAMINOPHEN TAB 325 MG TAB PO PRN (11:44)
[2023-05-05] MEDS: SODIUM BICARBONATE TAB 650 MG TAB PO SCH ×2 (11:45→20:04)
[2023-05-05] MEDS: ISOSORBIDE MONONITRATE ER 30 MG TAB.ER.24H PO SCH (11:45)
--- NOTE | 2023-05-05 11:52 | P.PN ---
Subjective Progress Note Date: 05/05/23 CHIEF COMPLAINT: Pneumoperitoneum HISTORY OF PRESENT ILLNESS: Patient is lying in bed. She is confused. Initially patient was set up for discharge. However last night she went into atrial fibrillation with rapid ventricular response and has been placed on a Cardizem drip. She denies any nausea or vomiting. She does report same epigastric abdominal pain. Her pain has not worsened. She did refuse her breakfast this morning per nursing staff. WBC 9.3HgB 13.7. Patient had her CODE STATUS changed to No code. PHYSICAL EXAM: VITAL SIGNS: Reviewed. GENERAL: Well-developed in no acute distress. ABDOMEN: Soft. Nondistended. Mild tenderness midepigastric area NEUROLOGIC: Awake and alert. Confused. ASSESSMENT: 1. Pneumoperitoneum possibly secondary to perforated diverticula 2. Large hiatal hernia 3. Chest pain with non-ST elevated SD. Followed by cardiology 4. History of coronary arteries previous stenting 5. History of atrial fibrillation 6. Bloody bowel movements outpatient. Was scheduled for colonoscopy outpatient tomorrow. This is now on hold. PLAN: -No surgical intervention planned -Patient can be discharged from surgical standpoint when medically cleared -Would recommend ceftin and Flagyl for 10 more days at discharge -Continue regular diet Physician Mechanical Handyman note has been reviewed by physician. Signing provider agrees with the documented findings, assessment, and plan of care. Objective - Vital Signs Vital signs: Vital Signs Temp 97.6 F 05/05/23 07:31 Pulse 113 H 05/05/23 07:31 Resp 19 05/05/23 07:31 BP 135/81 05/05/23 07:31 Pulse Ox 94 L 05/05/23 07:31 FiO2 Intake & Output 05/04/23 05/05/23 05/05/23 18:59 06:59 18:59 Intake Total 540 Output Total 1300 875 Balance -760 -875 Intake: Oral 540 Output: Urine 1300 875 Other: Voiding Method Indwelling Catheter Indwelling Catheter Indwelling Catheter - Labs CBC & Chem 7: 05/05/23 07:53 05/04/23 11:12 Labs: Abnormal Lab Results - Last 24 Hours (Table) 05/04/23 05/05/23 Range/Units 11:12 07:53 Lymphocytes # 0.9 L (1.0-4.8) k/uL Chloride 108 H (98-107) mmol/L Carbon Dioxide 17 L (22-30) mmol/L Glucose 165 H (74-99) mg/dL
[2023-05-05] MEDS: amLODIPine 5 MG TAB PO SCH (12:06)
[2023-05-05] MEDS: LOSARTAN 25 MG TAB PO SCH (12:06)
[2023-05-05] MEDS ORDERED: FUROSEMIDE 10 MG/ML 2 ML VIAL IV ONE ×2 (12:40→12:41)
--- NOTE | 2023-05-05 13:19 | XR ---
EXAMINATION TYPE: XR chest 1V DATE OF EXAM: 05/05/2023 COMPARISON: 04/28/2023 HISTORY: 87 year-old female shortness of breath TECHNIQUE: Single frontal view of the chest is obtained. FINDINGS: Heart borderline enlarged. Diffuse interstitial density has increased. Small bilateral ple ural effusions and prominent bilateral lower lung patchy opacities have developed. Large retrocardiac lucency again noted. IMPRESSION: 1. Correlate for the interval development of CHF with mild interstitial pulmonary edema. 2. New small bilateral pleural effusions with prominent adjacent atelectasis and/or consolidation. 3. Known large hiatal hernia projecting behind the heart.
[2023-05-05] MEDS ORDERED: traMADol 50 MG TAB PO PRN (13:27)
[2023-05-05 14:03] VITALS: BMI 21.4
--- NOTE | 2023-05-05 14:09 | P.PN ---
Subjective Progress Note Date: 05/05/23 PROGRESS NOTE The patient is an 87-year-old female with a known history of coronary disease who presented with abdominal discomfort and was found to have probable microperforation. She subsequently had an episode of chest discomfort, EKG changes and evidence of non-STEMI with atrial fibrillation. She is feeling better overall. Her abdominal pain is better. She has no further chest discomfort and her rate is under better control. She denies any dizziness, palpitations or syncope. She denies any nausea or vomiting. I had a long discussion with her yesterday regarding further approach and she is in favor of conservative treatment and avoiding aggressive interventions. May 02: The patient feels better today, she denies any chest discomfort, dizziness or palpitations. Her abdominal discomfort is better. She denies any nausea or vomiting. She is back in sinus mechanism. She is tolerating oral medication. She has no evidence of ventricle arrhythmia. She continues to be on IV heparin. Her urine output was low yesterday and received IV fluid bolus 05/03 Patient is seen today in follow-up. She remains in atrial fibrillation with a controlled rate. Patient has been maintained on eliquis, Lopressor 25 mg twice daily. Blood pressure 147/26439/78, heart rate in the 60s to 80s. 05/04 Patient remains in atrial fibrillation with controlled rate. Heart rate running between 61 and 95, blood pressure 145/78, pulse ox 94% on room air. Yesterday patient was started on losartan with overall improvement of her blood pressure readings. 05/05 Patient is seen today in follow-up. She is quite confused today with paranoia. She has been maintained on metoprolol tartrate 25 mg twice daily, eliquis, Imdur, losartan and statin. During the night she went into A. fib with RVR and Cardizem drip was started. It appears that this did not infuse less patient did not receive it. Blood pressure at 4 AM was 174/137 and heart rate 127. She did receive a dose of IV hydralazine blood pressure now is 144/97. She is in atrial fibrillation heart rate is currently 96-104. PHYSICAL EXAMINATION: LUNGS: Clear to auscultation HEART: Regular rate and rhythm, S1, S2. No S3 systolic ejection murmur 2/6 with holosystolic murmur at the apex ABDOMEN: Soft, nontender, positive bowel sounds, no organomegaly EXTREMETIES: No edema IMPRESSION: 1. Non-STEMI in a patient with known history of multivessel disease 2. Abdominal discomfort with probable microperforation 3. Atrial fibrillation, paroxysmal, back in sinus mechanism 4. Aortic valve disease 5. History of hiatal hernia 6. History of hypertension PLAN: Hold losartan and Norvasc Discontinue Cardizem drip Increase metoprolol tartrate to 50 mg twice daily Nurse practitioner note has been reviewed, I agree with the documented findings and plan of care. Patient was seen and examined. Objective - Vital Signs Vital signs: Vital Signs Temp 97.7 F 05/05/23 05:47 Pulse 127 H 05/05/23 05:47 Resp 22 05/05/23 05:47 BP 137/69 05/05/23 05:47 Pulse Ox 93 L 05/05/23 05:47 FiO2 Intake & Output 05/04/23 05/05/23 05/05/23 18:59 06:59 18:59 Intake Total 540 Output Total 1300 875 Balance -760 -875 Intake: Oral 540 Output: Urine 1300 875 Other: Voiding Method Indwelling Catheter Indwelling Catheter - Labs CBC & Chem 7: 05/05/23 07:53 05/04/23 11:12 Labs: Abnormal Lab Results - Last 24 Hours (Table) 05/04/23 Range/Units 11:12 Chloride 108 H (98-107) mmol/L Carbon Dioxide 17 L (22-30) mmol/L Glucose 165 H (74-99) mg/dL
[2023-05-05] MEDS: IOPAMIDOL CONTRAST (ORAL USE) VIAL PO PRN ×2 (14:47→15:08)
--- NOTE | 2023-05-05 15:21 | P.PN ---
Subjective Progress Note Date: 05/05/23 Hospital course:This is a pleasant 87-year-old female with past medical history significant for CAD, prior stenting, paroximal atrial fibrillation, valvular heart disease, hypertension, GI bleed ,large hiatal hernia, prior bowel obstruction and bowel resection and multiple medical issues, presented to the ER with complaints of midsternal chest pain radiating to left chest and into the front of her neck accompanied by shortness of breath, blood in stool. Relief with 3 sublingual nitroglycerin taken at home. Currently complaining of mid epigastric pain. Reports she was initially scheduled for endoscopy studies with Dr. Brunson tomorrow. Afebrile, WBC 10.7 now within normal limits. Hemoglobin 14.2, 12.6, platelets 309, 257, INR 1. D-dimer 1.64. Chest CTA reported multi foci of free air in the upper abdomen, no PE, mild pulmonary edema, small groundglass opacity in the right upper lobe, large hiatal hernia. Chest x-ray reporting large hiatal hernia. Abdomen/pelvis CT reported scattered p neumoperitoneum in the upper abdomen for within the large hiatal hernia in the thorax, concerning for hollow organ viscus perforation. Large hiatal hernia containing a loop of colon in the stomach, suprarenal abdominal aortic aneurysm measuring up to 3.4 cm. EKG reporting sinus with first-degree AV block, troponins 0.018, 0.038, 0.021. Echo of February 2023 reporting normal LV function, EF 55-60%, moderate aortic stenosis, mitral and tricuspid regurgitation, mild pulmonary hypertension Stool for occult blood positive. Sodium 136, potassium 4.3, bicarb 21, BUN 28, creatinine 0.91. Glucose 1:15. Magnesium 1.5, recheck ordered. T bili 0.7, AST 38, ALT 25, alk phos 1:30. ProBNP 1340. Albumin 4.1. 04/29/2023 remains nothing by mouth, continues on antibiotics and IV fluid hydration. Denies nausea, vomiting. Reports decreasing abdominal pain. Small bowel movement yesterday. Afebrile, normal WBC. Hemoglobin 12.6, platelets 253. Magnesium 1.8, post-supplementation. 04/30/2023 developed chest pain, EKG changes last night, Troponin increased to 10.7. ,cardiology reconsulted and patient was transferred to ICU. Heparin and nitro drip initiated as per cardiology. Maintained on IV antibiotics with no surgical intervention at this time as per general surgery. Afebrile, normal WBC. BUN 19, creatinine 0.9 to. 05/03/2023 05/01/2023: Patient remains in intensive care unit. She's had some low urine output. She is undergoing a ultrasound the kidneys currently. She had a small bolus at 250 mL normal saline which did help her. She recently had a myocardial infarction and has a pneumoperitoneum from most likely perforated diverticulum. She has ongoing atrial fibrillation. Her pain is controlled at this time. Heart rate is stable blood pressure stable she's 95% on 2 L O2 this time. Labs 40 show a normal hemoglobin. GFR is 60. Blood cultures are negative 2. Critical care, cardiology, and general surgery following. Range on a heparin drip and nitro drip. She continues on cefepime and Flagyl for about a coverage. Surgery is planning on advance her diet today. 05/02/2023: The patient is resting comfortably peritoneum and perforated diverticulum suspect. She also has ongoing atrial fibrillation, recent nSTEMI and now some acute renal failure. Cardiology has cleared indicates she is doing better. Surgery start regular liquid diets and is advancing. She remains on antibiotics of cefepime and metronidazole. Remains on Crixivan for anticoagulation for atrial fibrillation. Nephrology adjust her medications due to the low urinary output. Patient relates afebrile. Heart rates controlled. She is 93% on room air. 05/03/2023 transferred to ICU last night, sitting up in chair, feels better. Continues on beta german ,telemetry reporting controlled atrial fibrillation. Anticoagulated on eliquis. Maintained on cefepime and Flagyl .Afebrile, normal WBC. Reports moderate diarrhea since yesterday,X2. Tolerating clear liquid diet with no nausea, vomiting. Blood sugars controlled Significant clinical improvement. Continues on cefepime and Flagyl. Afebrile. Maintaining O2 sats in the high 90s on room air. Loose stools improved with addition of Questran. Sleeping better on melatonin. Tolerating diet advancement-advanced to regular. Denies nausea, vomiting. Minimal diffuse abdominal pain. Evaluated by physical therapy, recommending subacute rehab. Discharge planning discussed in room with patient and son and daughter, angel hellerelbert [facility] subacute rehab. Denies chest pain, palpitations or shortness of breath. Denies lightheadedness dizziness or focal deficits. Patient has been cleared by consults for discharge. Patient will be discharged to [facility] subacute rehab today in a stable condition with guarded prognosis, continuing on Ceftin and Flagyl for additional 10 days. 05/05/2023 patient was discharged yesterday pending insurance authorization. During the night developed atrial fibrillation with RVR, Cardizem drip initiated. Patient developed high anxiety. At around 0400 blood pressure escalated accompanied by uncontrolled heart rate as IV had gone bad. IV initiated, IV hydralazine administered. Blood pressures and heart rate stabilized, converted to sinus rhythm, transitioned off of Cardizem, beta b locker increased. Soft blood pressures currently, holding losartan and Norvasc. Complaining of increased abdominal pain, surgeries or serious CT with contrast. Objective - Vital Signs Vital signs: Vital Signs Temp 97.4 F L 05/05/23 11:41 Pulse 59 L 05/05/23 12:35 Resp 23 05/05/23 12:35 BP 107/69 05/05/23 11:41 Pulse Ox 94 L 05/05/23 12:35 FiO2 Intake & Output 05/04/23 05/05/23 05/05/23 18:59 06:59 18:59 Intake Total 540 180 Output Total 1300 875 500 Balance -903 -875 -320 Weight 62 kg Intake: Oral 540 180 Output: Urine 1300 875 500 Other: Voiding Method Indwelling Catheter Indwelling Catheter Indwelling Catheter - Exam PHYSICAL EXAM: VITAL SIGNS: [As above] GENERAL: Alert and oriented 3, sitting up in bed, no acute distress HEENT: Normocephalic, Conjunctivae normal. eyes normal. NECK: Supple, No JVD. CARDIOVASCULAR: S1, S2 regular. Systolic murmur RESPIRATION: Unlabored Breath sounds diminished in the bases. ABDOMEN: Soft, diffuse tenderness ,No guarding. +BS LEGS: no edema, no calf tenderness, positive DP pulses NERVOUS SYSTEM: Cranial N 2-12 grossly normal. No focal deficits. Strength and sensation grossly intact. Skin: Warm and dry, no rash - Labs CBC & Chem 7: 05/05/23 07:53 05/04/23 11:12 Labs: Abnormal Lab Results - Last 24 Hours (Table) 05/05/23 Range/Units 07:53 Lymphocytes # 0.9 L (1.0-4.8) k/uL Assessment and Plan Assessment: Acute non-STEMI Acute bowel perforation with pneumoperitoneum. Scattered pneumoperitoneum in the upper abdomen for within the large hiatal hernia in the thorax, concerning for hollow organ viscus perforation. Large hiatal hernia containing a loop of colon in the stomach, reported per CT, in a patient with history of bowel obstruction, bowel resection and large hiatal hernia. Suprarenal abdominal aortic aneurysm measuring up to 3.[address] Paroxysmal atrial fibrillation Moderate aortic stenosis Mild pulmonary hypertension Hypertension Hyperlipidemia CAD, angioplasty History of GI bleed Plan: Continue on current medication regime ,monitoring and symptomatic treatment. Antiarrhythmics as per cardiology. Abdominal CT pending. PCP at bedside updated patient daughter and son, all questions addressed; no further paranoia, confusion or anxiety currently. Discharge planning in progress tentatively for tomorrow to subacute rehab. The impression and plan of care has been dictated as directed. : I performed a history and examination of this patient, discussed the same with the dictator. I agree with the dictator's note ,documented as a scribe. Any additional findings or plans will be noted.
--- NOTE | 2023-05-05 17:04 | CT ---
EXAMINATION TYPE: CT abdomen pelvis wo con DATE OF EXAM: 05/05/2023 COMPARISON: 04/28/2023 HISTORY: 87-year-old female increased abdominal pain CT DLP: 579.8 mGycm. Automated exposure control for dose reduction was used. TECHNIQUE: Contiguous axial scanning of the abdomen and pelvis without IV contrast. Coronal and sagit allan reconstructions performed. FINDINGS: Generalized anasarca change now present. There are moderate bilateral pleural effusions with prominen t adjacent opacity, likely atelectasis. Heart borderline in size with extensive coronary artery calcifications. Moderate aortic valvular calc ifications. No pericardial effusion. Large hiatal hernia involving the entire stomach located within the lower chest as noted previously. The transverse colon also located within the hiatal hernia. Noncontrast appearance of the liver, adrenal glands, kidneys, spleen, atrophic pancreas show no gross abnormality. Redemonstrated large duodenal diverticulum measuring 6.3 cm. Moderate prostatic calcifications are acute abdominal aorta and iliac arteries. Fusiform aneurysm pro ximal abdominal aorta to 3.6 cm relatively unchanged. Estimated slightly smaller at 3.4 cm, previousl y. No dilated small bowel, free fluid, or free air. No mesenteric or retroperitoneal lymphadenopathy. Generalized colonic diverticulosis greatest in the sigmoid colon. Staple line at the rectosigmoid power ction from prior resection and re-anastomosis. Inferior cecal tip just extends now into a small right inguinal hernia. Previous ventral abdominal wall mesh repair. Lew catheter in place. Intraluminal bladder air likely related to instrumentation. There is pelvic floor relaxation. Uterus surgically absent. Numerous pelvic phlebolith. No abnormal fluid collection in the pelvis or pelvic lymphadenopathy. Bones: Diffuse osteopenia. Hypertrophic facet arthropathy mid to lower lumbar spine. IMPRESSION: 1. Interval development of fluid overload state with generalized anasarca and moderate bilateral ple ural effusions. 2. Redemonstrated large hiatal hernia involving the entire stomach in the lower chest and also conta ining the mid transverse colon. No obstructive changes seen. 3. Interval development of a small right-sided inguinal hernia containing the inferior cecal tip. 4. Generalized colonic diverticulosis. No findings of acute diverticulitis. 5. Moderate atherosclerotic calcifications throughout. Similar fusiform aneurysm proximal abdominal aorta 3.6 cm.
[2023-05-05] MEDS: MELATONIN 3 MG TABLET PO SCH (20:04)
[2023-05-06] MEDS: metroNIDAZOLE-NS PMX 500 MG in SALINE 1 100ML.BAG IVPB SCH ×3 (05:36→11:48)
[2023-05-06] MEDS: CEFEPIME 2 GM in SODIUM CHLORIDE 0.9% 100 ML IVPB SCH (05:37)
[2023-05-06] MEDS: PANTOPRAZOLE 40 MG/10 ML VIAL IVP SCH (08:37)
[2023-05-06] MEDS: METOPROLOL TARTRATE 50 MG TAB PO SCH (08:47)
[2023-05-06] MEDS: LOSARTAN 25 MG TAB PO SCH (08:47)
[2023-05-06] MEDS: ATORVASTATIN 40 MG TAB PO SCH (08:47)
[2023-05-06] MEDS: amLODIPine 5 MG TAB PO SCH (08:47)
[2023-05-06] MEDS: ASPIRIN 81 MG PO SCH (08:48)
[2023-05-06] MEDS: SODIUM BICARBONATE TAB 650 MG TAB PO SCH (08:48)
[2023-05-06] MEDS: ISOSORBIDE MONONITRATE ER 30 MG TAB.ER.24H PO SCH (08:48)
[2023-05-06] MEDS: APIXABAN 2.5 MG TABLET PO SCH (08:48)
--- NOTE | 2023-05-06 09:13 | P.PN ---
Subjective Progress Note Date: 05/06/23 PROGRESS NOTE The patient is an 87-year-old female with a known history of coronary disease who presented with abdominal discomfort and was found to have probable microperforation. She subsequently had an episode of chest discomfort, EKG changes and evidence of non-STEMI with atrial fibrillation. She is feeling better overall. Her abdominal pain is better. She has no further chest discomfort and her rate is under better control. She denies any dizziness, palpitations or syncope. She denies any nausea or vomiting. I had a long discussion with her yesterday regarding further approach and she is in favor of conservative treatment and avoiding aggressive interventions. May 02: The patient feels better today, she denies any chest discomfort, dizziness or palpitations. Her abdominal discomfort is better. She denies any nausea or vomiting. She is back in sinus mechanism. She is tolerating oral medication. She has no evidence of ventricle arrhythmia. She continues to be on IV heparin. Her urine output was low yesterday and received IV fluid bolus 05/03 Patient is seen today in follow-up. She remains in atrial fibrillation with a controlled rate. Patient has been maintained on eliquis, Lopressor 25 mg twice daily. Blood pressure 147/54492/78, heart rate in the 60s to 80s. 05/04 Patient remains in atrial fibrillation with controlled rate. Heart rate running between 61 and 95, blood pressure 145/78, pulse ox 94% on room air. Yesterday patient was started on losartan with overall improvement of her blood pressure readings. 05/05 Patient is seen today in follow-up. She is quite confused today with paranoia. She has been maintained on metoprolol tartrate 25 mg twice daily, eliquis, Imdur, losartan and statin. During the night she went into A. fib with RVR and Cardizem drip was started. It appears that this did not infuse less patient did not receive it. Blood pressure at 4 AM was 174/137 and heart rate 127. She did receive a dose of IV hydralazine blood pressure now is 144/97. She is in atrial fibrillation heart rate is currently 96-104. 05/06 Patient is more confused, angry and paranoid this morning. Patient remains in atrial fibrillation running 104 to 120 bpm. Blood pressure 154/74 Patient is quite upset at the time of this evaluation. She is on eliquis and Lopressor 50 mg twice daily. She received 1 dose of IV Lasix yesterday. PHYSICAL EXAMINATION: LUNGS: Clear to auscultation HEART: Regular rate and rhythm, S1, S2. No S3 systolic ejection murmur 2/6 with holosystolic murmur at the apex ABDOMEN: Soft, nontender, positive bowel sounds, no organomegaly EXTREMETIES: No edema IMPRESSION: 1. Non-STEMI in a patient with known history of multivessel disease 2. Abdominal discomfort with probable microperforation 3. Atrial fibrillation, paroxysmal, back in sinus mechanism 4. Aortic valve disease 5. History of hiatal hernia 6. History of hypertension PLAN: Resume losartan and Norvasc Continue metoprolol tartrate 50 mg twice daily and eliquis Nurse practitioner note has been reviewed, I agree with the documented findings and plan of care. Patient was seen and examined. Objective - Vital Signs Vital signs: Vital Signs Temp 98.1 F 05/06/23 04:00 Pulse 66 05/06/23 04:00 Resp 18 05/06/23 04:00 BP 154/74 05/06/23 04:00 Pulse Ox 96 05/06/23 04:00 FiO2 Intake & Output 05/05/23 05/06/23 05/06/23 18:59 06:59 18:59 Intake Total 360 Output Total 500 1275 Balance -140 -1275 Weight 62 kg Intake: Oral 360 Output: Urine 500 1275 Other: Voiding Method Indwelling Catheter Indwelling Catheter - Labs CBC & Chem 7: 05/05/23 07:53 05/04/23 11:12 Labs: Abnormal Lab Results - Last 24 Hours (Table) 05/05/23 Range/Units 07:53 Lymphocytes # 0.9 L (1.0-4.8) k/uL
[2023-05-06 09:21] VITALS: TEMP 97.6
[2023-05-06 09:43] LABS: African American GFR (CKD) 77 (>60 ml/min/1.73 sqM); Anion Gap 14 mmol/L; Blood Urea Nitrogen 12 mg/dL (7-17); Calcium 8.9 mg/dL (8.4-10.2); Carbon Dioxide 15 mmol/L (22-30); Chloride 107 mmol/L (98-107); Glucose 117 mg/dL (74-99); Magnesium 1.2 mg/dL (1.6-2.3); Non-African American GFR(CKD) 67 (>60 ml/min/1.73 sqM); Potassium 3.6 mmol/L (3.5-5.1); Sodium 136 mmol/L (137-145)
[2023-05-06] MEDS ORDERED: Magnesium Replacement Protocol 1 EACH MISC MISCELLANE PRN (10:21)
[2023-05-06] MEDS: CHOLESTYRAMINE (WITH SUGAR) 4 GM PACKET PO SCH (10:43)
[2023-05-06] MEDS: MAGNESIUM SULFATE-D5W PMX 1 GM in DEXTROSE/WATER 1 100ML.BAG IVPB SCH ×4 (10:43→13:49)
--- NOTE | 2023-05-06 10:52 | P.DS ---
Providers Date of admission: 04/28/23 02:58 Expected date of discharge: 05/06/23 Attending physician: Serafin Pagan Consults: 04/28/23 07:36 Consult Physician Urgent Consulting Provider: Ho Brunson Consult Reason/Comments: possible pneumoperitoneum Do you want consulting provider notified?: Already Contacted 04/30/23 06:26 Consult Physician Urgent Consulting Provider: Nilo Reveles Consult Reason/Comments: chest pain, ekg changes Do you want consulting provider notified?: Yes 04/30/23 06:58 Consult Physician Urgent Consulting Provider: Rodger Bonilla Consult Reason/Comments: icu transfer Do you want consulting provider notified?: Yes 05/01/23 12:27 Consult Physician Routine Consulting Provider: Kem Hendricks Consult Reason/Comments: Oliguria Do you want consulting provider notified?: Yes Primary care physician: Laird Hospital Course: Final Diagnoses: Acute non-STEMI Acute bowel perforation with pneumoperitoneum. Scattered pneumoperitoneum in the upper abdomen for within the large hiatal hernia in the thorax, concerning for hollow organ viscus perforation. Large hiatal hernia containing a loop of colon in the stomach, reported per CT, in a patient with history of bowel obstruction, bowel resection and large hiatal hernia. Suspected secondary to perforated diverticula as per general surgery. Atelectasis Suprarenal abdominal aortic aneurysm measuring up to 3.[address] Paroxysmal atrial fibrillation Moderate aortic stenosis Mild pulmonary hypertension Hypertension Hyperlipidemia CAD, angioplasty History of GI bleed Hospital course:Hospital course:This is a pleasant 87-year-old female with past medical history significant for CAD, prior stenting, paroximal atrial fibrillation, valvular heart disease, hypertension, GI bleed ,large hiatal hernia, prior bowel obstruction and bowel resection and multiple medical issues, presented to the ER with complaints of midsternal chest pain radiating to left chest and into the front of her neck accompanied by shortness of breath, blood in stool. Relief with 3 sublingual nitroglycerin taken at home. Currently complaining of mid epigastric pain. Reports she was initially scheduled for endoscopy studies with Dr. Brunson tomorrow. Afebrile, WBC 10.7 now within normal limits. Hemoglobin 14.2, 12.6, platelets 309, 257, INR 1. D-dimer 1.64. Chest CTA reported multi foci of free air in the upper abdomen, no PE, mild pulmonary edema, small groundglass opacity in the right upper lobe, large hiatal hernia. Chest x-ray reporting large hiatal hernia. Abdomen/pelvis CT reported scattered pneumoperitoneum in the upper abdomen for within the large hiatal hernia in the thorax, concerning for hollow organ viscus perforation. Large hiatal hernia containing a loop of colon in the stomach, suprarenal abdominal aortic aneurysm measuring up to 3.4 cm. EKG reporting sinus with first-degree AV block, troponins 0.018, 0.038, 0.021. Echo of February 2023 reporting normal LV function, EF 55-60%, moderate aortic stenosis, mitral and tricuspid regurgitation, mild pulmonary hypertension Stool for occult blood positive. Sodium 136, potassium 4.3, bicarb 21, BUN 28, creatinine 0.91. Glucose 1:15. Magnesium 1.5, recheck ordered. T bili 0.7, AST 38, ALT 25, alk phos 1:30. ProBNP 1340. Albumin 4.1. 04/29/2023 remains nothing by mouth, continues on antibiotics and IV fluid hydration. Denies nausea, vomiting. Reports decreasing abdominal pain. Small bowel movement yesterday. Afebrile, normal WBC. Hemoglobin 12.6, platelets 253. Magnesium 1.8, post-supplementation. 04/30/2023 developed chest pain, EKG changes last night, Troponin increased to 10.7. ,cardiology reconsulted and patient was transferred to ICU. Heparin and nitro drip initiated as per cardiology. Maintained on IV antibiotics with no surgical intervention at this time as per general surgery. Afebrile, normal WBC. BUN 19, creatinine 0.9 to. 05/03/2023 05/01/2023: Patient remains in intensive care unit. She's had some low urine output. She is undergoing a ultrasound the kidneys currently. She had a small bolus at 250 mL normal saline which did help her. She recently had a myocardial infarction and has a pneumoperitoneum from most likely perforated diverticulum. She has ongoing atrial fibrillation. Her pain is controlled at this time. Heart rate is stable blood pressure stable she's 95% on 2 L O2 this time. Labs 40 show a normal hemoglobin. GFR is 60. Blood cultures are negative 2. Critical care, cardiology, and general surgery following. Range on a heparin drip and nitro drip. She continues on cefepime and Flagyl for about a coverage. Surgery is planning on advance her diet today. 05/02/2023: The patient is resting comfortably peritoneum and perforated diverticulum suspect. She also has ongoing atrial fibrillation, recent nSTEMI and now some acute renal failure. Cardiology has cleared indicates she is doing better. Surgery start regular liquid diets and is advancing. She remains on antibiotics of cefepime and metronidazole. Remains on Crixivan for anticoagulation for atrial fibrillation. Nephrology adjust her medications due to the low urinary output. Patient relates afebrile. Heart rates controlled. She is 93% on room air. 05/03/2023 transferred to ICU last night, sitting up in chair, feels better. Continues on beta german ,telemetry reporting controlled atrial fibrillation. Anticoagulated on eliquis. Maintained on cefepime and Flagyl .Afebrile, normal WBC. Reports moderate diarrhea since yesterday,X2. Tolerating clear liquid diet with no nausea, vomiting. Blood sugars controlled 05/04/2023 Significant clinical improvement. Continues on cefepime and Flagyl. Afebrile. Maintaining O2 sats in the high 90s on room air. Loose stools improved with addition of Questran. Sleeping better on melatonin. Tolerating diet advancement-advanced to regular. Denies nausea, vomiting. Minimal diffuse abdominal pain. Evaluated by physical therapy, recommending subacute rehab. Discharge planning discussed in room with patient and son and daughter, requesting [facility] subacute rehab. Denies chest pain, palpitations or shortness of breath. Denies lightheadedness dizziness or focal deficits. Patient has been cleared by consults for discharge. Patient will be discharged to [facility] subacute rehab today in a stable condition with guarded prognosis, continuing on Ceftin and Flagyl for additional 10 days. 3patient was discharged yesterday pending insurance authorization. During the night developed atrial fibrillation with RVR, Cardizem drip initiated. Patient developed high anxiety. At around 0400 blood pressure escalated accompanied by uncontrolled heart rate as IV had gone bad. IV initiated, IV hydralazine administered. Blood pressures and heart rate stabilized, converted to sinus rhythm, transitioned off of Cardizem, beta german increased. Soft blood pressures currently, holding losartan and Norvasc. Complaining of increased abdominal pain, surgeries or serious CT with contrast. 05/06/[address] of abdomen and pelvis reported generalized anasarca, moderate bilateral pleural effusions, redemonstrated large hiatal hernia, small right-sided inguinal hernia containing anterior cecal tip, generalized colonic diverticulosis, moderate anterior sclerotic calcifications t hroughout, similar fusiform aneurysm proximal abdominal aorta 3.6 cm. chest x- ray from yesterday reported mild interstitial pulmonary edema, small bilateral pleural effusions with prominent adjacent atelectasis, known large hiatal hernia , received IV push Lasix X2. Oxygen has been weaned off, maintaining O2 sats in the mid 90s on room air. Earlier this morning, patient became anxious, paranoid ,accompanied by hypertension and A. fib with heart rates up into the 120s. Magnesium 1.2, receiving IV supplementation. Received increased beta german dose, family at bedside-reoriented, telemetry currently reporting atrial fibrillation with controlled ventricular rate, heart rates in the 60s, blood pressure 129/80. Lew catheter discontinued this a.m., monitor for post void. Denies nausea, vomiting, diarrhea abdominal pain. Denies chest pain, palpitations or shortness of breath. Denies lightheadedness, dizziness or focal deficits. Significant clinical improvement. Patient will be discharged to subacute rehab today in a stable condition with guarded prognosis pending final DC recommendations and clearance per cardiology, nephrology and Gen. surgery. The impression and plan of care has been dictated as directed. : I performed a history and examination of this patient, discussed the same with the dictator. I agree with the dictator's note ,documented as a scribe. Any additional findings or plans will be noted. Patient Condition at Discharge: Stable Plan - Discharge Summary Discharge Rx Participant: No New Discharge Prescriptions: New metroNIDAZOLE [Flagyl] 500 mg PO TID 10 Days #30 tab Aspirin 81 mg PO DAILY tab Losartan [Cozaar] 25 mg PO DAILY tab Atorvastatin [Lipitor] 40 mg PO DAILY tab Melatonin 3 mg PO HS tab Acetaminophen Tab [Tylenol] 650 mg PO Q4H PRN tab PRN Reason: Pain Metoprolol Tartrate [Lopressor] 50 mg PO BID #60 tab cefUROXime axetiL [Ceftin] 500 mg PO BID 10 Days #20 tab Isosorbide Mononitrate ER [Imdur] 30 mg PO DAILY tab amLODIPine [Norvasc] 5 mg PO DAILY tab Cholestyramine (with Sugar) [Questran Packet] 4 gm PO TID BETWEEN MEALS packet Sodium Bicarbonate Tab 650 mg PO BID tab Continue Nitroglycerin Sl Tabs [Nitrostat] 0.4 mg SL Q5M PRN PRN Reason: Chest Pain Apixaban [Eliquis] 2.5 mg PO DIRECTED Omeprazole 20 mg PO AC-BRKFST Discontinued hydroCHLOROthiazide [Hydrodiuril] 25 mg PO DAILY #30 tab Pravastatin Sodium [Pravachol] 10 mg PO DAILY Metoprolol Tartrate [Lopressor] 12.5 mg PO BID lisinopriL [Zestril] 10 mg PO BID Discharge Medication List Nitroglycerin Sl Tabs [Nitrostat] 0.4 mg SL Q5M PRN 11/11/22 [History] Apixaban [Eliquis] 2.5 mg PO DIRECTED 03/07/23 [History] Omeprazole 20 mg PO AC-BRKFST 03/09/23 [History] Acetaminophen Tab [Tylenol] 650 mg PO Q4H PRN tab 05/04/23 [Rx] Aspirin 81 mg PO DAILY tab 05/04/23 [Rx] Atorvastatin [Lipitor] 40 mg PO DAILY tab 05/04/23 [Rx] Cholestyramine (with Sugar) [Questran Packet] 4 gm PO TID BETWEEN MEALS packet 05/04/23 [Rx] Isosorbide Mononitrate ER [Imdur] 30 mg PO DAILY tab 05/04/23 [Rx] Losartan [Cozaar] 25 mg PO DAILY tab 05/04/23 [Rx] Melatonin 3 mg PO HS tab 05/04/23 [Rx] amLODIPine [Norvasc] 5 mg PO DAILY tab 05/04/23 [Rx] cefUROXime axetiL [Ceftin] 500 mg PO BID 10 Days #20 tab 05/04/23 [Rx] metroNIDAZOLE [Flagyl] 500 mg PO TID 10 Days #30 tab 05/04/23 [Rx] Metoprolol Tartrate [Lopressor] 50 mg PO BID #60 tab 05/06/23 [Rx] Sodium Bicarbonate Tab 650 mg PO BID tab 05/06/23 [Rx] Follow up Appointment(s)/Referral(s): Leonardo Rodrigez Jr, [Primary Care Provider] - 3 Days Activity/Diet/Wound Care/Special Instructions: [facility] Incentive spirometer every hour 10 while awake 2 weeks Magnesium, CBC, BMP in 3 days Discharge Disposition: TRANSFER TO SNF/ECF
--- NOTE | 2023-05-06 11:31 | P.PN ---
Subjective Progress Note Date: 05/06/23 Principal diagnosis: Chest pain. This is an 87-year-old female, known history of coronary artery disease, hypertension, previous MO, history of colovesicular fistula, bowel obstruction secondary to adhesions, moderate aortic stenosis and moderate mitral regurgitation, peripheral vessel occlusive disease, previous stent placement, patient presented to the ER on 04/28/2023, complaining of midsternal chest pain radiating to the left chest, and into the front of her back. Associated with some shortness of breath. Patient did have relief after taking 3 sublingual nitroglycerin at home. Upon arrival to the ER patient was also complaining of epigastric pain, hence abdominal/pelvic CT showed pneumoperitoneum in the upper abdomen and a large hiatal hernia. Patient was seen by cardiology on consultation abnormal EKG, looking at the notes from cardiology yesterday apparently signed off, and patient was being followed by surgery for potential exploratory laparotomy. However the patient developed some EKG changes last night and more chest pain, cardiology was notified, and the recommended transferring the patient to the ICU. Patient was seen by surgery again this morning, and the plan is to continue antibiotics, and no plans for intervention regarding her pneumoperitoneum at this point yet. In the meantime the patient is receiving antibiotics for her presumptive perforated viscus most likely perforated diverticula. Surgery at this point prefers to observe and treat medically. And continue antibiotics Patient was reevaluated today on 05/01/2023, patient remains in the ICU, relatively asymptomatic, she remains on cefepime and Flagyl, cardiology saw the patient and recommended nitroglycerin 10 mcg/m, she is on 0.9 normal saline at 75 mL per hour patient is hemodynamically stable, not in any distress, and general surgery is still recommending medical treatment and observation for now. Patient was also placed on heparin by cardiology for her acute non-ST elevation myocardial infarction as well as atrial fibrillation. W cigars 7.8 hemoglobin 11.6 PTT is 35 basic metabolic profile is normal renal profile is normal Patient was on 05/02/2023, remains in the ICU, denies any chest pain, she has minimal abdominal discomfort, is not in any distress, patient had low urine output yesterday, and I recommended ultrasound of her kidneys which came back unremarkable. She received a fluid bolus, and that improved her urine output. Patient was seen by nephrology and she is now on bicarb drip. Patient is also on heparin drip, surgery is still planning conservative measures, and no plans for surgery anytime soon. WBC count is 5.9 hemoglobin 11.7 basic metabolic profile is normal and renal profile is normal. PTT is 63.9. Today is up to 24. Progress note dated 05/03/2023. 87-year-old female seen today in room 351. The patient's currently on room air. She's receiving saline at 50 mL an hour. She denies any shortness of breath, chest pain or chest discomfort. She states that she is feeling much better. Current laboratory data includes a white count 4.7, hemoglobin 12.5, hematocrit 36.7, and a platelet count of 282,000. Sodium 136, potassium 3.8, chlorides 104, CO2 23, BUN 11, creatinine 0.71. Glucose is 108. Calcium is 8.7. Blood cultures are negative. Progress note dated 05/04/2023. 87-year-old female seen today in room 351. The patient's currently on room air. She is receiving saline at 50 mL an hour. Clinically, she's progressing nicely. She is hoping to be able to be discharged home soon. She denies any shortness of breath, chest pain, chest discomfort, or any abdominal discomfort as well. No new laboratory data today. Labs from May 03 are reviewed. The most recent glucose is 116. C. difficile studies were negative. Blood cultures are negative. The patient continues on cefepime and Flagyl. Progress note dated 05/05/2023. 87-year-old female seen in room 351. Currently, the patient is on room air. The patient's getting saline at 50 mL an hour. Unfortunately, the patient developed atrial fibrillation with rapid ventricular response, is currently on a Cardizem drip at 10 mg an hour. The patient is also receiving saline at 50 mL an hour. White count is 9.3, hemoglobin 13.7, hematocrit 41.1, and platelet count is normal. Clinically, the patient appears stable. She's not having any chest pain or chest discomfort. She is not complaining of shortness of breath, or any difficulty in her breathing. Progress note dated 05/06/2023. 87-year-old female seen today in room 351. Currently, the patient's on room air. She is receiving saline at 20 mL an hour. The Cardizem drip that she was on yesterday, has been discontinued. The patient is feeling well today, and is sitting up in a chair. Laboratory data includes a sodium 136, potassium 3.6, chlorides 107, CO2 15, anion gap 14, BUN 12, and creatinine 0.8. The patient's N-terminal proBNP was 8510. Magnesium level is 1.2. Blood cultures have been negative. CT of the abdomen and pelvis, shows a fluid overload state with anasa rca, large hiatal hernia, small right-sided inguinal hernia, generalized colonic diverticulosis, and moderate atherosclerotic changes. Objective - Vital Signs Vital signs: Vital Signs Temp 97.6 F 05/06/23 08:00 Pulse 107 H 05/06/23 08:00 Resp 20 05/06/23 08:00 BP 129/87 05/06/23 08:00 Pulse Ox 94 L 05/06/23 08:00 FiO2 Intake & Output 05/05/23 05/06/23 05/06/23 18:59 06:59 18:59 Intake Total 360 240 Output Total 500 1275 350 Balance -140 -1275 -110 Weight 62 kg Intake: Oral 360 240 Output: Urine 500 1275 350 Uretheral (Lew) 175 Other: Voiding Method Indwelling Catheter Indwelling Catheter Indwelling Catheter - Exam No acute distress, oriented 3. Currently on room air. Saturations 94% on room air. HEENT examination is grossly unremarkable. Mucous membranes are moist. No oral lesions. Neck supple. Full range of motion. No adenopathy thyromegaly or neck vein distention. Cardiovascular examination reveals an irregular rhythm and rate. S1-S2 normal. No S3 or S4. Soft systolic murmur. Heart sounds are distant. Heart rate 91 bpm. Lungs reveal clear breath sounds. Breath sounds are equal bilaterally. No adventitious lung sounds including wheezes rhonchi or crackles. Abdomen mildly tender. Bowel sounds are noted. Extremities are intact. No cyanosis clubbing or edema. Skin is without rash or lesion. Neurologic examination is brief but nonfocal. - Labs CBC & Chem 7: 05/05/23 07:53 05/06/23 08:30 Labs: Abnormal Lab Results - Last 24 Hours (Table) 05/06/23 Range/Units 08:30 Sodium 136 L (137-145) mmol/L Carbon Dioxide 15 L (22-30) mmol/L Glucose 117 H (74-99) mg/dL Magnesium 1.2 L (1.6-2.3) mg/dL Assessment and Plan Assessment: Acute non-ST segment elevation myocardial infarction. Acute bowel perforation and pneumoperitoneum. Moderate aortic stenosis. Coronary artery disease and previous stenting of the right coronary artery. Paroxysmal atrial fibrillation, currently active, with RVR. Valvular heart disease. History of diverticular disease. Plan: Plan dated 05/03/2023. The patient's labs, x-rays, medications are reviewed. She continues on GI and DVT prophylaxis. The patient was treated conservatively. Clinically, she feels much better. She does have some mild abdominal tenderness. Blood cultures are currently negative. She continues on cefepime and Flagyl. Additional recommendations and suggestions are forthcoming. Prognosis is guarded. Plan dated 05/04/2023. The patient appears to be doing better. She does have some very mild abdominal discomfort. This only is on palpation. Labs, x-rays, medications are reviewed. The patient continues on antibiotics, which can be D escalated or discontinued altogether. The patient's on room air. She's receiving saline at 50 mL an hour. Labs, x-rays, and medications are reviewed. We will continue to follow the patient make recommendations along the way. Discharge planning underway. Prognosis is certainly guarded, given her age. Plan dated 05/05/2023. The patient is seen today in room 351. The patient developed atrial fibrillation with RVR, and is currently on a Cardizem drip at 10 mg an hour. The patient is receiving saline at 50 mL an hour. The patient's currently on room air. Labs, x-rays, and medications are reviewed. The patient's overall prognosis remains guarded. The patient was set to be discharged, before the episode of atrial fibrillation. We will continue to follow and make recommendations along the way. Plan dated 05/06/2023. Yesterday, the patient was on a Cardizem drip at 10 mg an hour. Currently, she is in normal sinus rhythm, and Cardizem had been discontinued. She's currently on room air. She is receiving saline at 20 mL an hour. Labs, x-rays, and medications are reviewed. The patient's overall prognosis is guarded given her age, but, hopefully, she will be able to be discharged to a local group home. The plan is to go to [facility], eventually. We will continue to follow and make recommendations along the way. Time with Patient: Less than 30
--- NOTE | 2023-05-06 11:37 | PN ---
PROGRESS NOTE HISTORY OF PRESENT ILLNESS: Marsha is an 87-year-old lady who is admitted to hospital with complex and multiple medical problems that cardiology has been following because of atrial fibrillation with poorly controlled ventricular rate. When my nurse practitioner Kristy evaluated the patient this morning, she was confused and angry and her heart rate was little elevated. On my evaluation, the patient's son is at bedside. She is alert and oriented x3. Heart rate is normal and she is stable hemodynamically. From cardiac standpoint, she is stable to be transferred to rehab. MMODL / IJN: [id number] /
--- NOTE | 2023-05-06 12:37 | P.PN ---
Subjective Progress Note Date: 05/06/23 CHIEF COMPLAINT: Pneumoperitoneum HISTORY OF PRESENT ILLNESS: Patient is sitting at bedside chair. She denies any abdominal pain. Denies any nausea or vomiting. She is tolerating diet but only eating a small amount. Heart rate is improved. Computed tomography scan of abdomen and pelvis has shown interval development of fluid overload state with generalized anasarca and moderate bilateral pleural effusions. We demonstrated large hiatal hernia involving the entire stomach in the lower chest and c ontaining the mid transverse colon. No obstructive changes seen. Interval development of a small right-sided inguinal hernia containing the inferior cecal tip. Diverticulosis. No findings of acute diverticulitis. Similar aneurysm proximal abdominal aorta 3.6 cm. No free air reported. PHYSICAL EXAM: VITAL SIGNS: Reviewed. GENERAL: Well-developed in no acute distress. ABDOMEN: Soft. Nondistended. Nontender. No tenderness of the right lower quadrant. NEUROLOGIC: Awake and alert. Confused. ASSESSMENT: 1. Pneumoperitoneum possibly secondary to perforated diverticula 2. Large hiatal hernia 3. Chest pain with non-ST elevated CA. Followed by cardiology 4. History of coronary arteries previous stenting 5. History of atrial fibrillation 6. Bloody bowel movements outpatient. Was scheduled for colonoscopy outpatient tomorrow. This is now on hold. PLAN: -Patient can be discharged from surgical standpoint -Would recommend ceftin and Flagyl for 10 more days at discharge -Continue regular diet Physician Acquisition Advisor note has been reviewed by physician. Signing provider agrees with the documented findings, assessment, and plan of care. Objective - Vital Signs Vital signs: Vital Signs Temp 97.6 F 05/06/23 08:00 Pulse 107 H 05/06/23 08:00 Resp 20 05/06/23 08:00 BP 129/87 05/06/23 08:00 Pulse Ox 94 L 05/06/23 08:00 FiO2 Intake & Output 05/05/23 05/06/23 05/06/23 18:59 06:59 18:59 Intake Total 360 240 Output Total 500 1275 350 Balance -140 -1275 -110 Weight 62 kg Intake: Oral 360 240 Output: Urine 500 1275 350 Uretheral (Lew) 175 Other: Voiding Method Indwelling Catheter Indwelling Catheter Indwelling Catheter - Labs CBC & Chem 7: 05/05/23 07:53 05/06/23 08:30 Labs: Abnormal Lab Results - Last 24 Hours (Table) 05/06/23 Range/Units 08:30 Sodium 136 L (137-145) mmol/L Carbon Dioxide 15 L (22-30) mmol/L Glucose 117 H (74-99) mg/dL Magnesium 1.2 L (1.6-2.3) mg/dL
--- NOTE | 2023-05-06 12:48 | P.PN ---
Subjective Patient is seen for follow-up for acute kidney injury. She was noted to have low urine output which has now improved. Maintained on gentle IV hydration. Serum creatinine has been at 0.7-0.8 mg/dL. Status post Cardizem drip for A. fib with RVR. CT of the abdomen shows moderate bilateral pleural effusions and small right inguinal hernia. No complaints of shortness of breath. Objective - Vital Signs Vital signs: Vital Signs Temp 97.6 F 05/06/23 08:00 Pulse 107 H 05/06/23 08:00 Resp 20 05/06/23 08:00 BP 129/87 05/06/23 08:00 Pulse Ox 94 L 05/06/23 08:00 FiO2 Intake & Output 05/05/23 05/06/23 05/06/23 18:59 06:59 18:59 Intake Total 360 240 Output Total 500 1275 350 Balance -140 -1275 -110 Weight 62 kg Intake: Oral 360 240 Output: Urine 500 1275 350 Uretheral (Lew) 175 Other: Voiding Method Indwelling Catheter Indwelling Catheter Indwelling Catheter - Exam Patient is awake, comfortable, no acute distress Examination of the heart S1 and S2 Examination of the lungs bilateral breath sounds are heard Abdomen is soft nontender Examination lower extremity shows trace edema ELECTRICAL DRAFTER exam grossly intact - Labs CBC & Chem 7: 05/05/23 07:53 05/06/23 08:30 Labs: Abnormal Lab Results - Last 24 Hours (Table) 05/06/23 Range/Units 08:30 Sodium 136 L (137-145) mmol/L Carbon Dioxide 15 L (22-30) mmol/L Glucose 117 H (74-99) mg/dL Magnesium 1.2 L (1.6-2.3) mg/dL Assessment and Plan Assessment: 1. Acute kidney injury secondary to vasomotor nephropathy from poor intake, JORDAN inhibitor use. Improved. GFR at baseline. Nonoliguric. No hydronephrosis noted. UA benign. 2. Pneumoperitoneum from possibly perforated diverticula being followed by surgery. 3. Metabolic acidosis secondary to IV fluids and GI losses. Status post bicarb drip. Currently on oral sodium bicarb 4. Benign hypertension. 5. NSTEMI being followed by cardiology. 6. Hypokalemia from intracellular shifting from IV bicarb. Replaced. 7. A. fib with RVR status post Cardizem drip 8. Volume overload Plan: Continue off of IV fluids IV Lasix Continue with sodium bicarb Monitor renal function closely and monitor for hypotension.
[2023-05-06] MEDS ORDERED: FUROSEMIDE 10 MG/ML 2 ML VIAL IV SCH (13:00)
[2023-05-06 13:12] VITALS: BP 100/61; PULSE 80; RESP 17
[2023-05-06] MEDS ORDERED: SODIUM BICARBONATE TAB 650 MG TAB PO SCH (21:00)
--- NOTE | 2023-05-07 13:27 | CDI ---
Documentation Clarification Form Date: 05/07/2023 12:46:57 PM From: Madeleine Mccoy Phone: Admit Date: 04/28/2023 02:58:00 AM Patient Name: Marsha Ramirez Visit Number: [id number] Discharge Date: 05/06/2023 04:06:00 PM ATTENTION: The Clinical Documentation Specialists (CDI) and [facility] Coding Staff appreciate your assistance in clarifying documentation. Please respond to the clarification below the line at the bottom and electronically sign. The CDI & [facility] Coding staff will review the response and follow-up if needed. Please note: Queries are made part of the Legal Health Record. If you have any questions, please contact the author of this message via ITS. Dr. Serafin Pagan Your patient has the documented diagnosis of unspecified CHF per 05/01 Progress Note. Additional information regarding the type and acuity of CHF is requested. History/Risk Factors: 87yo F, NSTEMI, CAD w unstable angina sp stenting, pneumoperitoneum, perforateddiverticula,hiatal hernia, PAF, HTN, hypokalemia, ATN, DMII w PVD, volume overload Clinical Indicators: VS/Pulse OX: 94-98 BNP: 1340 Echo Results: 03/20 reporting normal LV function, EF 55-60%, MR, TR, , mildPHTN Echo Results: Normal LV and systolic fx. Mild to moderateMR & TR no evidence of PHTN. ModerateAS with mean gradient of 31 mmHg. 04/28 Chest X Ray: Heart: Unremarkable. Nocardiomegaly. Vasculature:Calcified aorta. 05/07/2023 XR chest 1V: Correlate for the interval development ofCHFwith mild interstitial pulmonary edema. New smallbilateral pleural effusionswith prominent adjacentatelectasis and/or consolidation. Known largehiatal herniaprojecting behind the heart. 05/05 Treatment: Cardiology and critical care cleared her for atelemetrybed at this time. She is improved. Well repeat labs in a.m. In your professional opinion, can you please clarify the type and acuity of CHF if known? Status: [ ] Present On Admission [ X] Developed during stay (Not Present on Admission) Acuity: [ ] Acute [ ] Chronic [ ] Acute on Chronic Type: [ ] Systolic Heart Failure (reduced EF) [ X ] Diastolic Heart Failure (preserved EF) [ ] Systolic & Diastolic Heart Failure [ ] Other, please specify [ ] Unable to determine (Template Last Revised: July 2020) MTDD
== END 2023-05-06 16:06 | DRG 280 ==
LOC: EC 23:13 → 6NMEDSUR 04-28 02:58 → OBSVTOIN 04-28 02:58 → 3SCARD 04-28 06:20 → 2SICU 04-30 07:16 → 3SCARD 05-02 19:58 → 2SICU 05-02 20:01 → 3SCARD 05-02 20:54
PROVIDERS: ADMIT Family Medicine; ATTEND Family Medicine
DX: I21.4 Non-ST elevation (NSTEMI) myocardial infarction (principal); N17.0 Acute kidney failure with tubular necrosis; T82.594A Other mechanical complication of infusion catheter, initial encounter; E87.20 Acidosis, unspecified; F05 Delirium due to known physiological condition; K57.80 Diverticulitis of intestine, part unspecified, with perforation and abscess without bleeding; K92.1 Melena; I50.30 Unspecified diastolic (congestive) heart failure; I11.0 Hypertensive heart disease with heart failure; E11.51 Type 2 diabetes mellitus with diabetic peripheral angiopathy without gangrene; I71.40 Abdominal aortic aneurysm, without rupture, unspecified; I48.0 Paroxysmal atrial fibrillation; I25.110 Atherosclerotic heart disease of native coronary artery with unstable angina pectoris; K66.8 Other specified disorders of peritoneum; I08.3 Combined rheumatic disorders of mitral, aortic and tricuspid valves; I44.0 Atrioventricular block, first degree; E78.2 Mixed hyperlipidemia; Z66 Do not resuscitate; K44.9 Diaphragmatic hernia without obstruction or gangrene; E83.42 Hypomagnesemia; N14.19 Nephropathy induced by other drugs, medicaments and biological substances; T44.5X5A Adverse effect of predominantly beta-adrenoreceptor agonists, initial encounter; E87.6 Hypokalemia; T47.1X5A Adverse effect of other antacids and anti-gastric-secretion drugs, initial encounter; F41.9 Anxiety disorder, unspecified; K40.90 Unilateral inguinal hernia, without obstruction or gangrene, not specified as recurrent; Y71.1 Therapeutic (nonsurgical) and rehabilitative cardiovascular devices associated with adverse incidents; Z79.01 Long term (current) use of anticoagulants; Z95.5 Presence of coronary angioplasty implant and graft; Z79.82 Long term (current) use of aspirin; Z79.899 Other long term (current) drug therapy; Z88.0 Allergy status to penicillin; Z88.5 Allergy status to narcotic agent; Z88.8 Allergy status to other drugs, medicaments and biological substances; I25.2 Old myocardial infarction; Z82.49 Family history of ischemic heart disease and other diseases of the circulatory system; Z90.49 Acquired absence of other specified parts of digestive tract; Z87.19 Personal history of other diseases of the digestive system; Z88.1 Allergy status to other antibiotic agents
CPT/HCPCS: 36415; 71045; 71046; 71275; 74176; 76770; 80048; 80053; 81003; 82272; 83735; 83880; 84484; 85025; 85027; 85379; 85610; 85730; 87040; 87324; 93005; 93306; 96361; 96365; 96366; 96367; 96375; 99285

== ENCOUNTER → 2023-06-24 | Outpatient (CLI) | payer MEDICARE ==
[2023-06-24 13:58] LABS: African American GFR (CKD) >90 (>60 ml/min/1.73 sqM); Blood Urea Nitrogen 20 mg/dL (7-17); Non-African American GFR(CKD) 78 (>60 ml/min/1.73 sqM)
--- NOTE | 2023-06-24 14:56 | CT ---
EXAMINATION TYPE: CT abdomen pelvis w con DATE OF EXAM: 06/24/2023 COMPARISON: 03/07/2023 HISTORY: c/o vaginal pain CT DLP: 550.3 mGycm Automated exposure control for dose reduction was used. TECHNIQUE: Helical acquisition of images was performed from the lung bases through the pelvis. CONTRAST: Performed with Oral Contrast and with IV Contrast, patient injected with 100 ml mL of Isovue 300. FINDINGS: The visualized lung bases are clear. There is a large hiatal hernia with an intrathoracic stomach. There is cholecystectomy. There is diffuse fatty infiltration liver. There is marked chronic pancreatitis with pancreatic calcifications pancreatic atrophy. The spleen and adrenal glands are unremarkable. The kidneys are mildly atrophic but there is no solid renal mass or hydronephrosis. There is mild ane urysmal dilatation of the suprarenal aorta measuring 3.2 cm in transverse dimension. The bowel loops are normal in caliber is no evidence of bowel obstruction or inflammation. There is n o free intraperitoneal air or fluid. There is mesh anterior abdominal wall hernia repair. There is no pelvic mass, free fluid, abscess or adenopathy. There anastomotic sutures in the rectosig moid junction. No focal osseous lesions are seen. IMPRESSION: 1. Large hiatal hernia with intrathoracic stomach. 2. Cholecystectomy. 3. fatty infiltration liver. 4. Marked chronic pancreatitis as described above. 5. Mild renal atrophy. 6. abdominal aortic aneurysm as described above. 7. Anterior abdominal hernia repair 8. anastomotic sutures in the rectosigmoid junction but no bowel obstruction or inflammation
== END | disposition home or self-care (01) ==
LOC: RADCTMAIN 11:58
PROVIDERS: ATTEND Family Medicine
DX: K40.90 Unilateral inguinal hernia, without obstruction or gangrene, not specified as recurrent (principal); K44.9 Diaphragmatic hernia without obstruction or gangrene; K76.0 Fatty (change of) liver, not elsewhere classified; R15.9 Full incontinence of feces; I71.40 Abdominal aortic aneurysm, without rupture, unspecified; R10.84 Generalized abdominal pain; K86.1 Other chronic pancreatitis; N26.1 Atrophy of kidney (terminal); Z01.812 Encounter for preprocedural laboratory examination; Z79.899 Other long term (current) drug therapy; Z90.49 Acquired absence of other specified parts of digestive tract; Z98.890 Other specified postprocedural states
CPT/HCPCS: 82565; 84520; 74177; 36415; Q9967

== ENCOUNTER 2023-11-13 00:18 | Inpatient (IN) | payer MEDICARE ==
--- NOTE | 2023-11-13 00:56 | ED ---
General Adult HPI - General Chief complaint: Chest Pain Stated complaint: Chest pain Time Seen by Provider: 11/13/23 00:20 Source: patient, EMS Mode of arrival: EMS Limitations: no limitations - History of Present Illness Initial comments: Dictation was produced using [employer] dictation software. please excuse any grammatical, word or spelling errors. Chief Complaint: 88-year-old female with coronary artery disease presents to the emergency department chest pain History of Present Illness: Patient is 88-year-old female presents emergency department for chest pain. Patient states that she has pain at the lower substernal chest. Patient has history of coronary artery disease, myocardial infarction and coronary artery stents. Patient had pain earlier this evening. EMS was called patient was given aspirin nitro and Zofran which improved her sy mptoms. Patient did report some associated swelling and radiation down the extremity. The ROS documented in this emergency department record has been reviewed and confirmed by me. Those systems with pertinent positive or negative responses have been documented in the HPI. All other systems are other negative and/or noncontributory. - Related Data Home Medications Medication Instructions Recorded Confirmed Nitroglycerin Sl Tabs [Nitrostat] 0.4 mg SL Q5M PRN 11/11/22 04/28/23 Apixaban [Eliquis] 2.5 mg PO DIRECTED 03/07/23 04/28/23 Omeprazole 20 mg PO AC-BRKFST 03/09/23 04/28/23 Previous Rx's Medication Instructions Recorded Acetaminophen Tab [Tylenol] 650 mg PO Q4H PRN tab 05/04/23 Aspirin 81 mg PO DAILY tab 05/04/23 Atorvastatin [Lipitor] 40 mg PO DAILY tab 05/04/23 Cholestyramine (with Sugar) 4 gm PO TID BETWEEN MEALS packet 05/04/23 [Questran Packet] Isosorbide Mononitrate ER [Imdur] 30 mg PO DAILY tab 05/04/23 Losartan [Cozaar] 25 mg PO DAILY tab 05/04/23 Melatonin 3 mg PO HS tab 05/04/23 amLODIPine [Norvasc] 5 mg PO DAILY tab 05/04/23 cefUROXime axetiL [Ceftin] 500 mg PO BID 10 Days #20 tab 05/04/23 metroNIDAZOLE [Flagyl] 500 mg PO TID 10 Days #30 tab 05/04/23 Furosemide [Lasix] 20 mg PO BID #60 tab 05/06/23 Metoprolol Tartrate [Lopressor] 50 mg PO BID #60 tab 05/06/23 Sodium Bicarbonate Tab 650 mg PO BID tab 05/06/23 Allergies Allergy/AdvReac Type Severity Reaction Status Date / Time levofloxacin [From Levaquin] Allergy Unknown Verified 11/13/23 00:32 Penicillins Allergy Swelling Verified 11/13/23 00:32 of neck hydromorphone [From Dilaudid] AdvReac Altered Verified 11/13/23 00:32 Mental Status lorazepam [From Ativan] AdvReac Confusion Verified 11/13/23 00:32 Review of Systems ROS Statement: Those systems with pertinent positive or pertinent negative responses have been documented in the HPI. ROS Other: All systems not noted in ROS Statement are negative. Past Medical History Past Medical History: Atrial Fibrillation, Coronary Artery Disease (CAD), Chest Pain / Angina, Hypertension, Myocardial Infarction (CO), Pneumonia Additional Past Medical History / Comment(s): Bowel/bladder fistula; Bowel obstruction (due to adhesions); frequent urinary tract infection; Lichen sclerosis Last Myocardial Infarction Date:: 2011 History of Any Multi-Drug Resistant Organisms: None Reported Past Surgical History: Bladder Surgery, Bowel Resection, Cholecystectomy, Heart Catheterization With Stent, Hernia Repair Additional Past Surgical History / Comment(s): Cataract surgery bilateral Past Anesthesia/Blood Transfusion Reactions: No Reported Reaction Date of Last Stent Placement:: 2011 Past Psychological History: No Psychological Hx Reported Smoking Status: Never smoker Past Alcohol Use History: None Reported Past Drug Use History: None Reported - Past Family History Mother Family Medical History: CVA/TIA Father Family Medical History: Congestive Heart Failure (CHF) General Exam - General Exam Comments Initial Comments: PHYSICAL EXAM: General Impression: Alert and oriented x3, not in acute distress HEENT: Normocephalic atraumatic, extra-ocular movements intact, pupils equal and reactive to light bilaterally, mucous membranes moist. 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 No MD prolongation, no QTC prolongation, no ST or T-wave changes noted. EKG compared to May 07, 2023 showing no changes. Overall, this EKG is unremarkable Medical Decision Making - Medical Decision Making Was pt. sent in by a medical professional or institution (, PA, ASSOCIATE DIRECTOR FINANCIAL AID, urgent care, hospital, or skilled nursing...) When possible be specific @ -No Did you speak to anyone other than the patient for history (EMS, parent, family, police, friend...)? What history was obtained from this source @ -No Did you review nursing and triage notes (agree or disagree)? Why? @ -I reviewed and agree with nursing and triage notes Were old charts reviewed (outside hosp., previous admission, EMS record, old EKG, old radiological studies, urgent care reports/EKG's, skilled nursing records)? Report findings @ -No old charts were reviewed Differential Diagnosis (chest pain, altered mental status, abdominal pain women, abdominal pain men, vaginal bleeding, musculoskeletal, weakness, fever, dyspnea, syncope, headache, dizziness, GI bleed, back pain, seizure, CVA, palpatations, mental health)? @ -Differential Chest Pain: Stable Angina, Unstable Angina, STEMI, NSTEMI Aortic Dissection, Pneumothorax, Musculoskeletal, Esophageal Spasm GERD, Cholecystitis, Pancreatitis, Zoster, t his is not meant to be an all-inclusive list. EKG interpreted by me (3pts min.). @ -See above X-rays interpreted by me (1pt min.). @ -Chest x-ray shows no acute processes. CT interpreted by me (1pt min.). @ -None done U/S interpreted by me (1pt. min.). @ -None done What testing was considered but not performed or refused? (CT, X-rays, U/S, labs)? Why? @ -None What meds were considered but not given or refused? Why? @ -None Did you discuss the management of the patient with other professionals (professionals i.e. , PA, ASSOCIATE DIRECTOR FINANCIAL AID, lab, RT, psych nurse, director social welfare, right of way clearer, teacher, data officer, correctional casework specialist)? Give summary @ -Case discussed with hospitalist for admission Was smoking cessation discussed for >3mins.? @ -No Was critical care preformed (if so, how long)? @ -No Were there social determinants of health that impacted care today? How? (Homelessness, low income, unemployed, alcoholism, drug addiction, transportation, low edu. Level, literacy, decrease access to med. care, halfway, rehab)? @ -No Was there de-escalation of care discussed even if they declined (Discuss DNR or withdrawal of care, Hospice)? DNR status @ -No What co-morbidities impacted this encounter? (DM, HTN, Smoking, COPD, CAD, Cancer, CVA, ARF, Chemo, Hep., AIDS, mental health diagnosis, sleep apnea, morbid obesity)? @ -None Was patient admitted / discharged? Hospital course, mention meds given and route, prescriptions, significant lab abnormalities, going to OR and other pertinent info. @ -88-year-old female presents emergency department with chest pain. Patient has multiple risk factors including history of coronary artery disease and coronary artery stents. Patient well-appearing at the bedside. Vital signs stable. EKG shows no signs of ischemia or infarction. Laboratory evaluation obtained. Troponin 0.022. Patient has history of elevated troponin. Patient be admitted observation consultation cardiology. Patient given aspirin and nitro. Undiagnosed new problem with uncertain prognosis? @ -No Drug Therapy requiring intensive monitoring for toxicity (Heparin, Nitro, Ins ulin, Cardizem)? @ -No Were any procedures done? @ -No Diagnosis/symptom? Acute, or Chronic, or Acute on Chronic? Uncomplicated (without systemic symptoms) or Complicated (systemic symptoms)? @ -Acute coronary syndrome Side effects of treatment? @ -No Exacerbation, Progression, or Severe Exacerbation? @ -No Poses a threat to life or bodily function? How? (Chest pain, [place], CO, pneumonia, PE, COPD, DKA, ARF, appy, cholecystitis, CVA, Diverticulitis, Homicidal, Suicidal, threat to staff... and all critical care pts) @ -yes - Lab Data Result diagrams: 11/13/23 00:50 11/13/23 00:50 Lab Results 11/13/23 11/13/23 11/13/23 Range/Units 00:50 00:50 00:50 WBC 8.7 (3.8-10.6) k/uL RBC 4.04 (3.80-5.40) m/uL Hgb 12.2 (11.4-16.0) gm/dL Hct 36.8 (34.0-46.0) % MCV 91.1 (80.0-100.0) fL MCH 30.1 (25.0-35.0) pg MCHC 33.0 (31.0-37.0) g/dL RDW 14.1 (11.5-15.5) % Plt Count 256 (150-450) k/uL MPV 8.5 Neutrophils % 74 % Lymphocytes % 14 % Monocytes % 5 % Eosinophils % 5 % Basophils % 0 % Neutrophils # 6.5 (1.3-7.7) k/uL Lymphocytes # 1.3 (1.0-4.8) k/uL Monocytes # 0.5 (0-1.0) k/uL Eosinophils # 0.4 (0-0.7) k/uL Basophils # 0.0 (0-0.2) k/uL PT 11.6 (10.0-12.5) sec INR 1.1 (<1.2) APTT 26.3 (22.0-30.0) sec Sodium 134 L (137-145) mmol/L Potassium 3.7 (3.5-5.1) mmol/L Chloride 106 (98-107) mmol/L Carbon Dioxide 18 L (22-30) mmol/L Anion Gap 10 mmol/L BUN 21 H (7-17) mg/dL Creatinine 1.18 H (0.52-1.04) mg/dL Est GFR (CKD-EPI)AfAm 48 (>60 ml/min/1.73 sqM) Est GFR (CKD-EPI)NonAf 41 (>60 ml/min/1.73 sqM) Glucose 125 H (74-99) mg/dL Calcium 8.8 (8.4-10.2) mg/dL Magnesium 1.4 L (1.6-2.3) mg/dL Total Bilirubin 0.7 (0.2-1.3) mg/dL AST 28 (14-36) U/L ALT 15 (4-34) U/L Alkaline Phosphatase 118 (38-126) U/L Troponin I (0.000-0.034) ng/mL Total Protein 5.9 L (6.3-8.2) g/dL Albumin 3.2 L (3.5-5.0) g/dL 11/13/23 Range/Units 00:50 WBC (3.8-10.6) k/uL RBC (3.80-5.40) m/uL Hgb (11.4-16.0) gm/dL Hct (34.0-46.0) % MCV (80.0-100.0) fL MCH (25.0-35.0) pg MCHC (31.0-37.0) g/dL RDW (11.5-15.5) % Plt Count (150-450) k/uL MPV Neutrophils % % Lymphocytes % % Monocytes % % Eosinophils % % Basophils % % Neutrophils # (1.3-7.7) k/uL Lymphocytes # (1.0-4.8) k/uL Monocytes # (0-1.0) k/uL Eosinophils # (0-0.7) k/uL Basophils # (0-0.2) k/uL PT (10.0-12.5) sec INR (<1.2) APTT (22.0-30.0) sec Sodium (137-145) mmol/L Potassium (3.5-5.1) mmol/L Chloride (98-107) mmol/L Carbon Dioxide (22-30) mmol/L Anion Gap mmol/L BUN (7-17) mg/dL Creatinine (0.52-1.04) mg/dL Est GFR (CKD-EPI)AfAm (>60 ml/min/1.73 sqM) Est GFR (CKD-EPI)NonAf (>60 ml/min/1.73 sqM) Glucose (74-99) mg/dL Calcium (8.4-10.2) mg/dL Magnesium (1.6-2.3) mg/dL Total Bilirubin (0.2-1.3) mg/dL AST (14-36) U/L ALT (4-34) U/L Alkaline Phosphatase (38-126) U/L Troponin I 0.022 (0.000-0.034) ng/mL Total Protein (6.3-8.2) g/dL Albumin (3.5-5.0) g/dL Disposition Clinical Impression: ACS (acute coronary syndrome) Disposition: ADMITTED IP TO THIS HOSP Condition: Fair Referrals: Leonardo Rodrigez Jr, [Primary Care Provider] - 1-2 days Decision Time: 02:36
[2023-11-13 01:06] LABS: Basophils % (A) 0 %; Eosinophils # (A) 0.4 k/uL (0-0.7); Eosinophils % (A) 5 %; HCT 36.8 % (34.0-46.0); HGB 12.2 gm/dL (11.4-16.0); Lymphocytes # (A) 1.3 k/uL (1.0-4.8); Lymphocytes % (A) 14 %; MCH 30.1 pg (25.0-35.0); MCV 91.1 fL (80.0-100.0); Mean Platelet Volume 8.5; Monocytes # (A) 0.5 k/uL (0-1.0); Monocytes % (A) 5 %; Neutrophils # (A) 6.5 k/uL (1.3-7.7); Neutrophils % (A) 74 %; Platelet Count 256 k/uL (150-450); RBC 4.04 m/uL (3.80-5.40); RDW 14.1 % (11.5-15.5); WBC 8.7 k/uL (3.8-10.6)
[2023-11-13 01:26] LABS: ALT 15 U/L (4-34); AST 28 U/L (14-36); African American GFR (CKD) 48 (>60 ml/min/1.73 sqM); Albumin 3.2 g/dL (3.5-5.0); Alkaline Phosphatase 118 U/L (38-126); Anion Gap 10 mmol/L; Blood Urea Nitrogen 21 mg/dL (7-17); Calcium 8.8 mg/dL (8.4-10.2); Carbon Dioxide 18 mmol/L (22-30); Chloride 106 mmol/L (98-107); Glucose 125 mg/dL (74-99); Magnesium 1.4 mg/dL (1.6-2.3); Non-African American GFR(CKD) 41 (>60 ml/min/1.73 sqM); Potassium 3.7 mmol/L (3.5-5.1); Sodium 134 mmol/L (137-145); Total Bilirubin 0.7 mg/dL (0.2-1.3); Total Protein 5.9 g/dL (6.3-8.2)
[2023-11-13 01:45] LABS: INR 1.1 (<1.2); Partial Thromboplastin Time 26.3 sec (22.0-30.0); Prothrombin Time 11.6 sec (10.0-12.5)
--- NOTE | 2023-11-13 02:14 | XR ---
EXAMINATION TYPE: XR chest 2V DATE OF EXAM: 11/13/2023 COMPARISON: Chest x-ray May 05, 2023 HISTORY: Chest pain TECHNIQUE: Frontal and lateral views of the chest are obtained. FINDINGS: Retrocardiac opacity consistent with large size hiatal hernia is redemonstrated. Osseous s tructures are demineralized. There is mild cardiomegaly with atherosclerotic thoracic aorta. There is chronic parenchymal change without suspicious new focal airspace opacity, pleural effusion, or pneum othorax seen bilaterally. IMPRESSION: Chronic changes and mild cardiomegaly without acute pulmonary process.
[2023-11-13] MEDS ORDERED: NITROGLYCERIN SL TABS 0.4 MG TAB SUBLINGUAL PRN ×2 (02:33→09:36)
[2023-11-13] MEDS ORDERED: Magnesium Replacement Protocol 1 EACH MISC MISCELLANE PRN (04:03)
[2023-11-13] MEDS: ACETAMINOPHEN TAB 325 MG TAB PO PRN (04:15)
[2023-11-13] MEDS: MAGNESIUM SULFATE-D5W PMX 1 GM in DEXTROSE/WATER 1 100ML.BAG IVPB SCH (04:17)
[2023-11-13] MEDS ORDERED: HEPARIN SODIUM 1,000 UN/ML (10ML VL) IV PRN (08:02)
[2023-11-13] MEDS: HEPARIN SOD,PORK IN 0.45% NACL 25,000 UNIT in 0.45% NACL 1 250ML.BAG IV SCH (08:59)
--- NOTE | 2023-11-13 09:24 | P.HPIM ---
History of Present Illness H&P Date: 11/13/23 Chief Complaint: chest pain shortness of breath this is a 88-year-old female well-known to my practice and known history of a large hiatal, has developed what she describes as chest pain with significant shortness of breath, and significant bipedal edema. First 2 troponins were elevated, this patient is usually quite stoic, however she scared both her son and daughter decision was made to bring her to the emergency room at [facility] , examination she is awake alert vital signs are stable patient is afebrile there is no chest pain she has a grade 3 systolic ejection murmur which is not new, and bipedal edema has resolved Review of Systems Constitutional: Reports as per HPI, Reports malaise, Reports weakness Ears, nose, mouth and throat: Reports as per HPI Cardiovascular: Reports chest pain, Reports decreased exercise tolerance, Reports edema, Reports high blood pressure (high blood pressure by history), Reports leg edema Respiratory: Reports as per HPI Gastrointestinal: Reports as per HPI Genitourinary: Reports stress incontinence Menstruation: Reports postmenopausal Integumentary: Reports as per HPI Neurological: Reports as per HPI Psychiatric: Reports as per HPI Past Medical History Past Medical History: Atrial Fibrillation, Coronary Artery Disease (CAD), Chest Pain / Angina, Hypertension, Myocardial Infarction ([place]), Pneumonia Additional Past Medical History / Comment(s): Bowel/bladder fistula; Bowel obstruction (due to adhesions); frequent urinary tract infection; Lichen sclerosis Last Myocardial Infarction Date:: 2011 History of Any Multi-Drug Resistant Organisms: None Reported Past Surgical History: Bladder Surgery, Bowel Resection, Cholecystectomy, Heart Catheterization With Stent, Hernia Repair Additional Past Surgical History / Comment(s): Cataract surgery bilateral Past Anesthesia/Blood Transfusion Reactions: No Reported Reaction Date of Last Stent Placement:: 2011 Past Psychological History: No Psychological Hx Reported Smoking Status: Never smoker Past Alcohol Use History: None Reported Past Drug Use History: None Reported - Past Family History Mother Family Medical History: CVA/TIA Father Family Medical History: Congestive Heart Failure (CHF) Medications and Allergies Home Medications Medication Instructions Recorded Confirmed Type Nitroglycerin Sl Tabs [Nitrostat] 0.4 mg SL Q5M PRN 11/11/22 04/28/23 History Apixaban [Eliquis] 2.5 mg PO DIRECTED 03/07/23 04/28/23 History Omeprazole 20 mg PO AC-BRKFST 03/09/23 04/28/23 History Acetaminophen Tab [Tylenol] 650 mg PO Q4H PRN tab 05/04/23 Rx Aspirin 81 mg PO DAILY tab 05/04/23 Rx Atorvastatin [Lipitor] 40 mg PO DAILY tab 05/04/23 Rx Cholestyramine (with Sugar) 4 gm PO TID BETWEEN MEALS packet 05/04/23 Rx [Questran Packet] Isosorbide Mononitrate ER [Imdur] 30 mg PO DAILY tab 05/04/23 Rx Losartan [Cozaar] 25 mg PO DAILY tab 05/04/23 Rx Melatonin 3 mg PO HS tab 05/04/23 Rx amLODIPine [Norvasc] 5 mg PO DAILY tab 05/04/23 Rx cefUROXime axetiL [Ceftin] 500 mg PO BID 10 Days #20 tab 05/04/23 Rx metroNIDAZOLE [Flagyl] 500 mg PO TID 10 Days #30 tab 05/04/23 Rx Furosemide [Lasix] 20 mg PO BID #60 tab 05/06/23 Rx Metoprolol Tartrate [Lopressor] 50 mg PO BID #60 tab 05/06/23 Rx Sodium Bicarbonate Tab 650 mg PO BID tab 05/06/23 Rx Allergies Allergy/AdvReac Type Severity Reaction Status Date / Time levofloxacin [From Levaquin] Allergy Unknown Verified 11/13/23 00:32 Penicillins Allergy Swelling Verified 11/13/23 00:32 of neck hydromorphone [From Dilaudid] AdvReac Altered Verified 11/13/23 00:32 Mental Status lorazepam [From Ativan] AdvReac Confusion Verified 11/13/23 00:32 Physical Exam Osteopathic Statement: *. No significant issues noted on an osteopathic structural exam other than those noted in the History and Physical/Consult. Vitals: Vital Signs Temp Pulse Pulse Resp BP Pulse Ox 11/13/23 07:53 62 20 135/69 95 11/13/23 06:35 62 16 134/71 92 L 11/13/23 05:00 69 16 135/92 93 L 11/13/23 03:58 58 L 16 135/92 95 11/13/23 03:00 80 16 113/82 93 L 11/13/23 01:32 86 18 137/91 93 L 11/13/23 00:41 18 11/13/23 00:39 87 11/13/23 00:32 97.7 F 66 16 103/70 94 L 11/13/23 00:23 92 16 103/70 93 L Intake and Output 11/12/23 11/13/23 11/13/23 22:59 06:59 14:59 Other: Weight 56.699 kg General: [Patient awake, alert and oriented times 3. Patient in no acute distress.] HEENT: [PERRL. EOMI. No pharyngeal erythema or exudate.] Neck: [No adenopathy.] Cardiac: [Heart regular in rate and rhythm. No S3. No S4. No clicks, rubs. No murmur.] Lungs: [Clear to auscultation bilaterally.] Abdomen: [No mass. No organomegaly. Bowel sounds presnt and normoactive in all 4 quadrants.] Extremes: [No edema no cyanosis no claudication normal pulses] : normal female genitalia Musculoskeletal: [No joint erythema, edema or tenderness.] Skin: [No rash.] Neurologic: [No lateralizing deficits. CN II - XII grossly intact.] Lymphatic: [No adenopathy.] Results CBC & Chem 7: 11/13/23 00:50 11/13/23 00:50 Labs: Abnormal Lab Results - Last 24 Hours (Table) 11/13/23 11/13/23 11/13/23 Range/Units 00:50 03:00 06:45 Sodium 134 L (137-145) mmol/L Carbon Dioxide 18 L (22-30) mmol/L BUN 21 H (7-17) mg/dL Creatinine 1.18 H (0.52-1.04) mg/dL Glucose 125 H (74-99) mg/dL Magnesium 1.4 L (1.6-2.3) mg/dL Troponin I 0.110 H* 0.143 H* (0.000-0.034) ng/mL Total Protein 5.9 L (6.3-8.2) g/dL Albumin 3.2 L (3.5-5.0) g/dL Thrombosis Risk Factor Assmnt - DVT/VTE Prophylaxis DVT/VTE Prophylaxis: Pharmacologic Prophylaxis ordered - Choose All That Apply Each Risk Factor Represents 3 Points: Age 75 years or older Thrombosis Risk Factor Assessment Total Risk Factor Score: 3 Thrombosis Risk Factor Assessment Level: Moderate Risk Assessment and Plan (1) ACS (acute coronary syndrome) Current Visit: Yes Status: Acute Code(s): I24.9 - ACUTE ISCHEMIC HEART DISEASE, UNSPECIFIED SNOMED Code(s): 216178979 (2) Aortic stenosis Current Visit: No Status: Acute Code(s): I35.0 - NONRHEUMATIC AORTIC (VALVE) STENOSIS SNOMED Code(s): 92878613 (3) CHF (congestive heart failure) Current Visit: No Status: Acute Code(s): I50.9 - HEART FAILURE, UNSPECIFIED SNOMED Code(s): 48382051 (4) Chest pain Current Visit: No Status: Acute Code(s): R07.9 - CHEST PAIN, UNSPECIFIED SNOMED Code(s): 19742388 (5) Essential (primary) hypertension Current Visit: No Status: Acute Code(s): I10 - ESSENTIAL (PRIMARY) HYPERTENSION SNOMED Code(s): 18847323 (6) Hiatal hernia with GERD Current Visit: No Status: Acute Code(s): K44.9 - DIAPHRAGMATIC HERNIA WITHOUT OBSTRUCTION OR GANGRENE; K21.9 - GASTRO-ESOPHAGEAL REFLUX DISEASE WITHOUT ESOPHAGITIS SNOMED Code(s): 040353217 (7) Mixed hyperlipidemia Current Visit: No Status: Acute Code(s): E78.2 - MIXED HYPERLIPIDEMIA SNOMED Code(s): 419043086 (8) Perforated diverticulum Current Visit: No Status: Acute Code(s): K57.80 - DVTRCLI OF INTEST, PART UNSP, W PERF AND ABSCESS W/O BLEED SNOMED Code(s): 55671112 Plan: this patient is to be admitted Chest pain with shortness of breath history of aortic stenosis Elevated troponins Cardiology consultation was performed Will obtain current echocardiogram Further evaluation pending cardiology Time with Patient: Greater than 30
--- NOTE | 2023-11-13 18:32 | P.CRDCN ---
History of Present Illness Consult date: 11/13/23 History of present illness: HISTORY OF PRESENTING ILLNESS 88-year-old female known to Dr. De Santiago presented to the hospital because of 2 days of not feeling well, nauseous. Also reported having substernal chest pressure-like symptoms. She does have prior history of hiatal hernia. ECG showed sinus rhythm with nonspecific ST changes CXR shows mild pulmonary congestion, large hiatal hernia, BP 127/73, heart rate 63 bpm, Hemoglobin 12.2, BUN 21, creatinine 1.18, troponin 0.02, 0.1, 0.14 REVIEW OF SYSTEMS 14 point review of system is negative except what is mentioned above in HPI. PHYSICAL EXAMINATION Vital signs reviewed. Head: Normocephalic. Eyes: Sclerae nonicteric. Neck: Brisk carotid upstroke, no jugular venous distention. Lungs: No crackles or rhonchi Heart: Regular rate and rhythm, S1-S2, no S3, systolic murmur out of. Abdomen: Soft nontender, positive bowel sounds. Extremities: Dependent edema, nonpitting, appears to be chronic Neuro: Alert, oritented, no focal deficits. Detailed neuro exam was not performed. ASSESSMENT Type II NSTEMI Substernal chest pain Nausea and vomiting Large hiatal hernia 4/6 systolic murmur, likely moderate aortic stenosis Prior history of CAD s/p PCI Essential hypertension Dyslipidemia PAD Last echo from February 2023 showed EF 5560%, moderate aortic stenosis, mild pulm hypertension, moderate mitral regurgitation Cath 2008, stenting of ostial RCA PLAN Start aspirin 81 mg, start IV heparin drip Lipitor Continue metoprolol 12.5 mg twice daily, amlodipine 2.5 mg daily Obtain echocardiogram Christian Pollock MD, FACC, RPVI Thank you for allowing [facility] to participate in this patient's care. Feel free to reach out in case of any followup questions. Past Medical History Past Medical History: Atrial Fibrillation, Coronary Artery Disease (CAD), Chest Pain / Angina, Hypertension, Myocardial Infarction ([place]), Pneumonia Additional Past Medical History / Comment(s): Bowel/bladder fistula; Bowel obstruction (due to adhesions); frequent urinary tract infection; Lichen sclerosis Last Myocardial Infarction Date:: 2011 History of Any Multi-Drug Resistant Organisms: None Reported Past Surgical History: Bladder Surgery, Bowel Resection, Cholecystectomy, Heart Catheterization With Stent, Hernia Repair Additional Past Surgical History / Comment(s): Cataract surgery bilateral Past Anesthesia/Blood Transfusion Reactions: No Reported Reaction Date of Last Stent Placement:: 2011 Past Psychological History: No Psychological Hx Reported Smoking Status: Never smoker Past Alcohol Use History: None Reported Past Drug Use History: None Reported - Past Family History Mother Family Medical History: CVA/TIA Father Family Medical History: Congestive Heart Failure (CHF) Medications and Allergies Home Medications Medication Instructions Recorded Confirmed Type Nitroglycerin Sl Tabs [Nitrostat] 0.4 mg SL Q5M PRN 11/11/22 11/13/23 History Apixaban [Eliquis] 2.5 mg PO BID 03/07/23 11/13/23 History Aspirin 81 mg PO DAILY tab 05/04/23 11/13/23 Rx Clobetasol Propionate [Temovate 1 applic TOPICAL BID 11/13/23 11/13/23 History 0.05% Cream] Escitalopram [Lexapro] 10 mg PO DAILY 11/13/23 11/13/23 History HYDROcodone/APAP 5-325MG [[place] 1 - 2 tab PO Q6HR PRN 11/13/23 11/13/23 History 5-325] Metoprolol Tartrate [Lopressor] 12.5 mg PO BID 11/13/23 11/13/23 History Oxybutynin ER [Ditropan XL] 10 mg PO DAILY 11/13/23 11/13/23 History Pravastatin Sodium [Pravachol] 10 mg PO DAILY 11/13/23 11/13/23 History Sulfamethox-Tmp 800-160Mg [Bactrim 1 tab PO DAILY 11/13/23 11/13/23 History DS 800-160 mg] amLODIPine [Norvasc] 2.5 mg PO DAILY 11/13/23 11/13/23 History hydroCHLOROthiazide [Hydrodiuril] 12.5 mg PO DAILY 11/13/23 11/13/23 History Allergies Allergy/AdvReac Type Severity Reaction Status Date / Time levofloxacin [From Levaquin] Allergy Unknown Verified 11/13/23 00:32 Penicillins Allergy Swelling Verified 11/13/23 00:32 of neck hydromorphone [From Dilaudid] AdvReac Altered Verified 11/13/23 00:32 Mental Status lorazepam [From Ativan] AdvReac Confusion Verified 11/13/23 00:32 Physical Exam Vitals: Vital Signs Temp Pulse Pulse Resp BP Pulse Ox 11/13/23 15:00 74 18 142/79 95 11/13/23 11:21 63 20 127/73 95 11/13/23 07:53 62 20 135/69 95 11/13/23 06:35 62 16 134/71 92 L 11/13/23 05:00 69 16 135/92 93 L 11/13/23 03:58 58 L 16 135/92 95 11/13/23 03:00 80 16 113/82 93 L 11/13/23 01:32 86 18 137/91 93 L 11/13/23 00:41 18 11/13/23 00:39 87 11/13/23 00:32 97.7 F 66 16 103/70 94 L 11/13/23 00:23 92 16 103/70 93 L Intake and Output 11/13/23 11/13/23 11/13/23 06:59 14:59 22:59 Other: Weight 56.699 kg Results 11/13/23 00:50 11/13/23 00:50 Cardiac Enzymes 11/13/23 11/13/23 11/13/23 Range/Units 00:50 00:50 03:00 AST 28 (14-36) U/L Troponin I 0.022 0.110 H* (0.000-0.034) ng/mL 11/13/23 Range/Units 06:45 AST (14-36) U/L Troponin I 0.143 H* (0.000-0.034) ng/mL Coagulation 11/13/23 11/13/23 Range/Units 00:50 14:43 PT 11.6 (10.0-12.5) sec APTT 26.3 51.4 H (22.0-30.0) sec CBC 11/13/23 Range/Units 00:50 WBC 8.7 (3.8-10.6) k/uL RBC 4.04 (3.80-5.40) m/uL Hgb 12.2 (11.4-16.0) gm/dL Hct 36.8 (34.0-46.0) % Plt Count 256 (150-450) k/uL Comprehensive Metabolic Panel 11/13/23 Range/Units 00:50 Sodium 134 L (137-145) mmol/L Potassium 3.7 (3.5-5.1) mmol/L Chloride 106 (98-107) mmol/L Carbon Dioxide 18 L (22-30) mmol/L BUN 21 H (7-17) mg/dL Creatinine 1.18 H (0.52-1.04) mg/dL Glucose 125 H (74-99) mg/dL Calcium 8.8 (8.4-10.2) mg/dL AST 28 (14-36) U/L ALT 15 (4-34) U/L Alkaline Phosphatase 118 (38-126) U/L Total Protein 5.9 L (6.3-8.2) g/dL Albumin 3.2 L (3.5-5.0) g/dL Current Medications Generic Name Dose Route Start Last Admin Trade Name Freq PRN Reason Stop Dose Admin Acetaminophen 650 mg 11/13/23 04:06 11/13/23 04:15 Acetaminophen Tab 325 Mg Tab PO 650 mg Q6HR PRN Administration Pain Control Hydrocodone Bitart/Acetaminophen 1 each 11/13/23 09:36 Hydrocodone/Apap 10-325mg 1 Each Tab PO Q6HR PRN Pain Amlodipine Besylate 2.5 mg 11/14/23 09:00 Amlodipine 2.5 Mg Tab PO DAILY [facility] Aspirin 81 mg 11/14/23 09:00 Aspirin 81 Mg PO DAILY [facility] Clobetasol Propionate 1 applic 11/13/23 21:00 Clobetasol Prop 0.05% Cr 15gm TOPICAL BID [facility] Protocol Escitalopram Oxalate 10 mg 11/14/23 09:00 Escitalopram 10 Mg Tab PO DAILY [facility] Heparin Sodium (Porcine) 0 unit 11/13/23 08:02 Heparin Sodium 1,000 Un/Ml (10ml Vl) IV PER PROTOCOL PRN Low PTT Protocol Hydrochlorothiazide 12.5 mg 11/14/23 09:00 Hydrochlorothiazide 12.5 Mg Cap PO DAILY [facility] Heparin Sodium/Sodium Chloride 250 mls @ 6.804 mls/hr 11/13/23 08:15 11/13/23 08:59 25,000 unit/ Sodium Chloride IV 12 units/kg/hr .Q24H JOSE ENRIQUE 6.804 mls/hr Administration Protocol 12 UNITS/KG/HR Metoprolol Tartrate 12.5 mg 11/13/23 21:00 Metoprolol Tartrate 12.5 Mg Tab PO BID JOSE ENRIQUE Miscellaneous Information 1 each 11/13/23 04:03 Magnesium Replacement Protocol 1 Each Misc MISCELLANE DAILY PRN Per Protocol Protocol Nitroglycerin 0.4 mg 11/13/23 09:36 Nitroglycerin Sl Tabs 0.4 Mg Tab SUBLINGUAL Q5M PRN Chest Pain Oxybutynin Chloride 10 mg 11/14/23 09:00 Oxybutynin 10 Mg Tab.Er.24 PO DAILY [facility] Pravastatin Sodium 10 mg 11/14/23 09:00 Pravastatin Sodium 20 Mg Tab PO DAILY [facility] Intake and Output 11/13/23 11/13/23 11/13/23 06:59 14:59 22:59 Other: Weight 56.699 kg 11/13/23 00:50 11/13/23 00:50
[2023-11-13] MEDS: ATORVASTATIN 20 MG TAB PO SCH (20:28)
[2023-11-13] MEDS: METOPROLOL TARTRATE 12.5 MG TAB PO SCH (20:28)
[2023-11-13] MEDS: CLOBETASOL PROP 0.05% CR 15GM TOPICAL SCH (21:07)
[2023-11-14 05:21] LABS: Basophils % (A) 0 %; Eosinophils # (A) 0.6 k/uL (0-0.7); Eosinophils % (A) 10 %; HCT 37.3 % (34.0-46.0); HGB 12.3 gm/dL (11.4-16.0); Lymphocytes # (A) 1.6 k/uL (1.0-4.8); Lymphocytes % (A) 24 %; MCH 30.6 pg (25.0-35.0); MCHC 32.9 g/dL (31.0-37.0); MCV 93.2 fL (80.0-100.0); Mean Platelet Volume 8.4; Monocytes # (A) 0.4 k/uL (0-1.0); Monocytes % (A) 5 %; Neutrophils % (A) 59 %; Platelet Count 245 k/uL (150-450); RBC 4.01 m/uL (3.80-5.40); RDW 14.3 % (11.5-15.5); WBC 6.7 k/uL (3.8-10.6)
[2023-11-14 05:54] LABS: Magnesium 1.8 mg/dL (1.6-2.3)
[2023-11-14] MEDS: ESCITALOPRAM 10 MG TAB PO SCH (08:36)
[2023-11-14] MEDS: ASPIRIN 81 MG PO SCH (08:36)
[2023-11-14] MEDS: HYDROcodone/APAP 10-325MG 1 EACH TAB PO PRN (08:37)
[2023-11-14] MEDS: amLODIPine 2.5 MG TAB PO SCH (08:37)
[2023-11-14] MEDS: hydroCHLOROthiazide 12.5 MG CAP PO SCH (08:48)
[2023-11-14] MEDS: OXYBUTYNIN 10 MG TAB.ER.24 PO SCH (08:48)
[2023-11-14] MEDS ORDERED: PRAVASTATIN SODIUM 20 MG TAB PO SCH (09:00)
[2023-11-14] MEDS ORDERED: ASPIRIN 325 MG TAB PO SCH (09:00)
[2023-11-14 09:47] LABS: Chol/HDL Ratio 4.14 Ratio; LDL Cholesterol,Calculated 78.2 mg/dL (0.0-131.0)
--- NOTE | 2023-11-14 11:51 | P.PN ---
Subjective Progress Note Date: 11/14/23 Principal diagnosis: NSTEMI type II examined patient at bedside today in the emergency room, no complaints of chest pain no bipedal edema currently on heparin echocardiogram pending Objective - Vital Signs Vital signs: Vital Signs Temp 98.2 F 11/14/23 10:10 Pulse 54 L 11/14/23 11:00 Resp 16 11/14/23 11:00 BP 97/52 11/14/23 11:00 Pulse Ox 95 11/14/23 11:00 FiO2 Intake & Output 11/13/23 11/14/23 11/14/23 18:59 06:59 18:59 Intake Total 157.853 Balance 157.853 Intake: Intake, IV Titration 157.853 Amount Heparin Sod,Pork in 0.45% 157.853 NaCl 25,000 unit In 0.45 % NaCl 1 250ml.bag @ 12 UNITS/KG/HR 6.804 mls/hr IV .Q24H [facility] Rx#: [id number] - Exam General: [Patient awake, alert and oriented times 3. Patient in no acute distress.] HEENT: [PERRL. EOMI. No pharyngeal erythema or exudate.] Neck: [No adenopathy.] Cardiac: [Heart regular in rate and rhythm. No S3. No S4. No clicks, rubs. No murmur.] Lungs: [Clear to auscultation bilaterally.] Abdomen: [No mass. No organomegaly. Bowel sounds presnt and normoactive in all 4 quadrants.] Extremes: [No edema no cyanosis no claudication normal pulses, significant onychomycosis bilateral feet all 10 toes : normal female genitalia Musculoskeletal: [No joint erythema, edema or tenderness.] Skin: [No rash.] Neurologic: [No lateralizing deficits. CN II - XII grossly intact.] Lymphatic: [No adenopathy.] - Labs CBC & Chem 7: 11/14/23 04:55 11/13/23 00:50 Labs: Abnormal Lab Results - Last 24 Hours (Table) 11/13/23 11/14/23 11/14/23 Range/Units 14:43 04:55 04:55 APTT 51.4 H 53.0 H (22.0-30.0) sec Triglycerides 155.00 H (0.00-149.00) mg/dL HDL Cholesterol 34.80 L (40.00-60.00) mg/dL Assessment and Plan (1) ACS (acute coronary syndrome) Current Visit: Yes Status: Acute Code(s): I24.9 - ACUTE ISCHEMIC HEART DISEASE, UNSPECIFIED SNOMED Code(s): 674435448 (2) Aortic stenosis Current Visit: No Status: Acute Code(s): I35.0 - NONRHEUMATIC AORTIC (VALVE) STENOSIS SNOMED Code(s): 69555332 (3) CHF (congestive heart failure) Current Visit: No Status: Acute Code(s): I50.9 - HEART FAILURE, UNSPECIFIED SNOMED Code(s): 77571223 (4) Chest pain Current Visit: No Status: Acute Code(s): R07.9 - CHEST PAIN, UNSPECIFIED SNOMED Code(s): 83984170 (5) Essential (primary) hypertension Current Visit: No Status: Acute Code(s): I10 - ESSENTIAL (PRIMARY) HYPERTENSION SNOMED Code(s): 54982669 (6) Hiatal hernia with GERD Current Visit: No Status: Acute Code(s): K44.9 - DIAPHRAGMATIC HERNIA WITHO UT OBSTRUCTION OR GANGRENE; K21.9 - GASTRO-ESOPHAGEAL REFLUX DISEASE WITHOUT ESOPHAGITIS SNOMED Code(s): 178610366 (7) Mixed hyperlipidemia Current Visit: No Status: Acute Code(s): E78.2 - MIXED HYPERLIPIDEMIA SNOMED Code(s): 552895748 (8) Perforated diverticulum Current Visit: No Status: Acute Code(s): K57.80 - DVTRCLI OF INTEST, PART UNSP, W PERF AND ABSCESS W/O BLEED SNOMED Code(s): 43204843 Plan: this patient is to be admitted Chest pain with shortness of breath history of aortic stenosis Elevated troponins N STEMI type II echo pending Further evaluation pending cardiology Time with Patient: Greater than 30
--- NOTE | 2023-11-14 16:50 | P.PN ---
Subjective Progress Note Date: 11/14/23 HISTORY OF PRESENTING ILLNESS 88-year-old female known to Dr. De Santiago presented to the hospital because of 2 days of not feeling well, nauseous. Also reported having substernal chest pressure-like symptoms. She does have prior history of hiatal hernia. ECG showed sinus rhythm with nonspecific ST changes CXR shows mild pulmonary congestion, large hiatal hernia, BP 127/73, heart rate 63 bpm, Hemoglobin 12.2, BUN 21, creatinine 1.18, troponin 0.02, 0.1, 0.14 Progress note 11/14/2023 Patient denies having any active chest pain chest pressure. She reports shortness of breath nausea is better as compared to admission. Hemodynamically stable. REVIEW OF SYSTEMS 14 point review of system is negative except what is mentioned above in HPI. PHYSICAL EXAMINATION Vital signs reviewed. Head: Normocephalic. Eyes: Sclerae nonicteric. Neck: Brisk carotid upstroke, no jugular venous distention. Lungs: No crackles or rhonchi Heart: Regular rate and rhythm, S1-S2, no S3, systolic murmur out of. Abdomen: Soft nontender, positive bowel sounds. Extremities: Dependent edema, nonpitting, appears to be chronic Neuro: Alert, oritented, no focal deficits. Detailed neuro exam was not performed. ASSESSMENT Type II NSTEMI Substernal chest pain Nausea and vomiting Large hiatal hernia 4/6 systolic murmur, likely moderate aortic stenosis Prior history of CAD s/p PCI Essential hypertension Dyslipidemia PAD Last echo from February 2023 showed EF 5560%, moderate aortic stenosis, mild pulm hypertension, moderate mitral regurgitation Cath 2008, stenting of ostial RCA PLAN Start aspirin 81 mg, start IV heparin drip. Discontinue IV heparin tomorrow as she will complete 48 hours of IV heparin drip Lipitor Continue metoprolol 12.5 mg twice daily, amlodipine 2.5 mg daily Obtain echocardiogram Objective - Vital Signs Vital signs: Vital Signs Temp 98.1 F 11/14/23 13:58 Pulse 53 L 11/14/23 13:58 Resp 18 11/14/23 13:58 BP 111/67 11/14/23 13:58 Pulse Ox 95 11/14/23 13:58 FiO2 Intake & Output 11/13/23 11/14/23 11/14/23 18:59 06:59 18:59 Intake Total 167.853 Balance 167.853 Weight 56.699 kg Intake: IV 10 Invasive Line 1 10 Intake, IV Titration 157.853 Amount Heparin Sod,Pork in 0.45% 157.853 NaCl 25,000 unit In 0.45 % NaCl 1 250ml.bag @ 12 UNITS/KG/HR 6.804 mls/hr IV .Q24H [facility] Rx#: [id number] Other: Voiding Method Diaper External Catheter - Labs CBC & Chem 7: 11/14/23 04:55 11/13/23 00:50 Labs: Abnormal Lab Results - Last 24 Hours (Table) 11/14/23 11/14/23 Range/Units 04:55 04:55 APTT 53.0 H (22.0-30.0) sec Triglycerides 155.00 H (0.00-149.00) mg/dL HDL Cholesterol 34.80 L (40.00-60.00) mg/dL
--- NOTE | 2023-11-15 12:51 | CA ---
Transthoracic Echo Report Name: Marsha Ramirez Age: 88 Gender: F : 1935 Exam Date: 11/15/2023 09:36 Exam Location: [place] [facility] Ht (in): 62 Wt (lb): 120 Ordering Physician: Christian Pollock MD ([email or web address]) Attending/Referring Phys: Rag Boiler Elissa Silver RDCS Procedure CPT: Indications: aortic stenosis Cardiac Hx: Technical Quality: Good Contrast 1: Total Dose (mL): 55 Contrast 2: Total Dose (mL): MEASUREMENTS (Male / Female) Normal Values 2D ECHO LV Diastolic Diameter PLAX 3.9 cm 4.2 - 5.9 / 3.9 - 5.3 cm LV Systolic Diameter PLAX 2.7 cm IVS Diastolic Thickness 0.8 cm 0.6 - 1.0 / 0.6 - 0.9 cm LVPW Diastolic Thickness 0.9 cm 0.6 - 1.0 / 0.6 - 0.9 cm LV Relative Wall Thickness 0.4 RV Internal Dim ED PLAX 1.7 cm LVOT Diameter 1.8 cm LA Systolic Diameter LX 5.0 cm 3.0 - 4.0 / 2.7 - 3.8 cm LV Diastolic Volume MOD BP 44.4 cm??? 67 - 155 / 56 - 104 cm??? LV Systolic Volume MOD BP 17.1 cm??? 22 - 58 / 19 - 49 cm??? LV Ejection Fraction MOD BP 61.4 % >= 55 % LV Diastolic Volume MOD 4C 44.3 cm??? LV Systolic Volume MOD 4C 10.4 cm??? LV Ejection Fraction MOD 4C 76.6 % LV Diastolic Length 4C 7.8 cm LV Systolic Length 4C 2.5 cm LV Diastolic Volume MOD 2C 37.1 cm??? LV Systolic Volume MOD 2C 14.0 cm??? LV Ejection Fraction MOD 2C 62.3 % LV Diastolic Length 2C 6.4 cm LV Systolic Length 2C 5.3 cm M-MODE Aortic Root Diameter MM 2.4 cm LA Systolic Diameter MM 6.4 cm LA Ao Ratio MM 2.7 DOPPLER AV Peak Velocity 400.0 cm/s AV Peak Gradient 64.0 mmHg AV Mean Velocity 291.0 cm/s AV Mean Gradient 37.2 mmHg AV Velocity Time Integral 110.6 cm AI Peak Velocity 501.3 cm/s AI Peak Gradient 100.5 mmHg AI Pressure Half Time 526.8 ms LVOT Peak Velocity 38.7 cm/s LVOT Peak Gradient 0.6 mmHg LVOT Velocity Time Integral 23.2 cm LVOT Stroke Volume 56.8 cm??? LVOT Stroke Volume Index 36.9 ml/m??? AV Area Cont Eq vti 0.5 cm??? AV Area Cont Eq pk 0.2 cm??? Mitral E Point Velocity 93.4 cm/s Mitral A Point Velocity 54.6 cm/s Mitral E to A Ratio 1.7 MV Deceleration Time 256.8 ms MV E' Velocity 5.1 cm/s Mitral E to MV E' Ratio 18.2 TR Peak Velocity 297.6 cm/s TR Peak Gradient 35.4 mmHg Right Ventricular Systolic Press 45.4 mmHg FINDINGS Left Ventricle Left ventricular ejection fraction is estimated at 60-65%. Normal left ventricular systolic function with no obvious regional wall motion abnormalities. Left ventricular cavity size normal. Right Ventricle Normal right ventricular size and function. Mild pulmonary hypertension. Right Atrium Mild right atrial dilatation. Left Atrium Severely increased left atrial diameter. Mitral Valve Structurally normal mitral valve. Mild to moderate mitral regurgitation. Mitral annular calcification. Aortic Valve Severe aortic stenosis with a peak velocity of 4m/s, peak gradient 64 mmHg, mean gradient 37 mmHg. Mild aortic regurgitation. Tricuspid Valve Structurally normal tricuspid valve. Mild tricuspid regurgitation. Pulmonic Valve Structurally normal pulmonic valve. Trace pulmonic regurgitation. No pulmonic stenosis. Pericardium No pericardial or pleural effusion. Aorta Normal size aortic root and proximal ascending aorta. CONCLUSIONS Left ventricular ejection fraction 60-65% RVSP 45 Moderate to severely dilated left atrium Mild to moderate mitral regurgitation Severe aortic stenosis with a maximum velocity 4.2 m/s Mild aortic regurgitation Mild tricuspid regurgitation Previewed by: Dr. Van Elkins DO (Electronically Signed) Final Date: 15 Nov 2023 12:49
--- NOTE | 2023-11-15 13:15 | P.PN ---
Subjective Progress Note Date: 11/15/23 HISTORY OF PRESENTING ILLNESS 88-year-old female known to Dr. De Santiago presented to the hospital because of 2 days of not feeling well, nauseous. Also reported having substernal chest pressure-like symptoms. She does have prior history of hiatal hernia. ECG showed sinus rhythm with nonspecific ST changes CXR shows mild pulmonary congestion, large hiatal hernia, BP 127/73, heart rate 63 bpm, Hemoglobin 12.2, BUN 21, creatinine 1.18, troponin 0.02, 0.1, 0.14 Last echo from February 2023 showed EF 55-60%, moderate aortic stenosis, mild pulm hypertension, moderate mitral regurgitation Cath 2008, stenting of ostial RCA 11/14/2023 Patient denies having any active chest pain chest pressure. She reports shortness of breath nausea is better as compared to admission. Hemodynamically stable. 11/14 Patient has been maintained on heparin drip now at 48 hours. Blood pressure 132/76, heart rate 58, pulse ox 95% on room air. Patient has significant confusion this morning and thinks that she has at home. She denies having any chest pain and no shortness of breath. Echocardiogram reveals EF 60 to 65%, moderate to severely dilated left atrium, RVSP 45, mild to moderate mitral regurgitation, severe aortic stenosis with maximum velocity 4.2M/S. Mild aortic regurgitation. Mild tricuspid regurgitation. PHYSICAL EXAMINATION Vital signs reviewed. Head: Normocephalic. Eyes: Sclerae nonicteric. Neck: Brisk carotid upstroke, no jugular venous distention. Lungs: No crackles or rhonchi Heart: Regular rate and rhythm, S1-S2, no S3, systolic murmur 4/6. Abdomen: Soft nontender, positive bowel sounds. Extremities: Dependent edema, nonpitting, appears to be chronic Neuro: Alert, oritented, no focal deficits. Detailed neuro exam was not performed. ASSESSMENT Type II NSTEMI Substernal chest pain Nausea and vomiting Large hiatal hernia 4/6 systolic murmur, moderate aortic stenosis Prior history of CAD s/p PCI Essential hypertension Dyslipidemia PAD Confusion PLAN Continue patient on aspirin 81 mg, atorvastatin, amlodipine, hydrochlorothiazide, Lopressor, Nitrostat Discontinue IV heparin No further cardiac workup is planned at this time. At the time of discharge, patient will follow-up with Dr. De Santiago in the office. Nurse practitioner note has been reviewed, I agree with documented findings and plan of care. Patient was seen and examined. Objective - Vital Signs Vital signs: Vital Signs Temp 97.6 F 11/15/23 04:00 Pulse 58 L 11/15/23 04:00 Resp 16 11/15/23 04:00 BP 132/76 11/15/23 04:00 Pulse Ox 95 11/15/23 04:00 FiO2 Intake & Output 11/14/23 11/15/23 11/15/23 18:59 06:59 18:59 Intake Total 347.853 Output Total 200 1150 Balance 147.853 -1150 Weight 56.699 kg Intake: IV 10 Invasive Line 1 10 Intake, IV Titration 157.853 Amount Heparin Sod,Pork in 0.45% 157.853 NaCl 25,000 unit In 0.45 % NaCl 1 250ml.bag @ 12 UNITS/KG/HR 6.804 mls/hr IV .Q24H [facility] Rx#: [id number] Oral 180 Output: Urine 200 1150 Other: Voiding Method Diaper Diaper External Catheter External Catheter - Labs CBC & Chem 7: 11/14/23 04:55 11/13/23 00:50 Labs: Abnormal Lab Results - Last 24 Hours (Table) 11/14/23 Range/Units 04:55 Triglycerides 155.00 H (0.00-149.00) mg/dL HDL Cholesterol 34.80 L (40.00-60.00) mg/dL
--- NOTE | 2023-11-15 14:02 | P.PN ---
Subjective Patient 88-year-old female well-known the office. She was admitted with chest pains abnormal troponins. She seen cardiology was diagnosed with an NSTEMI 2. She is now resting comfortably on the floor. She has been on IV heparin 48 hours and recently discontinued. A 2D echo was ordered showing her ejection fraction 60 to 65% with moderate to severe dilated left atrium mild to moderate mitral regurg severe aortic stenosis. Cardiology has cleared her with no plan further cardiac workup but remember to continue aspirin atorvastatin amlodipine hydrochlorothiazide Lopressor Nitrostat. Today when seen patient is awake alert her son and grandson are at bedside. She complains of some weakness. Nursing indicates they got her up with her walker which she usually uses, but her legs gave out right away. She has a bedside commode but has not been able to get to it at this time. She denies any current chest pains pressure shortness of breath nausea or vomiting. She is tolerating regular diet Objective - Vital Signs Vital signs: Vital Signs Temp 97.7 F 11/15/23 12:05 Pulse 59 L 11/15/23 12:05 Resp 16 11/15/23 12:05 BP 133/83 11/15/23 12:05 Pulse Ox 95 11/15/23 12:05 FiO2 Intake & Output 11/14/23 11/15/23 11/15/23 18:59 06:59 18:59 Intake Total 347.853 360 Output Total 200 1150 Balance 147.853 -1150 360 Weight 56.699 kg Intake: IV 10 Invasive Line 1 10 Intake, IV Titration 157.853 Amount Heparin Sod,Pork in 0.45% 157.853 NaCl 25,000 unit In 0.45 % NaCl 1 250ml.bag @ 12 UNITS/KG/HR 6.804 mls/hr IV .Q24H [facility] Rx#: [id number] Oral 180 360 Output: Urine 200 1150 Other: Voiding Method Diaper Diaper Diaper External Catheter External Catheter External Catheter - Exam General: The patient is awake and alert, in no distress, resting comfortably in bed. Elderly female Neck: The neck is supple, there is no thyromegaly, lymphadenopathy, tenderness or JVD. Cardiovascular: S1S2 is normal, There is a regular rate and rhythm. No , rub or gallop is appreciated. 1/6 systolic ejection murmur at the right sternal border Respiratory: Lungs are clear to auscultation bilaterally, respirations are non-labored, breath sounds are equal. Gastrointestinal: Soft, non-distended, non-tender abdomen without masses or organomegaly noted. There is no rebound or guarding present. Bowel sounds are unremarkable. Musculoskeletal: Normal ROM, no tenderness, There is +1 pedal edema. There is no calf tenderness or swelling. No cords were appreciated. Neurological: CN II-XII intact, there are no obvious motor or sensory deficits. Coordination appears grossly intact. Speech is normal. Skin: Skin is warm and dry and no rashes or lesions are noted. - Labs CBC & Chem 7: 11/14/23 04:55 11/13/23 00:50 Assessment and Plan (1) Hiatal hernia Current Visit: Yes Status: Acute Code(s): K44.9 - DIAPHRAGMATIC HERNIA WITHOUT OBSTRUCTION OR GANGRENE SNOMED Code(s): 47672883 (2) CAD (coronary artery disease) Current Visit: Yes Status: Acute Code(s): I25.10 - ATHSCL HEART DISEASE OF [place] CORONARY ARTERY W/O ANG PCTRS SNOMED Code(s): 15840606 (3) ACS (acute coronary syndrome) Current Visit: Yes Status: Acute Code(s): I24.9 - ACUTE ISCHEMIC HEART DISEASE, UNSPECIFIED SNOMED Code(s): 509306715 (4) NSTEMI (non-ST elevated myocardial infarction) Current Visit: Yes Status: Acute Code(s): I21.4 - NON-ST ELEVATION (NSTEMI) MYOCARDIAL INFARCTION SNOMED Code(s): 28654513 (5) Aortic stenosis Current Visit: No Status: Acute Code(s): I35.0 - NONRHEUMATIC AORTIC (VALVE) STENOSIS SNOMED Code(s): 69552893 (6) Essential (primary) hypertension Current Visit: No Status: Acute Code(s): I10 - ESSENTIAL (PRIMARY) HYPERTENSION SNOMED Code(s): 07154291 (7) Mixed hyperlipidemia Current Visit: No Status: Acute Code(s): E78.2 - MIXED HYPERLIPIDEMIA SNOMED Code(s): 133070008 (8) Debility Current Visit: Yes Status: Acute Code(s): R53.81 - OTHER [place] SNOMED Code(s): 34778847 (9) Senile debility Current Visit: Yes Status: Acute Code(s): R54 - AGE-RELATED PHYSICAL DEBILITY SNOMED Code(s): 75935164 Plan: It is obvious that patient has grown weaker after being hospitalized for several days. Will have her evaluated by physical therapy and plan on ECF for her. She will most likely need a 1 to 2-week stay to regain her strength before returning home with home care. Her son does live with her and would help care for her. Will reevaluate in the next 24 hours.
[2023-11-15] MEDS: APIXABAN 2.5 MG TABLET PO SCH (20:23)
[2023-11-15] MEDS: HALOPERIDOL LACTATE 5 MG/ML 1 ML VIAL IM STA (23:27)
[2023-11-16 10:39] VITALS: TEMP 97.4
--- NOTE | 2023-11-16 11:11 | P.PN ---
Subjective Progress Note Date: 11/16/23 HISTORY OF PRESENTING ILLNESS 88-year-old female known to Dr. De Santiago presented to the hospital because of 2 days of not feeling well, nauseous. Also reported having substernal chest pressure-like symptoms. She does have prior history of hiatal hernia. ECG showed sinus rhythm with nonspecific ST changes CXR shows mild pulmonary congestion, large hiatal hernia, BP 127/73, heart rate 63 bpm, Hemoglobin 12.2, BUN 21, creatinine 1.18, troponin 0.02, 0.1, 0.14 Last echo from February 2023 showed EF 55-60%, moderate aortic stenosis, mild pulm hypertension, moderate mitral regurgitation Cath 2008, stenting of ostial RCA 11/14/2023 Patient denies having any active chest pain chest pressure. She reports shortness of breath nausea is better as compared to admission. Hemodynamically stable. 11/14 Patient has been maintained on heparin drip now at 48 hours. Blood pressure 132/76, heart rate 58, pulse ox 95% on room air. Patient has significant confusion this morning and thinks that she has at home. She denies having any chest pain and no shortness of breath. Echocardiogram reveals EF 60 to 65%, moderate to severely dilated left atrium, RVSP 45, mild to moderate mitral regurgitation, severe aortic stenosis with maximum velocity 4.2M/S. Mild aortic regurgitation. Mild tricuspid regurgitation. 11/15 Patient denies having any chest pain, no nausea or vomiting. She states she feels a little lightheaded. IV heparin was discontinued yesterday. She has been maintained on appropriate cardiac medications. Blood pressure 196/60, heart rate 56, pulse ox 93% on room air. PHYSICAL EXAMINATION Vital signs reviewed. Head: Normocephalic. Eyes: Sclerae nonicteric. Neck: Brisk carotid upstroke, no jugular venous distention. Lungs: No crackles or rhonchi Heart: Regular rate and rhythm, S1-S2, no S3, systolic murmur 4/6. Abdomen: Soft nontender, positive bowel sounds. Extremities: Dependent edema, nonpitting, appears to be chronic Neuro: Alert, oritented, no focal deficits. Detailed neuro exam was not performed. ASSESSMENT Type II NSTEMI Substernal chest pain Nausea and vomiting Large hiatal hernia 4/6 systolic murmur, moderate aortic stenosis Prior history of CAD s/p PCI Essential hypertension Dyslipidemia PAD Confusion PLAN Continue patient on aspirin 81 mg, atorvastatin, amlodipine, hydrochlorothiazide, Lopressor, Nitrostat No further cardiac workup is planned at this time. Patient is cleared from cardiology for discharge and may follow-up with Dr. De Santiago in the office in 1 week. Nurse practitioner note has been reviewed, I agree with documented findings and plan of care. Patient was seen and examined. Objective - Vital Signs Vital signs: Vital Signs Temp 97.1 F L 11/15/23 20:00 Pulse 57 L 11/16/23 06:30 Resp 16 11/16/23 06:30 BP 135/65 11/16/23 06:30 Pulse Ox 95 11/16/23 06:30 FiO2 Intake & Output 11/15/23 11/16/23 11/16/23 18:59 06:59 18:59 Intake Total 540 Balance 540 Intake: Oral 540 Other: Voiding Method Diaper Toilet External Catheter Diaper # Voids 1 1 1 # Bowel Movements 1 1 - Labs CBC & Chem 7: 11/14/23 04:55 11/13/23 00:50
[2023-11-16 13:31] VITALS: BP 110/62; PULSE 50; RESP 17
--- NOTE | 2023-11-16 13:52 | P.DS ---
Providers Date of admission: 11/13/23 02:33 Expected date of discharge: 11/16/23 Attending physician: Leonardo Rodrigez Consults: 11/13/23 02:33 Consult Physician Urgent Consulting Provider: Christian Pollock Consult Reason/Comments: chest pain Do you want consulting provider notified?: Yes Primary care physician: Leonardo Rodrigez - Discharge Diagnosis(es) (1) Hiatal hernia Current Visit: Yes Status: Acute (2) CAD (coronary artery disease) Current Visit: Yes Status: Acute (3) ACS (acute coronary syndrome) Current Visit: Yes Status: Acute (4) NSTEMI (non-ST elevated myocardial infarction) Current Visit: Yes Status: Acute (5) Aortic stenosis Current Visit: No Status: Acute (6) Essential (primary) hypertension Current Visit: No Status: Acute (7) Mixed hyperlipidemia Current Visit: No Status: Acute (8) Debility Current Visit: Yes Status: Acute (9) Senile debility Current Visit: Yes Status: Acute Hospital Course: Patient 88-year-old female well-known the office. She was admitted with chest pains abnormal troponins. She seen cardiology was diagnosed with an NSTEMI 2. She is now resting comfortably on the floor. She has been on IV heparin 48 hours and recently discontinued. A 2D echo was ordered showing her ejection fraction 60 to 65% with moderate to severe dilated left atrium mild to moderate mitral regurg severe aortic stenosis. Cardiology has cleared her with no plan further cardiac workup but remember to continue aspirin atorvastatin amlodipine hydrochlorothiazide Lopressor Nitrostat. Today when seen patient is awake alert her son and grandson are at bedside. She complains of some weakness. Nursing indicates they got her up with her walker which she usually uses, but her legs gave out right away. She has a bedside commode but has not been able to get to it at this time. She denies any current chest pains pressure shortness of breath nausea or vomiting. She is tolerating regular diet 11/16/23: Patient doing well has been followed by cardiology is now cleared for discharge. She is admitted for acute myocardial infarction, NSTEMI 2 ongoing medical management has ordered by them.. She will follow-up with cardiology yfn PCP soon. Patient Condition at Discharge: Fair Plan - Discharge Summary Discharge Rx Participant: No New Discharge Prescriptions: Continue Aspirin 81 mg PO DAILY tab Clobetasol Propionate [Temovate 0.05% Cream] 1 applic TOPICAL BID Escitalopram [Lexapro] 10 mg PO DAILY hydroCHLOROthiazide [Hydrodiuril] 12.5 mg PO DAILY Metoprolol Tartrate [Lopressor] 12.5 mg PO BID Pravastatin Sodium [Pravachol] 10 mg PO DAILY Sulfamethox-Tmp 800-160Mg [Bactrim DS 800-160 mg] 1 tab PO DAILY Nitroglycerin Sl Tabs [Nitrostat] 0.4 mg SL Q5M PRN PRN Reason: Chest Pain Apixaban [Eliquis] 2.5 mg PO BID amLODIPine [Norvasc] 2.5 mg PO DAILY HYDROcodone/APAP 5-325MG [[place] 5-325] 1 - 2 tab PO Q6HR PRN PRN Reason: Pain Oxybutynin ER [Ditropan XL] 10 mg PO DAILY Discharge Medication List Nitroglycerin Sl Tabs [Nitrostat] 0.4 mg SL Q5M PRN 11/11/22 [History] Apixaban [Eliquis] 2.5 mg PO BID 03/07/23 [History] Aspirin 81 mg PO DAILY tab 05/04/23 [Rx] Clobetasol Propionate [Temovate 0.05% Cream] 1 applic TOPICAL BID 11/13/23 [His tory] Escitalopram [Lexapro] 10 mg PO DAILY 11/13/23 [History] HYDROcodone/APAP 5-325MG [[place] 5-325] 1 - 2 tab PO Q6HR PRN 11/13/23 [History] Metoprolol Tartrate [Lopressor] 12.5 mg PO BID 11/13/23 [History] Oxybutynin ER [Ditropan XL] 10 mg PO DAILY 11/13/23 [History] Pravastatin Sodium [Pravachol] 10 mg PO DAILY 11/13/23 [History] Sulfamethox-Tmp 800-160Mg [Bactrim DS 800-160 mg] 1 tab PO DAILY 11/13/23 [History] amLODIPine [Norvasc] 2.5 mg PO DAILY 11/13/23 [History] hydroCHLOROthiazide [Hydrodiuril] 12.5 mg PO DAILY 11/13/23 [History] Follow up Appointment(s)/Referral(s): [facility], [NON-STAFF] - Joselyn De Santiago MD [STAFF PHYSICIAN] - 1 Week Leonardo Rodrigez Jr, DO [Primary Care Provider] - 1-2 days Discharge Disposition: HOME WITH HOME HEALTH SERVICES
--- NOTE | 2023-11-17 19:22 | CDI ---
Documentation Clarification Form Date: 11/17/2023 07:09:20 PM From: Madeleine Mccoy Phone: Admit Date: 11/13/2023 02:33:00 AM Patient Name: Marsha Ramirez Visit Number: [id number] Discharge Date: 11/16/2023 02:38:00 PM ATTENTION: The Clinical Documentation Specialists (CDI) and [facility] Coding Staff appreciate your assistance in clarifying documentation. Please respond to the clarification below the line at the bottom and electronically sign. The CDI & [facility] Coding staff will review the response and follow-up if needed. Please note: Queries are made part of the Legal Health Record. If you have any questions, please contact the author of this message via ITS. Dr. Leonardo Rodrigez Your patient has the documented diagnosis of unspecified CHF ED Note and following notes. Additional information regarding the type of CHF is requested. History/Risk Factors: 88yo F, NSTEMI II, hiatal hernia, , MR, TR, Hx CADs/p PCI, HTN, HLD, PAD, confusion Clinical Indicators: VS/Pulse OX: 94-93 Echocardiogram Results: LV ejection fraction 60-65%, Moderate to severelydilatedleft atrium. Mild to moderateMR, /AR, TR Chest x ray: Retrocardiacopacityconsistent with large sizehiatal herniais redemonstrated. Osseous structures are demineralized. There is mildcardiomegaly withatheroscleroticthoracic aorta. There is chronic parenchymal changewithout suspicious new focal airspaceopacity,pleural effusion, orpneumothoraxseen bilaterally. Treatment: monitored In your professional opinion, can you please clarify the type of CHF if known? [ x ] Acute on Chronic Systolic Heart Failure (reduced EF) [ ] Acute on Chronic Diastolic Heart Failure (preserved EF) [ ] Acute on Chronic Heart Failure Systolic & Diastolic Heart Failure [ ] Other, please specify [ ] Unable to determine (Template Last Revised: July 2020) MTDD
== END 2023-11-16 14:38 | disposition home health service (06) | DRG 280 ==
LOC: EC 00:18 → OBSVTOIN 02:33 → 6NMEDSUR 02:33 → 3SCARD 05:17
PROVIDERS: ADMIT Family Medicine; ATTEND Family Medicine
DX: I25.119 Atherosclerotic heart disease of native coronary artery with unspecified angina pectoris (principal); I50.23 Acute on chronic systolic (congestive) heart failure; I21.A1 Myocardial infarction type 2; K57.80 Diverticulitis of intestine, part unspecified, with perforation and abscess without bleeding; I27.22 Pulmonary hypertension due to left heart disease; I11.0 Hypertensive heart disease with heart failure; I73.9 Peripheral vascular disease, unspecified; I48.91 Unspecified atrial fibrillation; R54 Age-related physical debility; I08.3 Combined rheumatic disorders of mitral, aortic and tricuspid valves; K44.9 Diaphragmatic hernia without obstruction or gangrene; K21.9 Gastro-esophageal reflux disease without esophagitis; R01.1 Cardiac murmur, unspecified; E78.2 Mixed hyperlipidemia; Z95.5 Presence of coronary angioplasty implant and graft; I25.2 Old myocardial infarction; Z79.01 Long term (current) use of anticoagulants; Z79.82 Long term (current) use of aspirin; Z79.899 Other long term (current) drug therapy; Z82.49 Family history of ischemic heart disease and other diseases of the circulatory system; Z88.0 Allergy status to penicillin; Z88.5 Allergy status to narcotic agent; Z88.8 Allergy status to other drugs, medicaments and biological substances
CPT/HCPCS: 36415; 71046; 80053; 80061; 83735; 84484; 85025; 85610; 85730; 93005; 93306; 96365; 96366; 96367; 99285

== ENCOUNTER 2024-02-07 14:31 | Emergency (ER) | payer MEDICARE ==
[2024-02-07] MEDS ORDERED: KETOROLAC 15 MG/ML 1 ML VIAL ONE (14:48)
[2024-02-07] MEDS ORDERED: HYDROmorphone 0.5 MG/0.5 ML SYRINGE ONE (16:16)
--- NOTE | 2024-03-14 12:33 | XR ---
[id number] Marsha Ramirez : 1935 EXAM: 3 views of the right shoulder DATE: 02/07/2024 17:04 INDICATION: Pain COMPARISON: None, please note PACS downtime occurred during the radiologist interpretation of these i mages with limited priors/reports. TECHNIQUE: shoulder was examined in AP, internally rotated and scapular Y projections. . FINDINGS: No evidence of acute osseous pathology, joint dislocation, or soft tissue swelling. The remaining por tions of the visualized chest are unremarkable. Osteophyte formation of the humerus, glenoid, acromio n and distal clavicle. IMPRESSION: No acute osseous pathology. Moderate acromioclavicular and glenohumeral osteoarthrosis. [facility], , 03/14/2024 12:31 PM
--- NOTE | 2024-03-14 12:33 | XR ---
[id number] Marsha Ramirez : 1935 FALL/PAIN EXAM: 4 views of the lumbar spine. DATE: 02/07/2024 17:04 INDICATION: Pain COMPARISON: None, please note PACS downtime occurred during the radiologist interpretation of these i mages with limited priors/reports. TECHNIQUE: ; The lumbar spine was examined in AP, lateral, and coned-down L5-S1. FINDINGS: Diffuse osseous demineralization. No evidence of any acute osseous pathology. No evidence of loss of vertebral body height is seen. There is normal alignment of the lumbar vertebral bodies. O steophyte formation along the margins of the vertebral bodies. Mild scattered disc space narrowing. S cattered facet joint arthropathy. Scattered moderate neural foraminal stenosis. Spinal canal appears patent. Atherosclerosis of the arterial vasculature. IMPRESSION: 1. No evidence for fracture. 2. Moderate degeneration changes throughout the spine. [facility], , 03/14/2024 12:30 PM
--- NOTE | 2024-03-14 12:33 | XR ---
[id number] Marsha Ramirez : 1935 EXAM: The sacrum and coccyx was evaluated in 3 views DATE: 02/07/2024 17:14 INDICATION: FALL/PAIN COMPARISON: None, please note PACS downtime occurred during the radiologist interpretation of these i mages with limited priors/reports. TECHNIQUE: The sacrum and coccyx was examined in a frontal and lateral projections. FINDINGS: There is no evidence of fracture or dislocation. There is no soft tissue abnormality. No i ntra-abdominal or pelvic calcifications are noted. Atherosclerosis arterial vasculature. Hernia ancho rs are present. Mild degeneration changes of the hips. IMPRESSION: No acute osseous pathology. [facility], , 03/14/2024 12:31 PM
== END 2024-02-07 16:40 | disposition home or self-care (01) ==
LOC: EC 14:31
CPT/HCPCS: 72110; 72220; 96374; 96375; 99283